=== PATIENT | female | born 1940 | race Caucasian/White ===

== ENCOUNTER 2022-02-25 12:42 | Inpatient (IN) | payer MEDICARE, OTHER ==
[2022-02-25] MEDS ORDERED: methylPREDNISolone SOD SUCCI 125 MG/2 ML VIAL IV STA (13:14)
[2022-02-25] MEDS ORDERED: SODIUM CHLORIDE 0.9% 1,000 ML IV STA ×2 (13:14)
[2022-02-25] MEDS ORDERED: IPRATROPIUM-ALBUTEROL 3 ML NEB INHALATION STA (13:14)
--- NOTE | 2022-02-25 13:19 | ED ---
URI HPI - General Chief Complaint: Upper Respiratory Infection Stated Complaint: COVID Time Seen by Provider: 02/25/22 13:06 Source: patient, EMS Mode of arrival: EMS Limitations: no limitations - History of Present Illness Initial Comments: This 81-year-old female presents with a complaint of difficulty in breathing cough. She relates that she was diagnosed with Covid 19 in the last couple of weeks. She was having some cough at that time. It got worse over the last 2 days. This is a nonproductive cough. She denies any fever or chest pain. She complains of significant weakness. She also thinks that she has a urinary tract infection. She has had significant frequency as well as dysuria. She has not been eating or drinking as much is normal. She states that it is difficult for here to even walk across the room. She was seen by her primary care this morning and sent to the ER for further evaluation and treatment. She does relate a history of COPD but does not utilize home oxygen and is treated with inhalers but not a nebulizer. She denies any other complaints or modifying factors. - Related Data Home Medications Medication Instructions Recorded Confirmed Albuterol Inhaler [Ventolin Hfa 2 puff INHALATION RT-Q4H PRN 02/17/22 02/17/22 Inhaler] Apixaban [Eliquis] 5 mg PO BID 02/17/22 02/17/22 Benzonatate 100 mg PO TID PRN 02/17/22 02/17/22 D3 Plus K2 Dots 1 tab PO DAILY 02/17/22 02/17/22 DULoxetine HCL [Cymbalta] 60 mg PO DAILY 02/17/22 02/17/22 LORazepam 0.5 mg PO TID PRN 02/17/22 02/17/22 Metoprolol Tartrate [Lopressor] 100 mg PO BID 02/17/22 02/17/22 Mirtazapine [Remeron] 15 mg PO HS 02/17/22 02/17/22 Nortriptyline [Pamelor] 25 mg PO TID 02/17/22 02/17/22 Pantoprazole Sodium [Protonix] 40 mg PO BID 02/17/22 02/17/22 Prochlorperazine [Compazine] 10 mg PO Q6H PRN 02/17/22 02/17/22 Promethazine [Phenergan] 25 mg PO Q6HR PRN 02/17/22 02/17/22 Simvastatin [Zocor] 40 mg PO HS 02/17/22 02/17/22 Solifenacin Succinate [Vesicare] 5 mg PO DAILY 02/17/22 02/17/22 Tiotropium Br/Olodaterol HCl 2 puff INHALATION RT-DAILY 02/17/22 02/17/22 [Stiolto Respimat Inhal [place]] Torsemide [Soaanz] 20 mg PO DAILY 02/17/22 02/17/22 Turmeric Root Extract [Turmeric] 500 mg PO DAILY 02/17/22 02/17/22 Vitamin [id number] 1 tab SUBLINGUAL DAILY 02/17/22 02/17/22 oxyCODONE HCL/ACETAMINOPHEN 1 tab PO Q6HR PRN 02/17/22 02/17/22 [Percocet 10-325 mg] rOPINIRole HCL [Requip] 2 mg PO BID 02/17/22 02/17/22 Previous Rx's Medication Instructions Recorded Azithromycin [Zithromax] 500 mg PO DAILY@1600 #4 tab 02/18/22 predniSONE [Deltasone] 40 mg PO DAILY 4 Days #8 tab 02/18/22 Allergies Allergy/AdvReac Type Severity Reaction Status Date / Time morphine Allergy Itching Verified 02/17/22 10:54 tizanidine [From Zanaflex] Allergy Unknown Verified 02/17/22 10:54 zolpidem [From Ambien] Allergy Unknown Verified 02/17/22 10:54 gabapentin AdvReac Hallucinati Verified 02/17/22 10:54 ons hydromorphone [From Dilaudid] AdvReac Hallucinati Verified 02/17/22 10:54 ons pentazocine [From Talwin] AdvReac Hallucinati Verified 02/17/22 10:54 ons pregabalin [From Lyrica] AdvReac Hallucinati Verified 02/17/22 10:54 ons Review of Systems ROS Statement: Those systems with pertinent positive or pertinent negative responses have been documented in the HPI. ROS Other: All systems not noted in ROS Statement are negative. Past Medical History Past Medical History: Atrial Fibrillation, Cancer, COPD, Hypertension Additional Past Medical History / Comment(s): breast cancer 2000 and bladder cancer History of Any Multi-Drug Resistant Organisms: None Reported Past Surgical History: Back Surgery, Cardiac Valve Replacement, Joint Replacement, Orthopedic Surgery, Pacemaker, Tonsillectomy, Tubal Ligation Additional Past Surgical History / Comment(s): bilat knees, rt shoulder repair, lung nodule removal Past Anesthesia/Blood Transfusion Reactions: No Reported Reaction Type of Cardiac Device: Unknown Device Placement Date:: 02/16/2017 Past Psychological History: No Psychological Hx Reported, Depression Smoking Status: Former smoker Past Alcohol Use History: Occasional Past Drug Use History: None Reported General Exam - General Exam Comments Initial Comments: GENERAL: The patient is well nourished and well hydrated. VITAL SIGNS: Heart rate, blood pressure, respiratory rate reviewed as recorded in nurse's notes. EYES: Pupils are round and reactive. Extraocular movements are intact. No conjun ctival / lid redness or swelling. ENT: No external evidence of injury, swelling, or ecchymosis. Airway is patent. Throat is clear. Dry mucous membranes. NECK: Nontender. No swelling or evidence of injury. No subcutaneous emphysema. Trachea is midline. No thyroid mass. HEART: Regular rate and rhythm. Good peripheral pulses. LUNGS/CHEST: Wheezing noted bilaterally, no current respiratory distress. ABDOMEN: Abdomen soft without tenderness. No palpable masses or organomegaly. No peritoneal signs. No abdominal wall swelling or ecchymosis. EXTREMITIES: No extremity tenderness. Normal muscle tone and function. No thoracolumbar tenderness. NEUROLOGIC: Sensation is grossly intact. Cranial nerve exam reveals face is symmetrical, tongue is midline, speech is clear. SKIN: No abrasions or ecchymosis is noted. No induration or masses noted. PSYCHIATRIC: Alert and oriented. Appropriate behavior and judgment. Limitations: no limitations Course Vital Signs 02/25/22 02/25/22 02/25/22 12:45 12:55 14:55 Temperature 98.5 F Pulse Rate 78 62 Respiratory 16 20 Rate Blood Pressure 91/59 O2 Sat by Pulse 96 Oximetry 02/25/22 15:16 Temperature Pulse Rate 64 Respiratory Rate Blood Pressure O2 Sat by Pulse Oximetry Medical Decision Making - Medical Decision Making The patient was seen and examined. All diagnostics are reviewed. The EKG shows evidence of an electronic ventricular pacemaker. There is no acute ST-T wave changes otherwise noted. The QRS duration is 146 and the QTC intervals 503. IV is established and patient is hydrated. The COVID-19 test came back positive. She also has evidence of urinary tract infection. She is given Rocephin intravenously. Her troponin came back mildly elevated as well but she is not experiencing any chest pain currently. She is given an aspirin. Her chest x-ray does not show any acute process. She also appears to be dehydrated. It is felt as though she would require admission for further treatment. She is agreeable. Her symptoms likely are both related to COVID-19 and urinary tract infection. The patient is weak to the point that she cannot ambulate on her own. Nurse states that she is extremely unsteady. Case is discussed with internal medicine and they're agreeable with admission. - Lab Data Result diagrams: 02/25/22 13:53 02/25/22 13:53 Lab Results 02/25/22 02/25/22 02/25/22 Range/Units 13:53 13:53 13:53 WBC 6.0 (3.8-10.6) k/uL RBC 6.03 H (3.80-5.40) m/uL Hgb 16.6 H D (11.4-16.0) gm/dL Hct 52.3 H (34.0-46.0) % MCV 86.7 (80.0-100.0) fL MCH 27.5 (25.0-35.0) pg MCHC 31.8 (31.0-37.0) g/dL RDW 17.4 H (11.5-15.5) % Plt Count 122 L (150-450) k/uL MPV 8.7 Neutrophils % 80 % Lymphocytes % 13 % Monocytes % 5 % Eosinophils % 1 % Basophils % 1 % Neutrophils # 4.8 (1.3-7.7) k/uL Lymphocytes # 0.8 L (1.0-4.8) k/uL Monocytes # 0.3 (0-1.0) k/uL Eosinophils # 0.1 (0-0.7) k/uL Basophils # 0.0 (0-0.2) k/uL Hypochromasia Marked Poikilocytosis Slight Anisocytosis Slight PT 10.9 (9.0-12.0) sec INR 1.0 (<1.2) APTT 23.6 (22.0-30.0) sec Sodium (137-145) mmol/L Potassium (3.5-5.1) mmol/L Chloride (98-107) mmol/L Carbon Dioxide (22-30) mmol/L Anion Gap mmol/L BUN (7-17) mg/dL Creatinine (0.52-1.04) mg/dL Est GFR (CKD-EPI)AfAm (>60 ml/min/1.73 sqM) Est GFR (CKD-EPI)NonAf (>60 ml/min/1.73 sqM) Glucose (74-99) mg/dL Plasma Lactic Acid Naseem (0.7-2.0) mmol/L Calcium (8.4-10.2) mg/dL Magnesium (1.6-2.3) mg/dL Total Bilirubin (0.2-1.3) mg/dL AST (14-36) U/L ALT (4-34) U/L Alkaline Phosphatase (38-126) U/L Troponin I (0.000-0.034) ng/mL NT-Pro-B Natriuret Pep pg/mL Total Protein (6.3-8.2) g/dL Albumin (3.5-5.0) g/dL Urine Color Colorless Urine Appearance Cloudy H (Clear) Urine pH 6.5 (5.0-8.0) Ur Specific [place] 1.008 (1.001-1.035) Urine Protein Negative (Negative) Urine Glucose (UA) Negative (Negative) Urine Ketones Negative (Negative) Urine Blood Negative (Negative) Urine Nitrite Negative (Negative) Urine Bilirubin Negative (Negative) Urine Urobilinogen <2.0 (<2.0) mg/dL Ur Leukocyte Esterase Large H (Negative) Urine RBC 2 (0-5) /hpf Urine WBC 169 H (0-5) /hpf Urine Mucus Rare H (None) /hpf Coronavirus (PCR) (Not Detectd) Influenza Type A RNA (Not Detectd) Influenza Type B (PCR) (Not Detectd) 02/25/22 02/25/22 02/25/22 Range/Units 13:53 13:53 13:53 WBC (3.8-10.6) k/uL RBC (3.80-5.40) m/uL Hgb (11.4-16.0) gm/dL Hct (34.0-46.0) % MCV (80.0-100.0) fL MCH (25.0-35.0) pg MCHC (31.0-37.0) g/dL RDW (11.5-15.5) % Plt Count (150-450) k/uL MPV Neutrophils % % Lymphocytes % % Monocytes % % Eosinophils % % Basophils % % Neutrophils # (1.3-7.7) k/uL Lymphocytes # (1.0-4.8) k/uL Monocytes # (0-1.0) k/uL Eosinophils # (0-0.7) k/uL Basophils # (0-0.2) k/uL Hypochromasia Poikilocytosis Anisocytosis PT (9.0-12.0) sec INR (<1.2) APTT (22.0-30.0) sec Sodium 137 (137-145) mmol/L Potassium 3.7 (3.5-5.1) mmol/L Chloride 94 L (98-107) mmol/L Carbon Dioxide 29 (22-30) mmol/L Anion Gap 14 mmol/L BUN 17 (7-17) mg/dL Creatinine 0.90 (0.52-1.04) mg/dL Est GFR (CKD-EPI)AfAm 70 (>60 ml/min/1.73 sqM) Est GFR (CKD-EPI)NonAf 61 (>60 ml/min/1.73 sqM) Glucose 116 H (74-99) mg/dL Plasma Lactic Acid Naseem 1.9 (0.7-2.0) mmol/L Calcium 8.7 (8.4-10.2) mg/dL Magnesium 1.5 L (1.6-2.3) mg/dL Total Bilirubin 0.8 (0.2-1.3) mg/dL AST 44 H (14-36) U/L ALT 32 (4-34) U/L Alkaline Phosphatase 83 (38-126) U/L Troponin I 0.039 H* (0.000-0.034) ng/mL NT-Pro-B Natriuret Pep pg/mL Total Protein 6.9 (6.3-8.2) g/dL Albumin 4.4 (3.5-5.0) g/dL Urine Color Urine Appearance (Clear) Urine pH (5.0-8.0) Ur Specific [place] (1.001-1.035) Urine Protein (Negative) Urine Glucose (UA) (Negative) Urine Ketones (Negative) Urine Blood (Negative) Urine Nitrite (Negative) Urine Bilirubin (Negative) Urine Urobilinogen (<2.0) mg/dL Ur Leukocyte Esterase (Negative) Urine RBC (0-5) /hpf Urine WBC (0-5) /hpf Urine Mucus (None) /hpf Coronavirus (PCR) (Not Detectd) Influenza Type A RNA (Not Detectd) Influenza Type B (PCR) (Not Detectd) 02/25/22 02/25/22 02/25/22 Range/Units 13:53 14:49 14:49 WBC (3.8-10.6) k/uL RBC (3.80-5.40) m/uL Hgb (11.4-16.0) gm/dL Hct (34.0-46.0) % MCV (80.0-100.0) fL MCH (25.0-35.0) pg MCHC (31.0-37.0) g/dL RDW (11.5-15.5) % Plt Count (150-450) k/uL MPV Neutrophils % % Lymphocytes % % Monocytes % % Eosinophils % % Basophils % % Neutrophils # (1.3-7.7) k/uL Lymphocytes # (1.0-4.8) k/uL Monocytes # (0-1.0) k/uL Eosinophils # (0-0.7) k/uL Basophils # (0-0.2) k/uL Hypochromasia Poikilocytosis Anisocytosis PT (9.0-12.0) sec INR (<1.2) APTT (22.0-30.0) sec Sodium (137-145) mmol/L Potassium (3.5-5.1) mmol/L Chloride (98-107) mmol/L Carbon Dioxide (22-30) mmol/L Anion Gap mmol/L BUN (7-17) mg/dL Creatinine (0.52-1.04) mg/dL Est GFR (CKD-EPI)AfAm (>60 ml/min/1.73 sqM) Est GFR (CKD-EPI)NonAf (>60 ml/min/1.73 sqM) Glucose (74-99) mg/dL Plasma Lactic Acid Naseem (0.7-2.0) mmol/L Calcium (8.4-10.2) mg/dL Magnesium (1.6-2.3) mg/dL Total Bilirubin (0.2-1.3) mg/dL AST (14-36) U/L ALT (4-34) U/L Alkaline Phosphatase (38-126) U/L Troponin I (0.000-0.034) ng/mL NT-Pro-B Natriuret Pep 1560 pg/mL Total Protein (6.3-8.2) g/dL Albumin (3.5-5.0) g/dL Urine Color Urine Appearance (Clear) Urine pH (5.0-8.0) Ur Specific [place] (1.001-1.035) Urine Protein (Negative) Urine Glucose (UA) (Negative) Urine Ketones (Negative) Urine Blood (Negative) Urine Nitrite (Negative) Urine Bilirubin (Negative) Urine Urobilinogen (<2.0) mg/dL Ur Leukocyte Esterase (Negative) Urine RBC (0-5) /hpf Urine WBC (0-5) /hpf Urine Mucus (None) /hpf Coronavirus (PCR) Detected A (Not Detectd) Influenza Type A RNA Not Detected (Not Detectd) Influenza Type B (PCR) Not Detected (Not Detectd) Disposition Clinical Impression: COVID-19, UTI (urinary tract infection), Weakness, Dehydration, Inability to walk Disposition: ADMITTED IP TO THIS HOSP Condition: Fair Is patient prescribed a controlled substance at d/c from ED?: No Time of Disposition: 15:17 Decision Date: 02/25/22 Decision Time: 15:17
--- NOTE | 2022-02-25 14:43 | XR ---
EXAMINATION TYPE: XR chest 2V DATE OF EXAM: 02/25/2022 COMPARISON: 02/17/2022 HISTORY: 81 year-old female shortness of breath, difficulty breathing. TECHNIQUE: AP and lateral views FINDINGS: Left anterior chest wall pacemaker generator with internal leads. Heart borderline enlarged. Tortuous /ectatic thoracic aorta. Interstitial prominence is unchanged. ACDF hardware. The visualized posterio r lumbar fusion hardware. No consolidation or pleural effusion. Surgical clips left axilla. IMPRESSION: Borderline heart size. Chronic changes. No acute process seen.
[2022-02-25 14:49] LABS: Partial Thromboplastin Time 23.6 sec (22.0-30.0); Prothrombin Time 10.9 sec (9.0-12.0)
[2022-02-25 14:50] LABS: Albumin 4.4 g/dL (3.5-5.0); Calcium 8.7 mg/dL (8.4-10.2); Magnesium 1.5 mg/dL (1.6-2.3); Potassium 3.7 mmol/L (3.5-5.1); Total Bilirubin 0.8 mg/dL (0.2-1.3); Total Protein 6.9 g/dL (6.3-8.2)
[2022-02-25 14:58] LABS: Appearance,Urine Cloudy (Clear); Bilirubin,Urine Negative (Negative); Blood,Urine Negative (Negative); Color,Urine Colorless; Glucose,Urine (UA) Negative (Negative); Ketones,Urine Negative (Negative); Leukocyte Esterase,Urine Large (Negative); Mucus,Urine Rare /hpf; Nitrite,Urine Negative (Negative); PH, Urine 6.5 (5.0-8.0); Protein,Urine Negative (Negative); RBC,Urine 2 /hpf (0-5); Specific Gravity,Urine 1.008 (1.001-1.035); Urobilinogen,Urine <2.0 mg/dL (<2.0); WBC,Urine 169 /hpf (0-5)
[2022-02-25 15:15] LABS: Anisocytosis Slight; Basophils % (A) 1 %; Eosinophils # (A) 0.1 k/uL (0-0.7); Eosinophils % (A) 1 %; HCT 52.3 % (34.0-46.0); Hypochromasia Marked; Lymphocytes # (A) 0.8 k/uL (1.0-4.8); Lymphocytes % (A) 13 %; MCH 27.5 pg (25.0-35.0); MCHC 31.8 g/dL (31.0-37.0); MCV 86.7 fL (80.0-100.0); Mean Platelet Volume 8.7; Monocytes # (A) 0.3 k/uL (0-1.0); Monocytes % (A) 5 %; Neutrophils # (A) 4.8 k/uL (1.3-7.7); Neutrophils % (A) 80 %; Platelet Count 122 k/uL (150-450); Poikilocytosis Slight; RBC 6.03 m/uL (3.80-5.40); RDW 17.4 % (11.5-15.5)
[2022-02-25 15:18] LABS: HGB 16.6 gm/dL (11.4-16.0)
[2022-02-25] MEDS ORDERED: NALOXONE 0.4 MG/ML 1 ML VIAL IV PRN (15:27)
[2022-02-25] MEDS ORDERED: ACETAMINOPHEN TAB 325 MG TAB PO PRN (15:27)
[2022-02-25] MEDS ORDERED: ONDANSETRON 4 MG/2 ML VIAL IVP PRN (15:27)
[2022-02-25] MEDS ORDERED: oxyCODONE-APAP 10-325MG 1 EACH TAB PO STA (15:30)
[2022-02-25] MEDS ORDERED: SODIUM CHLORIDE 0.9% 1,000 ML IV SCH (15:30)
[2022-02-25] MEDS ORDERED: ASPIRIN 81 MG PO STA (15:31)
[2022-02-25] MEDS ORDERED: PROCHLORPERAZINE 10 MG TAB PO PRN (15:41)
[2022-02-25] MEDS ORDERED: BENZONATATE 100 MG CAP PO PRN (15:41)
[2022-02-25] MEDS ORDERED: ALBUTEROL HFA INHALER INHALATION PRN ×2 (15:41→15:52)
[2022-02-25] MEDS ORDERED: PROMETHAZINE 25 MG TAB PO PRN (15:41)
[2022-02-25] MEDS: NORTRIPTYLINE 25 MG CAP PO SCH ×2 (16:41→21:57)
[2022-02-25] MEDS ORDERED: IPRATROPIUM-ALBUTEROL 3 ML NEB INHALATION PRN (16:51)
--- NOTE | 2022-02-25 17:02 | P.HPIM ---
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 She was recently diagnosed with COVID-19 on 02/17/2022. She was recently admitted on February 17 and discharged on February 18. Patient states that she was initially doing well when she went home. Over the next couple of days, she started to experience worsening shortness of breath with exertion along with lightheadedness when standing up. She reports a nonproductive cough. She also reports suprapubic discomfort and dysuria. She denies any headache, lower extremity edema, nausea vomiting, fever or chills, chest pain, palpitations, changes in bowel habits. No changes in appetite or weight. She denies any numbness/weakness/tingling of the extremities. In the ED, she was noted to be hypotensive BP of 91/59. Vital signs were otherwise stable. CBC showed hemoglobin of 16.6 and platelet count 122. CMP showed chloride of 94 and glucose of 116, magnesium 1.5, AST of 44. Coagulation panel negative. Troponin was 0.039, EKG showing electronic ventricular pacemaker rhythm chest x-ray showed cardiomegaly with no acute process. BNP was 1560. Urinalysis showed large leukocyte esterase. COVID-19 positive. Flu negative. Review of systems is performed and is negative except above. General: non toxic, mild distress, appears at stated age, appears dyspnea Derm: warm, dry Head: atraumatic, normocephalic, symmetric Eyes: EOMI, no lid lag, anicteric sclera Mouth: no lip lesion, mucus membranes moist Cardiovascular: S1S2 reg, no murmur, positive posterior tibial pulse bilateral, Lungs: Diffuse wheezing bilateral, no rhonchi, no rales , no accessory muscle use Abdominal: soft, nontender to palpation, no guarding, no appreciable organomegaly Ext: no gross muscle atrophy, no edema, no contractures Neuro: CN II-XI grossly intact, no focal neuro deficits Psych: Alert, oriented, appropriate affect #Generalized weakness and debility #COPD exacerbation #COVID-19 pneumonia #Urinary tract infection #Troponin elevation #Hypotension and Dehydration #Hypomagnesemia #Elevated AST #Obesity Chronic conditions: History of paroxysmal atrial fibrillation, History of complete heart block with dual-chamber pacemaker, Restless leg syndrome, depression PT and OT will be consulted to work with this patient. Fall precautions. Patient will be started on DuoNeb scheduled and is here for shortness of breath and wheezing. Start Solu-Medrol. Telemetry monitoring. Supplemental O2 to maintain O2 saturation greater than 92%. Droplet precaution. Start Rocephin for treatment and UTI. Follow urine and blood cultures. Trend troponin/EKG to rule out ACS. Obtain echocardiogram. Continue aspirin and Lipitor. Continue metoprolol. Start normal saline at 75 mL per hour. Obtain orthostatic vitals. Vital signs every 4 hours. Magnesium sulfate 4 gram IV today. Repeating magnesium level tomorrow. Patient will benefit from a structured weight loss program. Continue beta katherine and Eliquis for history of atrial fibrillation. Continue Requip for history of RLS. Restart Cymbalta and Remeron for history of depression. DVT prophylaxis: Arlettequzehra Discussed with: Patient, ED physician Anticipated discharge: 2-[address]: Home versus long term facility A total of 35 minutes was spent on the care of this complex patient more than 50% of the time was spent in counseling and care coordination. Patient names her decision maker if she can't make decisions for herself. Patient would like to be full code. Past Medical History Past Medical History: Atrial Fibrillation, Cancer, COPD, Hypertension Additional Past Medical History / Comment(s): breast cancer 2000 and bladder cancer History of Any Multi-Drug Resistant Organisms: None Reported Past Surgical History: Back Surgery, Cardiac Valve Replacement, Joint Replacement, Orthopedic Surgery, Pacemaker, Tonsillectomy, Tubal Ligation Additional Past Surgical History / Comment(s): bilat knees, rt shoulder repair, lung nodule removal Past Anesthesia/Blood Transfusion Reactions: No Reported Reaction Type of Cardiac Device: Unknown Device Placement Date:: 02/16/2017 Past Psychological History: No Psychological Hx Reported, Depression Smoking Status: Former smoker Past Alcohol Use History: Occasional Past Drug Use History: None Reported Medications and Allergies Home Medications Medication Instructions Recorded Confirmed Type Albuterol Inhaler [Ventolin Hfa 2 puff INHALATION RT-Q4H PRN 02/17/22 02/25/22 History Inhaler] Apixaban [Eliquis] 5 mg PO BID 02/17/22 02/25/22 History Benzonatate 100 mg PO TID PRN 02/17/22 02/25/22 History D3 Plus K2 Dots 1 tab PO DAILY 02/17/22 02/25/22 History DULoxetine HCL [Cymbalta] 60 mg PO DAILY 02/17/22 02/25/22 History LORazepam 0.5 mg PO TID PRN 02/17/22 02/25/22 History Metoprolol Tartrate [Lopressor] 100 mg PO BID 02/17/22 02/25/22 History Mirtazapine [Remeron] 15 mg PO HS 02/17/22 02/25/22 History Nortriptyline [Pamelor] 25 mg PO TID 02/17/22 02/25/22 History Pantoprazole Sodium [Protonix] 40 mg PO BID 02/17/22 02/25/22 History Prochlorperazine [Compazine] 10 mg PO Q6H PRN 02/17/22 02/25/22 History Promethazine [Phenergan] 25 mg PO Q6HR PRN 02/17/22 02/25/22 History Simvastatin [Zocor] 40 mg PO HS 02/17/22 02/25/22 History Solifenacin Succinate [Vesicare] 5 mg PO DAILY 02/17/22 02/25/22 History Tiotropium Br/Olodaterol HCl 2 puff INHALATION RT-DAILY 02/17/22 02/25/22 History [Stiolto Respimat Inhal [place]] Torsemide [Soaanz] 20 mg PO DAILY 02/17/22 02/25/22 History Turmeric Root Extract [Turmeric] 500 mg PO DAILY 02/17/22 02/25/22 History Vitamin [id number] 1 tab SUBLINGUAL DAILY 02/17/22 02/25/22 History oxyCODONE HCL/ACETAMINOPHEN 1 tab PO Q6HR PRN 02/17/22 02/25/22 History [Percocet 10-325 mg] rOPINIRole HCL [Requip] 2 mg PO BID 02/17/22 02/25/22 History Allergies Allergy/AdvReac Type Severity Reaction Status Date / Time morphine Allergy Itching Verified 02/17/22 10:54 tizanidine [From Zanaflex] Allergy Unknown Verified 02/17/22 10:54 zolpidem [From Ambien] Allergy Unknown Verified 02/17/22 10:54 gabapentin AdvReac Hallucinati Verified 02/17/22 10:54 ons hydromorphone [From Dilaudid] AdvReac Hallucinati Verified 02/17/22 10:54 ons pentazocine [From Talwin] AdvReac Hallucinati Verified 02/17/22 10:54 ons pregabalin [From Lyrica] AdvReac Hallucinati Verified 02/17/22 10:54 ons Physical Exam Vitals: Vital Signs Temp Pulse Resp BP Pulse Ox 02/25/22 16:57 97.7 F 63 16 125/58 94 L 02/25/22 15:16 64 02/25/22 14:55 62 02/25/22 12:55 20 02/25/22 12:45 98.5 F 78 16 91/59 96 Intake and Output 02/25/22 02/25/22 02/25/22 06:59 14:59 22:59 Other: Weight 68.039 kg Results CBC & Chem 7: 02/25/22 13:53 02/25/22 13:53 Labs: Abnormal Lab Results - Last 24 Hours (Table) 02/25/22 02/25/22 02/25/22 Range/Units 13:53 13:53 13:53 RBC 6.03 H (3.80-5.40) m/uL Hgb 16.6 H D (11.4-16.0) gm/dL Hct 52.3 H (34.0-46.0) % RDW 17.4 H (11.5-15.5) % Plt Count 122 L (150-450) k/uL Lymphocytes # 0.8 L (1.0-4.8) k/uL Chloride 94 L (98-107) mmol/L Glucose 116 H (74-99) mg/dL Magnesium 1.5 L (1.6-2.3) mg/dL AST 44 H (14-36) U/L Troponin I (0.000-0.034) ng/mL Urine Appearance Cloudy H (Clear) Ur Leukocyte Esterase Large H (Negative) Urine WBC 169 H (0-5) /hpf Urine Mucus Rare H (None) /hpf Coronavirus (PCR) (Not Detectd) 02/25/22 02/25/22 Range/Units 13:53 14:49 RBC (3.80-5.40) m/uL Hgb (11.4-16.0) gm/dL Hct (34.0-46.0) % RDW (11.5-15.5) % Plt Count (150-450) k/uL Lymphocytes # (1.0-4.8) k/uL Chloride (98-107) mmol/L Glucose (74-99) mg/dL Magnesium (1.6-2.3) mg/dL AST (14-36) U/L Troponin I 0.039 H* (0.000-0.034) ng/mL Urine Appearance (Clear) Ur Leukocyte Esterase (Negative) Urine WBC (0-5) /hpf Urine Mucus (None) /hpf Coronavirus (PCR) Detected A (Not Detectd)
[2022-02-25 18:36] LABS: Glucose,Whole Blood 305 mg/dL (70-110)
[2022-02-25] MEDS ORDERED: INSULIN ASPART (NovoLOG) 100 UNIT/ML VIAL SQ ONE (18:43)
[2022-02-25] MEDS: MAGNESIUM SULFATE-D5W PMX 1 GM in DEXTROSE/WATER 1 100ML.BAG IVPB SCH ×2 (18:55→21:56)
[2022-02-25] MEDS: methylPREDNISolone SOD SUCCI 40 MG/ML 1 ML VIAL IV SCH (19:06)
[2022-02-25] MEDS: ALBUTEROL HFA INHALER INHALATION SCH (19:41)
[2022-02-25] MEDS ORDERED: IPRATROPIUM-ALBUTEROL 3 ML NEB INHALATION SCH (20:00)
[2022-02-25 21:43] LABS: Glucose,Whole Blood 297 mg/dL (70-110)
[2022-02-25] MEDS: INSULIN ASPART (NovoLOG) 100 UNIT/ML VIAL SQ SCH (21:57)
[2022-02-25] MEDS: APIXABAN 5 MG TAB PO SCH (21:57)
[2022-02-25] MEDS: METOPROLOL TARTRATE 50 MG TAB PO SCH (21:57)
[2022-02-25] MEDS: MIRTAZAPINE 15 MG TAB PO SCH (21:57)
[2022-02-25] MEDS: ATORVASTATIN 20 MG TAB PO SCH (21:57)
[2022-02-25] MEDS: oxyCODONE-APAP 10-325MG 1 EACH TAB PO PRN (22:12)
[2022-02-25] MEDS: LORazepam 0.5 MG TAB PO PRN (22:44)
[2022-02-26] MEDS: methylPREDNISolone SOD SUCCI 40 MG/ML 1 ML VIAL IV SCH ×4 (00:05→16:48)
[2022-02-26] MEDS: MAGNESIUM SULFATE-D5W PMX 1 GM in DEXTROSE/WATER 1 100ML.BAG IVPB SCH ×2 (01:31)
[2022-02-26] MEDS: oxyCODONE-APAP 10-325MG 1 EACH TAB PO PRN ×3 (03:58→21:18)
[2022-02-26 05:49] LABS: Glucose,Whole Blood 216 mg/dL (70-110)
[2022-02-26] MEDS: INSULIN ASPART (NovoLOG) 100 UNIT/ML VIAL SQ SCH ×4 (06:12→20:18)
[2022-02-26] MEDS: PANTOPRAZOLE 40 MG TABLET PO SCH (06:12)
[2022-02-26] MEDS: ALBUTEROL HFA INHALER INHALATION SCH ×4 (08:01→19:24)
[2022-02-26] MEDS: TIOTROPIUM 2.5 MCG INHALER INHALATION SCH (08:01)
[2022-02-26] MEDS: Salmeterol 50 mcg INHALER INHALATION SCH ×2 (08:11→19:23)
[2022-02-26] MEDS ORDERED: [UNRECOGNIZED DRUG - OTHER] PO SCH (09:00)
[2022-02-26] MEDS ORDERED: NON FORMULARY DRUG (Turmeric Root Extract [Turmeric] 500 MG Tablet) PO SCH (09:00)
[2022-02-26] MEDS ORDERED: ENOXAPARIN 40 MG/0.4 ML SYRINGE SQ SCH (09:00)
[2022-02-26] MEDS: TROSPIUM CHLORIDE 20 MG TABLET PO SCH (09:28)
[2022-02-26] MEDS: APIXABAN 5 MG TAB PO SCH ×2 (09:28→20:18)
[2022-02-26] MEDS: ASPIRIN 325 MG TAB PO SCH (09:28)
[2022-02-26] MEDS: NORTRIPTYLINE 25 MG CAP PO SCH ×3 (09:28→21:19)
[2022-02-26] MEDS: METOPROLOL TARTRATE 50 MG TAB PO SCH ×2 (09:28→20:18)
[2022-02-26] MEDS: DULoxetine HCL 60 MG CAPSULE.DR PO SCH (09:28)
[2022-02-26] MEDS: TORSEMIDE 20 MG TAB PO SCH (09:28)
[2022-02-26 09:57] LABS: Anisocytosis Slight; Basophils % (A) 0 %; Eosinophils % (A) 0 %; HCT 35.3 % (34.0-46.0); Hypochromasia Marked; Lymphocytes # (A) 0.6 k/uL (1.0-4.8); Lymphocytes % (A) 7 %; MCH 27.7 pg (25.0-35.0); MCHC 31.5 g/dL (31.0-37.0); MCV 87.9 fL (80.0-100.0); Mean Platelet Volume 8.3; Monocytes # (A) 0.2 k/uL (0-1.0); Monocytes % (A) 3 %; Neutrophils # (A) 8.1 k/uL (1.3-7.7); Neutrophils % (A) 90 %; Platelet Count 225 k/uL (150-450); RBC 4.01 m/uL (3.80-5.40); WBC 9.1 k/uL (3.8-10.6)
[2022-02-26 10:08] LABS: Calcium 8.2 mg/dL (8.4-10.2); Magnesium 2.4 mg/dL (1.6-2.3); Potassium 4.1 mmol/L (3.5-5.1)
[2022-02-26] MEDS: [UNRECOGNIZED DRUG - OTHER] SUBLINGUAL SCH (10:09)
[2022-02-26 10:11] LABS: HGB 11.1 gm/dL (11.4-16.0)
[2022-02-26 11:39] LABS: Glucose,Whole Blood 263 mg/dL (70-110)
--- NOTE | 2022-02-26 12:39 | P.PN ---
Subjective Progress Note Date: 02/26/22 Patient was seen and examined. No acute events overnight. Patient reports continued cough and shortness of breath. She reports continued weakness. General: non toxic, mild distress, appears at stated age, appears dyspnea Derm: warm, dry Head: atraumatic, normocephalic, symmetric Eyes: EOMI, no lid lag, anicteric sclera Mouth: no lip lesion, mucus membranes moist Cardiovascular: S1S2 reg, no murmur, positive posterior tibial pulse bilateral, Lungs: Diffuse wheezing bilateral, no rhonchi, no rales , no accessory muscle use Abdominal: soft, nontender to palpation, no guarding, no appreciable organo megaly Ext: no gross muscle atrophy, no edema, no contractures Neuro: no focal neuro deficits Psych: Alert, oriented, appropriate affect #Generalized weakness and debility #COPD exacerbation #COVID-19 pneumonia #Urinary tract infection #Troponin elevation #Hypotension and Dehydration #Elevated AST #Obesity Resolved: Hypomagnesemia Chronic conditions: History of paroxysmal atrial fibrillation, History of complete heart block with dual-chamber pacemaker, Restless leg syndrome, depression PT and OT will be consulted to work with this patient. Fall precautions. Patient will be started on DuoNeb scheduled and is here for shortness of breath and wheezing. Continue Solu-Medrol. Telemetry monitoring. Supplemental O2 to maintain O2 saturation greater than 92%. Droplet precaution. Start Rocephin for treatment and UTI. Follow urine and blood cultures. ACS ruled out. Obtain echocardiogram. Continue aspirin and Lipitor. Continue metoprolol. Continue normal saline at 75 mL per hour. Obtain orthostatic vitals. Vital signs every 4 hours. Patient will benefit from a structured weight loss program. Continue beta katherine and Eliquis for history of atrial fibrillation. Continue Requip for history of RLS. Restart Cymbalta and Remeron for history of depression. DVT prophylaxis: Eliquis Discussed with: Patient Anticipated discharge: 2-[address]: Home versus assisted facility Objective - Vital Signs Vital signs: Vital Signs Temp 98.0 F 02/26/22 09:26 Pulse 70 02/26/22 09:26 Resp 18 02/26/22 09:26 BP 145/70 02/26/22 09:26 Pulse Ox 97 02/26/22 09:26 FiO2 Intake & Output 02/25/22 02/26/22 02/26/22 18:59 06:59 18:59 Weight 68.039 kg Other: Voiding Method Toilet Toilet # Voids 1 1 - Labs CBC & Chem 7: 02/26/22 09:33 02/26/22 09:33 Labs: Abnormal Lab Results - Last 24 Hours (Table) 02/25/22 02/25/22 02/25/22 Range/Units 13:53 13:53 13:53 RBC 6.03 H (3.80-5.40) m/uL Hgb 16.6 H D (11.4-16.0) gm/dL Hct 52.3 H (34.0-46.0) % RDW 17.4 H (11.5-15.5) % Plt Count 122 L (150-450) k/uL Neutrophils # (1.3-7.7) k/uL Lymphocytes # 0.8 L (1.0-4.8) k/uL Sodium (137-145) mmol/L Chloride 94 L (98-107) mmol/L BUN (7-17) mg/dL Glucose 116 H (74-99) mg/dL POC Glucose (mg/dL) (70-110) mg/dL Calcium (8.4-10.2) mg/dL Magnesium 1.5 L (1.6-2.3) mg/dL AST 44 H (14-36) U/L Troponin I (0.000-0.034) ng/mL Urine Appearance Cloudy H (Clear) Ur Leukocyte Esterase Large H (Negative) Urine WBC 169 H (0-5) /hpf Urine Mucus Rare H (None) /hpf Coronavirus (PCR) (Not Detectd) 02/25/22 02/25/22 02/25/22 Range/Units 13:53 14:49 18:35 RBC (3.80-5.40) m/uL Hgb (11.4-16.0) gm/dL Hct (34.0-46.0) % RDW (11.5-15.5) % Plt Count (150-450) k/uL Neutrophils # (1.3-7.7) k/uL Lymphocytes # (1.0-4.8) k/uL Sodium (137-145) mmol/L Chloride (98-107) mmol/L BUN (7-17) mg/dL Glucose (74-99) mg/dL POC Glucose (mg/dL) 305 H (70-110) mg/dL Calcium (8.4-10.2) mg/dL Magnesium (1.6-2.3) mg/dL AST (14-36) U/L Troponin I 0.039 H* (0.000-0.034) ng/mL Urine Appearance (Clear) Ur Leukocyte Esterase (Negative) Urine WBC (0-5) /hpf Urine Mucus (None) /hpf Coronavirus (PCR) Detected A (Not Detectd) 02/25/22 02/26/22 02/26/22 Range/Units 21:41 05:48 09:33 RBC (3.80-5.40) m/uL Hgb 11.1 L D (11.4-16.0) gm/dL Hct (34.0-46.0) % RDW 17.0 H (11.5-15.5) % Plt Count (150-450) k/uL Neutrophils # 8.1 H (1.3-7.7) k/uL Lymphocytes # 0.6 L (1.0-4.8) k/uL Sodium (137-145) mmol/L Chloride (98-107) mmol/L BUN (7-17) mg/dL Glucose (74-99) mg/dL POC Glucose (mg/dL) 297 H 216 H (70-110) mg/dL Calcium (8.4-10.2) mg/dL Magnesium (1.6-2.3) mg/dL AST (14-36) U/L Troponin I (0.000-0.034) ng/mL Urine Appearance (Clear) Ur Leukocyte Esterase (Negative) Urine WBC (0-5) /hpf Urine Mucus (None) /hpf Coronavirus (PCR) (Not Detectd) 02/26/22 02/26/22 Range/Units 09:33 11:36 RBC (3.80-5.40) m/uL Hgb (11.4-16.0) gm/dL Hct (34.0-46.0) % RDW (11.5-15.5) % Plt Count (150-450) k/uL Neutrophils # (1.3-7.7) k/uL Lymphocytes # (1.0-4.8) k/uL Sodium 133 L (137-145) mmol/L Chloride 94 L (98-107) mmol/L BUN 20 H (7-17) mg/dL Glucose 175 H (74-99) mg/dL POC Glucose (mg/dL) 263 H (70-110) mg/dL Calcium 8.2 L (8.4-10.2) mg/dL Magnesium 2.4 H (1.6-2.3) mg/dL AST (14-36) U/L Troponin I (0.000-0.034) ng/mL Urine Appearance (Clear) Ur Leukocyte Esterase (Negative) Urine WBC (0-5) /hpf Urine Mucus (None) /hpf Coronavirus (PCR) (Not Detectd) Microbiology - Last 24 Hours (Table) 02/25/22 13:53 Urine Culture - Preliminary Urine,Clean Catch
--- NOTE | 2022-02-26 12:58 | P.CRDCN ---
History of Present Illness Consult date: 02/26/22 Reason for Consult (text): Elevated troponin History of present illness: The patient is an 81-year-old female with past medical history of multiple comorbid conditions and who follows in the office with Dr. Ibarra. She presented to the hospital with worsening shortness of breath. She was diagnosed with COVID-19 on 02/17/2022 and was hospitalized around that time. On arrival she was hypotensive and was admitted for rehydration. Cardiology has been consulted for abnormal troponin. DIAGNOSTICS: EKG shows paced rhythm Chest x-ray shows no acute cardiopulmonary disease PAST MEDICAL HISTORY: Atrial fibrillation, permanent pacemaker, hypertension, valvular heart disease, COPD, former smoker REVIEW OF SYSTEMS: No fever or chills. No cough or expectoration. No diaphoresis. Patient denies headache, dizziness, blurred vision, double vision. Patient denies any stomach discomfort. No nausea, vomiting. No hematochezia. No hematemesis. Denies any black stools or blood in his stools. Denies dysuria or hematuria. No numbness. No chest pain or chest pressure. Positive for weakness and fatigue. Positive for shortness of breath PHYSICAL EXAMINATION: Limited exam secondary to COVID-19 pandemic FINAL ASSESSMENT AND PLAN: Abnormal troponin, unclear significance, downtrend Acute COVID-19 infection COPD exacerbation Urinary tract infection Dehydration PLAN: Hold diuretics at this time Resume metoprolol and anticoagulation Continue supportive treatment No further recommendations from the cardiac standpoint I am dictating on behalf of Dr Camden Brown's history/physical and assessment/plan. Past Medical History Past Medical History: Atrial Fibrillation, Cancer, COPD, Hypertension Additional Past Medical History / Comment(s): breast cancer 2000 and bladder ca ncer , carpletunn History of Any Multi-Drug Resistant Organisms: None Reported Past Surgical History: Back Surgery, Cardiac Valve Replacement, Joint Replacement, Orthopedic Surgery, Pacemaker, Tonsillectomy, Tubal Ligation Additional Past Surgical History / Comment(s): bilat knees, rt shoulder repair, lung nodule removal, both carotids repaired (occluded) Past Anesthesia/Blood Transfusion Reactions: No Reported Reaction Type of Cardiac Device: Permanent Pacemaker Device Placement Date:: 02/16/2017 Past Psychological History: Anxiety, Depression Smoking Status: Former smoker Past Alcohol Use History: Occasional Past Drug Use History: None Reported Medications and Allergies Home Medications Medication Instructions Recorded Confirmed Type Albuterol Inhaler [Ventolin Hfa 2 puff INHALATION RT-Q4H PRN 02/17/22 02/25/22 History Inhaler] Apixaban [Eliquis] 5 mg PO BID 02/17/22 02/25/22 History Benzonatate 100 mg PO TID PRN 02/17/22 02/25/22 History D3 Plus K2 Dots 1 tab PO DAILY 02/17/22 02/25/22 History DULoxetine HCL [Cymbalta] 60 mg PO DAILY 02/17/22 02/25/22 History LORazepam 0.5 mg PO TID PRN 02/17/22 02/25/22 History Metoprolol Tartrate [Lopressor] 100 mg PO BID 02/17/22 02/25/22 History Mirtazapine [Remeron] 15 mg PO HS 02/17/22 02/25/22 History Nortriptyline [Pamelor] 25 mg PO TID 02/17/22 02/25/22 History Pantoprazole Sodium [Protonix] 40 mg PO BID 02/17/22 02/25/22 History Prochlorperazine [Compazine] 10 mg PO Q6H PRN 02/17/22 02/25/22 History Promethazine [Phenergan] 25 mg PO Q6HR PRN 02/17/22 02/25/22 History Simvastatin [Zocor] 40 mg PO HS 02/17/22 02/25/22 History Solifenacin Succinate [Vesicare] 5 mg PO DAILY 02/17/22 02/25/22 History Tiotropium Br/Olodaterol HCl 2 puff INHALATION RT-DAILY 02/17/22 02/25/22 History [Stiolto Respimat Inhal [place]] Torsemide [Soaanz] 20 mg PO DAILY 02/17/22 02/25/22 History Turmeric Root Extract [Turmeric] 500 mg PO DAILY 02/17/22 02/25/22 History Vitamin T14-[id number] 1 tab SUBLINGUAL DAILY 02/17/22 02/25/22 History oxyCODONE HCL/ACETAMINOPHEN 1 tab PO Q6HR PRN 02/17/22 02/25/22 History [Percocet 10-325 mg] rOPINIRole HCL [Requip] 2 mg PO BID 02/17/22 02/25/22 History Allergies Allergy/AdvReac Type Severity Reaction Status Date / Time morphine Allergy Itching Verified 02/17/22 10:54 tizanidine [From Zanaflex] Allergy Unknown Verified 02/17/22 10:54 zolpidem [From Ambien] Allergy Unknown Verified 02/17/22 10:54 gabapentin AdvReac Hallucinati Verified 02/17/22 10:54 ons hydromorphone [From Dilaudid] AdvReac Hallucinati Verified 02/17/22 10:54 ons pentazocine [From Talwin] AdvReac Hallucinati Verified 02/17/22 10:54 ons pregabalin [From Lyrica] AdvReac Hallucinati Verified 02/17/22 10:54 ons Physical Exam Vitals: Vital Signs Temp Pulse Pulse Resp BP BP Pulse Ox 02/26/22 09:26 98.0 F 70 18 145/70 97 02/26/22 04:00 97.7 F 66 18 133/68 93 L 02/26/22 03:10 66 18 02/26/22 01:46 66 18 02/25/22 23:56 97.5 F L 66 18 117/73 95 02/25/22 20:00 66 18 02/25/22 18:25 98.5 F 61 18 121/69 94 L 02/25/22 16:57 97.7 F 63 16 125/58 94 L 02/25/22 15:16 64 02/25/22 14:55 62 02/25/22 12:55 20 Intake and Output 02/25/22 02/26/22 02/26/22 22:59 06:59 14:59 Other: Voiding Method Toilet Toilet Toilet # Voids 1 1 Weight 68.039 kg Results 02/26/22 09:33 02/26/22 09:33 Cardiac Enzymes 02/25/22 02/25/22 02/25/22 Range/Units 13:53 13:53 18:22 AST 44 H (14-36) U/L Troponin I 0.039 H* 0.025 (0.000-0.034) ng/mL 02/25/22 Range/Units 21:36 AST (14-36) U/L Troponin I 0.017 (0.000-0.034) ng/mL Coagulation 02/25/22 Range/Units 13:53 PT 10.9 (9.0-12.0) sec APTT 23.6 (22.0-30.0) sec CBC 02/25/22 02/26/22 Range/Units 13:53 09:33 WBC 6.0 9.1 (3.8-10.6) k/uL RBC 6.03 H 4.01 (3.80-5.40) m/uL Hgb 16.6 H D 11.1 L D (11.4-16.0) gm/dL Hct 52.3 H 35.3 (34.0-46.0) % Plt Count 122 L 225 (150-450) k/uL Comprehensive Metabolic Panel 02/25/22 02/26/22 Range/Units 13:53 09:33 Sodium 137 133 L (137-145) mmol/L Potassium 3.7 4.1 (3.5-5.1) mmol/L Chloride 94 L 94 L (98-107) mmol/L Carbon Dioxide 29 28 (22-30) mmol/L BUN 17 20 H (7-17) mg/dL Creatinine 0.90 0.80 (0.52-1.04) mg/dL Glucose 116 H 175 H (74-99) mg/dL Calcium 8.7 8.2 L (8.4-10.2) mg/dL AST 44 H (14-36) U/L ALT 32 (4-34) U/L Alkaline Phosphatase 83 (38-126) U/L Total Protein 6.9 (6.3-8.2) g/dL Albumin 4.4 (3.5-5.0) g/dL Current Medications Generic Name Dose Route Start Last Admin Trade Name Freq PRN Reason Stop Dose Admin Acetaminophen 650 mg 02/25/22 15:27 Acetaminophen Tab 325 Mg Tab PO Q6HR PRN Mild Pain or Fever > 100.5 Albuterol Sulfate 2 puff 02/25/22 15:52 Albuterol Hfa Inhaler INHALATION RT-Q4H PRN Shortness Of Breath Albuterol Sulfate 2 puff 02/25/22 20:00 02/26/22 11:31 Albuterol Hfa Inhaler INHALATION 2 puff RT-QID PAULA Administration Apixaban 5 mg 02/25/22 21:00 02/26/22 09:28 Apixaban 5 Mg Tab PO 5 mg BID PAULA Administration Protocol Aspirin 325 mg 02/26/22 09:00 02/26/22 09:28 Aspirin 325 Mg Tab PO 325 mg DAILY PAULA Administration Atorvastatin Calcium 20 mg 02/25/22 21:00 02/25/22 21:57 Atorvastatin 20 Mg Tab PO 20 mg HS PAULA Administration Benzonatate 100 mg 02/25/22 15:41 Benzonatate 100 Mg Cap PO TID PRN Cough Duloxetine HCl 60 mg 02/26/22 09:00 02/26/22 09:28 Duloxetine Hcl 60 Mg Capsule.Dr PO 60 mg DAILY PAULA Administration Insulin Aspart 0 unit 02/25/22 21:00 02/26/22 12:33 Insulin Aspart (Novolog) 100 Unit/Ml Vial SQ 6 unit ACHS PAULA Administration Protocol Lorazepam 0.5 mg 02/25/22 15:41 02/25/22 22:44 Lorazepam 0.5 Mg Tab PO 0.5 mg TID PRN Administration Anxiety Methylprednisolone Sodium Succinate 40 mg 02/25/22 18:00 02/26/22 12:33 Methylprednisolone Sod Succi 40 Mg/Ml 1 Ml Vial IV 40 mg Q6HR PAULA Administration Metoprolol Tartrate 100 mg 02/25/22 21:00 02/26/22 09:28 Metoprolol Tartrate 50 Mg Tab PO 100 mg BID PAULA Administration Mirtazapine 15 mg 02/25/22 21:00 02/25/22 21:57 Mirtazapine 15 Mg Tab PO 15 mg HS PAULA Administration Naloxone HCl 0.2 mg 02/25/22 15:27 Naloxone 0.4 Mg/Ml 1 Ml Vial IV Q2M PRN Opioid Reversal Non-Formulary Medication 1 tab 02/26/22 09:00 02/26/22 10:09 Vitamin [id number] SUBLINGUAL Not Given DAILY PAULA Nortriptyline HCl 25 mg 02/25/22 16:00 02/26/22 09:28 Nortriptyline 25 Mg Cap PO 25 mg TID PAULA Administration Ondansetron HCl 4 mg 02/25/22 15:27 Ondansetron 4 Mg/2 Ml Vial IVP Q8HR PRN Nausea And Vomiting Oxycodone/Acetaminophen 1 each 02/25/22 15:41 02/26/22 12:33 Oxycodone-Apap 10-325mg 1 Each Tab PO 1 each Q6HR PRN Administration Moderate-Severe Pain Pantoprazole Sodium 40 mg 02/26/22 07:30 02/26/22 06:12 Pantoprazole 40 Mg Tablet PO 40 mg [id number] PAULA Administration Ropinirole HCl 2 mg 02/25/22 21:00 02/26/22 09:28 Ropinirole Hcl 1 Mg Tab PO 2 mg BID PAULA Administration Salmeterol Xinafoate 1 puff 02/26/22 08:00 02/26/22 08:11 Salmeterol 50 Mcg Inhaler INHALATION 1 puff RT-BID PAULA Administration Tiotropium [place] 2 puff 02/26/22 08:00 02/26/22 08:01 Tiotropium 2.5 Mcg Inhaler INHALATION 2 puff RT-DAILY PAULA Administration Torsemide 20 mg 02/26/22 09:00 02/26/22 09:28 Torsemide 20 Mg Tab PO 20 mg DAILY PAULA Administration Trospium 20 mg 02/26/22 09:00 02/26/22 09:28 Trospium Chloride 20 Mg Tablet PO 20 mg DAILY PAULA Administration Intake and Output 02/25/22 02/26/22 02/26/22 22:59 06:59 14:59 Other: Voiding Method Toilet Toilet Toilet # Voids 1 1 Weight 68.039 kg 02/26/22 09:33 02/26/22 09:33
[2022-02-26] MEDS: LORazepam 0.5 MG TAB PO PRN ×2 (14:45→20:37)
[2022-02-26 16:42] LABS: Glucose,Whole Blood 351 mg/dL (70-110)
[2022-02-26 19:45] LABS: Glucose,Whole Blood 277 mg/dL (70-110)
[2022-02-26] MEDS: MIRTAZAPINE 15 MG TAB PO SCH (20:18)
[2022-02-26] MEDS: ATORVASTATIN 20 MG TAB PO SCH (20:18)
[2022-02-27] MEDS: methylPREDNISolone SOD SUCCI 40 MG/ML 1 ML VIAL IV SCH ×2 (00:50→06:15)
[2022-02-27] MEDS: oxyCODONE-APAP 10-325MG 1 EACH TAB PO PRN (06:23)
[2022-02-27 06:58] LABS: Glucose,Whole Blood 211 mg/dL (70-110)
[2022-02-27 07:48] VITALS: BP 164/68; PULSE 63; RESP 16; TEMP 97.5
[2022-02-27] MEDS: ASPIRIN 325 MG TAB PO SCH (07:53)
[2022-02-27] MEDS: PANTOPRAZOLE 40 MG TABLET PO SCH (07:53)
[2022-02-27] MEDS: DULoxetine HCL 60 MG CAPSULE.DR PO SCH (07:53)
[2022-02-27] MEDS: METOPROLOL TARTRATE 50 MG TAB PO SCH (07:53)
[2022-02-27] MEDS: TROSPIUM CHLORIDE 20 MG TABLET PO SCH (07:54)
[2022-02-27] MEDS: INSULIN ASPART (NovoLOG) 100 UNIT/ML VIAL SQ SCH (07:54)
[2022-02-27] MEDS: APIXABAN 5 MG TAB PO SCH (07:54)
[2022-02-27] MEDS: NORTRIPTYLINE 25 MG CAP PO SCH (07:54)
[2022-02-27] MEDS: LORazepam 0.5 MG TAB PO PRN (07:54)
[2022-02-27] MEDS: TORSEMIDE 20 MG TAB PO SCH (07:54)
[2022-02-27] MEDS: ALBUTEROL HFA INHALER INHALATION SCH (09:21)
[2022-02-27] MEDS: Salmeterol 50 mcg INHALER INHALATION SCH (09:22)
[2022-02-27] MEDS: TIOTROPIUM 2.5 MCG INHALER INHALATION SCH (09:23)
[2022-02-27] MEDS: [UNRECOGNIZED DRUG - OTHER] SUBLINGUAL SCH (09:24)
--- NOTE | 2022-02-27 11:19 | P.DS ---
Providers Date of admission: 02/25/22 15:27 Expected date of discharge: 02/27/22 Attending physician: Solange Cabrera MD Consults: 02/25/22 15:27 Consult Physician Routine Consulting Provider: Marty Desir Consult Reason/Comments: elevated troponin Do you want consulting provider notified?: Yes Primary care physician: [facility] Course: 81-year-old woman with a medical history of atrial fibrillation, complete heart block with dual chamber pacemaker, COPD not requiring oxygen at home, heart valve replacement presented for dyspnea and cough. She was recently diagnosed with COVID-19 on 02/17/2022. She was recently admitted on February 17 and discharged on February 18. Patient states that she was initially doing well when she went home. Over the next couple of days, she started to experience worsening shortness of breath with exertion along with lightheadedness when standing up. She reports a nonproductive cough. She also reports suprapubic discomfort and dysuria. She denies any headache, lower extremity edema, nausea vomiting, fever or chills, chest pain, palpitations, changes in bowel habits. No changes in appetite or weight. She denies any numbness/weakness/tingling of the extremities. In the ED, she was noted to be hypotensive BP of 91/59. Vital signs were otherwise stable. CBC showed hemoglobin of 16.6 and platelet count 122. CMP showed chloride of 94 and glucose of 116, magnesium 1.5, AST of 44. Coagulation panel negative. Troponin was 0.039, EKG showing electronic ventricular pacemaker rhythm chest x-ray showed cardiomegaly with no acute process. BNP was 1560. Urinalysis showed large leukocyte esterase. COVID-19 positive. Flu negative. Patient was started on Rocephin for treatment of UTI. Blood cultures are negative at 24 hours. Urine culture was pending at the time of this note. Cardiology was consulted with regard to her troponin elevation and recommended no further workup. PTOT was consulted but never saw this patient during her hospitalization. Patient was seen and examined on 02/27/2022. She reported improvement in her breathing. She stated that she was back to baseline. She is able to ambulate with the aid of a walker. Patient reported having 6 people at home that could help her. Case management was consulted for home PT and nebulizer. She was subsequently discharged in good health on a Medrol Dosepak. She was also discharged home with 5 days of Bactrim to complete a total of 7 days of antibiotics. General: non toxic, mild distress, appears at stated age, appears dyspnea Derm: warm, dry Head: atraumatic, normocephalic, symmetric Eyes: EOMI, no lid lag, anicteric sclera Mouth: no lip lesion, mucus membranes moist Cardiovascular: S1S2 reg, no murmur Lungs: Decreased breath sounds bilaterally with scattered wheezing, no rhonchi, no rales , no accessory muscle use Abdominal: soft, nontender to palpation, no guarding, no appreciable organomegaly Ext: no gross muscle atrophy, no edema, no contractures Neuro: no focal neuro deficits Psych: Alert, oriented, appropriate affect Discharge diagnosis: #Generalized weakness and debility #COPD exacerbation #COVID-19 pneumonia #Urinary tract infection #Troponin elevation #Hypotension and Dehydration #Hypomagnesemia #Elevated AST #Obesity Chronic conditions: History of paroxysmal atrial fibrillation, History of complete heart block with dual-chamber pacemaker, Restless leg syndrome, depression Pertinent studies include chest x-ray. This complex discharge took about 35 minutes to complete. Patient Condition at Discharge: Stable Plan - Discharge Summary Discharge Rx Participant: No New Discharge Prescriptions: New methylPREDNISolone Dose Pack [Medrol Dose Pack] 4 mg PO DIRECTED #1 packet Sulfamethox-Tmp 800-160Mg [Bactrim DS 800-160 mg] 1 tab PO Q12HR #10 tab Ipratropium-Albuterol Nebulize [Duoneb 0.5 mg-3 mg/3 ml Soln] 3 ml INHALATION Q4HR PRN #90 ml PRN Reason: Shortness Of Breath Continue Turmeric Root Extract [Turmeric] 500 mg PO DAILY Torsemide [Soaanz] 20 mg PO DAILY Solifenacin Succinate [Vesicare] 5 mg PO DAILY Simvastatin [Zocor] 40 mg PO HS rOPINIRole HCL [Requip] 2 mg PO BID oxyCODONE HCL/ACETAMINOPHEN [Percocet 10-325 mg] 1 tab PO Q6HR PRN PRN Reason: Pain Nortriptyline [Pamelor] 25 mg PO TID Metoprolol Tartrate [Lopressor] 100 mg PO BID LORazepam 0.5 mg PO TID PRN PRN Reason: Anxiety Apixaban [Eliquis] 5 mg PO BID Benzonatate 100 mg PO TID PRN PRN Reason: Cough Albuterol Inhaler [Ventolin Hfa Inhaler] 2 puff INHALATION RT-Q4H PRN PRN Reason: Shortness Of Breath Mirtazapine [Remeron] 15 mg PO HS Tiotropium Br/Olodaterol HCl [Stiolto Respimat Inhal [place]] 2 puff INHALATION RT-DAILY Pantoprazole Sodium [Protonix] 40 mg PO BID DULoxetine HCL [Cymbalta] 60 mg PO DAILY D3 Plus K2 Dots 1 tab PO DAILY Vitamin P82-[id number] 1 tab SUBLINGUAL DAILY Discontinued Promethazine [Phenergan] 25 mg PO Q6HR PRN PRN Reason: Nausea And Vomiting Prochlorperazine [Compazine] 10 mg PO Q6H PRN PRN Reason: Nausea And Vomiting Discharge Medication List Albuterol Inhaler [Ventolin Hfa Inhaler] 2 puff INHALATION RT-Q4H PRN 02/17/22 [History] Apixaban [Eliquis] 5 mg PO BID 02/17/22 [History] Benzonatate 100 mg PO TID PRN 02/17/22 [History] D3 Plus K2 Dots 1 tab PO DAILY 02/17/22 [History] DULoxetine HCL [Cymbalta] 60 mg PO DAILY 02/17/22 [History] LORazepam 0.5 mg PO TID PRN 02/17/22 [History] Metoprolol Tartrate [Lopressor] 100 mg PO BID 02/17/22 [History] Mirtazapine [Remeron] 15 mg PO HS 02/17/22 [History] Nortriptyline [Pamelor] 25 mg PO TID 02/17/22 [History] Pantoprazole Sodium [Protonix] 40 mg PO BID 02/17/22 [History] Simvastatin [Zocor] 40 mg PO HS 02/17/22 [History] Solifenacin Succinate [Vesicare] 5 mg PO DAILY 02/17/22 [History] Tiotropium Br/Olodaterol HCl [Stiolto Respimat Inhal [place]] 2 puff INHALATION RT-DAILY 02/17/22 [History] Torsemide [Soaanz] 20 mg PO DAILY 02/17/22 [History] Turmeric Root Extract [Turmeric] 500 mg PO DAILY 02/17/22 [History] Vitamin S27-Ekquqxsfax 1 tab SUBLINGUAL DAILY 02/17/22 [History] oxyCODONE HCL/ACETAMINOPHEN [Percocet 10-325 mg] 1 tab PO Q6HR PRN 02/17/22 [History] rOPINIRole HCL [Requip] 2 mg PO BID 02/17/22 [History] Ipratropium-Albuterol Nebulize [Duoneb 0.5 mg-3 mg/3 ml Soln] 3 ml INHALATION Q4HR PRN #90 ml 02/27/22 [Rx] Sulfamethox-Tmp 800-160Mg [Bactrim DS 800-160 mg] 1 tab PO Q12HR #10 tab 02/27/22 [Rx] methylPREDNISolone Dose Pack [Medrol Dose Pack] 4 mg PO DIRECTED #1 packet 02/27/22 [Rx] Follow up Appointment(s)/Referral(s): Jose Butcher MD [Primary Care Provider] - 1-2 days Duglas Hager DO [Doctor of Osteopathic Medicine] - 1 Week Activity/Diet/Wound Care/Special Instructions: Diet: Cardiac FU PCP within 1-2 days of DC. FU Pulmonology within 1 week of DC. Take all medications as advised. Discharge Disposition: HOME WITH HOME HEALTH SERVICES
== END 2022-02-27 11:47 | disposition home health service (06) | DRG 177 ==
LOC: EC 12:42 → 4SSUR 15:27 → 3SCARD 15:45 → 4SSUR 02-27 01:00
PROVIDERS: ADMIT Family Medicine; ATTEND Family Medicine
DX: U07.1 COVID-19 (principal); J12.82 Pneumonia due to coronavirus disease 2019; I48.21 Permanent atrial fibrillation; N39.0 Urinary tract infection, site not specified; J44.0 Chronic obstructive pulmonary disease with (acute) lower respiratory infection; J44.1 Chronic obstructive pulmonary disease with (acute) exacerbation; R79.89 Other specified abnormal findings of blood chemistry; I95.9 Hypotension, unspecified; E66.9 Obesity, unspecified; E83.42 Hypomagnesemia; E86.0 Dehydration; G25.81 Restless legs syndrome; Z79.01 Long term (current) use of anticoagulants; Z79.899 Other long term (current) drug therapy; Z85.3 Personal history of malignant neoplasm of breast; Z85.51 Personal history of malignant neoplasm of bladder; Z87.891 Personal history of nicotine dependence; Z95.2 Presence of prosthetic heart valve; Z98.51 Tubal ligation status; Z88.5 Allergy status to narcotic agent; Z88.8 Allergy status to other drugs, medicaments and biological substances; Z68.34 Body mass index [BMI] 34.0-34.9, adult
CPT/HCPCS: 36415; 71046; 80048; 80053; 81001; 83605; 83735; 83880; 84484; 85025; 85610; 85730; 87040; 87077; 87086; 87186; 87502; 87635; 93005; 94640; 96361; 96365; 96366; 96375; 99285

== ENCOUNTER 2022-04-05 22:48 | Inpatient (IN) | payer MEDICARE, OTHER ==
[2022-04-05] MEDS ORDERED: IPRATROPIUM 0.5 MG/2.5 ML NEBU INHALATION STA (22:57)
[2022-04-05] MEDS ORDERED: ALBUTEROL NEBULIZED 2.5 MG/3 ML INHALATION STA (22:57)
--- NOTE | 2022-04-05 23:01 | ED ---
SOB HPI - General Chief Complaint: Shortness of Breath Stated Complaint: JENNIE Time Seen by Provider: 04/05/22 22:56 Source: patient, EMS, RN notes reviewed, old records reviewed Mode of arrival: EMS Limitations: no limitations - History of Present Illness Initial Comments: This is a 81-year-old female to the emergency department for evaluation. Patient to the emergency department for evaluation regards to severe shortness of breath. Patient presents today for evaluation regards to severe shortness of breath brought in in respiratory distress on BiPAP. MD Complaint: shortness of breath, cough, "asthma attack", anxiety -: minutes(s) Radiation: back Severity: severe Severity scale (1-10): 8 Quality: dull, aching - Related Data Home Medications Medication Instructions Recorded Confirmed Albuterol Inhaler [Ventolin Hfa 2 puff INHALATION RT-Q4H PRN 02/17/22 02/25/22 Inhaler] Apixaban [Eliquis] 5 mg PO BID 02/17/22 02/25/22 Benzonatate 100 mg PO TID PRN 02/17/22 02/25/22 D3 Plus K2 Dots 1 tab PO DAILY 02/17/22 02/25/22 DULoxetine HCL [Cymbalta] 60 mg PO DAILY 02/17/22 02/25/22 LORazepam 0.5 mg PO TID PRN 02/17/22 02/25/22 Metoprolol Tartrate [Lopressor] 100 mg PO BID 02/17/22 02/25/22 Mirtazapine [Remeron] 15 mg PO HS 02/17/22 02/25/22 Nortriptyline [Pamelor] 25 mg PO TID 02/17/22 02/25/22 Pantoprazole Sodium [Protonix] 40 mg PO BID 02/17/22 02/25/22 Simvastatin [Zocor] 40 mg PO HS 02/17/22 02/25/22 Solifenacin Succinate [Vesicare] 5 mg PO DAILY 02/17/22 02/25/22 Tiotropium Br/Olodaterol HCl 2 puff INHALATION RT-DAILY 02/17/22 02/25/22 [Stiolto Respimat Inhal [place]] Torsemide [Soaanz] 20 mg PO DAILY 02/17/22 02/25/22 Turmeric Root Extract [Turmeric] 500 mg PO DAILY 02/17/22 02/25/22 Vitamin [id number] 1 tab SUBLINGUAL DAILY 02/17/22 02/25/22 oxyCODONE HCL/ACETAMINOPHEN 1 tab PO Q6HR PRN 02/17/22 02/25/22 [Percocet 10-325 mg] rOPINIRole HCL [Requip] 2 mg PO BID 02/17/22 02/25/22 Previous Rx's Medication Instructions Recorded Ipratropium-Albuterol Nebulize 3 ml INHALATION Q4HR PRN #90 ml 02/27/22 [Duoneb 0.5 mg-3 mg/3 ml Soln] Sulfamethox-Tmp 800-160Mg [Bactrim 1 tab PO Q12HR #10 tab 02/27/22 DS 800-160 mg] methylPREDNISolone Dose Pack 4 mg PO DIRECTED #1 packet 02/27/22 [Medrol Dose Pack] Allergies Allergy/AdvReac Type Severity Reaction Status Date / Time morphine Allergy Itching Verified 02/17/22 10:54 tizanidine [From Zanaflex] Allergy Unknown Verified 02/17/22 10:54 zolpidem [From Ambien] Allergy Unknown Verified 02/17/22 10:54 gabapentin AdvReac Hallucinati Verified 02/17/22 10:54 ons hydromorphone [From Dilaudid] AdvReac Hallucinati Verified 02/17/22 10:54 ons pentazocine [From Talwin] AdvReac Hallucinati Verified 02/17/22 10:54 ons pregabalin [From Lyrica] AdvReac Hallucinati Verified 02/17/22 10:54 ons Review of Systems ROS Statement: Those systems with pertinent positive or pertinent negative responses have been documented in the HPI. ROS Other: All systems not noted in ROS Statement are negative. Past Medical History Past Medical History: Atrial Fibrillation, Cancer, COPD, Hypertension Additional Past Medical History / Comment(s): breast cancer 2000 and bladder cancer , carpletunnel History of Any Multi-Drug Resistant Organisms: None Reported Past Surgical History: Back Surgery, Cardiac Valve Replacement, Joint Replacement, Orthopedic Surgery, Pacemaker, Tonsillectomy, Tubal Ligation Additional Past Surgical History / Comment(s): bilat knees, rt shoulder repair, lung nodule removal, both carotids repaired (occluded) Past Anesthesia/Blood Transfusion Reactions: No Reported Reaction Type of Cardiac Device: Permanent Pacemaker Device Placement Date:: 02/16/2017 Past Psychological History: Anxiety, Depression Smoking Status: Former smoker Past Alcohol Use History: Occasional Past Drug Use History: None Reported General Exam Limitations: no limitations General appearance: alert, in no apparent distress, anxious Head exam: Present: atraumatic, normocephalic, normal inspection Eye exam: Present: normal appearance, PERRL, EOMI. Absent: scleral icterus, conjunctival injection, periorbital swelling ENT exam: Present: normal exam, mucous membranes moist Neck exam: Present: normal inspection. Absent: tenderness, meningismus, lymphadenopathy Respiratory exam: Present: respiratory distress, wheezes, accessory muscle use, decreased breath sounds, prolonged expiratory. Absent: rales, rhonchi, stridor Cardiovascular Exam: Present: regular rate, normal rhythm, normal heart sounds. Absent: systolic murmur, diastolic murmur, rubs, gallop, clicks GI/Abdominal exam: Present: soft, normal bowel sounds. Absent: distended, tenderness, guarding, rebound, rigid Extremities exam: Present: normal inspection, full ROM, normal capillary refill. Absent: tenderness, pedal edema, joint swelling, calf tenderness Back exam: Present: normal inspection Neurological exam: Present: alert, oriented X3, CN II-XII intact Psychiatric exam: Present: normal affect, normal mood Skin exam: Present: warm, dry, intact, normal color. Absent: rash Course Vital Signs 04/05/22 04/05/22 04/05/22 22:50 23:00 23:06 Temperature 98.2 F Pulse Rate 64 Respiratory 22 22 Rate Blood Pressure 134/93 O2 Sat by Pulse 98 Oximetry Fraction of 60 Inspired Oxygen (FIO2) 04/05/22 23:52 Temperature Pulse Rate 60 Respiratory Rate Blood Pressure O2 Sat by Pulse Oximetry Fraction of Inspired Oxygen (FIO2) - Reevaluation(s) Reevaluation #1: 04/06/22 00:15 Medical record is reviewed 04/06/22 00:15 Placed on BiPAP on arrival Reevaluation #2: 04/06/22 00:15 Patient is improving here in the ER Reevaluation #3: 04/06/22 00:16 Patient informed results and questions answered - Consultations Consultation #1: Spoke with sound physicians we'll admit this patient Medical Decision Making - Medical Decision Making 81 female to the emergency department for evaluation severe shortness of breath cough congestion. Patient be admitted for further evaluation management - Lab Data Result diagrams: 04/05/22 23:06 04/05/22 23:16 Lab Results 04/05/22 04/05/22 04/05/22 Range/Units 23:06 23:06 23:06 WBC 8.4 (3.8-10.6) k/uL RBC 3.92 (3.80-5.40) m/uL Hgb 10.7 L (11.4-16.0) gm/dL Hct 34.2 (34.0-46.0) % MCV 87.3 (80.0-100.0) fL MCH 27.4 (25.0-35.0) pg MCHC 31.3 (31.0-37.0) g/dL RDW 17.7 H (11.5-15.5) % Plt Count 241 (150-450) k/uL MPV 8.0 Neutrophils % 76 % Lymphocytes % 14 % Monocytes % 6 % Eosinophils % 2 % Basophils % 1 % Neutrophils # 6.4 (1.3-7.7) k/uL Lymphocytes # 1.2 (1.0-4.8) k/uL Monocytes # 0.5 (0-1.0) k/uL Eosinophils # 0.2 (0-0.7) k/uL Basophils # 0.1 (0-0.2) k/uL Hypochromasia Marked Anisocytosis Slight PT 11.6 (9.0-12.0) sec INR 1.1 (<1.2) APTT 24.4 (22.0-30.0) sec Sodium (137-145) mmol/L Potassium (3.5-5.1) mmol/L Chloride (98-107) mmol/L Carbon Dioxide (22-30) mmol/L Anion Gap mmol/L BUN (7-17) mg/dL Creatinine (0.52-1.04) mg/dL Est GFR (CKD-EPI)AfAm (>60 ml/min/1.73 sqM) Est GFR (CKD-EPI)NonAf (>60 ml/min/1.73 sqM) Glucose (74-99) mg/dL Plasma Lactic Acid Naseem 1.4 (0.7-2.0) mmol/L Calcium (8.4-10.2) mg/dL Magnesium (1.6-2.3) mg/dL Total Bilirubin (0.2-1.3) mg/dL AST (14-36) U/L ALT (4-34) U/L Alkaline Phosphatase (38-126) U/L Troponin I (0.000-0.034) ng/mL NT-Pro-B Natriuret Pep pg/mL Total Protein (6.3-8.2) g/dL Albumin (3.5-5.0) g/dL 04/05/22 04/05/22 04/05/22 Range/Units 23:06 23:06 23:16 WBC (3.8-10.6) k/uL RBC (3.80-5.40) m/uL Hgb (11.4-16.0) gm/dL Hct (34.0-46.0) % MCV (80.0-100.0) fL MCH (25.0-35.0) pg MCHC (31.0-37.0) g/dL RDW (11.5-15.5) % Plt Count (150-450) k/uL MPV Neutrophils % % Lymphocytes % % Monocytes % % Eosinophils % % Basophils % % Neutrophils # (1.3-7.7) k/uL Lymphocytes # (1.0-4.8) k/uL Monocytes # (0-1.0) k/uL Eosinophils # (0-0.7) k/uL Basophils # (0-0.2) k/uL Hypochromasia Anisocytosis PT (9.0-12.0) sec INR (<1.2) APTT (22.0-30.0) sec Sodium 136 L (137-145) mmol/L Potassium 4.0 (3.5-5.1) mmol/L Chloride 107 (98-107) mmol/L Carbon Dioxide 27 (22-30) mmol/L Anion Gap 2 mmol/L BUN 19 H (7-17) mg/dL Creatinine 0.88 (0.52-1.04) mg/dL Est GFR (CKD-EPI)AfAm 72 (>60 ml/min/1.73 sqM) Est GFR (CKD-EPI)NonAf 63 (>60 ml/min/1.73 sqM) Glucose 122 H (74-99) mg/dL Plasma Lactic Acid Naseem (0.7-2.0) mmol/L Calcium 6.5 L (8.4-10.2) mg/dL Magnesium 0.7 L* (1.6-2.3) mg/dL Total Bilirubin 0.5 (0.2-1.3) mg/dL AST 40 H (14-36) U/L ALT 21 (4-34) U/L Alkaline Phosphatase 47 (38-126) U/L Troponin I 0.030 (0.000-0.034) ng/mL NT-Pro-B Natriuret Pep 2290 pg/mL Total Protein 4.8 L (6.3-8.2) g/dL Albumin 2.9 L (3.5-5.0) g/dL - EKG Data -: EKG Interpreted by Me (EKG paced 60 QRS 134 QTC 423) - Radiology Data Radiology results: report reviewed (Chest x-rays negative for acute disease), image reviewed Critical Care Time Critical Care Time: Yes Total Critical Care Time: 31 Disposition Clinical Impression: COPD exacerbation, Weakness, Acute respiratory failure, Chronic obstructive pulmonary disease with (acute) exacerbation, Hypoxia, Dehydration, Inability to walk Disposition: ADMITTED IP TO THIS HOSP Condition: Serious Is patient prescribed a controlled substance at d/c from ED?: No Referrals: Jose Butcher MD [Primary Care Provider] - 1-2 days Time of Disposition: 00:15
[2022-04-05 23:12] LABS: Anisocytosis Slight; Basophils # (A) 0.1 k/uL (0-0.2); Basophils % (A) 1 %; Eosinophils # (A) 0.2 k/uL (0-0.7); Eosinophils % (A) 2 %; HCT 34.2 % (34.0-46.0); HGB 10.7 gm/dL (11.4-16.0); Hypochromasia Marked; Lymphocytes # (A) 1.2 k/uL (1.0-4.8); Lymphocytes % (A) 14 %; MCH 27.4 pg (25.0-35.0); MCHC 31.3 g/dL (31.0-37.0); MCV 87.3 fL (80.0-100.0); Monocytes # (A) 0.5 k/uL (0-1.0); Monocytes % (A) 6 %; Neutrophils # (A) 6.4 k/uL (1.3-7.7); Neutrophils % (A) 76 %; Platelet Count 241 k/uL (150-450); RBC 3.92 m/uL (3.80-5.40); RDW 17.7 % (11.5-15.5); WBC 8.4 k/uL (3.8-10.6)
[2022-04-05] MEDS: LORazepam 2 MG/ML INJ IV PRN (23:19)
[2022-04-05 23:34] LABS: Albumin 2.9 g/dL (3.5-5.0); Calcium 6.5 mg/dL (8.4-10.2); Total Bilirubin 0.5 mg/dL (0.2-1.3); Total Protein 4.8 g/dL (6.3-8.2)
--- NOTE | 2022-04-05 23:36 | XR ---
EXAMINATION TYPE: XR chest 1V portable DATE OF EXAM: 04/05/2022 COMPARISON: 02/25/2022 HISTORY: Short of breath TECHNIQUE: FINDINGS: There is no heart failure nor confluent pneumonic infiltrate. Costophrenic angles are clear . There is left axillary pacemaker. There is cervical spine fusion surgery. There is lumbar spine fus ion surgery. No pleural effusion. There are some arthritic changes in the right shoulder joint. IMPRESSION: No active cardiopulmonary disease. No change.
[2022-04-05 23:58] LABS: INR 1.1 (<1.2); Partial Thromboplastin Time 24.4 sec (22.0-30.0); Prothrombin Time 11.6 sec (9.0-12.0)
[2022-04-06 00:09] LABS: Magnesium 0.7 mg/dL (1.6-2.3)
[2022-04-06] MEDS ORDERED: NALOXONE 0.4 MG/ML 1 ML VIAL IV PRN (00:11)
[2022-04-06] MEDS ORDERED: ACETAMINOPHEN TAB 325 MG TAB PO PRN (00:11)
[2022-04-06] MEDS ORDERED: IPRATROPIUM-ALBUTEROL 3 ML NEB INHALATION STA (00:11)
[2022-04-06] MEDS: MAGNESIUM SULFATE-D5W PMX 1 GM in DEXTROSE/WATER 1 100ML.BAG IVPB SCH ×4 (00:27→04:20)
--- NOTE | 2022-04-06 03:56 | P.HPIM ---
History of Present Illness H&P Date: 04/06/22 The patient is an 81-year-old female with a PMH of A. fib on Eliquis, COPD, history of complete heart block status post pacemaker placement who presents to the emergency room with complaints of shortness of breath. The patient reports that her symptoms started 2 days ago with increased cough nonproductive as well as worsening dyspnea. She denied experiencing chest discomfort or lower e xtremity pain. Denies fever, chills. Denied abdominal pain, nausea, vomiting. Chest x-ray in the emergency room was unremarkable. EKG revealed V paced rhythm at 63 bpm. Laboratory evaluation was remarkable for a magnesium of 0.7, proBNP 2290, troponin 0.030, and calcium 6.5. Review of systems: Pertinent positives and negatives as discussed in HPI, a complete review of systems was performed and all other systems are negative. Physical examination: General: non toxic, no distress, appears at stated age, obese Derm: no unusual rashes/lesions, warm Head: atraumatic, normocephalic, symmetric Eyes: EOMI, no lid lag, anicteric sclera, pupils equal round reactive to light ENT: Nose and ears atraumatic Neck: No cervical lymphadenopathy, trachea midline, supple Mouth: no lip lesion, mucus membranes moist Cardiovascular: S1S2 reg, no murmur, positive dorsalis pedis pulse bilateral, 1+ bilateral lower extremity pitting edema, no calf tenderness Lungs: Poor air entry bilaterally with expiratory wheezing noted, no accessory muscle use Abdominal: soft, nontender to palpation, no guarding Ext: muscle strength 5 out of 5 in all 4 extremities grossly, no gross muscle atrophy, no contractures, Neuro: CN II-XI grossly intact, no gross focal neuro deficits Psych: Alert, oriented, appropriate affect Assessment/plan Acute COPD exacerbation -Solu-Medrol, DuoNeb -Pulmonary consult -BiPAP when necessary Severe hypomagnesemia -Replace and monitor Chronic conditions: A. fib, heart block -Continue with home medications DVT prophylaxis -Eliquis The patient is admitted with an anticipated greater than 2 midnight stay for evaluation of acute COPD exacerbation CODE STATUS: Full Code Discussed with: Patient Anticipated discharge date: 2-[address]: Home Past Medical History Past Medical History: Atrial Fibrillation, Cancer, COPD, Hypertension Additional Past Medical History / Comment(s): breast cancer 2000 and bladder cancer , carpletunnel History of Any Multi-Drug Resistant Organisms: None Reported Past Surgical History: Back Surgery, Cardiac Valve Replacement, Joint Replacement, Orthopedic Surgery, Pacemaker, Tonsillectomy, Tubal Ligation Additional Past Surgical History / Comment(s): bilat knees, rt shoulder repair, lung nodule removal, both carotids repaired (occluded) Past Anesthesia/Blood Transfusion Reactions: No Reported Reaction Type of Cardiac Device: Permanent Pacemaker Device Placement Date:: 02/16/2017 Past Psychological History: Anxiety, Depression Smoking Status: Former smoker Past Alcohol Use History: Occasional Past Drug Use History: None Reported - Past Family History Mother Family Medical History: COPD Medications and Allergies Home Medications Medication Instructions Recorded Confirmed Type Albuterol Inhaler [Ventolin Hfa 2 puff INHALATION RT-Q4H PRN 02/17/22 02/25/22 History Inhaler] Apixaban [Eliquis] 5 mg PO BID 02/17/22 02/25/22 History Benzonatate 100 mg PO TID PRN 02/17/22 02/25/22 History D3 Plus K2 Dots 1 tab PO DAILY 02/17/22 02/25/22 History DULoxetine HCL [Cymbalta] 60 mg PO DAILY 02/17/22 02/25/22 History LORazepam 0.5 mg PO TID PRN 02/17/22 02/25/22 History Metoprolol Tartrate [Lopressor] 100 mg PO BID 02/17/22 02/25/22 History Mirtazapine [Remeron] 15 mg PO HS 02/17/22 02/25/22 History Nortriptyline [Pamelor] 25 mg PO TID 02/17/22 02/25/22 History Pantoprazole Sodium [Protonix] 40 mg PO BID 02/17/22 02/25/22 History Simvastatin [Zocor] 40 mg PO HS 02/17/22 02/25/22 History Solifenacin Succinate [Vesicare] 5 mg PO DAILY 02/17/22 02/25/22 History Tiotropium Br/Olodaterol HCl 2 puff INHALATION RT-DAILY 02/17/22 02/25/22 History [Stiolto Respimat Inhal [place]] Torsemide [Soaanz] 20 mg PO DAILY 02/17/22 02/25/22 History Turmeric Root Extract [Turmeric] 500 mg PO DAILY 02/17/22 02/25/22 History Vitamin [id number] 1 tab SUBLINGUAL DAILY 02/17/22 02/25/22 History oxyCODONE HCL/ACETAMINOPHEN 1 tab PO Q6HR PRN 02/17/22 02/25/22 History [Percocet 10-325 mg] rOPINIRole HCL [Requip] 2 mg PO BID 02/17/22 02/25/22 History Ipratropium-Albuterol Nebulize 3 ml INHALATION Q4HR PRN #90 ml 02/27/22 Rx [Duoneb 0.5 mg-3 mg/3 ml Soln] Sulfamethox-Tmp 800-160Mg [Bactrim 1 tab PO Q12HR #10 tab 02/27/22 Rx DS 800-160 mg] methylPREDNISolone Dose Pack 4 mg PO DIRECTED #1 packet 02/27/22 Rx [Medrol Dose Pack] Allergies Allergy/AdvReac Type Severity Reaction Status Date / Time morphine Allergy Itching Verified 02/17/22 10:54 tizanidine [From Zanaflex] Allergy Unknown Verified 02/17/22 10:54 zolpidem [From Ambien] Allergy Unknown Verified 02/17/22 10:54 gabapentin AdvReac Hallucinati Verified 02/17/22 10:54 ons hydromorphone [From Dilaudid] AdvReac Hallucinati Verified 02/17/22 10:54 ons pentazocine [From Talwin] AdvReac Hallucinati Verified 02/17/22 10:54 ons pregabalin [From Lyrica] AdvReac Hallucinati Verified 02/17/22 10:54 ons Physical Exam Vitals: Vital Signs Temp Pulse Resp BP Pulse Ox FiO2 04/06/22 02:40 60 04/06/22 00:38 60 04/06/22 00:30 60 24 116/65 100 04/05/22 23:52 60 04/05/22 23:06 22 134/93 04/05/22 23:00 60 04/05/22 22:50 98.2 F 64 22 98 Intake and Output 04/05/22 04/05/22 04/06/22 14:59 22:59 06:59 Other: Weight 81.647 kg Results CBC & Chem 7: 04/05/22 23:06 04/05/22 23:16 Labs: Abnormal Lab Results - Last 24 Hours (Table) 04/05/22 04/05/22 Range/Units 23:06 23:16 Hgb 10.7 L (11.4-16.0) gm/dL RDW 17.7 H (11.5-15.5) % Sodium 136 L (137-145) mmol/L BUN 19 H (7-17) mg/dL Glucose 122 H (74-99) mg/dL Calcium 6.5 L (8.4-10.2) mg/dL Magnesium 0.7 L* (1.6-2.3) mg/dL AST 40 H (14-36) U/L Total Protein 4.8 L (6.3-8.2) g/dL Albumin 2.9 L (3.5-5.0) g/dL
[2022-04-06] MEDS ORDERED: IPRATROPIUM-ALBUTEROL 3 ML NEB INHALATION PRN (03:57)
[2022-04-06] MEDS: SODIUM CHLORIDE 0.9% 1,000 ML IV SCH (04:18)
[2022-04-06] MEDS: methylPREDNISolone SOD SUCCI 125 MG/2 ML VIAL IV SCH ×4 (05:56→23:22)
[2022-04-06] MEDS: IPRATROPIUM-ALBUTEROL 3 ML NEB INHALATION SCH ×4 (07:09→21:32)
[2022-04-06] MEDS: oxyCODONE-APAP 10-325MG 1 EACH TAB PO PRN ×3 (08:24→23:22)
[2022-04-06 08:40] LABS: Amorphous Sediment,Urine Rare /hpf; Appearance,Urine Cloudy (Clear); Bacteria,Urine Few /hpf; Bilirubin,Urine Negative (Negative); Blood,Urine Small (Negative); Calcium Oxalate Crystals,Urine Rare /hpf; Color,Urine Yellow; Glucose,Urine (UA) Negative (Negative); Ketones,Urine Negative (Negative); Leukocyte Esterase,Urine Large (Negative); Mucus,Urine Rare /hpf; Nitrite,Urine Positive (Negative); Protein,Urine 1+ (Negative); RBC,Urine 17 /hpf (0-5); Squamous Epithelial Cell,Urine 1 /hpf (0-4); Urobilinogen,Urine <2.0 mg/dL (<2.0); WBC,Urine 161 /hpf (0-5)
[2022-04-06] MEDS: metFORMIN 500 MG TAB PO SCH ×2 (13:45→21:31)
[2022-04-06] MEDS: BENZONATATE 100 MG CAP PO PRN ×2 (13:52→23:38)
[2022-04-06] MEDS: TORSEMIDE 20 MG TAB PO SCH (14:05)
[2022-04-06] MEDS ORDERED: DEXTROSE 50% SYRINGE 50 ML IVP PRN ×2 (15:01)
--- NOTE | 2022-04-06 15:19 | P.CNPUL ---
History of Present Illness Consult date: 04/06/22 Reason for consult: dyspnea History of present illness: 81-year-old female patient, no history of COPD and the patient also has history of chronic into fibrillation and previous history of a cardiac block requiring a pacemaker insertion and she has limited on long-term and coagulation with Eliquis. She is an ex-smoker. She came into the hospital because of worsening shortness of breath and chest tightness and wheezing and cough and congestion. Note that the patient has no pleurisy or hemoptysis. She is an ex-smoker. The chest x-ray from this current admission showed no acute cardiac pulmonary process. The patient did not have the vital screening at and this was ordered in the emergency department and there is also still pending for now. She has no fever. She has no chills. . She has been maintained on Stiolto on outpatient basis regarding her COPD and she uses albuterol in the form of Ventolin HFA on an as needed basis. The patient has no altered mentation. echoes at 8.4 with a hemoglobin of 10.7, her sodium is at 136, potassium is at 4, bicarb is at 27, BUN is 19 with a creatinine of 0.8, magnesium was low at 0.7, calcium is at 6.5, minimal troponin leaks with levels being 0.03 and 0.037 and 0.03 respectiv jeri, UA was abnormal and there is an indication for underlying urinary tract infection. Based on all this, the patient was 7 IV Rocephin. The patient was hospitalized for an acute COPD exacerbation. Initially the patient was placed on a BiPAP and subsequently she was taken off the BiPAP and he finally family arrived to the emergency, the patient was already on oxygen by nasal cannula at 5 L/m. She has chronic edema lower extremities bilaterally and the patient takes Demadex 20 mg by mouth daily. Review of Systems Constitutional: Reports as per HPI, Reports weakness, Reports weight gain Eyes: denies as per HPI, denies blurred vision, denies bulging eye, denies decreased vision, denies diplopia, denies discharge, denies dry eye, denies irritation, denies itching, denies pain, denies photophobia, denies loss of peripheral vision, denies loss of vision, denies tunnel vision/blind spots Ears: deny: decreased hearing, ear discharge, earache, tinnitus Ears, nose, mouth and throat: Reports as per HPI Breasts: absent: as per HPI, change in shape, gynecomastia, masses, nipple discharge, pain, skin changes, swelling Cardiovascular: Reports decreased exercise tolerance, Reports dyspnea on exertion, Reports edema, Reports irregular heart beat Respiratory: Reports as per HPI, Reports cough, Reports dyspnea, Reports wheezing Gastrointestinal: Reports as per HPI Genitourinary: Reports as per HPI Menstruation: Reports as per HPI Musculoskeletal: Reports as per HPI Musculoskeletal: absent: ankle pain, ankle stiffness, ankle swelling Integumentary: Reports as per HPI Neurological: Reports as per HPI Psychiatric: Reports as per HPI Endocrine: Reports as per HPI Hematologic/Lymphatic: Reports as per HPI Allergic/Immunologic: Reports as per HPI Past Medical History Past Medical History: Atrial Fibrillation, Cancer, COPD, Hypertension Additional Past Medical History / Comment(s): breast cancer 2001 post Lt lumpectomy, and bladder cancer post , carpletunnel, chronic atrail fibrillation History of Any Multi-Drug Resistant Organisms: None Reported Past Surgical History: Back Surgery, Cardiac Valve Replacement, Joint Replacement, Orthopedic Surgery, Pacemaker, Tonsillectomy, Tubal Ligation Additional Past Surgical History / Comment(s): bilat knees, rt shoulder repair, lung nodule removal, both carotids repaired (occluded) Past Anesthesia/Blood Transfusion Reactions: No Reported Reaction Type of Cardiac Device: Permanent Pacemaker Device Placement Date:: 02/16/2017 Past Psychological History: Anxiety, Depression Smoking Status: Former smoker Past Alcohol Use History: Occasional Past Drug Use History: None Reported - Past Family History Mother Family Medical History: COPD Medications and Allergies Home Medications Medication Instructions Recorded Confirmed Type Albuterol Inhaler [Ventolin Hfa 2 puff INHALATION RT-Q4H PRN 02/17/22 04/06/22 History Inhaler] Benzonatate 100 mg PO TID PRN 02/17/22 04/06/22 History D3 Plus K2 Dots 1 tab PO DAILY 02/17/22 04/06/22 History LORazepam 0.5 mg PO TID PRN 02/17/22 04/06/22 History Metoprolol Tartrate [Lopressor] 100 mg PO BID 02/17/22 04/06/22 History Mirtazapine [Remeron] 15 mg PO DIRECTED 02/17/22 04/06/22 History Nortriptyline [Pamelor] 25 mg PO TID 02/17/22 04/06/22 History Pantoprazole Sodium [Protonix] 40 mg PO BID 02/17/22 04/06/22 History Simvastatin [Zocor] 40 mg PO HS 02/17/22 04/06/22 History Solifenacin Succinate [Vesicare] 5 mg PO DAILY 02/17/22 04/06/22 History Tiotropium Br/Olodaterol HCl 2 puff INHALATION RT-DAILY 02/17/22 04/06/22 History [Stiolto Respimat Inhal [place]] Torsemide [Soaanz] 20 mg PO DAILY 02/17/22 04/06/22 History Turmeric Root Extract [Turmeric] 500 mg PO DAILY 02/17/22 04/06/22 History Vitamin K97-[id number] 1 tab SUBLINGUAL DAILY 02/17/22 04/06/22 History oxyCODONE HCL/ACETAMINOPHEN 1 tab PO Q6HR PRN 02/17/22 04/06/22 History [Percocet 10-325 mg] rOPINIRole HCL [Requip] 2 mg PO BID 02/17/22 04/06/22 History Ipratropium-Albuterol Nebulize 3 ml INHALATION RT-Q4H PRN 04/06/22 04/06/22 History [Duoneb 0.5 mg-3 mg/3 ml Soln] Rivaroxaban [Xarelto] 10 mg PO DAILY 04/06/22 04/06/22 History metFORMIN HCL [Glucophage] 500 mg PO BID 04/06/22 04/06/22 History Allergies Allergy/AdvReac Type Severity Reaction Status Date / Time morphine Allergy Itching Verified 04/06/22 07:58 tizanidine [From Zanaflex] Allergy Unknown Verified 04/06/22 07:58 zolpidem [From Ambien] Allergy Unknown Verified 04/06/22 07:58 gabapentin AdvReac Hallucinati Verified 04/06/22 07:58 ons hydromorphone [From Dilaudid] AdvReac Hallucinati Verified 04/06/22 07:58 ons pentazocine [From Talwin] AdvReac Hallucinati Verified 04/06/22 07:58 ons pregabalin [From Lyrica] AdvReac Hallucinati Verified 04/06/22 07:58 ons Physical Exam Vitals: Vital Signs Temp Pulse Resp BP Pulse Ox FiO2 04/06/22 12:25 98.0 F 62 20 149/68 98 04/06/22 11:24 72 04/06/22 11:12 61 04/06/22 07:21 63 04/06/22 07:12 60 98 04/06/22 07:00 60 16 107/94 98 04/06/22 05:58 60 18 109/65 99 04/06/22 04:19 60 18 109/66 100 04/06/22 02:40 60 04/06/22 00:38 60 04/06/22 00:30 60 24 116/65 100 04/05/22 23:52 60 04/05/22 23:06 22 134/93 04/05/22 23:00 60 04/05/22 22:50 98.2 F 64 22 98 Intake and Output 04/05/22 04/06/22 04/06/22 22:59 06:59 14:59 Other: Weight 81.647 kg General: non toxic, no distress, appears at stated age, obese, currently on 5 L of oxygen by nasal cannula. Body mass index is 31.9 Derm: no unusual rashes/lesions, warm Head: atraumatic, normocephalic, symmetric Eyes: EOMI, no lid lag, anicteric sclera, pupils equal round reactive to light ENT: Nose and ears atraumatic Neck: No cervical lymphadenopathy, trachea midline, supple Mouth: no lip lesion, mucus membranes moist Cardiovascular: S1S2 reg, no murmur, positive dorsalis pedis pulse bilateral, 1+ bilateral lower extremity pitting edema, no calf tenderness Lungs: Poor air entry bilaterally with expiratory wheezing noted, no accessory muscle use Abdominal: soft, nontender to palpation, no guarding Ext: muscle strength 5 out of 5 in all 4 extremities grossly, no gross muscle atrophy, no contractures, Neuro: CN II-XI grossly intact, no gross focal neuro deficits Psych: Alert, oriented, appropriate affect Results - Laboratory Findings CBC and BMP: 04/05/22 23:06 04/05/22 23:16 ABG WBC 8.4 k/uL (3.8-10.6) 04/05/22 23:06 RBC 3.92 m/uL (3.80-5.40) 04/05/22 23:06 Hgb 10.7 gm/dL (11.4-16.0) L 04/05/22 23:06 Hct 34.2 % (34.0-46.0) 04/05/22 23:06 MCV 87.3 fL (80.0-100.0) 04/05/22 23:06 MCH 27.4 pg (25.0-35.0) 04/05/22 23:06 MCHC 31.3 g/dL (31.0-37.0) 04/05/22 23:06 RDW 17.7 % (11.5-15.5) H 04/05/22 23:06 Plt Count 241 k/uL (150-450) 04/05/22 23:06 MPV 8.0 04/05/22 23:06 Neutrophils % 76 % 04/05/22 23:06 Lymphocytes % 14 % 04/05/22 23:06 Monocytes % 6 % 04/05/22 23:06 Eosinophils % 2 % 04/05/22 23:06 Basophils % 1 % 04/05/22 23:06 Neutrophils # 6.4 k/uL (1.3-7.7) 04/05/22 23:06 Lymphocytes # 1.2 k/uL (1.0-4.8) 04/05/22 23:06 Monocytes # 0.5 k/uL (0-1.0) 04/05/22 23:06 Eosinophils # 0.2 k/uL (0-0.7) 04/05/22 23:06 Basophils # 0.1 k/uL (0-0.2) 04/05/22 23:06 Hypochromasia Marked 04/05/22 23:06 Anisocytosis Slight 04/05/22 23:06 PT 11.6 sec (9.0-12.0) 04/05/22 23:06 INR 1.1 (<1.2) 04/05/22 23:06 APTT 24.4 sec (22.0-30.0) 04/05/22 23:06 Sodium 136 mmol/L (137-145) L 04/05/22 23:16 Potassium 4.0 mmol/L (3.5-5.1) 04/05/22 23:16 Chloride 107 mmol/L (98-107) 04/05/22 23:16 Carbon Dioxide 27 mmol/L (22-30) 04/05/22 23:16 Anion Gap 2 mmol/L 04/05/22 23:16 BUN 19 mg/dL (7-17) H 04/05/22 23:16 Creatinine 0.88 mg/dL (0.52-1.04) 04/05/22 23:16 Est GFR (CKD-EPI)AfAm 72 (>60 ml/min/1.73 sqM) 04/05/22 23:16 Est GFR (CKD-EPI)NonAf 63 (>60 ml/min/1.73 sqM) 04/05/22 23:16 Glucose 122 mg/dL (74-99) H 04/05/22 23:16 Plasma Lactic Acid Naseem 1.4 mmol/L (0.7-2.0) 04/05/22 23:06 Calcium 6.5 mg/dL (8.4-10.2) L 04/05/22 23:16 Magnesium 0.7 mg/dL (1.6-2.3) L* 04/05/22 23:16 Total Bilirubin 0.5 mg/dL (0.2-1.3) 04/05/22 23:16 AST 40 U/L (14-36) H 04/05/22 23:16 ALT 21 U/L (4-34) 04/05/22 23:16 Alkaline Phosphatase 47 U/L (38-126) 04/05/22 23:16 Troponin I 0.033 ng/mL (0.000-0.034) 04/06/22 05:43 NT-Pro-B Natriuret Pep 2290 pg/mL 04/05/22 23:06 Total Protein 4.8 g/dL (6.3-8.2) L 04/05/22 23:16 Albumin 2.9 g/dL (3.5-5.0) L 04/05/22 23:16 Urine Color Yellow 04/06/22 08:10 Urine Appearance Cloudy (Clear) H 04/06/22 08:10 Urine pH 8.0 (5.0-8.0) 04/06/22 08:10 Ur Specific [place] 1.020 (1.001-1.035) 04/06/22 08:10 Urine Protein 1+ (Negative) H 04/06/22 08:10 Urine Glucose (UA) Negative (Negative) 04/06/22 08:10 Urine Ketones Negative (Negative) 04/06/22 08:10 Urine Blood Small (Negative) H 04/06/22 08:10 Urine Nitrite Positive (Negative) H 04/06/22 08:10 Urine Bilirubin Negative (Negative) 04/06/22 08:10 Urine Urobilinogen <2.0 mg/dL (<2.0) 04/06/22 08:10 Ur Leukocyte Esterase Large (Negative) H 04/06/22 08:10 Urine RBC 17 /hpf (0-5) H 04/06/22 08:10 Urine WBC 161 /hpf (0-5) H 04/06/22 08:10 Ur Squamous Epith Cells 1 /hpf (0-4) 04/06/22 08:10 Calcium Oxalate Crystal Rare /hpf (None) H 04/06/22 08:10 Amorphous Sediment Rare /hpf (None) H 04/06/22 08:10 Urine Bacteria Few /hpf (None) H 04/06/22 08:10 Urine Mucus Rare /hpf (None) H 04/06/22 08:10 PT/INR, D-dimer PT 11.6 sec (9.0-12.0) 04/05/22 23:06 INR 1.1 (<1.2) 04/05/22 23:06 Abnormal lab findings: Abnormal Labs 04/05/22 04/05/22 04/06/22 23:06 23:16 03:04 Hgb 10.7 L RDW 17.7 H Sodium 136 L BUN 19 H Glucose 122 H Calcium 6.5 L Magnesium 0.7 L* AST 40 H Troponin I 0.037 H* Total Protein 4.8 L Albumin 2.9 L Urine Appearance Urine Protein Urine Blood Urine Nitrite Ur Leukocyte Esterase Urine RBC Urine WBC Calcium Oxalate Crystal Amorphous Sediment Urine Bacteria Urine Mucus 04/06/22 08:10 Hgb RDW Sodium BUN Glucose Calcium Magnesium AST Troponin I Total Protein Albumin Urine Appearance Cloudy H Urine Protein 1+ H Urine Blood Small H Urine Nitrite Positive H Ur Leukocyte Esterase Large H Urine RBC 17 H Urine WBC 161 H Calcium Oxalate Crystal Rare H Amorphous Sediment Rare H Urine Bacteria Few H Urine Mucus Rare H - Diagnostic Findings Chest x-ray: image reviewed Assessment and Plan Plan: Acute COPD exacerbation. Rule out underlying viral tracheal bronchitis. Chest x-ray is free of any acute pulmonary infiltrates. Awaiting the viral screen including influenza A and B and RSV and Covid 19. Noted the patient was recently infected with Covid 19 on 02/17 2022 and the patient was hospitalized and discharged home. Acute hypoxic respiratory failure currently off the BiPAP and the patient is currently on 5 L of O2 nasal cannula Shortness of breath secondary to above Remote history of breast cancer with a previous left lumpectomy History of bladder cancer post transurethral resection of the bladder tumor Suspected UTI currently on Rocephin Chronic atrial fibrillation and the patient has been maintained on long-term a anticoagulation History of arrhythmia requiring a pacemaker insertion Hypertension History of ex-smoking. Diabetes mellitus maintain on Glucophage Hyperlipidemia Plan Continue IV Rocephin Urine Gram stain and culture Check influenza, RSV and Covid 19 by PCR Continue bronchodilators Continue IV Solu-Medrol 60 mg every 6 hours Continue anticoagulation with xarelto Resume all medications Add cough medication with Tessalgricelda Perles Discontinue the BiPAP and use oxygen currently at 5 L/m nasal cannula Restart Demadex 20 mg by mouth daily Cardiology consultation for the limited troponin leak
--- NOTE | 2022-04-06 16:25 | P.PN ---
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 She was recently diagnosed with COVID-19 on 02/17/2022. She reports a nonproductive cough. She also reports suprapubic discomfort and dysuria. In the ED, she required BiPAP to maintain her O2 saturation greater than 92%. CBC showed hemoglobin of 10.7. Coagulation panel negative. CMP showed sodium 136, BUN of 19, glucose 122, calcium 6.5, AST of 40. Magnesium was 0.7. Lactic acid 1.4. Troponin 0.03, EKG showing ventricular paced rhythm. BNP 2290. Urinalysis positive for nitrite and leukocyte esterase. Chest x-ray negative. Patient was admitted for COPD exacerbation. Patient was seen and examined. No acute events overnight. Patient reports continued cough and shortness of breath. She reports dysuria. She is currently on 3 L nasal cannula. She is concerned because her is in the ICU. General: non toxic, mild distress, appears at stated age, appears dyspnea Derm: warm, dry Head: atraumatic, normocephalic, symmetric Eyes: EOMI, no lid lag, anicteric sclera Mouth: no lip lesion, mucus membranes moist Cardiovascular: S1S2 reg, no murmur Lungs: Diffuse wheezing bilateral, no rhonchi, no rales , no accessory muscle use Abdominal: soft, nontender to palpation, no guarding, no appreciable organomegaly Ext: no gross muscle atrophy, 1+ pitting lower extremity edema, no contractures Neuro: no focal neuro deficits Psych: Alert, oriented, appropriate affect #Acute hypoxic respiratory failure #COPD exacerbation Patient will be started on DuoNeb scheduled and is here for shortness of breath and wheezing. Continue Solu-Medrol. Telemetry monitoring. BiPAP as needed. Supplemental O2 to maintain O2 saturation greater than 92%. COVID 19 test, RSV, Flu ordered. Pulmonology consulted for further management of this patient. #Urinary tract infection Continue Rocephin and follow urine culture. #Troponin elevation ACS ruled out. Possibly demand ischemia. Continue Lipitor. Continue metop rolol. #Hypomagnesemia Replace with magnesium sulfate 4 gram IV. Repeat tomorrow. #Elevated AST #Obesity Patient will benefit from a structured weight loss program. Chronic conditions: History of paroxysmal atrial fibrillation, History of complete heart block with dual-chamber pacemaker, Restless leg syndrome, depression Continue beta katherine and Eliquis for history of atrial fibrillation. Continue Requip for history of RLS. Restart Cymbalta and Remeron for history of depression. Objective - Vital Signs Vital signs: Vital Signs Temp 98.1 F 04/06/22 15:18 Pulse 70 04/06/22 16:05 Resp 18 04/06/22 15:38 BP 138/78 04/06/22 15:18 Pulse Ox 96 04/06/22 15:53 FiO2 60 04/06/22 02:40 Intake & Output 04/05/22 04/06/22 04/06/22 18:59 06:59 18:59 Weight 81.647 kg Other: Voiding Method Diaper - Labs CBC & Chem 7: 04/05/22 23:06 04/05/22 23:16 Labs: Abnormal Lab Results - Last 24 Hours (Table) 04/05/22 04/05/22 04/06/22 Range/Units 23:06 23:16 03:04 Hgb 10.7 L (11.4-16.0) gm/dL RDW 17.7 H (11.5-15.5) % Sodium 136 L (137-145) mmol/L BUN 19 H (7-17) mg/dL Glucose 122 H (74-99) mg/dL Calcium 6.5 L (8.4-10.2) mg/dL Magnesium 0.7 L* (1.6-2.3) mg/dL AST 40 H (14-36) U/L Troponin I 0.037 H* (0.000-0.034) ng/mL Total Protein 4.8 L (6.3-8.2) g/dL Albumin 2.9 L (3.5-5.0) g/dL Urine Appearance (Clear) Urine Protein (Negative) Urine Blood (Negative) Urine Nitrite (Negative) Ur Leukocyte Esterase (Negative) Urine RBC (0-5) /hpf Urine WBC (0-5) /hpf Calcium Oxalate Crystal (None) /hpf Amorphous Sediment (None) /hpf Urine Bacteria (None) /hpf Urine Mucus (None) /hpf 04/06/22 Range/Units 08:10 Hgb (11.4-16.0) gm/dL RDW (11.5-15.5) % Sodium (137-145) mmol/L BUN (7-17) mg/dL Glucose (74-99) mg/dL Calcium (8.4-10.2) mg/dL Magnesium (1.6-2.3) mg/dL AST (14-36) U/L Troponin I (0.000-0.034) ng/mL Total Protein (6.3-8.2) g/dL Albumin (3.5-5.0) g/dL Urine Appearance Cloudy H (Clear) Urine Protein 1+ H (Negative) Urine Blood Small H (Negative) Urine Nitrite Positive H (Negative) Ur Leukocyte Esterase Large H (Negative) Urine RBC 17 H (0-5) /hpf Urine WBC 161 H (0-5) /hpf Calcium Oxalate Crystal Rare H (None) /hpf Amorphous Sediment Rare H (None) /hpf Urine Bacteria Few H (None) /hpf Urine Mucus Rare H (None) /hpf Microbiology - Last 24 Hours (Table) 04/06/22 08:10 Urine Culture - Preliminary Urine,Voided
[2022-04-06 16:48] LABS: Glucose,Whole Blood 351 mg/dL (70-110)
[2022-04-06] MEDS: PANTOPRAZOLE 40 MG TABLET PO SCH (16:59)
[2022-04-06] MEDS: INSULIN ASPART (NovoLOG) 100 UNIT/ML VIAL SQ SCH ×2 (17:00→21:27)
[2022-04-06] MEDS: NORTRIPTYLINE 25 MG CAP PO SCH ×2 (17:13→21:31)
[2022-04-06 21:24] LABS: Glucose,Whole Blood 268 mg/dL (70-110)
[2022-04-06] MEDS: METOPROLOL TARTRATE 50 MG TAB PO SCH (21:27)
[2022-04-06] MEDS: ATORVASTATIN 20 MG TAB PO SCH (21:27)
[2022-04-06] MEDS: BUDESONIDE 1 MG/2 ML NEBU INHALATION SCH (21:32)
[2022-04-06] MEDS: FORMOTEROL FUMARATE 20 MCG/2 ML NEBU INHALATION SCH (21:32)
[2022-04-06] MEDS: LORazepam 0.5 MG TAB PO PRN (23:22)
[2022-04-07] MEDS: SODIUM CHLORIDE 0.9% 1,000 ML IV SCH (00:32)
[2022-04-07] MEDS: LORazepam 2 MG/ML INJ IV PRN (02:17)
[2022-04-07] MEDS: methylPREDNISolone SOD SUCCI 125 MG/2 ML VIAL IV SCH ×3 (04:58→18:07)
[2022-04-07] MEDS: oxyCODONE-APAP 10-325MG 1 EACH TAB PO PRN ×3 (04:59→18:06)
[2022-04-07] MEDS: BENZONATATE 100 MG CAP PO PRN ×2 (04:59→18:06)
[2022-04-07 06:18] LABS: Glucose,Whole Blood 206 mg/dL (70-110)
[2022-04-07] MEDS: INSULIN ASPART (NovoLOG) 100 UNIT/ML VIAL SQ SCH ×4 (06:18→22:03)
[2022-04-07] MEDS: PANTOPRAZOLE 40 MG TABLET PO SCH ×2 (06:25→17:13)
[2022-04-07] MEDS: FORMOTEROL FUMARATE 20 MCG/2 ML NEBU INHALATION SCH ×2 (08:00→21:04)
[2022-04-07] MEDS: IPRATROPIUM-ALBUTEROL 3 ML NEB INHALATION SCH ×4 (08:00→21:04)
[2022-04-07] MEDS: BUDESONIDE 1 MG/2 ML NEBU INHALATION SCH ×2 (08:00→21:04)
[2022-04-07] MEDS: NON FORMULARY DRUG (Tiotropium Br/Olodaterol Hcl [Stiolto Respimat Inhal Spray] 4 GM Each) INHALATION SCH (08:54)
[2022-04-07] MEDS: MIRTAZAPINE 15 MG TAB PO SCH (09:08)
[2022-04-07] MEDS: TORSEMIDE 20 MG TAB PO SCH (09:08)
[2022-04-07] MEDS: RIVAROXABAN 10 MG TAB PO SCH (09:09)
[2022-04-07] MEDS: METOPROLOL TARTRATE 50 MG TAB PO SCH ×2 (09:09→22:03)
[2022-04-07] MEDS: NORTRIPTYLINE 25 MG CAP PO SCH ×3 (09:09→22:03)
[2022-04-07] MEDS: INSULIN DETEMIR (LEVEMIR) 100 UNIT/ML SYR SQ SCH (09:23)
[2022-04-07] MEDS: guaiFENesin 600 MG TABLET.ER PO SCH ×2 (09:23→22:03)
[2022-04-07] MEDS: metFORMIN 500 MG TAB PO SCH (10:59)
[2022-04-07 11:37] LABS: Glucose,Whole Blood 176 mg/dL (70-110)
[2022-04-07 12:10] LABS: Basophils # (A) 0.01 X 10*3/uL (0.00-0.10); Basophils % (A) 0.1 %; Eosinophils # (A) 0 X 10*3/uL (0.04-0.35); Eosinophils % (A) 0 %; HCT 33.3 % (37.2-46.3); HGB 9.7 g/dL (12.0-15.0); Immature Grans, Automated 0.6 %; Lymphocytes # (A) 0.49 X 10*3/uL (0.90-5.00); Lymphocytes % (A) 4.1 %; MCH 25.6 pg (27.0-32.0); MCHC 29.1 g/dL (32.0-37.0); MCV 87.9 fL (80.0-97.0); Mean Platelet Volume 10.9 fL (9.5-12.2); Monocytes % (A) 4.1 %; NRBC Per 100 WBC 0 /100 WBCS (0.0-0.0); Neutrophils # (A) 10.99 X 10*3/uL (1.80-7.70); Neutrophils % (A) 91.1 %; Platelet Count 234 X 10*3/uL (140-440); RBC 3.79 X 10*6/uL (4.10-5.20); RDW 19.6 % (11.5-14.5); WBC 12.06 X 10*3/uL (4.50-10.00)
[2022-04-07 12:20] LABS: African American GFR (CKD) 49.9 (60.0-200.0); Albumin 4.1 g/dL (3.8-4.9); Anion Gap 14.3 mmol/L (10.00-18.00); BUN/Creat Ratio 22.02 Ratio (12.00-20.00); Blood Urea Nitrogen 26.2 mg/dL (9.0-27.0); Calcium 8.3 mg/dL (8.7-10.3); Carbon Dioxide 24.3 mmol/L (20.0-27.5); Globulin 2.1 g/dL (1.6-3.3); Magnesium 1.6 mg/dL (1.5-2.4); Non-African American GFR(CKD) 43.1 (60.0-200.0); Phosphorus 3.4 mg/dL (2.4-5.1); Potassium 4.7 mmol/L (3.5-5.5); Total Bilirubin 0.3 mg/dL (0.30-1.20); Total Protein 6.2 g/dL (6.2-8.2)
--- NOTE | 2022-04-07 14:35 | P.PN ---
Subjective Progress Note Date: 04/07/22 The patient is an 81-year-old female with A. fib on Eliquis, COPD, history of complete heart block status post pacemaker placement who presented to the emergency room with complaints of shortness of breath. In the ER she underwent an extensive evaluation. Chest x-ray in the emergency room was unremarkable. EKG revealed V paced rhythm at 63 bpm. Laboratory evaluation was remarkable for a magnesium of 0.7, proBNP 2290, troponin 0.030, and calcium 6.5. She was admitted and started on bronchodilators and steroids. Pulmonary was consulted. She did require some BiPAP therapy. Her white blood cell count elevated which was felt to be secondary to steroids. She did develop some hyperglycemia and stated that last month she was placed on metformin due to elevated blood sugars from steroids. She states she was told that her steroid used caused diabetes. Patient seen and examined at bedside. She reports that she feels as though there is a stuffed caught in the back of her throat and her airways and she is unable to cough it up. She feels slightly nauseated because of this and her ribs are hurting due to coughing. General: nontoxic, no distress, appears at stated age Derm: warm, dry Head: atraumatic, normocephalic, symmetric Eyes: EOMI, no lid lag, anicteric sclera Mouth: no lip lesion, mucus membranes moist, no thrush Cardiovascular: S1S2 reg, no murmur, positive posterior tibial pulse bilateral, Lungs: Coarse breath sounds bilateral bilateral, no rhonchi, no rales , no accessory muscle use, 3 word conversational dyspnea Abdominal: soft, nontender to palpation, no guarding, no appreciable organomegaly Ext: no gross muscle atrophy, no edema, no contractures Neuro: CN II-XI grossly intact, no focal neuro deficits Psych: Alert, oriented, appropriate affect Assessment/plan: Acute exacerbation of COPD Acute hypoxic respiratory failure -Pulmonary recommendations -Continue with bronchodilators, steroids, and antibiotics -Influenza, RSV, and COVID-19 are negative -Pulmonary hygiene -Add Mucinex and flutter valve Hyperglycemia with underlying diabetes -Stop metformin -Continue with sliding scale, and Levemir -Outpatient follow-up Microcytic anemia -Hemoglobin at or near baseline -Follow CBC -Outpatient evaluation Probable urinary tract infection -Continue with Rocephin -Await for urine culture to finalize Hypomagnesemia -Replace and recheck Obesity with BMI 39.6 -Outpatient structured weight loss Chronic conditions: History of paroxysmal atrial fibrillation, History of complete heart block with dual-chamber pacemaker, Restless leg syndrome, depre ssion Continue beta katherine and Eliquis for history of atrial fibrillation. Continue Requip for history of RLS. Cymbalta and Remeron for history of depression. DVT prophylaxis: Xarelto Discussed with: patient, nursing Anticipated discharge: in AM Anticipated discharge place: home A total of 35 minutes was spent on the care of this complex patient more than 50% of the time was spent in counseling and care coordination. Objective - Vital Signs Vital signs: Vital Signs Temp 98.6 F 04/07/22 08:00 Pulse 90 04/07/22 11:24 Resp 20 04/07/22 08:00 BP 142/81 04/07/22 08:00 Pulse Ox 97 04/07/22 08:00 FiO2 60 04/07/22 02:41 Intake & Output 04/06/22 04/07/22 04/07/22 18:59 06:59 18:59 Intake Total 480 Balance 480 Intake: Intake, IV Titration 240 Amount Sodium Chloride 0.9% 1, 240 000 ml @ 20 mls/hr IV . Q24H ON LICENSE OF [facility] Rx#:[id number] Oral 240 Other: Voiding Method Diaper # Voids 1 4 # Bowel Movements 0 - Labs CBC & Chem 7: 04/07/22 07:12 04/07/22 07:12 Labs: Abnormal Lab Results - Last 24 Hours (Table) 04/06/22 04/06/22 04/07/22 Range/Units 16:46 21:12 06:11 WBC (4.50-10.00) X 10*3/uL RBC (4.10-5.20) X 10*6/uL Hgb (12.0-15.0) g/dL Hct (37.2-46.3) % MCH (27.0-32.0) pg MCHC (32.0-37.0) g/dL RDW (11.5-14.5) % Immature Gran # (0.00-0.04) X 10*3/uL Neutrophils # (1.80-7.70) X 10*3/uL Lymphocytes # (0.90-5.00) X 10*3/uL Eosinophils # (0.04-0.35) X 10*3/uL Sodium (135-145) mmol/L Chloride (96-109) mmol/L Est GFR (CKD-EPI)AfAm (60.0-200.0) Est GFR (CKD-EPI)NonAf (60.0-200.0) BUN/Creatinine Ratio (12.00-20.00) Ratio Glucose (70-110) mg/dL POC Glucose (mg/dL) 351 H 268 H 206 H (70-110) mg/dL Calcium (8.7-10.3) mg/dL 04/07/22 04/07/22 04/07/22 Range/Units 07:12 07:12 11:35 WBC 12.06 H (4.50-10.00) X 10*3/uL RBC 3.79 L (4.10-5.20) X 10*6/uL Hgb 9.7 L (12.0-15.0) g/dL Hct 33.3 L (37.2-46.3) % MCH 25.6 L (27.0-32.0) pg MCHC 29.1 L (32.0-37.0) g/dL RDW 19.6 H (11.5-14.5) % Immature Gran # 0.07 H (0.00-0.04) X 10*3/uL Neutrophils # 10.99 H (1.80-7.70) X 10*3/uL Lymphocytes # 0.49 L (0.90-5.00) X 10*3/uL Eosinophils # 0 L (0.04-0.35) X 10*3/uL Sodium 133 L (135-145) mmol/L Chloride 95 L (96-109) mmol/L Est GFR (CKD-EPI)AfAm 49.9 L (60.0-200.0) Est GFR (CKD-EPI)NonAf 43.1 L (60.0-200.0) BUN/Creatinine Ratio 22.02 H (12.00-20.00) Ratio Glucose 195 H (70-110) mg/dL POC Glucose (mg/dL) 176 H (70-110) mg/dL Calcium 8.3 L (8.7-10.3) mg/dL Microbiology - Last 24 Hours (Table) 04/06/22 08:10 Urine Culture - Preliminary Urine,Voided Gram Neg Bacilli
[2022-04-07] MEDS: LORazepam 0.5 MG TAB PO PRN (14:37)
--- NOTE | 2022-04-07 16:28 | P.PN ---
Subjective Progress Note Date: 04/07/22 81-year-old female patient, no history of COPD and the patient also has history of chronic into fibrillation and previous history of a cardiac block requiring a pacemaker insertion and she has limited on long-term and coagulation with Eliquis. She is an ex-smoker. She came into the hospital because of worsening shortness of breath and chest tightness and wheezing and cough and congestion. Note that the patient has no pleurisy or hemoptysis. She is an ex-smoker. The chest x-ray from this current admission showed no acute cardiac pulmonary process. The patient did not have the vital screening at and this was ordered in the emergency department and there is also still pending for now. She has no fever. She has no chills. . She has been maintained on Stiolto on outpatient basis regarding her COPD and she uses albuterol in the form of Ventolin HFA on an as needed basis. The patient has no altered mentation. echoes at 8.4 with a hemoglobin of 10.7, her sodium is at 136, potassium is at 4, bicarb is at 27, BUN is 19 with a creatinine of 0.8, magnesium was low at 0.7, calcium is at 6.5, minimal troponin leaks with levels being 0.03 and 0.037 and 0.03 respectively, UA was abnormal and there is an indication for underlying urinary tract infection. Based on all this, the patient was 7 IV Rocephin. The patient was hospitalized for an acute COPD exacerbation. Initially the patient was placed on a BiPAP and subsequently she was taken off the BiPAP and he finally family arrived to the emergency, the patient was already on oxygen by nasal cannula at 5 L/m. She has chronic edema lower extremities bilaterally and the patient takes Demadex 20 mg by mouth daily. On 04/07/2022, seeing the patient for a follow-up. The patient is being treated for underlying UTI. At same time, the patient has an acute COPD exacerbation. Feeling better. Less short of breath compared to yesterday. The white suppositive 12 with a hemoglobin of 9.7 and a platelet count of 234. The sodium is at 133, BUN is at 26 with a creatinine of 1.2. The urine culture showing gram-negative bacillus. For now, the patient remains on IV Rocephin. The patient is also on bronchodilators and steroids. The patient is on long-term and coagulation with arousal. She remains on oxygen and she is on 3 L of oxygen by nasal cannula Objective - Vital Signs Vital signs: Vital Signs Temp 98.0 F 04/07/22 14:00 Pulse 94 04/07/22 16:10 Resp 14 04/07/22 14:00 BP 155/69 04/07/22 14:00 Pulse Ox 97 04/07/22 14:00 FiO2 60 04/07/22 02:41 Intake & Output 04/06/22 04/07/22 04/07/22 18:59 06:59 18:59 Intake Total 480 Balance 480 Intake: Intake, IV Titration 240 Amount Sodium Chloride 0.9% 1, 240 000 ml @ 20 mls/hr IV . Q24H [facility] Rx#:[id number] Oral 240 Other: Voiding Method Diaper # Voids 1 4 # Bowel Movements 0 - Exam General: non toxic, no distress, appears at stated age, obese, currently on 3 L of oxygen by nasal cannula. Body mass index is 31.9 Derm: no unusual rashes/lesions, warm Head: atraumatic, normocephalic, symmetric Eyes: EOMI, no lid lag, anicteric sclera, pupils equal round reactive to light ENT: Nose and ears atraumatic Neck: No cervical lymphadenopathy, trachea midline, supple Mouth: no lip lesion, mucus membranes moist Cardiovascular: S1S2 reg, no murmur, positive dorsalis pedis pulse bilateral, 1+ bilateral lower extremity pitting edema, no calf tenderness Lungs: Poor air entry bilaterally with expiratory wheezing noted, no accessory muscle use Abdominal: soft, nontender to palpation, no guarding Ext: muscle strength 5 out of 5 in all 4 extremities grossly, no gross muscle atrophy, no contractures, Neuro: CN II-XI grossly intact, no gross focal neuro deficits Psych: Alert, oriented, appropriate affect - Labs CBC & Chem 7: 04/07/22 07:12 04/07/22 07:12 Labs: Abnormal Lab Results - Last 24 Hours (Table) 04/06/22 04/06/22 04/07/22 Range/Units 16:46 21:12 06:11 WBC (4.50-10.00) X 10*3/uL RBC (4.10-5.20) X 10*6/uL Hgb (12.0-15.0) g/dL Hct (37.2-46.3) % MCH (27.0-32.0) pg MCHC (32.0-37.0) g/dL RDW (11.5-14.5) % Immature Gran # (0.00-0.04) X 10*3/uL Neutrophils # (1.80-7.70) X 10*3/uL Lymphocytes # (0.90-5.00) X 10*3/uL Eosinophils # (0.04-0.35) X 10*3/uL Sodium (135-145) mmol/L Chloride (96-109) mmol/L Est GFR (CKD-EPI)AfAm (60.0-200.0) Est GFR (CKD-EPI)NonAf (60.0-200.0) BUN/Creatinine Ratio (12.00-20.00) Ratio Glucose (70-110) mg/dL POC Glucose (mg/dL) 351 H 268 H 206 H (70-110) mg/dL Calcium (8.7-10.3) mg/dL 04/07/22 04/07/22 04/07/22 Range/Units 07:12 07:12 11:35 WBC 12.06 H (4.50-10.00) X 10*3/uL RBC 3.79 L (4.10-5.20) X 10*6/uL Hgb 9.7 L (12.0-15.0) g/dL Hct 33.3 L (37.2-46.3) % MCH 25.6 L (27.0-32.0) pg MCHC 29.1 L (32.0-37.0) g/dL RDW 19.6 H (11.5-14.5) % Immature Gran # 0.07 H (0.00-0.04) X 10*3/uL Neutrophils # 10.99 H (1.80-7.70) X 10*3/uL Lymphocytes # 0.49 L (0.90-5.00) X 10*3/uL Eosinophils # 0 L (0.04-0.35) X 10*3/uL Sodium 133 L (135-145) mmol/L Chloride 95 L (96-109) mmol/L Est GFR (CKD-EPI)AfAm 49.9 L (60.0-200.0) Est GFR (CKD-EPI)NonAf 43.1 L (60.0-200.0) BUN/Creatinine Ratio 22.02 H (12.00-20.00) Ratio Glucose 195 H (70-110) mg/dL POC Glucose (mg/dL) 176 H (70-110) mg/dL Calcium 8.3 L (8.7-10.3) mg/dL Microbiology - Last 24 Hours (Table) 04/06/22 08:10 Urine Culture - Preliminary Urine,Voided Gram Neg Bacilli Assessment and Plan Plan: Acute COPD exacerbation. Rule out underlying viral tracheal bronchitis. Chest x-ray is free of any acute pulmonary infiltrates. Awaiting the viral screen including influenza A and B and RSV and Covid 19. Noted the patient was recently infected with Covid 19 on 02/17 2022 and the patient was hospitalized and discharged home. Clinically improving Gram-negative UTI Acute hypoxic respiratory failure currently off the BiPAP and the patient is currently on 3 L of O2 nasal cannula Shortness of breath secondary to above Remote history of breast cancer with a previous left lumpectomy History of bladder cancer post transurethral resection of the bladder tumor Suspected UTI currently on Rocephin Chronic atrial fibrillation and the patient has been maintained on long-term a anticoagulation History of arrhythmia requiring a pacemaker insertion Hypertension History of ex-smoking. Diabetes mellitus maintain on Glucophage Hyperlipidemia Plan Continue IV Rocephin Urine Gram stain and culture Awaiting results of the urine cultures Check influenza, RSV and Covid 19 by PCR were all negative Continue bronchodilators Continue IV Solu-Medrol 60 mg every 6 hours Continue anticoagulation with xarelto Resume all medications Vignesh Escudero Discontinue the BiPAP and use oxygen currently at 3 L/m nasal cannula Restart Demadex 20 mg by mouth daily Cardiology consultation for the limited troponin leak
[2022-04-07 16:52] LABS: Glucose,Whole Blood 312 mg/dL (70-110)
[2022-04-07 21:47] LABS: Glucose,Whole Blood 366 mg/dL (70-110)
[2022-04-07] MEDS: ATORVASTATIN 20 MG TAB PO SCH (22:03)
[2022-04-08] MEDS: methylPREDNISolone SOD SUCCI 125 MG/2 ML VIAL IV SCH ×5 (00:13→23:40)
[2022-04-08] MEDS: SODIUM CHLORIDE 0.9% 1,000 ML IV SCH (06:18)
[2022-04-08] MEDS: PANTOPRAZOLE 40 MG TABLET PO SCH ×2 (06:19→16:51)
[2022-04-08 06:56] LABS: Glucose,Whole Blood 250 mg/dL (70-110)
[2022-04-08] MEDS: NON FORMULARY DRUG (Tiotropium Br/Olodaterol Hcl [Stiolto Respimat Inhal Spray] 4 GM Each) INHALATION SCH (08:28)
[2022-04-08] MEDS: INSULIN DETEMIR (LEVEMIR) 100 UNIT/ML SYR SQ SCH (08:39)
[2022-04-08] MEDS: TORSEMIDE 20 MG TAB PO SCH (08:40)
[2022-04-08] MEDS: INSULIN ASPART (NovoLOG) 100 UNIT/ML VIAL SQ SCH ×4 (08:40→21:05)
[2022-04-08] MEDS: guaiFENesin 600 MG TABLET.ER PO SCH ×2 (08:40→21:06)
[2022-04-08] MEDS: NORTRIPTYLINE 25 MG CAP PO SCH ×3 (08:40→21:05)
[2022-04-08] MEDS: MIRTAZAPINE 15 MG TAB PO SCH (08:40)
[2022-04-08] MEDS: METOPROLOL TARTRATE 50 MG TAB PO SCH ×2 (08:40→21:05)
[2022-04-08] MEDS: RIVAROXABAN 10 MG TAB PO SCH (08:40)
[2022-04-08] MEDS: BENZONATATE 100 MG CAP PO PRN (08:58)
[2022-04-08] MEDS: oxyCODONE-APAP 10-325MG 1 EACH TAB PO PRN ×3 (08:58→23:48)
[2022-04-08] MEDS: IPRATROPIUM-ALBUTEROL 3 ML NEB INHALATION SCH ×4 (09:18→20:35)
[2022-04-08] MEDS: FORMOTEROL FUMARATE 20 MCG/2 ML NEBU INHALATION SCH ×2 (09:18→20:35)
[2022-04-08] MEDS: BUDESONIDE 1 MG/2 ML NEBU INHALATION SCH ×2 (09:18→20:35)
[2022-04-08] MEDS ORDERED: FUROSEMIDE 10 MG/ML 4 ML VIAL IV STA (10:03)
[2022-04-08 10:07] LABS: HCT 33.2 % (37.2-46.3); HGB 9.9 g/dL (12.0-15.0); MCH 26.1 pg (27.0-32.0); MCHC 29.8 g/dL (32.0-37.0); MCV 87.4 fL (80.0-97.0); Mean Platelet Volume 10.2 fL (9.5-12.2); NRBC Per 100 WBC 0 /100 WBCS (0.0-0.0); Platelet Count 257 X 10*3/uL (140-440); RDW 19.5 % (11.5-14.5); WBC 13.06 X 10*3/uL (4.50-10.00)
[2022-04-08] MEDS: NYSTATIN 100,000 UNIT/GM POWD 15 GM TOPICAL SCH ×3 (10:31→21:06)
[2022-04-08 11:21] LABS: Glucose,Whole Blood 277 mg/dL (70-110)
--- NOTE | 2022-04-08 11:37 | P.PN ---
Subjective Progress Note Date: 04/08/22 The patient is an 81-year-old female with A. fib on Eliquis, COPD, history of complete heart block status post pacemaker placement who presented to the emergency room with complaints of shortness of breath. In the ER she underwent an extensive evaluation. Chest x-ray in the emergency room was unremarkable. EKG revealed V paced rhythm at 63 bpm. Laboratory evaluation was remarkable for a magnesium of 0.7, proBNP 2290, troponin 0.030, and calcium 6.5. She was admitted and started on bronchodilators and steroids. Pulmonary was consulted. She did require some BiPAP therapy. Her white blood cell count elevated which was felt to be secondary to steroids. She did develop some hyperglycemia and stated that last month she was placed on metformin due to elevated blood sugars from steroids. She states she was told that her steroid used caused diabetes. Her flu and RSV swabs came back negative. She had slow continued improvement. Patient seen and examined at bedside. She continues to suffer from a cough. She denies any nausea or vomiting. She is eating small amounts of food but states this appears appetizing. She complains of swelling in her legs and her arms left greater than right but she had lymph nodes removed from the left during her lumpectomy for breast cancer. General: nontoxic, no distress, appears at stated age Derm: warm, dry Head: atraumatic, normocephalic, symmetric Eyes: EOMI, no lid lag, anicteric sclera Mouth: no lip lesion, mucus membranes moist, no thrush Cardiovascular: S1S2 reg, no murmur, positive posterior tibial pulse bilateral, Lungs: Coarse breath sounds bilateral bilateral, no rhonchi, no rales , no accessory muscle use, + 3 word conversational dyspnea Abdominal: soft, nontender to palpation, no guarding, no appreciable organomegaly Ext: no gross muscle atrophy, no edema, no contractures Neuro: CN II-XI grossly intact, no focal neuro deficits Psych: Alert, oriented, appropriate affect Assessment/plan: Acute exacerbation of COPD Acute hypoxic respiratory failure -Pulmonary recommendations -Continue with bronchodilators, steroids, and antibiotics -Influenza, RSV, are negative, order COVID -Pulmonary hygiene -Mucinex and flutter valve Edema - Lasix IV X 1 - Lymphedema wrap left arm Hyperglycemia with underlying diabetes -holdmetformin -Continue with sliding scale, increase Levemir -Outpatient follow-up Microcytic anemia -Hemoglobin at or near baseline -Follow CBC -Outpatient evaluation Probable urinary tract infection -Continue with Rocephin -Await for urine culture to finalize Hypomagnesemia -Replace and recheck Obesity with BMI 39.6 -Outpatient structured weight loss Chronic conditions: History of paroxysmal atrial fibrillation, History of complete heart block with dual-chamber pacemaker, Restless leg syndrome, depression Continue beta katherine and Eliquis for history of atrial fibrillation. Continue Requip for history of RLS. Cymbalta and Remeron for history of depression. DVT prophylaxis: Xarelto Discussed with: patient, nursing Anticipated discharge: in AM Anticipated discharge place: home A total of 35 minutes was spent on the care of this complex patient more than 50% of the time was spent in counseling and care coordination. Objective - Vital Signs Vital signs: Vital Signs Temp 97.7 F 04/08/22 06:57 Pulse 64 04/08/22 09:39 Resp 14 04/08/22 08:59 BP 168/72 04/08/22 06:57 Pulse Ox 98 04/08/22 09:18 FiO2 60 04/07/22 02:41 Intake & Output 04/07/22 04/08/22 04/08/22 18:59 06:59 18:59 Intake Total 240 Balance 240 Intake: IV 240 Sodium Chloride 0.9% 1, 240 000 ml @ 20 mls/hr IV . Q24H [facility] Rx#:[id number] Other: Voiding Method Toilet Toilet # Voids 2 - Labs CBC & Chem 7: 04/08/22 07:19 04/07/22 07:12 Labs: Abnormal Lab Results - Last 24 Hours (Table) 04/07/22 04/07/22 04/07/22 Range/Units 07:12 07:12 11:35 WBC 12.06 H (4.50-10.00) X 10*3/uL RBC 3.79 L (4.10-5.20) X 10*6/uL Hgb 9.7 L (12.0-15.0) g/dL Hct 33.3 L (37.2-46.3) % MCH 25.6 L (27.0-32.0) pg MCHC 29.1 L (32.0-37.0) g/dL RDW 19.6 H (11.5-14.5) % Immature Gran # 0.07 H (0.00-0.04) X 10*3/uL Neutrophils # 10.99 H (1.80-7.70) X 10*3/uL Lymphocytes # 0.49 L (0.90-5.00) X 10*3/uL Eosinophils # 0 L (0.04-0.35) X 10*3/uL Sodium 133 L (135-145) mmol/L Chloride 95 L (96-109) mmol/L Est GFR (CKD-EPI)AfAm 49.9 L (60.0-200.0) Est GFR (CKD-EPI)NonAf 43.1 L (60.0-200.0) BUN/Creatinine Ratio 22.02 H (12.00-20.00) Ratio Glucose 195 H (70-110) mg/dL POC Glucose (mg/dL) 176 H (70-110) mg/dL Calcium 8.3 L (8.7-10.3) mg/dL 04/07/22 04/07/22 04/08/22 Range/Units 16:50 21:45 06:54 WBC (4.50-10.00) X 10*3/uL RBC (4.10-5.20) X 10*6/uL Hgb (12.0-15.0) g/dL Hct (37.2-46.3) % MCH (27.0-32.0) pg MCHC (32.0-37.0) g/dL RDW (11.5-14.5) % Immature Gran # (0.00-0.04) X 10*3/uL Neutrophils # (1.80-7.70) X 10*3/uL Lymphocytes # (0.90-5.00) X 10*3/uL Eosinophils # (0.04-0.35) X 10*3/uL Sodium (135-145) mmol/L Chloride (96-109) mmol/L Est GFR (CKD-EPI)AfAm (60.0-200.0) Est GFR (CKD-EPI)NonAf (60.0-200.0) BUN/Creatinine Ratio (12.00-20.00) Ratio Glucose (70-110) mg/dL POC Glucose (mg/dL) 312 H 366 H 250 H (70-110) mg/dL Calcium (8.7-10.3) mg/dL 04/08/22 04/08/22 Range/Units 07:19 11:20 WBC 13.06 H (4.50-10.00) X 10*3/uL RBC 3.80 L (4.10-5.20) X 10*6/uL Hgb 9.9 L (12.0-15.0) g/dL Hct 33.2 L (37.2-46.3) % MCH 26.1 L (27.0-32.0) pg MCHC 29.8 L (32.0-37.0) g/dL RDW 19.5 H (11.5-14.5) % Immature Gran # (0.00-0.04) X 10*3/uL Neutrophils # (1.80-7.70) X 10*3/uL Lymphocytes # (0.90-5.00) X 10*3/uL Eosinophils # (0.04-0.35) X 10*3/uL Sodium (135-145) mmol/L Chloride (96-109) mmol/L Est GFR (CKD-EPI)AfAm (60.0-200.0) Est GFR (CKD-EPI)NonAf (60.0-200.0) BUN/Creatinine Ratio (12.00-20.00) Ratio Glucose (70-110) mg/dL POC Glucose (mg/dL) 277 H (70-110) mg/dL Calcium (8.7-10.3) mg/dL Microbiology - Last 24 Hours (Table) 04/06/22 08:10 Urine Culture - Preliminary Urine,Voided Gram Neg Bacilli
[2022-04-08 16:29] LABS: Glucose,Whole Blood 213 mg/dL (70-110)
--- NOTE | 2022-04-08 16:40 | P.PN ---
Subjective Progress Note Date: 04/08/22 81-year-old female patient, no history of COPD and the patient also has history of chronic into fibrillation and previous history of a cardiac block requiring a pacemaker insertion and she has limited on long-term and coagulation with Eliquis. She is an ex-smoker. She came into the hospital because of worsening shortness of breath and chest tightness and wheezing and cough and congestion. Note that the patient has no pleurisy or hemoptysis. She is an ex-smoker. The chest x-ray from this current admission showed no acute cardiac pulmonary process. The patient did not have the vital screening at and this was ordered in the emergency department and there is also still pending for now. She has no fever. She has no chills. . She has been maintained on Stiolto on outpatient basis regarding her COPD and she uses albuterol in the form of Ventolin HFA on an as needed basis. The patient has no altered mentation. echoes at 8.4 with a hemoglobin of 10.7, her sodium is at 136, potassium is at 4, bicarb is at 27, BUN is 19 with a creatinine of 0.8, magnesium was low at 0.7, calcium is at 6.5, minimal troponin leaks with levels being 0.03 and 0.037 and 0.03 respectively, UA was abnormal and there is an indication for underlying urinary tract infection. Based on all this, the patient was 7 IV Rocephin. The patient was hospitalized for an acute COPD exacerbation. Initially the patient was placed on a BiPAP and subsequently she was taken off the BiPAP and he finally family arrived to the emergency, the patient was already on oxygen by nasal cannula at 5 L/m. She has chronic edema lower extremities bilaterally and the patient takes Demadex 20 mg by mouth daily. On 04/07/2022, seeing the patient for a follow-up. The patient is being treated for underlying UTI. At same time, the patient has an acute COPD exacerbation. Feeling better. Less short of breath compared to yesterday. The white suppositive 12 with a hemoglobin of 9.7 and a platelet count of 234. The sodium is at 133, BUN is at 26 with a creatinine of 1.2. The urine culture showing gram-negative bacillus. For now, the patient remains on IV Rocephin. The patient is also on bronchodilators and steroids. The patient is on long-term and coagulation with arousal. She remains on oxygen and she is on 3 L of oxygen by nasal cannula On 04/08/2022, I'm seeing the patient for a follow-up. The patient is less short of breath compared to yesterday. The patient also feeling less bronchospastic and wheezy. As mentioned, the patient came in for an acute COPD exacerbation. She also had a underlying urinary tract infection with E. coli. She is being treated accordingly. She has no specific complaints otherwise for now. Overall she's feeling weak. She has increased edema lower oximetry done based on that the patient was given a dose of Lasix. Legs were also breath. She is on Mucinex and a flutter valve. She has no specific complaints otherwise for now. No chest pain. No altered mentation in time is at the bedside. The patient remains on IV Rocephin pending further urine cultures. Objective - Vital Signs Vital signs: Vital Signs Temp 98.6 F 04/08/22 14:11 Pulse 59 L 04/08/22 14:11 Resp 17 04/08/22 14:11 BP 155/75 04/08/22 14:11 Pulse Ox 96 04/08/22 14:11 FiO2 60 04/07/22 02:41 Intake & Output 04/07/22 04/08/22 04/08/22 18:59 06:59 18:59 Intake Total 240 Balance 240 Intake: IV 240 Sodium Chloride 0.9% 1, 240 000 ml @ 20 mls/hr IV . Q24H [facility] Rx#:[id number] Other: Voiding Method Toilet Toilet # Voids 2 - Exam General: non toxic, no distress, appears at stated age, obese, currently on 3 L of oxygen by nasal cannula. Body mass index is 31.9 Derm: no unusual rashes/lesions, warm Head: atraumatic, normocephalic, symmetric Eyes: EOMI, no lid lag, anicteric sclera, pupils equal round reactive to light ENT: Nose and ears atraumatic Neck: No cervical lymphadenopathy, trachea midline, supple Mouth: no lip lesion, mucus membranes moist Cardiovascular: S1S2 reg, no murmur, positive dorsalis pedis pulse bilateral, 1+ bilateral lower extremity pitting edema, no calf tenderness Lungs: Poor air entry bilaterally with expiratory wheezing noted, no accessory muscle use Abdominal: soft, nontender to palpation, no guarding Ext: muscle strength 5 out of 5 in all 4 extremities grossly, no gross muscle atrophy, no contractures, Neuro: CN II-XI grossly intact, no gross focal neuro deficits Psych: Alert, oriented, appropriate affect - Labs CBC & Chem 7: 04/08/22 07:19 04/07/22 07:12 Labs: Abnormal Lab Results - Last 24 Hours (Table) 04/07/22 04/07/22 04/08/22 Range/Units 16:50 21:45 06:54 WBC (4.50-10.00) X 10*3/uL RBC (4.10-5.20) X 10*6/uL Hgb (12.0-15.0) g/dL Hct (37.2-46.3) % MCH (27.0-32.0) pg MCHC (32.0-37.0) g/dL RDW (11.5-14.5) % POC Glucose (mg/dL) 312 H 366 H 250 H (70-110) mg/dL 04/08/22 04/08/22 04/08/22 Range/Units 07:19 11:20 16:27 WBC 13.06 H (4.50-10.00) X 10*3/uL RBC 3.80 L (4.10-5.20) X 10*6/uL Hgb 9.9 L (12.0-15.0) g/dL Hct 33.2 L (37.2-46.3) % MCH 26.1 L (27.0-32.0) pg MCHC 29.8 L (32.0-37.0) g/dL RDW 19.5 H (11.5-14.5) % POC Glucose (mg/dL) 277 H 213 H (70-110) mg/dL Microbiology - Last 24 Hours (Table) 04/06/22 08:10 Urine Culture - Final Urine,Voided Proteus mirabilis Assessment and Plan Plan: Acute COPD exacerbation. Rule out underlying viral tracheal bronchitis. Chest x-ray is free of any acute pulmonary infiltrates. Awaiting the viral screen including influenza A and B and RSV and Covid 19. Noted the patient was recently infected with Covid 19 on 02/17 2022 and the patient was hospitalized and discharged home. Clinically improving Gram-negative UTI Acute hypoxic respiratory failure currently off the BiPAP and the patient is currently on 3 L of O2 nasal cannula Shortness of breath secondary to above Remote history of breast cancer with a previous left lumpectomy History of bladder cancer post transurethral resection of the bladder tumor Suspected UTI currently on Rocephin Chronic atrial fibrillation and the patient has been maintained on long-term a anticoagulation History of arrhythmia requiring a pacemaker insertion Hypertension History of ex-smoking. Diabetes mellitus maintain on Glucophage Hyperlipidemia Plan Continue IV Rocephin Urine Gram stain and culture is indicating Proteus mirabilis influenza, RSV and Covid 19 by PCR were all negative Continue bronchodilators Continue IV Solu-Medrol 60 mg every 6 hours Continue anticoagulation with xarelto Resume all medications Tessalon Perles O2 3 L/m nasal cannula Demadex 20 mg by mouth daily We'll continue to follow
[2022-04-08 20:28] LABS: Glucose,Whole Blood 315 mg/dL (70-110)
[2022-04-08] MEDS: ATORVASTATIN 20 MG TAB PO SCH (21:06)
[2022-04-09] MEDS: SODIUM CHLORIDE 0.9% 1,000 ML IV SCH (01:44)
[2022-04-09] MEDS: methylPREDNISolone SOD SUCCI 125 MG/2 ML VIAL IV SCH ×4 (05:53→23:37)
[2022-04-09] MEDS: ONDANSETRON 4 MG/2 ML VIAL IVP PRN (05:55)
[2022-04-09 06:09] LABS: Glucose,Whole Blood 235 mg/dL (70-110)
[2022-04-09] MEDS: INSULIN ASPART (NovoLOG) 100 UNIT/ML VIAL SQ SCH ×5 (06:18→22:04)
[2022-04-09] MEDS: INSULIN DETEMIR (LEVEMIR) 100 UNIT/ML SYR SQ SCH (06:18)
[2022-04-09] MEDS: PANTOPRAZOLE 40 MG TABLET PO SCH ×2 (06:18→17:00)
[2022-04-09] MEDS: NON FORMULARY DRUG (Tiotropium Br/Olodaterol Hcl [Stiolto Respimat Inhal Spray] 4 GM Each) INHALATION SCH (08:19)
[2022-04-09] MEDS: MIRTAZAPINE 15 MG TAB PO SCH (08:21)
[2022-04-09] MEDS: NORTRIPTYLINE 25 MG CAP PO SCH ×3 (08:21→21:15)
[2022-04-09] MEDS: RIVAROXABAN 10 MG TAB PO SCH (08:21)
[2022-04-09] MEDS: METOPROLOL TARTRATE 50 MG TAB PO SCH ×2 (08:21→21:24)
[2022-04-09] MEDS: TORSEMIDE 20 MG TAB PO SCH (08:21)
[2022-04-09] MEDS: guaiFENesin 600 MG TABLET.ER PO SCH ×2 (08:22→21:15)
[2022-04-09] MEDS: NYSTATIN 100,000 UNIT/GM POWD 15 GM TOPICAL SCH ×3 (08:24→21:15)
[2022-04-09] MEDS: BUDESONIDE 1 MG/2 ML NEBU INHALATION SCH ×2 (09:02→19:08)
[2022-04-09] MEDS: FORMOTEROL FUMARATE 20 MCG/2 ML NEBU INHALATION SCH ×2 (09:02→19:08)
[2022-04-09] MEDS: IPRATROPIUM-ALBUTEROL 3 ML NEB INHALATION SCH ×4 (09:02→19:08)
--- NOTE | 2022-04-09 09:11 | CT ---
EXAMINATION TYPE: CT abdomen pelvis wo con DATE OF EXAM: 04/09/2022 COMPARISON: None HISTORY: pain CT DLP: 1089 mGycm Automated exposure control for dose reduction was used. TECHNIQUE: Helical acquisition of images was performed from the lung bases through the pelvis. FINDINGS: Visualized lung bases are clear. There is no organomegaly involving the liver, pancreas, spleen or adrenal glands There are surgical absence of gallbladder. There are no renal calcifications or hydronephrosis. Caliber the abdominal aorta is normal. There is mild ascites adjacent to the liver and in pelvic cul-de-sac. The bowel loops are normal in caliber. There is no free intraperitoneal air or there are no inflammatory change in the mesentery. There is no pelvic mass, adenopathy or suspicious calcification. The there are extensive postsurgical changes for metallic fusion of the lumbar spine.: IMPRESSION: Mild free intraperitoneal fluid is described above with no other significant abnormality seen
[2022-04-09] MEDS ORDERED: PROCHLORPERAZINE INJ 10 MG/2 ML VIAL IVP PRN (10:53)
[2022-04-09] MEDS: oxyCODONE-APAP 10-325MG 1 EACH TAB PO PRN ×3 (11:26→23:25)
[2022-04-09] MEDS: FUROSEMIDE 10 MG/ML 4 ML VIAL IV SCH ×2 (11:27→21:15)
--- NOTE | 2022-04-09 11:29 | P.PN ---
Subjective Progress Note Date: 04/09/22 The patient is an 81-year-old female with A. fib on Eliquis, COPD, history of complete heart block status post pacemaker placement who presented to the emergency room with complaints of shortness of breath. In the ER she underwent an extensive evaluation. Chest x-ray in the emergency room was unremarkable. EKG revealed V paced rhythm at 63 bpm. Laboratory evaluation was remarkable for a magnesium of 0.7, proBNP 2290, troponin 0.030, and calcium 6.5. She was admitted and started on bronchodilators and steroids. Pulmonary was consulted. She did require some BiPAP therapy. Her white blood cell count elevated which was felt to be secondary to steroids. She did develop some hyperglycemia and stated that last month she was placed on metformin due to elevated blood sugars from steroids. She states she was told that her steroid used caused diabetes. Her flu and RSV swabs came back negative. She had slow continued improvement. She was noted to have increasing edema and was started on IV lasix. Patient seen and examined at bedside. She feels slightly better than yesterday breathing rose but is feeling slightly nauseated. We discussed the results of her urinary tract infection and that her computed tomography scan did not show any signs of stones. She denies any chest pain. She is feeling fatigued. She reports that she has physical therapy at home and would like someone she is in the hospital. She also states that she has a history of bladder cancer as following with the urologist in [place] but has not reestablished here yet. She is asking for referral to urology. General: nontoxic, no distress, appears at stated age Derm: warm, dry Head: atraumatic, normocephalic, symmetric Eyes: EOMI, no lid lag, anicteric sclera Mouth: no lip lesion, mucus membranes moist, no thrush Cardiovascular: S1S2 reg, no murmur, positive posterior tibial pulse bilateral, Lungs: Coarse breath sounds bilateral bilateral, no rhonchi, no rales , no accessory muscle use, + 3 word conversational dyspnea Abdominal: soft, nontender to palpation, no guarding, no appreciable orga nomegaly Ext: no gross muscle atrophy, no edema, no contractures Neuro: CN II-XI grossly intact, no focal neuro deficits Psych: Alert, oriented, appropriate affect Assessment/plan: Acute exacerbation of COPD Acute hypoxic respiratory failure -Pulmonary recommendations -Continue with bronchodilators, steroids, and antibiotics -Influenza, RSV, COVID are negative -Pulmonary hygiene -Mucinex and flutter valve Edema - Start IV lasix twice daily - Lymphedema wrap left arm Hyperglycemia with underlying diabetes -hold metformin -Continue with sliding scale, Levemir -Outpatient follow-up Microcytic anemia -Hemoglobin at or near baseline -Follow CBC -Outpatient evaluation Proteus UTI - Rocephin - CT abd and pelvis without signs of struvite stone Hypomagnesemia -Replace and recheck Obesity with BMI 39.6 -Outpatient structured weight loss Bladder Cancer - outpatient follow-up, establish care with Dr. Love. Chronic conditions: History of paroxysmal atrial fibrillation, History of complete heart block with dual-chamber pacemaker, Restless leg syndrome, depression Continue beta katherine and Eliquis for history of atrial fibrillation. Continue Requip for history of RLS. Cymbalta and Remeron for history of depression. DVT prophylaxis: Xarelto Discussed with: patient, nursing Anticipated discharge: in AM Anticipated discharge place: home with home health A total of 35 minutes was spent on the care of this complex patient more than 50% of the time was spent in counseling and care coordination. Objective - Vital Signs Vital signs: Vital Signs Temp 97.6 F 04/09/22 08:00 Pulse 66 04/09/22 09:25 Resp 18 04/09/22 08:00 BP 139/69 04/09/22 08:00 Pulse Ox 100 04/09/22 09:05 FiO2 60 04/07/22 02:41 Intake & Output 04/08/22 04/09/22 04/09/22 18:59 06:59 18:59 Intake Total 50 Balance 50 Intake: Intake, IV Titration 50 Amount cefTRIAXone 1 gm In 50 Sodium Chloride 0.9% 50 ml @ 100 mls/hr IVPB Q24HR [facility] Rx#:[id number] Other: Voiding Method Toilet Toilet # Voids 2 - Labs CBC & Chem 7: 04/08/22 07:19 04/07/22 07:12 Labs: Abnormal Lab Results - Last 24 Hours (Table) 04/08/22 04/08/22 04/09/22 Range/Units 16:27 20:26 06:08 POC Glucose (mg/dL) 213 H 315 H 235 H (70-110) mg/dL Microbiology - Last 24 Hours (Table) 04/06/22 08:10 Urine Culture - Final Urine,Voided Proteus mirabilis
[2022-04-09 11:41] LABS: Glucose,Whole Blood 296 mg/dL (70-110)
[2022-04-09 13:11] LABS: HCT 35.4 % (37.2-46.3); HGB 10.5 g/dL (12.0-15.0); MCH 25.9 pg (27.0-32.0); MCHC 29.7 g/dL (32.0-37.0); MCV 87.4 fL (80.0-97.0); Mean Platelet Volume 10.6 fL (9.5-12.2); NRBC Per 100 WBC 0 /100 WBCS (0.0-0.0); Platelet Count 247 X 10*3/uL (140-440); RBC 4.05 X 10*6/uL (4.10-5.20); RDW 19.2 % (11.5-14.5); WBC 11.19 X 10*3/uL (4.50-10.00)
[2022-04-09 13:40] LABS: African American GFR (CKD) 64.7 (60.0-200.0); Anion Gap 14.8 mmol/L (10.00-18.00); BUN/Creat Ratio 30.8 Ratio (12.00-20.00); Blood Urea Nitrogen 29.6 mg/dL (9.0-27.0); Calcium 8.4 mg/dL (8.7-10.3); Carbon Dioxide 27.8 mmol/L (20.0-27.5); Magnesium 1.5 mg/dL (1.5-2.4); Non-African American GFR(CKD) 55.8 (60.0-200.0); Potassium 4.6 mmol/L (3.5-5.5)
--- NOTE | 2022-04-09 16:08 | P.PN ---
Subjective Progress Note Date: 04/09/22 81-year-old female patient, no history of COPD and the patient also has history of chronic into fibrillation and previous history of a cardiac block requiring a pacemaker insertion and she has limited on long-term and coagulation with Eliquis. She is an ex-smoker. She came into the hospital because of worsening shortness of breath and chest tightness and wheezing and cough and congestion. Note that the patient has no pleurisy or hemoptysis. She is an ex-smoker. The chest x-ray from this current admission showed no acute cardiac pulmonary process. The patient did not have the vital screening at and this was ordered in the emergency department and there is also still pending for now. She has no fever. She has no chills. . She has been maintained on Stiolto on outpatient basis regarding her COPD and she uses albuterol in the form of Ventolin HFA on an as needed basis. The patient has no altered mentation. echoes at 8.4 with a hemoglobin of 10.7, her sodium is at 136, potassium is at 4, bicarb is at 27, BUN is 19 with a creatinine of 0.8, magnesium was low at 0.7, calcium is at 6.5, minimal troponin leaks with levels being 0.03 and 0.037 and 0.03 respectively, UA was abnormal and there is an indication for underlying urinary tract infection. Based on all this, the patient was 7 IV Rocephin. The patient was hospitalized for an acute COPD exacerbation. Initially the patient was placed on a BiPAP and subsequently she was taken off the BiPAP and he finally family arrived to the emergency, the patient was already on oxygen by nasal cannula at 5 L/m. She has chronic edema lower extremities bilaterally and the patient takes Demadex 20 mg by mouth daily. On 04/07/2022, seeing the patient for a follow-up. The patient is being treated for underlying UTI. At same time, the patient has an acute COPD exacerbation. Feeling better. Less short of breath compared to yesterday. The white suppositive 12 with a hemoglobin of 9.7 and a platelet count of 234. The sodium is at 133, BUN is at 26 with a creatinine of 1.2. The urine culture showing gram-negative bacillus. For now, the patient remains on IV Rocephin. The patient is also on bronchodilators and steroids. The patient is on long-term and coagulation with arousal. She remains on oxygen and she is on 3 L of oxygen by nasal cannula On 04/08/2022, I'm seeing the patient for a follow-up. The patient is less short of breath compared to yesterday. The patient also feeling less bronchospastic and wheezy. As mentioned, the patient came in for an acute COPD exacerbation. She also had a underlying urinary tract infection with E. coli. She is being treated accordingly. She has no specific complaints otherwise for now. Overall she's feeling weak. She has increased edema lower oximetry done based on that the patient was given a dose of Lasix. Legs were also breath. She is on Mucinex and a flutter valve. She has no specific complaints otherwise for now. No chest pain. No altered mentation in time is at the bedside. The patient remains on IV Rocephin pending further urine cultures. 04/09/2022, patient is recovering from acute choked exacerbation. She is currently on room air oxygen. Resting comfortably in bed. Much less bronchospastic and wheezy compared to yesterday. The patient is on DuoNeb about treatments 4 times a day and the patient is also on IV Solu-Medrol 60 mg every 6 hours. She is overall feeling weak and tired. She had increased lower extremity edema and for that reason she was given Lasix 40 mg IV every 12 hours and the patient reports improvement. She also has an E. coli urinary tract infection for which she is on broad-spectrum antibiotics IV Rocephin. No new complaints. Eating well. No altered mentation. Maintain on multiple anticoagulation with arousal. No other significant events over the past 24 hours. Objective - Vital Signs Vital signs: Vital Signs Temp 98.3 F 04/09/22 14:00 Pulse 66 04/09/22 15:50 Resp 18 04/09/22 08:00 BP 155/80 04/09/22 14:00 Pulse Ox 96 04/09/22 14:00 FiO2 60 04/07/22 02:41 Intake & Output 04/08/22 04/09/22 04/09/22 18:59 06:59 18:59 Intake Total 50 Balance 50 Intake: Intake, IV Titration 50 Amount cefTRIAXone 1 gm In 50 Sodium Chloride 0.9% 50 ml @ 100 mls/hr IVPB Q24HR [facility] Rx#:[id number] Other: Voiding Method Toilet Toilet Toilet # Voids 2 1 - Exam General: non toxic, no distress, appears at stated age, obese, currently room air oxygen oxygen by nasal cannula. Body mass index is 31.9 Derm: no unusual rashes/lesions, warm Head: atraumatic, normocephalic, symmetric Eyes: EOMI, no lid lag, anicteric sclera, pupils equal round reactive to light ENT: Nose and ears atraumatic Neck: No cervical lymphadenopathy, trachea midline, supple Mouth: no lip lesion, mucus membranes moist Cardiovascular: S1S2 reg, no murmur, positive dorsalis pedis pulse bilateral, 1+ bilateral lower extremity pitting edema, no calf tenderness Lungs: Poor air entry bilaterally with expiratory wheezing noted, no accessory muscle use Abdominal: soft, nontender to palpation, no guarding Ext: muscle strength 5 out of 5 in all 4 extremities grossly, no gross muscle atrophy, no contractures, Neuro: CN II-XI grossly intact, no gross focal neuro deficits Psych: Alert, oriented, appropriate affect - Labs CBC & Chem 7: 04/09/22 07:46 04/09/22 07:46 Labs: Abnormal Lab Results - Last 24 Hours (Table) 04/08/22 04/08/22 04/09/22 Range/Units 16:27 20:26 06:08 WBC (4.50-10.00) X 10*3/uL RBC (4.10-5.20) X 10*6/uL Hgb (12.0-15.0) g/dL Hct (37.2-46.3) % MCH (27.0-32.0) pg MCHC (32.0-37.0) g/dL RDW (11.5-14.5) % Chloride (96-109) mmol/L Carbon Dioxide (20.0-27.5) mmol/L BUN (9.0-27.0) mg/dL Est GFR (CKD-EPI)NonAf (60.0-200.0) BUN/Creatinine Ratio (12.00-20.00) Ratio Glucose (70-110) mg/dL POC Glucose (mg/dL) 213 H 315 H 235 H (70-110) mg/dL Calcium (8.7-10.3) mg/dL 04/09/22 04/09/22 04/09/22 Range/Units 07:46 07:46 11:39 WBC 11.19 H (4.50-10.00) X 10*3/uL RBC 4.05 L (4.10-5.20) X 10*6/uL Hgb 10.5 L (12.0-15.0) g/dL Hct 35.4 L (37.2-46.3) % MCH 25.9 L (27.0-32.0) pg MCHC 29.7 L (32.0-37.0) g/dL RDW 19.2 H (11.5-14.5) % Chloride 92 L (96-109) mmol/L Carbon Dioxide 27.8 H (20.0-27.5) mmol/L BUN 29.6 H (9.0-27.0) mg/dL Est GFR (CKD-EPI)NonAf 55.8 L (60.0-200.0) BUN/Creatinine Ratio 30.80 H (12.00-20.00) Ratio Glucose 271 H (70-110) mg/dL POC Glucose (mg/dL) 296 H (70-110) mg/dL Calcium 8.4 L (8.7-10.3) mg/dL Microbiology - Last 24 Hours (Table) 04/06/22 08:10 Urine Culture - Final Urine,Voided Proteus mirabilis Assessment and Plan Plan: Acute COPD exacerbation. Rule out underlying viral tracheal bronchitis. Chest x-ray is free of any acute pulmonary infiltrates. Awaiting the viral screen including influenza A and B and RSV and Covid 19. Noted the patient was recently infected with Covid 19 on 02/17 2022 and the patient was hospitalized and discharged home. Clinically improving Gram-negative UTI cultures are positive for Proteus mirabilis and the patient is on IV Rocephin Acute hypoxic respiratory failure patient was transitioned from BiPAP to oxygen to room air Shortness of breath secondary to above Remote history of breast cancer with a previous left lumpectomy History of bladder cancer post transurethral resection of the bladder tumor Suspected UTI currently on Rocephin Chronic atrial fibrillation and the patient has been maintained on long-term a anticoagulation History of arrhythmia requiring a pacemaker insertion Hypertension History of ex-smoking. Diabetes mellitus maintain on Glucophage Hyperlipidemia Plan Continue IV Rocephin influenza, RSV and Covid 19 by PCR were all negative Continue bronchodilators Continue IV Solu-Medrol 60 mg every 6 hours, the patient to prednisone burst taper as of tomorrow Continue anticoagulation with xarelto Resume all medications Tessalon Perles O2 was discontinued and the patient is currently on room air Increase mobility Demadex 20 mg by mouth daily We'll continue to follow
[2022-04-09 16:37] LABS: Glucose,Whole Blood 360 mg/dL (70-110)
[2022-04-09 21:09] LABS: Glucose,Whole Blood 445 mg/dL (70-110)
[2022-04-09] MEDS: ATORVASTATIN 20 MG TAB PO SCH (21:15)
[2022-04-10] MEDS: SODIUM CHLORIDE 0.9% 1,000 ML IV SCH (03:04)
[2022-04-10] MEDS: oxyCODONE-APAP 10-325MG 1 EACH TAB PO PRN ×3 (05:39→21:58)
[2022-04-10] MEDS: methylPREDNISolone SOD SUCCI 125 MG/2 ML VIAL IV SCH (05:41)
[2022-04-10 06:17] LABS: Glucose,Whole Blood 144 mg/dL (70-110)
[2022-04-10] MEDS: INSULIN ASPART (NovoLOG) 100 UNIT/ML VIAL SQ SCH ×6 (06:37→21:58)
[2022-04-10] MEDS: INSULIN DETEMIR (LEVEMIR) 100 UNIT/ML SYR SQ SCH (06:38)
[2022-04-10] MEDS: PANTOPRAZOLE 40 MG TABLET PO SCH ×2 (06:39→17:12)
[2022-04-10] MEDS: RIVAROXABAN 10 MG TAB PO SCH (07:25)
[2022-04-10] MEDS: METOPROLOL TARTRATE 50 MG TAB PO SCH ×2 (07:25→21:57)
[2022-04-10] MEDS: guaiFENesin 600 MG TABLET.ER PO SCH ×2 (07:25→21:57)
[2022-04-10] MEDS: NORTRIPTYLINE 25 MG CAP PO SCH ×3 (07:25→21:58)
[2022-04-10] MEDS: MIRTAZAPINE 15 MG TAB PO SCH (07:25)
[2022-04-10] MEDS: IPRATROPIUM-ALBUTEROL 3 ML NEB INHALATION SCH ×4 (08:01→19:36)
[2022-04-10] MEDS: BUDESONIDE 1 MG/2 ML NEBU INHALATION SCH ×2 (08:01→19:36)
[2022-04-10] MEDS: FORMOTEROL FUMARATE 20 MCG/2 ML NEBU INHALATION SCH ×2 (08:01→19:36)
[2022-04-10] MEDS: NON FORMULARY DRUG (Tiotropium Br/Olodaterol Hcl [Stiolto Respimat Inhal Spray] 4 GM Each) INHALATION SCH (09:04)
[2022-04-10] MEDS: FUROSEMIDE 10 MG/ML 4 ML VIAL IV SCH ×2 (09:08→21:45)
[2022-04-10] MEDS: NYSTATIN 100,000 UNIT/GM POWD 15 GM TOPICAL SCH ×3 (09:09→21:59)
[2022-04-10 10:13] LABS: Anisocytosis Slight; HCT 35.2 % (34.0-46.0); HGB 10.9 gm/dL (11.4-16.0); Hypochromasia Marked; MCHC 31.1 g/dL (31.0-37.0); MCV 86.9 fL (80.0-100.0); Mean Platelet Volume 8.4; Platelet Count 228 k/uL (150-450); RBC 4.06 m/uL (3.80-5.40); RDW 17.5 % (11.5-15.5); WBC 10.3 k/uL (3.8-10.6)
[2022-04-10 10:25] LABS: African American GFR (CKD) 68 (>60 ml/min/1.73 sqM); Anion Gap 9 mmol/L; Blood Urea Nitrogen 33 mg/dL (7-17); Carbon Dioxide 33 mmol/L (22-30); Chloride 90 mmol/L (98-107); Glucose 259 mg/dL (74-99); Magnesium 1.3 mg/dL (1.6-2.3); Non-African American GFR(CKD) 59 (>60 ml/min/1.73 sqM); Potassium 4.4 mmol/L (3.5-5.1); Sodium 132 mmol/L (137-145)
[2022-04-10 11:02] LABS: Glucose,Whole Blood 203 mg/dL (70-110)
--- NOTE | 2022-04-10 12:54 | P.PN ---
Subjective Progress Note Date: 04/10/22 The patient is an 81-year-old female with A. fib on Eliquis, COPD, history of complete heart block status post pacemaker placement who presented to the emergency room with complaints of shortness of breath. In the ER she underwent an extensive evaluation. Chest x-ray in the emergency room was unremarkable. EKG revealed V paced rhythm at 63 bpm. Laboratory evaluation was remarkable for a magnesium of 0.7, proBNP 2290, troponin 0.030, and calcium 6.5. She was admitted and started on bronchodilators and steroids. Pulmonary was consulted. She did require some BiPAP therapy. Her white blood cell count elevated which was felt to be secondary to steroids. She did develop some hyperglycemia and stated that last month she was placed on metformin due to elevated blood sugars from steroids. She states she was told that her steroid used caused diabetes. Her flu and RSV swabs came back negative. She had slow continued improvement. She was noted to have increasing edema and was started on IV lasix. Patient seen and examined at bedside. She still feels short of breath but better, concerned about diabetes this is a new diagnosis. C/O Edema and increased urination. No nausea. General: nontoxic, no distress, appears at stated age Derm: warm, dry Head: atraumatic, normocephalic, symmetric Eyes: EOMI, no lid lag, anicteric sclera Mouth: no lip lesion, mucus membranes moist, no thrush Cardiovascular: S1S2 reg, no murmur, positive posterior tibial pulse bilateral, Lungs: Coarse breath sounds bilateral bilateral, no rhonchi, no rales , no accessory muscle use, + 3 word conversational dyspnea Abdominal: soft, nontender to palpation, no guarding, no appreciable organomegaly Ext: no gross muscle atrophy, no edema, no contractures Neuro: CN II-XI grossly intact, no focal neuro deficits Psych: Alert, oriented, appropriate affect Assessment/plan: Acute exacerbation of COPD Acute hypoxic respiratory failure -Pulmonary recommendations -Continue with bronchodilators, steroids (transition to oral), and antibiotics -Influenza, RSV, COVID are negative -Pulmonary hygiene -Mucinex and flutter valve Edema - Conitnue Lasix BID - Lymphedema wrap left arm - check echo and BNP - hold toresmide Hyperglycemia with underlying diabetes -hold metformin -Continue with sliding scale, Levemir, add fixed dose -Check A1C -Outpatient follow-up - needs glucometer Microcytic anemia -Hemoglobin at or near baseline -Follow CBC -Outpatient evaluation Proteus UTI - Rocephin transitioned to keflex to complete 7 day duration. - CT abd and pelvis without signs of struvite stone Hypomagnesemia -Replace and recheck Obesity with BMI 39.6 -Outpatient structured weight loss Bladder Cancer - outpatient follow-up, establish care with Dr. Love. Chronic conditions: History of paroxysmal atrial fibrillation, History of complete heart block with dual-chamber pacemaker, Restless leg syndrome, depression Continue beta katherine and Eliquis for history of atrial fibrillation. Continue Requip for history of RLS. Cymbalta and Remeron for history of depression. Attempt to get records from [facility] DVT prophylaxis: Lisa Discussed with: patient, nursing Anticipated discharge: in AM Anticipated discharge place: home with home health A total of 35 minutes was spent on the care of this complex patient more than 50% of the time was spent in counseling and care coordination. Objective - Vital Signs Vital signs: Vital Signs Temp 98.0 F 04/10/22 08:00 Pulse 76 04/10/22 11:40 Resp 18 04/10/22 09:22 BP 151/79 04/10/22 09:42 Pulse Ox 98 04/10/22 08:00 FiO2 60 04/07/22 02:41 Intake & Output 04/09/22 04/10/22 04/10/22 18:59 06:59 18:59 Intake Total 200 Balance 200 Intake: Oral 200 Other: Voiding Method Toilet Toilet Toilet # Voids 2 2 - Labs CBC & Chem 7: 04/10/22 09:45 04/10/22 09:45 Labs: Abnormal Lab Results - Last 24 Hours (Table) 04/09/22 04/09/22 04/09/22 Range/Units 07:46 07:46 16:36 WBC 11.19 H (4.50-10.00) X 10*3/uL RBC 4.05 L (4.10-5.20) X 10*6/uL Hgb 10.5 L (12.0-15.0) g/dL Hct 35.4 L (37.2-46.3) % MCH 25.9 L (27.0-32.0) pg MCHC 29.7 L (32.0-37.0) g/dL RDW 19.2 H (11.5-14.5) % Sodium (137-145) mmol/L Chloride 92 L (96-109) mmol/L Carbon Dioxide 27.8 H (20.0-27.5) mmol/L BUN 29.6 H (9.0-27.0) mg/dL Est GFR (CKD-EPI)NonAf 55.8 L (60.0-200.0) BUN/Creatinine Ratio 30.80 H (12.00-20.00) Ratio Glucose 271 H (70-110) mg/dL POC Glucose (mg/dL) 360 H (70-110) mg/dL Calcium 8.4 L (8.7-10.3) mg/dL Magnesium (1.6-2.3) mg/dL 04/09/22 04/10/22 04/10/22 Range/Units 21:08 06:15 09:45 WBC (4.50-10.00) X 10*3/uL RBC (4.10-5.20) X 10*6/uL Hgb 10.9 L (12.0-15.0) g/dL Hct (37.2-46.3) % MCH (27.0-32.0) pg MCHC (32.0-37.0) g/dL RDW 17.5 H (11.5-14.5) % Sodium (137-145) mmol/L Chloride (96-109) mmol/L Carbon Dioxide (20.0-27.5) mmol/L BUN (9.0-27.0) mg/dL Est GFR (CKD-EPI)NonAf (60.0-200.0) BUN/Creatinine Ratio (12.00-20.00) Ratio Glucose (70-110) mg/dL POC Glucose (mg/dL) 445 H 144 H (70-110) mg/dL Calcium (8.7-10.3) mg/dL Magnesium (1.6-2.3) mg/dL 04/10/22 04/10/22 Range/Units 09:45 11:00 WBC (4.50-10.00) X 10*3/uL RBC (4.10-5.20) X 10*6/uL Hgb (12.0-15.0) g/dL Hct (37.2-46.3) % MCH (27.0-32.0) pg MCHC (32.0-37.0) g/dL RDW (11.5-14.5) % Sodium 132 L (137-145) mmol/L Chloride 90 L (96-109) mmol/L Carbon Dioxide 33 H (20.0-27.5) mmol/L BUN 33 H (9.0-27.0) mg/dL Est GFR (CKD-EPI)NonAf (60.0-200.0) BUN/Creatinine Ratio (12.00-20.00) Ratio Glucose 259 H (70-110) mg/dL POC Glucose (mg/dL) 203 H (70-110) mg/dL Calcium 8.0 L (8.7-10.3) mg/dL Magnesium 1.3 L (1.6-2.3) mg/dL
--- NOTE | 2022-04-10 13:20 | P.PN ---
Subjective Progress Note Date: 04/10/22 81-year-old female patient, no history of COPD and the patient also has history of chronic into fibrillation and previous history of a cardiac block requiring a pacemaker insertion and she has limited on long-term and coagulation with Eliquis. She is an ex-smoker. She came into the hospital because of worsening shortness of breath and chest tightness and wheezing and cough and congestion. Note that the patient has no pleurisy or hemoptysis. She is an ex-smoker. The chest x-ray from this current admission showed no acute cardiac pulmonary process. The patient did not have the vital screening at and this was ordered in the emergency department and there is also still pending for now. She has no fever. She has no chills. . She has been maintained on Stiolto on outpatient basis regarding her COPD and she uses albuterol in the form of Ventolin HFA on an as needed basis. The patient has no altered mentation. echoes at 8.4 with a hemoglobin of 10.7, her sodium is at 136, potassium is at 4, bicarb is at 27, BUN is 19 with a creatinine of 0.8, magnesium was low at 0.7, calcium is at 6.5, minimal troponin leaks with levels being 0.03 and 0.037 and 0.03 respectively, UA was abnormal and there is an indication for underlying urinary tract infection. Based on all this, the patient was 7 IV Rocephin. The patient was hospitalized for an acute COPD exacerbation. Initially the patient was placed on a BiPAP and subsequently she was taken off the BiPAP and he finally family arrived to the emergency, the patient was already on oxygen by nasal cannula at 5 L/m. She has chronic edema lower extremities bilaterally and the patient takes Demadex 20 mg by mouth daily. On 04/07/2022, seeing the patient for a follow-up. The patient is being treated for underlying UTI. At same time, the patient has an acute COPD exacerbation. Feeling better. Less short of breath compared to yesterday. The white suppositive 12 with a hemoglobin of 9.7 and a platelet count of 234. The sodium is at 133, BUN is at 26 with a creatinine of 1.2. The urine culture showing gram-negative bacillus. For now, the patient remains on IV Rocephin. The patient is also on bronchodilators and steroids. The patient is on long-term and coagulation with arousal. She remains on oxygen and she is on 3 L of oxygen by nasal cannula On 04/08/2022, I'm seeing the patient for a follow-up. The patient is less short of breath compared to yesterday. The patient also feeling less bronchospastic and wheezy. As mentioned, the patient came in for an acute COPD exacerbation. She also had a underlying urinary tract infection with E. coli. She is being treated accordingly. She has no specific complaints otherwise for now. Overall she's feeling weak. She has increased edema lower oximetry done based on that the patient was given a dose of Lasix. Legs were also breath. She is on Mucinex and a flutter valve. She has no specific complaints otherwise for now. No chest pain. No altered mentation in time is at the bedside. The patient remains on IV Rocephin pending further urine cultures. 04/09/2022, patient is recovering from acute choked exacerbation. She is currently on room air oxygen. Resting comfortably in bed. Much less bronchospastic and wheezy compared to yesterday. The patient is on DuoNeb about treatments 4 times a day and the patient is also on IV Solu-Medrol 60 mg every 6 hours. She is overall feeling weak and tired. She had increased lower extremity edema and for that reason she was given Lasix 40 mg IV every 12 hours and the patient reports improvement. She also has an G- urinary tract infection for which she is on broad-spectrum antibiotics IV Rocephin. No new complaints. Eating well. No altered mentation. Maintain on multiple anticoagulation with arousal. No other significant events over the past 24 hours. On today's evaluation of 04/10/2022, the patient is feeling well. She had loss and had IV access yesterday and another one was establish in her left upper extremity. The WBC count is at 10.3 with a hemoglobin of 10.9 and a platelet count of 228 and a sodium level is at 132, BUN is 33 with a creatinine of 0.3. Her current pulse ox is above 90% and the patient is currently on oxygen at 2 L. BP from this morning is 151/79. Her urine culture was positive Proteus mirabilis. She is being treated accordingly. Oral Keflex and she is also on prednisone burst taper that was started yesterday and those of 40 mg by mouth on a daily basis. She remains on DuoNeb about treatments [id number]. Objective - Vital Signs Vital signs: Vital Signs Temp 98.0 F 04/10/22 08:00 Pulse 76 04/10/22 11:40 Resp 18 04/10/22 09:22 BP 151/79 04/10/22 09:42 Pulse Ox 98 04/10/22 08:00 FiO2 60 04/07/22 02:41 Intake & Output 04/09/22 04/10/22 04/10/22 18:59 06:59 18:59 Intake Total 200 Balance 200 Intake: Oral 200 Other: Voiding Method Toilet Toilet Toilet # Voids 2 2 - Exam General: non toxic, no distress, appears at stated age, obese, currently room air oxygen oxygen by nasal cannula. Body mass index is 31.9 Derm: no unusual rashes/lesions, warm Head: atraumatic, normocephalic, symmetric Eyes: EOMI, no lid lag, anicteric sclera, pupils equal round reactive to light ENT: Nose and ears atraumatic Neck: No cervical lymphadenopathy, trachea midline, supple Mouth: no lip lesion, mucus membranes moist Cardiovascular: S1S2 reg, no murmur, positive dorsalis pedis pulse bilateral, 1+ bilateral lower extremity pitting edema, no calf tenderness Lungs: Poor air entry bilaterally with expiratory wheezing noted, no accessory muscle use Abdominal: soft, nontender to palpation, no guarding Ext: muscle strength 5 out of 5 in all 4 extremities grossly, no gross muscle atrophy, no contractures, Neuro: CN II-XI grossly intact, no gross focal neuro deficits Psych: Alert, oriented, appropriate affect - Labs CBC & Chem 7: 04/10/22 09:45 04/10/22 09:45 Labs: Abnormal Lab Results - Last 24 Hours (Table) 04/09/22 04/09/22 04/09/22 Range/Units 07:46 16:36 21:08 Hgb (11.4-16.0) gm/dL RDW (11.5-15.5) % Sodium (137-145) mmol/L Chloride 92 L (96-109) mmol/L Carbon Dioxide 27.8 H (20.0-27.5) mmol/L BUN 29.6 H (9.0-27.0) mg/dL Est GFR (CKD-EPI)NonAf 55.8 L (60.0-200.0) BUN/Creatinine Ratio 30.80 H (12.00-20.00) Ratio Glucose 271 H (70-110) mg/dL POC Glucose (mg/dL) 360 H 445 H (70-110) mg/dL Calcium 8.4 L (8.7-10.3) mg/dL Magnesium (1.6-2.3) mg/dL 04/10/22 04/10/22 04/10/22 Range/Units 06:15 09:45 09:45 Hgb 10.9 L (11.4-16.0) gm/dL RDW 17.5 H (11.5-15.5) % Sodium 132 L (137-145) mmol/L Chloride 90 L (96-109) mmol/L Carbon Dioxide 33 H (20.0-27.5) mmol/L BUN 33 H (9.0-27.0) mg/dL Est GFR (CKD-EPI)NonAf (60.0-200.0) BUN/Creatinine Ratio (12.00-20.00) Ratio Glucose 259 H (70-110) mg/dL POC Glucose (mg/dL) 144 H (70-110) mg/dL Calcium 8.0 L (8.7-10.3) mg/dL Magnesium 1.3 L (1.6-2.3) mg/dL 04/10/22 Range/Units 11:00 Hgb (11.4-16.0) gm/dL RDW (11.5-15.5) % Sodium (137-145) mmol/L Chloride (96-109) mmol/L Carbon Dioxide (20.0-27.5) mmol/L BUN (9.0-27.0) mg/dL Est GFR (CKD-EPI)NonAf (60.0-200.0) BUN/Creatinine Ratio (12.00-20.00) Ratio Glucose (70-110) mg/dL POC Glucose (mg/dL) 203 H (70-110) mg/dL Calcium (8.7-10.3) mg/dL Magnesium (1.6-2.3) mg/dL Assessment and Plan Plan: Acute COPD exacerbation. Rule out underlying viral tracheal bronchitis. Chest x-ray is free of any acute pulmonary infiltrates. Awaiting the viral screen including influenza A and B and RSV and Covid 19. Noted the patient was recently infected with Covid 19 on 02/17 2022 and the patient was hospitalized and discharged home. Clinically improving Gram-negative UTI cultures are positive for Proteus mirabilis and the patient is on IV Rocephin Acute hypoxic respiratory failure patient was transitioned from BiPAP to oxygen to room air Shortness of breath secondary to above Remote history of breast cancer with a previous left lumpectomy History of bladder cancer post transurethral resection of the bladder tumor Suspected UTI currently on Rocephin Chronic atrial fibrillation and the patient has been maintained on long-term a anticoagulation History of arrhythmia requiring a pacemaker insertion Hypertension History of ex-smoking. Diabetes mellitus maintain on Glucophage Hyperlipidemia Plan Antibiotics was switched to oral Keflex influenza, RSV and Covid 19 by PCR were all negative Continue bronchodilators Prednisone burst taper Continue anticoagulation with xarelto Resume all medications Tessalon Perles O2 was discontinued and the patient is currently on room air Increase mobility Demadex 20 mg by mouth daily We'll continue to follow, possible home tomorrow
[2022-04-10] MEDS: MAGNESIUM OXIDE 400 MG TAB PO SCH ×2 (13:40→22:05)
[2022-04-10] MEDS: MAGNESIUM SULFATE-D5W PMX 1 GM in DEXTROSE/WATER 1 100ML.BAG IVPB SCH ×2 (13:45→16:31)
[2022-04-10 16:59] LABS: Glucose,Whole Blood 219 mg/dL (70-110)
[2022-04-10] MEDS: LORazepam 0.5 MG TAB PO PRN (18:21)
[2022-04-10] MEDS ORDERED: FUROSEMIDE 40 MG TAB PO STA (20:15)
[2022-04-10 21:26] LABS: Glucose,Whole Blood 262 mg/dL (70-110)
[2022-04-10] MEDS: ATORVASTATIN 20 MG TAB PO SCH (21:58)
[2022-04-11 04:45] VITALS: RESP 18
[2022-04-11 05:46] LABS: African American GFR (CKD) 66 (>60 ml/min/1.73 sqM); Anion Gap 8 mmol/L; Blood Urea Nitrogen 35 mg/dL (7-17); Calcium 8.3 mg/dL (8.4-10.2); Carbon Dioxide 36 mmol/L (22-30); Chloride 92 mmol/L (98-107); Glucose 88 mg/dL (74-99); Non-African American GFR(CKD) 58 (>60 ml/min/1.73 sqM); Potassium 3.9 mmol/L (3.5-5.1); Sodium 136 mmol/L (137-145)
[2022-04-11 06:37] LABS: Glucose,Whole Blood 92 mg/dL (70-110)
[2022-04-11] MEDS: INSULIN ASPART (NovoLOG) 100 UNIT/ML VIAL SQ SCH ×5 (06:53→21:31)
[2022-04-11] MEDS: SODIUM CHLORIDE 0.9% 1,000 ML IV SCH (07:43)
[2022-04-11] MEDS: INSULIN DETEMIR (LEVEMIR) 100 UNIT/ML SYR SQ SCH (08:24)
[2022-04-11] MEDS: oxyCODONE-APAP 10-325MG 1 EACH TAB PO PRN ×2 (08:24→17:33)
[2022-04-11] MEDS: PANTOPRAZOLE 40 MG TABLET PO SCH ×2 (08:24→17:27)
[2022-04-11] MEDS: METOPROLOL TARTRATE 50 MG TAB PO SCH ×2 (08:25→21:30)
[2022-04-11] MEDS: guaiFENesin 600 MG TABLET.ER PO SCH ×2 (08:25→21:30)
[2022-04-11] MEDS: RIVAROXABAN 10 MG TAB PO SCH (08:26)
[2022-04-11] MEDS: MAGNESIUM OXIDE 400 MG TAB PO SCH ×2 (08:26→21:31)
[2022-04-11] MEDS: MIRTAZAPINE 15 MG TAB PO SCH (08:26)
[2022-04-11] MEDS: CEPHALEXIN 500 MG CAP PO SCH ×2 (08:26→21:30)
[2022-04-11] MEDS: predniSONE 20 MG TAB PO SCH (08:26)
[2022-04-11] MEDS: NORTRIPTYLINE 25 MG CAP PO SCH ×3 (08:26→21:31)
[2022-04-11] MEDS: TORSEMIDE 20 MG TAB PO SCH (08:27)
[2022-04-11] MEDS: NYSTATIN 100,000 UNIT/GM POWD 15 GM TOPICAL SCH ×3 (08:28→21:32)
[2022-04-11] MEDS: BUDESONIDE 1 MG/2 ML NEBU INHALATION SCH ×2 (08:32→19:55)
[2022-04-11] MEDS: IPRATROPIUM-ALBUTEROL 3 ML NEB INHALATION SCH ×4 (08:32→19:55)
[2022-04-11] MEDS: FORMOTEROL FUMARATE 20 MCG/2 ML NEBU INHALATION SCH ×2 (08:32→19:55)
--- NOTE | 2022-04-11 09:40 | P.PN ---
Subjective Progress Note Date: 04/11/22 The patient is an 81-year-old female with A. fib on Eliquis, COPD, history of complete heart block status post pacemaker placement who presented to the emergency room with complaints of shortness of breath. In the ER she underwent an extensive evaluation. Chest x-ray in the emergency room was unremarkable. EKG revealed V paced rhythm at 63 bpm. Laboratory evaluation was remarkable for a magnesium of 0.7, proBNP 2290, troponin 0.030, and calcium 6.5. She was admitted and started on bronchodilators and steroids. Pulmonary was consulted. She did require some BiPAP therapy. Her white blood cell count elevated which was felt to be secondary to steroids. She did develop some hyperglycemia and stated that last month she was placed on metformin due to elevated blood sugars from steroids. She states she was told that her steroid used caused diabetes. Her flu and RSV swabs came back negative. She had slow continued improvement. She was noted to have increasing edema and was started on IV lasix with improvement.When her IV steroids were discontinued her wheezing increased. Patient seen and examined at bedside. Was feeling better yesterday than today, feeling short of breath, worried about her . She is working with the elementary educator. General: nontoxic, no distress, appears at stated age Derm: warm, dry Head: atraumatic, normocephalic, symmetric Eyes: EOMI, no lid lag, anicteric sclera Mouth: no lip lesion, mucus membranes moist, no thrush Cardiovascular: S1S2 reg, no murmur, positive posterior tibial pulse bilateral, Lungs: Coarse breath sounds bilateral bilateral, no rhonchi, no rales , no accessory muscle use, + 3 word conversational dyspnea Abdominal: soft, nontender to palpation, no guarding, no appreciable organomegaly Ext: no gross muscle atrophy, no edema, no contractures Neuro: CN II-XI grossly intact, no focal neuro deficits Psych: Alert, oriented, appropriate affect Assessment/plan: Acute exacerbation of COPD Acute hypoxic respiratory failure -Pulmonary recommendations -Continue with bronchodilators, steroids (transition to oral on 04/10 and wheezing increased), and antibiotics -Influenza, RSV, COVID are negative -Pulmonary hygiene -Mucinex and flutter valve Edema - Patient lost IV access and lasix transitioned to oral torsemide - Lymphedema wrap left arm - await echo DM 2 with hyperglycemia - AM BS 92, decrease long acting for tomorrow and stop fixed dose with meals, continue SSI -hold metformin--plan to resume on discharge with one additional medication -A1C 8.1 -Outpatient follow-up - needs glucometer Microcytic anemia -Hemoglobin at or near baseline -Follow CBC -Outpatient evaluation Proteus UTI - Rocephin transitioned to keflex to complete 7 day duration. - CT abd and pelvis without signs of struvite stone Hypomagnesemia -Replace and recheck Obesity with BMI 39.6 -Outpatient structured weight loss Bladder Cancer - outpatient follow-up, establish care with Dr. Love. Chronic conditions: History of paroxysmal atrial fibrillation, History of complete heart block with dual-chamber pacemaker, Restless leg syndrome, depression Continue beta katherine and Eliquis for history of atrial fibrillation. Continue Requip for history of RLS. Cymbalta and Remeron for history of depression. Was hoping to discharge today but wheezing increased will monitor for 1 additional day. DVT prophylaxis: Davinarelto Discussed with: patient, nursing Anticipated discharge: in AM Anticipated discharge place: home with home health A total of 35 minutes was spent on the care of this complex patient more than 50% of the time was spent in counseling and care coordination. Active Medications Generic Name Dose Route Start Last Admin Trade Name Freq PRN Reason Stop Dose Admin Acetaminophen 650 mg 04/06/22 00:11 Acetaminophen Tab 325 Mg Tab PO Q6HR PRN Mild Pain or Fever > 100.5 Albuterol/Ipratropium 3 ml 04/06/22 03:57 04/07/22 02:27 Ipratropium-Albuterol 3 Ml Neb INHALATION 3 ml RT-QID PRN Administration Shortness Of Breath Or Wheezing Albuterol/Ipratropium 3 ml 04/06/22 08:00 04/11/22 08:32 Ipratropium-Albuterol 3 Ml Neb INHALATION 3 ml RT-QID PAULA Administration Atorvastatin Calcium 20 mg 04/06/22 21:00 04/10/22 21:58 Atorvastatin 20 Mg Tab PO 20 mg HS PAULA Administration Benzonatate 100 mg 04/06/22 13:29 04/08/22 08:58 Benzonatate 100 Mg Cap PO 100 mg TID PRN Administration Cough Budesonide 1 mg 04/06/22 20:00 04/11/22 08:32 Budesonide 1 Mg/2 Ml Nebu INHALATION 1 mg RT-BID PAULA Administration Cephalexin 500 mg 04/11/22 09:00 04/11/22 08:26 Cephalexin 500 Mg Cap PO 04/14/22 09:01 500 mg BID PAULA Administration Protocol Dextrose/Water 25 ml 04/06/22 15:01 Dextrose 50% Syringe 50 Ml IVP PER PROTOCOL PRN Hypoglycemia Protocol Dextrose/Water 50 ml 04/06/22 15:01 Dextrose 50% Syringe 50 Ml IVP PER PROTOCOL PRN Hypoglycemia Protocol Formoterol Fumarate 20 mcg 04/06/22 20:00 04/11/22 08:32 Formoterol Fumarate 20 Mcg/2 Ml Nebu INHALATION 20 mcg RT-BID PAULA Administration Guaifenesin 1,200 mg 04/07/22 09:15 04/11/22 08:25 Guaifenesin 600 Mg Tablet.Er PO 1,200 mg Q12HR PAULA Administration Sodium Chloride 1,000 mls @ 20 mls/hr 04/06/22 00:15 04/11/22 07:43 Saline 0.9% IV Not Given .Q24H PAULA Insulin Aspart 0 unit 04/09/22 21:43 04/11/22 06:53 Insulin Aspart (Novolog) 100 Unit/Ml Vial SQ Not Given ACHS [facility] Protocol Insulin Detemir 8 unit 04/12/22 07:00 Insulin Detemir (Levemir) 100 Unit/Ml Syr SQ DAILY@0700 PAULA Lorazepam 0.5 mg 04/06/22 07:47 04/10/22 18:21 Lorazepam 0.5 Mg Tab PO 0.5 mg TID PRN Administration Anxiety Magnesium Oxide 400 mg 04/10/22 12:45 04/11/22 08:26 Magnesium Oxide 400 Mg Tab PO 400 mg BID PAULA Administration Metoprolol Tartrate 100 mg 04/06/22 21:00 04/11/22 08:25 Metoprolol Tartrate 50 Mg Tab PO 100 mg BID PAULA Administration Mirtazapine 15 mg 04/07/22 09:00 04/11/22 08:26 Mirtazapine 15 Mg Tab PO 15 mg DAILY PAULA Administration Naloxone HCl 0.2 mg 04/06/22 00:11 Naloxone 0.4 Mg/Ml 1 Ml Vial IV Q2M PRN Opioid Reversal Non-Formulary Medication 2 puff 04/07/22 08:00 04/10/22 09:04 Tiotropium Br/Olodaterol Hcl [Stiolto Respimat Inhal [place]] INHALATION Not Given RT-DAILY PAULA Nortriptyline HCl 25 mg 04/06/22 16:00 04/11/22 08:26 Nortriptyline 25 Mg Cap PO 25 mg TID PAULA Administration Nystatin 1 applic 04/08/22 10:15 04/11/22 08:28 Nystatin 100,000 Unit/Gm Powd 15 Gm TOPICAL 1 applic TID PAULA Administration Protocol Ondansetron HCl 4 mg 04/06/22 00:11 04/09/22 05:55 Ondansetron 4 Mg/2 Ml Vial IVP 4 mg Q8HR PRN Administration Nausea And Vomiting Oxycodone/Acetaminophen 1 each 04/06/22 07:47 04/11/22 08:24 Oxycodone-Apap 10-325mg 1 Each Tab PO 1 each Q6HR PRN Administration Pain Pantoprazole Sodium 40 mg 04/06/22 17:30 04/11/22 08:24 Pantoprazole 40 Mg Tablet PO 40 mg BID@0730,1730 PAULA Administration Prednisone 40 mg 04/11/22 09:00 04/11/22 08:26 Prednisone 20 Mg Tab PO 40 mg DAILY PAULA Administration Prochlorperazine Edisylate 5 mg 04/09/22 10:53 04/09/22 21:14 Prochlorperazine Inj 10 Mg/2 Ml Vial IVP 5 mg Q6HR PRN Administration Nausea And Vomiting Rivaroxaban 10 mg 04/07/22 09:00 04/11/22 08:26 Rivaroxaban 10 Mg Tab PO 10 mg DAILY PAULA Administration Protocol Ropinirole HCl 2 mg 04/06/22 21:00 04/11/22 08:26 Ropinirole Hcl 1 Mg Tab PO 2 mg BID PAULA Administration Torsemide 40 mg 04/11/22 09:00 04/11/22 08:27 Torsemide 20 Mg Tab PO 40 mg DAILY PAULA Administration Objective - Vital Signs Vital signs: Vital Signs Temp 97.5 F L 04/11/22 08:03 Pulse 74 04/11/22 09:03 Resp 18 04/11/22 08:03 BP 128/68 04/11/22 08:03 Pulse Ox 95 04/11/22 08:03 FiO2 60 11/24/22 02:41 Intake & Output 04/10/22 04/11/22 04/11/22 18:59 06:59 18:59 Intake Total 200 900 Balance 200 900 Intake: Oral 200 900 Other: Voiding Method Toilet Toilet # Voids 2 2 - Labs CBC & Chem 7: 04/10/22 09:45 04/11/22 04:52 Labs: Abnormal Lab Results - Last 24 Hours (Table) 04/10/22 04/10/22 04/10/22 Range/Units 09:45 09:45 09:45 Hgb 10.9 L (11.4-16.0) gm/dL RDW 17.5 H (11.5-15.5) % Sodium 132 L (137-145) mmol/L Chloride 90 L (98-107) mmol/L Carbon Dioxide 33 H (22-30) mmol/L BUN 33 H (7-17) mg/dL Glucose 259 H (74-99) mg/dL POC Glucose (mg/dL) (70-110) mg/dL Hemoglobin A1c 8.1 H (0.0-6.0) % Calcium 8.0 L (8.4-10.2) mg/dL Magnesium 1.3 L (1.6-2.3) mg/dL 04/10/22 04/10/22 04/10/22 Range/Units 11:00 16:57 21:25 Hgb (11.4-16.0) gm/dL RDW (11.5-15.5) % Sodium (137-145) mmol/L Chloride (98-107) mmol/L Carbon Dioxide (22-30) mmol/L BUN (7-17) mg/dL Glucose (74-99) mg/dL POC Glucose (mg/dL) 203 H 219 H 262 H (70-110) mg/dL Hemoglobin A1c (0.0-6.0) % Calcium (8.4-10.2) mg/dL Magnesium (1.6-2.3) mg/dL 04/11/22 Range/Units 04:52 Hgb (11.4-16.0) gm/dL RDW (11.5-15.5) % Sodium 136 L (137-145) mmol/L Chloride 92 L (98-107) mmol/L Carbon Dioxide 36 H (22-30) mmol/L BUN 35 H (7-17) mg/dL Glucose (74-99) mg/dL POC Glucose (mg/dL) (70-110) mg/dL Hemoglobin A1c (0.0-6.0) % Calcium 8.3 L (8.4-10.2) mg/dL Magnesium (1.6-2.3) mg/dL
[2022-04-11 11:21] VITALS: BMI 31.8
[2022-04-11 11:33] LABS: Glucose,Whole Blood 193 mg/dL (70-110)
[2022-04-11 16:34] LABS: Glucose,Whole Blood 364 mg/dL (70-110)
[2022-04-11 21:05] LABS: Glucose,Whole Blood 413 mg/dL (70-110)
[2022-04-11] MEDS: LORazepam 0.5 MG TAB PO PRN (21:30)
[2022-04-11] MEDS: ATORVASTATIN 20 MG TAB PO SCH (21:30)
[2022-04-11 23:29] LABS: Glucose,Whole Blood 262 mg/dL (70-110)
[2022-04-11] MEDS: ONDANSETRON 4 MG/2 ML VIAL IVP PRN (23:42)
[2022-04-12] MEDS: oxyCODONE-APAP 10-325MG 1 EACH TAB PO PRN ×2 (00:50→08:05)
[2022-04-12] MEDS: NON FORMULARY DRUG (Tiotropium Br/Olodaterol Hcl [Stiolto Respimat Inhal Spray] 4 GM Each) INHALATION SCH ×2 (02:22→09:39)
[2022-04-12 06:20] LABS: Glucose,Whole Blood 75 mg/dL (70-110)
[2022-04-12] MEDS: INSULIN ASPART (NovoLOG) 100 UNIT/ML VIAL SQ SCH ×3 (06:43→17:22)
[2022-04-12] MEDS ORDERED: INSULIN DETEMIR (LEVEMIR) 100 UNIT/ML SYR SQ SCH (07:00)
[2022-04-12] MEDS: SODIUM CHLORIDE 0.9% 1,000 ML IV SCH (07:59)
[2022-04-12] MEDS: CEPHALEXIN 500 MG CAP PO SCH (08:05)
[2022-04-12] MEDS: MIRTAZAPINE 15 MG TAB PO SCH (08:05)
[2022-04-12] MEDS: RIVAROXABAN 10 MG TAB PO SCH (08:06)
[2022-04-12] MEDS: predniSONE 20 MG TAB PO SCH (08:06)
[2022-04-12] MEDS: PANTOPRAZOLE 40 MG TABLET PO SCH ×2 (08:06→17:22)
[2022-04-12] MEDS: METOPROLOL TARTRATE 50 MG TAB PO SCH (08:06)
[2022-04-12] MEDS: guaiFENesin 600 MG TABLET.ER PO SCH (08:06)
[2022-04-12] MEDS: MAGNESIUM OXIDE 400 MG TAB PO SCH (08:06)
[2022-04-12] MEDS: TORSEMIDE 20 MG TAB PO SCH (08:12)
[2022-04-12] MEDS: NORTRIPTYLINE 25 MG CAP PO SCH ×2 (08:12→17:22)
[2022-04-12] MEDS: NYSTATIN 100,000 UNIT/GM POWD 15 GM TOPICAL SCH ×2 (08:13→17:22)
[2022-04-12] MEDS: IPRATROPIUM-ALBUTEROL 3 ML NEB INHALATION SCH ×3 (08:15→15:56)
[2022-04-12] MEDS: FORMOTEROL FUMARATE 20 MCG/2 ML NEBU INHALATION SCH (08:15)
[2022-04-12] MEDS: BUDESONIDE 1 MG/2 ML NEBU INHALATION SCH (08:15)
[2022-04-12 10:58] LABS: Magnesium 1.8 mg/dL (1.5-2.4)
[2022-04-12 11:01] LABS: African American GFR (CKD) 54.9 (60.0-200.0); Anion Gap 12.8 mmol/L (10.00-18.00); BUN/Creat Ratio 24.27 Ratio (12.00-20.00); Blood Urea Nitrogen 26.7 mg/dL (9.0-27.0); Calcium 9.1 mg/dL (8.7-10.3); Carbon Dioxide 36.2 mmol/L (20.0-27.5); Non-African American GFR(CKD) 47.4 (60.0-200.0); Potassium 4.3 mmol/L (3.5-5.5)
[2022-04-12 11:39] LABS: Glucose,Whole Blood 137 mg/dL (70-110)
--- NOTE | 2022-04-12 13:30 | P.DS ---
Providers Date of admission: 04/06/22 00:12 Expected date of discharge: 04/12/22 Attending physician: Barbara Gottlieb MD Consults: 04/06/22 00:11 Consult Physician Routine Consulting Provider: Christine Reddy Consult Reason/Comments: hypoxia Do you want consulting provider notified?: Yes Primary care physician: [facility] Course: The patient is an 81-year-old female with A. fib on Eliquis, COPD, history of complete heart block status post pacemaker placement who presented to the emergency room with complaints of shortness of breath. In the ER she underwent an extensive evaluation. Chest x-ray in the emergency room was unremarkable. EKG revealed V paced rhythm at 63 bpm. Laboratory evaluation was remarkable for a magnesium of 0.7, proBNP 2290, troponin 0.030, and calcium 6.5. She was admitted and started on bronchodilators and steroids. Pulmonary was consulted. She did require some BiPAP therapy. Her white blood cell count elevated which was felt to be secondary to steroids. She did develop some hyperglycemia and stated that last month she was placed on metformin due to elevated blood sugars from steroids. She states she was told that her steroid used caused diabetes. Her flu and RSV swabs came back negative. She had slow continued improvement. She was noted to have increasing edema and was started on IV lasix with improvement.When her IV steroids were discontinued her wheezing increased. Patient seen and examined at bedside. Patient was seen and examined. She reports her breathing to be back to baseline. She is on 2L oxygen. Pertinent studies include chest x-ray, CT abdomen and pelvis. General: nontoxic, no distress, appears at stated age Derm: warm, dry Head: atraumatic, normocephalic, symmetric Eyes: EOMI, no lid lag, anicteric sclera Mouth: no lip lesion, mucus membranes moist, no thrush Cardiovascular: S1S2 reg, no murmur Lungs: Decreased BS bilateral, no rhonchi, no rales , no accessory muscle use Abdominal: soft, nontender to palpation, no guarding, no appreciable organomegaly Ext: no gross muscle atrophy, no edema, no contractures Neuro: no focal neuro deficits Psych: Alert, oriented, appropriate affect Discharge Diagnosis: Acute exacerbation of COPD Acute hypoxic respiratory failure Edema DM 2 with hyperglycemia Microcytic anemia Proteus UTI Hypomagnesemia Obesity with BMI 39.6 Bladder Cancer Chronic conditions: History of paroxysmal atrial fibrillation, History of complete heart block with dual-chamber pacemaker, Restless leg syndrome, depression She will be discharged with the following instructions: Patient requires home oxygen to manage her COPD at home. Take Prednisone as instructed: Take 40 mg PO QD x 3 days, after that take 30 mg PO QD x 3 days, after that take 20 mg PO QD x 2 days, after that take 10 mg PO QD x 3 days. FU with PCP within 1-2 days of DC. FU with Pulmonology within 1 week of DC. FU with Cardiology within 1 week of DC. FU with Urology within 1 week of DC. Take Keflex for 2 more days. (treatment of UTI) Check you blood sugar 4 times a day. Give yourself 8 units of prescribed insulin daily. Hold insulin if your blood glucose is < 120. Your insulin requirements will decrease as you taper down on your Prednisone, please follow up with your PCP for further adjustments. This complex discharge took 40 minutes to complete. Patient Condition at Discharge: Stable Plan - Discharge Summary New Discharge Prescriptions: New Cephalexin [Keflex] 500 mg PO BID #4 cap Insulin Detemir [Levemir Flextouch Pen] 8 units SQ DAILY #3 each Fluticasone Propionate 220 Mcg [Flovent 220 Mcg Inhaler] 2 puff INHALATION RT-BID #12 gm Alcohol Antiseptic Pads [Alcohol Swabs] 1 pad TOPICAL QID #120 pad Torsemide [Demadex] 40 mg PO DAILY #30 tab Lancets 1 each MISCELLANE QID #120 each Magnesium Oxide [Mag-Ox] 400 mg PO BID #60 tab Pen Needle, Diabetic [Pentips] 1 each MC DAILY #30 each predniSONE See Taper PO DIRECTED #30 tab Blood Sugar Diagnostic [Test Strips] 1 strip MISCELLANE QID #120 strip Continue Solifenacin Succinate [Vesicare] 5 mg PO DAILY Simvastatin [Zocor] 40 mg PO HS rOPINIRole HCL [Requip] 2 mg PO BID oxyCODONE HCL/ACETAMINOPHEN [Percocet 10-325 mg] 1 tab PO Q6HR PRN PRN Reason: Pain Nortriptyline [Pamelor] 25 mg PO TID Metoprolol Tartrate [Lopressor] 100 mg PO BID metFORMIN HCL [Glucophage] 500 mg PO BID Rivaroxaban [Xarelto] 10 mg PO DAILY Albuterol Inhaler [Ventolin Hfa Inhaler] 2 puff INHALATION RT-Q4H PRN #1 each PRN Reason: Shortness Of Breath LORazepam 0.5 mg PO TID PRN PRN Reason: Anxiety Benzonatate 100 mg PO TID PRN PRN Reason: Cough Mirtazapine [Remeron] 15 mg PO DIRECTED Pantoprazole Sodium [Protonix] 40 mg PO BID D3 Plus K2 Dots 1 tab PO DAILY Vitamin [id number] 1 tab SUBLINGUAL DAILY Tiotropium Br/Olodaterol HCl [Stiolto Respimat Inhal [place]] 2 puff INHALATION RT-DAILY #1 inh Changed Ipratropium-Albuterol Nebulize [Duoneb 0.5 mg-3 mg/3 ml Soln] 3 ml INHALATION RT-Q4H PRN #120 each PRN Reason: Shortness Of Breath Discontinued Turmeric Root Extract [Turmeric] 500 mg PO DAILY Torsemide [Soaanz] 20 mg PO DAILY Discharge Medication List Benzonatate 100 mg PO TID PRN 02/17/22 [History] D3 Plus K2 Dots 1 tab PO DAILY 02/17/22 [History] LORazepam 0.5 mg PO TID PRN 02/17/22 [History] Metoprolol Tartrate [Lopressor] 100 mg PO BID 02/17/22 [History] Mirtazapine [Remeron] 15 mg PO DIRECTED 02/17/22 [History] Nortriptyline [Pamelor] 25 mg PO TID 02/17/22 [History] Pantoprazole Sodium [Protonix] 40 mg PO BID 02/17/22 [History] Simvastatin [Zocor] 40 mg PO HS 02/17/22 [History] Solifenacin Succinate [Vesicare] 5 mg PO DAILY 02/17/22 [History] Vitamin O50-Fagotyumjt 1 tab SUBLINGUAL DAILY 02/17/22 [History] oxyCODONE HCL/ACETAMINOPHEN [Percocet 10-325 mg] 1 tab PO Q6HR PRN 02/17/22 [History] rOPINIRole HCL [Requip] 2 mg PO BID 02/17/22 [History] Rivaroxaban [Xarelto] 10 mg PO DAILY 04/06/22 [History] metFORMIN HCL [Glucophage] 500 mg PO BID 04/06/22 [History] Albuterol Inhaler [Ventolin Hfa Inhaler] 2 puff INHALATION RT-Q4H PRN #1 each 04/12/22 [Rx] Alcohol Antiseptic Pads [Alcohol Swabs] 1 pad TOPICAL QID #120 pad 04/12/22 [Rx] Blood Sugar Diagnostic [Test Strips] 1 strip MISCELLANE QID #120 strip 04/12/22 [Rx] Cephalexin [Keflex] 500 mg PO BID #4 cap 04/12/22 [Rx] Fluticasone Propionate 220 Mcg [Flovent 220 Mcg Inhaler] 2 puff INHALATION RT- BID #12 gm 04/12/22 [Rx] Insulin Detemir [Levemir Flextouch Pen] 8 units SQ DAILY #3 each 04/12/22 [Rx] Ipratropium-Albuterol Nebulize [Duoneb 0.5 mg-3 mg/3 ml Soln] 3 ml INHALATION RT-Q4H PRN #120 each 04/12/22 [Rx] Lancets 1 each MISCELLANE QID #120 each 04/12/22 [Rx] Magnesium Oxide [Mag-Ox] 400 mg PO BID #60 tab 04/12/22 [Rx] Pen Needle, Diabetic [Pentips] 1 each MC DAILY #30 each 04/12/22 [Rx] Tiotropium Br/Olodaterol HCl [Stiolto Respimat Inhal [place]] 2 puff INHALATION RT-DAILY #1 inh 04/12/22 [Rx] Torsemide [Demadex] 40 mg PO DAILY #30 tab 04/12/22 [Rx] predniSONE See Taper PO DIRECTED #30 tab 04/12/22 [Rx] Follow up Appointment(s)/Referral(s): Lisa Muro MD [STAFF PHYSICIAN] - 1 Week Juan Love MD [STAFF PHYSICIAN] - 1 Week Jose Butcher MD [Primary Care Provider] - 1-2 days [facility] [NON-STAFF] - Geo Ibarra MD [STAFF PHYSICIAN] - 1 Week (please follow-up for stress test now that your breathing is improved.) Activity/Diet/Wound Care/Special Instructions: Patient requires home oxygen to manage her COPD at home. Take Prednisone as instructed: Take 40 mg PO QD x 3 days, after that take 30 mg PO QD x 3 days, after that take 20 mg PO QD x 2 days, after that take 10 mg PO QD x 3 days. FU with PCP within 1-2 days of DC. FU with Pulmonology within 1 week of DC. FU with Cardiology within 1 week of DC. Take Keflex for 2 more days. (treatment of UTI) Check you blood sugar 4 times a day. Give yourself 8 units of prescribed insulin daily. Hold insulin if your blood glucose is < 120. Your insulin requirements will decrease as you taper down on your Prednisone, please follow up with your PCP for further adjustments. Discharge/Stand Alone Forms: Outpatient Counseling Discharge Disposition: HOME SELF-CARE
[2022-04-12 14:32] VITALS: BP 122/72; PULSE 62; TEMP 97.2
[2022-04-12 16:43] LABS: Glucose,Whole Blood 374 mg/dL (70-110)
--- NOTE | 2022-04-13 09:34 | CA ---
Transthoracic Echo Report Name: Beckie Dennison Age: 81 Gender: F : 1940 Exam Date: 04/12/2022 13:11 Exam Location: [facility] Ht (in): 63 Wt (lb): 180 Ordering Physician: Brit Adame DO Attending/Referring Phys: [id number], [employer] Cl[employer] Reeler Bambi Champion RDCS Procedure CPT: Indications: chf Cardiac Hx: Technical Quality: Good Contrast 1: Total Dose (mL): Contrast 2: Total Dose (mL): MEASUREMENTS (Male / Female) Normal Values 2D ECHO LV Diastolic Diameter PLAX 3.8 cm 4.2 - 5.9 / 3.9 - 5.3 cm LV Systolic Diameter PLAX 2.5 cm IVS Diastolic Thickness 1.4 cm 0.6 - 1.0 / 0.6 - 0.9 cm LVPW Diastolic Thickness 1.2 cm 0.6 - 1.0 / 0.6 - 0.9 cm LV Relative Wall Thickness 0.7 RV Internal Dim ED PLAX 3.9 cm LA Systolic Diameter LX 3.5 cm 3.0 - 4.0 / 2.7 - 3.8 cm LA Volume 57.4 cm??? 18 - 58 / 22 - 52 cm??? M-MODE Aortic Root Diameter MM 3.4 cm MV E Point Septal Separation 0.4 cm AV Cusp Separation MM 2.1 cm DOPPLER AV Peak Velocity 132.7 cm/s AV Peak Gradient 7.0 mmHg MV Area PHT 4.7 cm??? Mitral E Point Velocity 131.1 cm/s Mitral A Point Velocity 45.9 cm/s Mitral E to A Ratio 2.9 MV Deceleration Time 160.3 ms MV E' Velocity 6.7 cm/s Mitral E to MV E' Ratio 19.6 TR Peak Velocity 220.9 cm/s TR Peak Gradient 19.5 mmHg Right Ventricular Systolic Press 24.3 mmHg FINDINGS Left Ventricle Left ventricular ejection fraction is estimated at 55-60 %. Left ventricular cavity size normal. Moderately increased septal wall thickness. Mildly increased posterior wall thickness. Right Ventricle Moderate right ventricular dilatation. Right ventricular systolic pressure within normal limits. Pacemaker lead noted in the right ventricle Right Atrium Normal right atrial size. Left Atrium Mildly increased left atrial volume. No evidence for an atrial septal defect. Mitral Valve Mitral valve thickened. Mild mitral annular calcification. Mild mitral regurgitation. Aortic Valve Trileaflet aortic valve. No aortic valve stenosis or regurgitation. Tricuspid Valve Structurally normal tricuspid valve. [id number] tricuspid regurgitation. Pulmonic Valve Structurally normal pulmonic valve. Mild pulmonic regurgitation. Pericardium Normal pericardium. No pericardial effusion. Aorta Normal size aortic root and proximal ascending aorta. CONCLUSIONS Normal LV size and systolic function with mild to moderate concentric LVH. There is mild mitral annular calcification. Mild to moderate tricuspid regurgitation without pulmonary hypertension. No pericardial effusion Previewed by: Dr. Caroline Alberts MD (Electronically Signed) Final Date: 13 April 2022 09:33
== END 2022-04-12 18:12 | disposition home health service (06) | DRG 190 ==
LOC: EC 22:48 → 3SCARD 04-06 00:12 → 4SSUR 04-06 14:23
PROVIDERS: ADMIT Internal Medicine; ATTEND Internal Medicine
PROC: 5A09457 Assistance with Respiratory Ventilation, 24-96 Consecutive Hours, Continuous Positive Airway Pressure (ICD-10-PCS; principal; 2022-04-05)
PROC: 05HD33Z Insertion of Infusion Device into Right Cephalic Vein, Percutaneous Approach (ICD-10-PCS; 2022-04-11 17:25)
DX: J44.1 Chronic obstructive pulmonary disease with (acute) exacerbation (principal); J96.01 Acute respiratory failure with hypoxia; I44.2 Atrioventricular block, complete; N39.0 Urinary tract infection, site not specified; E11.649 Type 2 diabetes mellitus with hypoglycemia without coma; E11.65 Type 2 diabetes mellitus with hyperglycemia; I48.0 Paroxysmal atrial fibrillation; B96.4 Proteus (mirabilis) (morganii) as the cause of diseases classified elsewhere; E86.0 Dehydration; D50.9 Iron deficiency anemia, unspecified; Z20.822 Contact with and (suspected) exposure to COVID-19; E66.9 Obesity, unspecified; G25.81 Restless legs syndrome; E78.5 Hyperlipidemia, unspecified; I10 Essential (primary) hypertension; E83.42 Hypomagnesemia; F41.9 Anxiety disorder, unspecified; F32.A Depression, unspecified; T38.0X5A Adverse effect of glucocorticoids and synthetic analogues, initial encounter; I89.0 Lymphedema, not elsewhere classified; R77.8 Other specified abnormalities of plasma proteins; R26.2 Difficulty in walking, not elsewhere classified; R74.01 Elevation of levels of liver transaminase levels; Z68.39 Body mass index [BMI] 39.0-39.9, adult; Z79.01 Long term (current) use of anticoagulants; Z79.84 Long term (current) use of oral hypoglycemic drugs; Z79.899 Other long term (current) drug therapy; Z85.51 Personal history of malignant neoplasm of bladder; Z85.3 Personal history of malignant neoplasm of breast; Z95.2 Presence of prosthetic heart valve; Z96.653 Presence of artificial knee joint, bilateral; Z87.891 Personal history of nicotine dependence; Z95.0 Presence of cardiac pacemaker; Z86.16 Personal history of COVID-19; Z88.5 Allergy status to narcotic agent; Z88.8 Allergy status to other drugs, medicaments and biological substances
CPT/HCPCS: 36410; 36415; 71045; 74176; 76937; 80048; 80053; 81001; 83036; 83605; 83735; 83880; 84100; 84484; 85025; 85027; 85610; 85730; 87077; 87086; 87186; 87502; 87634; 87635; 93005; 93306; 94640; 94660; 94667; 94668; 94760; 96365; 96366; 96367; 96375; 96376; 99291

== ENCOUNTER 2022-05-04 16:29 | Inpatient (IN) | payer MEDICARE, OTHER ==
[2022-05-04] MEDS ORDERED: predniSONE 20 MG TAB PO STA (16:45)
[2022-05-04] MEDS ORDERED: IPRATROPIUM-ALBUTEROL 3 ML NEB INHALATION STA (16:45)
--- NOTE | 2022-05-04 16:48 | ED ---
SOB HPI - General Chief Complaint: Shortness of Breath Stated Complaint: SOB Time Seen by Provider: 05/04/22 16:33 Source: patient, EMS Mode of arrival: EMS Limitations: no limitations - History of Present Illness Initial Comments: This is an 81-year-old woman with history of COPD who arrives by ambulance to evaluation of worsening shortness of breath and coughing. The patient does disclose that she had recently been treated with course of prednisone that she believes she finished today. She starting 2 hours ago had worsening of cough and shortness of breath. She has not noted fever or chills. She states the cough is just with some occasional sputum. No chest pain. She has not noted fever but does feel cold. No change in urination or bowel movements. No leg pain or swelling. MD Complaint: shortness of breath, cough Onset/Timin -: hour(s) Severity scale (1-10): 0 Consistency: constant Improves With: oxygen Worsens With: nothing Known History Of: COPD Context: recent illness Associated Symptoms: cough, sputum production Treatments Prior to Arrival: oxygen - Related Data Home Medications Medication Instructions Recorded Confirmed Metoprolol Tartrate [Lopressor] 100 mg PO BID 02/17/22 05/04/22 Nortriptyline [Pamelor] 25 mg PO TID 02/17/22 05/04/22 Pantoprazole Sodium [Protonix] 40 mg PO BID 02/17/22 05/04/22 Vitamin Q49-[id number] 1 tab SUBLINGUAL DAILY 02/17/22 05/04/22 rOPINIRole HCL [Requip] 2 mg PO BID 02/17/22 05/04/22 Rivaroxaban [Xarelto] 10 mg PO DAILY 04/06/22 05/04/22 metFORMIN HCL [Glucophage] 500 mg PO BID 04/06/22 05/04/22 Atorvastatin Calcium [Lipitor] 40 mg PO HS 05/04/22 05/04/22 Cholecalciferol [Vitamin D3 (25 25 mcg PO HS 05/04/22 05/04/22 Mcg = 1000 Iu)] Insulin Detemir [Levemir Flextouch 8 units SQ HS 05/04/22 05/04/22 Pen] lisinopriL [Zestril] 5 mg PO DAILY 05/04/22 05/04/22 Previous Rx's Medication Instructions Recorded Albuterol Inhaler [Ventolin Hfa 2 puff INHALATION RT-Q4H PRN #1 04/12/22 Inhaler] each Fluticasone Propionate 220 Mcg 2 puff INHALATION RT-BID #12 gm 04/12/22 [Flovent 220 Mcg Inhaler] Magnesium Oxide [Mag-Ox] 400 mg PO BID #60 tab 04/12/22 Torsemide [Demadex] 40 mg PO DAILY #30 tab 04/12/22 Allergies Allergy/AdvReac Type Severity Reaction Status Date / Time morphine Allergy Itching Verified 04/06/22 07:58 tizanidine [From Zanaflex] Allergy Unknown Verified 04/06/22 07:58 zolpidem [From Ambien] Allergy Unknown Verified 04/06/22 07:58 gabapentin AdvReac Hallucinati Verified 04/06/22 07:58 ons hydromorphone [From Dilaudid] AdvReac Hallucinati Verified 04/06/22 07:58 ons pentazocine [From Talwin] AdvReac Hallucinati Verified 04/06/22 07:58 ons pregabalin [From Lyrica] AdvReac Hallucinati Verified 04/06/22 07:58 ons Review of Systems ROS Statement: Those systems with pertinent positive or pertinent negative responses have been documented in the HPI. ROS Other: All systems not noted in ROS Statement are negative. Constitutional: Reports: chills. Denies: fever Respiratory: Reports: cough, dyspnea, wheezes. Denies: hemoptysis Cardiovascular: Denies: chest pain, palpitations, orthopnea, edema, syncope Gastrointestinal: Denies: abdominal pain, vomiting, diarrhea Genitourinary: Denies: dysuria, hematuria Musculoskeletal: Denies: back pain Skin: Denies: rash Neurological: Denies: headache, weakness Past Medical History Past Medical History: Atrial Fibrillation, Cancer, COPD, Hypertension Additional Past Medical History / Comment(s): breast cancer 2001 post Lt lumpectomy, and bladder cancer post , carpletunnel, chronic atrail fibrillation History of Any Multi-Drug Resistant Organisms: None Reported Past Surgical History: Back Surgery, Cardiac Valve Replacement, Joint Replacement, Orthopedic Surgery, Pacemaker, Tonsillectomy, Tubal Ligation Additional Past Surgical History / Comment(s): bilat knees, rt shoulder repair, lung nodule removal, both carotids repaired (occluded) Past Anesthesia/Blood Transfusion Reactions: No Reported Reaction Type of Cardiac Device: Permanent Pacemaker Device Placement Date:: 02/16/2017 Past Psychological History: Anxiety, Depression Smoking Status: Former smoker Past Alcohol Use History: Occasional Past Drug Use History: None Reported - Past Family History Mother Family Medical History: COPD General Exam Limitations: no limitations General appearance: alert, in no apparent distress Head exam: Present: atraumatic, normocephalic Eye exam: Present: normal appearance. Absent: scleral icterus, conjunctival injection Neck exam: Present: normal inspection Respiratory exam: Present: respiratory distress, wheezes, rales (Trace crackles at bases bilaterally), decreased breath sounds. Absent: rhonchi, stridor Cardiovascular Exam: Present: regular rate, normal rhythm, normal heart sounds. Absent: systolic murmur, diastolic murmur, rubs, gallop GI/Abdominal exam: Present: soft. Absent: distended, tenderness, guarding, rebound, rigid, mass Extremities exam: Present: normal inspection, normal capillary refill. Absent: pedal edema, calf tenderness Back exam: Present: normal inspection. Absent: CVA tenderness (R), CVA tenderness (L) Neurological exam: Present: alert Skin exam: Present: warm, dry, intact, normal color. Absent: rash Course Vital Signs 05/04/22 05/04/22 05/04/22 16:36 18:06 18:15 Temperature 97.4 F L Pulse Rate 61 60 62 Respiratory 20 Rate Blood Pressure 141/77 O2 Sat by Pulse 100 Oximetry 05/04/22 05/04/22 05/05/22 19:07 23:31 00:05 Temperature Pulse Rate 78 63 Respiratory 16 23 Rate Blood Pressure 116/52 116/52 164/83 O2 Sat by Pulse 100 97 Oximetry 05/05/22 03:25 Temperature 98.6 F Pulse Rate 68 Respiratory 19 Rate Blood Pressure O2 Sat by Pulse 97 Oximetry Medical Decision Making - Lab Data Result diagrams: 05/04/22 16:55 05/04/22 16:55 Lab Results 05/04/22 05/04/22 05/04/22 Range/Units 16:55 16:55 16:55 WBC 6.8 (3.8-10.6) k/uL RBC 4.17 (3.80-5.40) m/uL Hgb 10.9 L (11.4-16.0) gm/dL Hct 35.1 (34.0-46.0) % MCV 84.2 (80.0-100.0) fL MCH 26.1 (25.0-35.0) pg MCHC 31.0 (31.0-37.0) g/dL RDW 18.4 H (11.5-15.5) % Plt Count 205 (150-450) k/uL MPV 9.0 Neutrophils % 58 % Lymphocytes % 29 % Monocytes % 9 % Eosinophils % 1 % Basophils % 0 % Neutrophils # 3.9 (1.3-7.7) k/uL Lymphocytes # 2.0 (1.0-4.8) k/uL Monocytes # 0.6 (0-1.0) k/uL Eosinophils # 0.1 (0-0.7) k/uL Basophils # 0.0 (0-0.2) k/uL Hypochromasia Marked Poikilocytosis Slight Anisocytosis Slight PT 12.2 H (9.0-12.0) sec INR 1.2 H (<1.2) APTT 22.9 (22.0-30.0) sec Sodium 139 (137-145) mmol/L Potassium 3.1 L (3.5-5.1) mmol/L Chloride 93 L (98-107) mmol/L Carbon Dioxide 37 H (22-30) mmol/L Anion Gap 9 mmol/L BUN 34 H (7-17) mg/dL Creatinine 1.09 H (0.52-1.04) mg/dL Est GFR (CKD-EPI)AfAm 56 (>60 ml/min/1.73 sqM) Est GFR (CKD-EPI)NonAf 48 (>60 ml/min/1.73 sqM) Glucose 169 H (74-99) mg/dL POC Glucose (mg/dL) (70-110) mg/dL POC Glu Negative Turner Apprentice ID Plasma Lactic Acid Naseem (0.7-2.0) mmol/L Calcium 6.1 L* (8.4-10.2) mg/dL Total Bilirubin 0.8 (0.2-1.3) mg/dL AST 57 H (14-36) U/L ALT 31 (4-34) U/L Alkaline Phosphatase 75 (38-126) U/L Troponin I (0.000-0.034) ng/mL NT-Pro-B Natriuret Pep pg/mL Total Protein 6.3 (6.3-8.2) g/dL Albumin 4.1 (3.5-5.0) g/dL Coronavirus (PCR) (Not Detectd) Influenza Type A RNA (Not Detectd) Influenza Type B (PCR) (Not Detectd) 05/04/22 05/04/22 05/04/22 Range/Units 16:55 16:55 16:55 WBC (3.8-10.6) k/uL RBC (3.80-5.40) m/uL Hgb (11.4-16.0) gm/dL Hct (34.0-46.0) % MCV (80.0-100.0) fL MCH (25.0-35.0) pg MCHC (31.0-37.0) g/dL RDW (11.5-15.5) % Plt Count (150-450) k/uL MPV Neutrophils % % Lymphocytes % % Monocytes % % Eosinophils % % Basophils % % Neutrophils # (1.3-7.7) k/uL Lymphocytes # (1.0-4.8) k/uL Monocytes # (0-1.0) k/uL Eosinophils # (0-0.7) k/uL Basophils # (0-0.2) k/uL Hypochromasia Poikilocytosis Anisocytosis PT (9.0-12.0) sec INR (<1.2) APTT (22.0-30.0) sec Sodium (137-145) mmol/L Potassium (3.5-5.1) mmol/L Chloride (98-107) mmol/L Carbon Dioxide (22-30) mmol/L Anion Gap mmol/L BUN (7-17) mg/dL Creatinine (0.52-1.04) mg/dL Est GFR (CKD-EPI)AfAm (>60 ml/min/1.73 sqM) Est GFR (CKD-EPI)NonAf (>60 ml/min/1.73 sqM) Glucose (74-99) mg/dL POC Glucose (mg/dL) (70-110) mg/dL POC Glu Negative Turner Apprentice ID Plasma Lactic Acid Naseem 1.6 (0.7-2.0) mmol/L Calcium (8.4-10.2) mg/dL Total Bilirubin (0.2-1.3) mg/dL AST (14-36) U/L ALT (4-34) U/L Alkaline Phosphatase (38-126) U/L Troponin I 0.045 H* (0.000-0.034) ng/mL NT-Pro-B Natriuret Pep 1780 pg/mL Total Protein (6.3-8.2) g/dL Albumin (3.5-5.0) g/dL Coronavirus (PCR) (Not Detectd) Influenza Type A RNA (Not Detectd) Influenza Type B (PCR) (Not Detectd) 05/04/22 05/04/22 05/04/22 Range/Units 16:55 16:55 19:43 WBC (3.8-10.6) k/uL RBC (3.80-5.40) m/uL Hgb (11.4-16.0) gm/dL Hct (34.0-46.0) % MCV (80.0-100.0) fL MCH (25.0-35.0) pg MCHC (31.0-37.0) g/dL RDW (11.5-15.5) % Plt Count (150-450) k/uL MPV Neutrophils % % Lymphocytes % % Monocytes % % Eosinophils % % Basophils % % Neutrophils # (1.3-7.7) k/uL Lymphocytes # (1.0-4.8) k/uL Monocytes # (0-1.0) k/uL Eosinophils # (0-0.7) k/uL Basophils # (0-0.2) k/uL Hypochromasia Poikilocytosis Anisocytosis PT (9.0-12.0) sec INR (<1.2) APTT (22.0-30.0) sec Sodium (137-145) mmol/L Potassium (3.5-5.1) mmol/L Chloride (98-107) mmol/L Carbon Dioxide (22-30) mmol/L Anion Gap mmol/L BUN (7-17) mg/dL Creatinine (0.52-1.04) mg/dL Est GFR (CKD-EPI)AfAm (>60 ml/min/1.73 sqM) Est GFR (CKD-EPI)NonAf (>60 ml/min/1.73 sqM) Glucose (74-99) mg/dL POC Glucose (mg/dL) 163 H (70-110) mg/dL POC Glu Negative Turner Apprentice ID Iva Brambila Plasma Lactic Acid Naseem (0.7-2.0) mmol/L Calcium (8.4-10.2) mg/dL Total Bilirubin (0.2-1.3) mg/dL AST (14-36) U/L ALT (4-34) U/L Alkaline Phosphatase (38-126) U/L Troponin I (0.000-0.034) ng/mL NT-Pro-B Natriuret Pep pg/mL Total Protein (6.3-8.2) g/dL Albumin (3.5-5.0) g/dL Coronavirus (PCR) Not Detected (Not Detectd) Influenza Type A RNA Not Detected (Not Detectd) Influenza Type B (PCR) Not Detected (Not Detectd) - EKG Data -: EKG Interpreted by Me Rate: bradycardia Disposition Clinical Impression: COPD exacerbation Narrative: Possible angina Disposition: ADMITTED IP TO THIS HOSP Condition: Fair Is patient prescribed a controlled substance at d/c from ED?: No
[2022-05-04 17:42] LABS: Albumin 4.1 g/dL (3.5-5.0); Potassium 3.1 mmol/L (3.5-5.1); Total Bilirubin 0.8 mg/dL (0.2-1.3); Total Protein 6.3 g/dL (6.3-8.2)
[2022-05-04 17:54] LABS: Calcium 6.1 mg/dL (8.4-10.2)
[2022-05-04 18:11] LABS: INR 1.2 (<1.2); Partial Thromboplastin Time 22.9 sec (22.0-30.0); Prothrombin Time 12.2 sec (9.0-12.0)
--- NOTE | 2022-05-04 18:15 | XR ---
EXAMINATION TYPE: XR chest 2V DATE OF EXAM: 05/04/2022 5:58 PM COMPARISON: Chest radiographs from 04/05/2022 TECHNIQUE: XR chest 2V Frontal and lateral views of the chest. CLINICAL INDICATION:Female, 81 years old with history of difficulty breathing; FINDINGS: Lungs/Pleura: There is no evidence of pleural effusion, focal consolidation, or pneumothorax. Pulmonary vascularity: Unremarkable. Heart/mediastinum: Cardiomediastinal silhouette is enlarged and stable. Two lead cardiac conduction d evice overlying the left hemithorax with lead tips projecting over the right ventricle and right atri um. Musculoskeletal: No acute osseous pathology. There is lower spine fixation hardware is present. Fixat ion changes of the cervical spine. IMPRESSION: No acute cardiopulmonary disease/process. Stable exam from 04/05/2022.
[2022-05-04 18:18] LABS: Anisocytosis Slight; Basophils % (A) 0 %; Eosinophils # (A) 0.1 k/uL (0-0.7); Eosinophils % (A) 1 %; HCT 35.1 % (34.0-46.0); HGB 10.9 gm/dL (11.4-16.0); Hypochromasia Marked; Lymphocytes % (A) 29 %; MCH 26.1 pg (25.0-35.0); MCV 84.2 fL (80.0-100.0); Monocytes # (A) 0.6 k/uL (0-1.0); Monocytes % (A) 9 %; Neutrophils # (A) 3.9 k/uL (1.3-7.7); Neutrophils % (A) 58 %; Platelet Count 205 k/uL (150-450); Poikilocytosis Slight; RBC 4.17 m/uL (3.80-5.40); RDW 18.4 % (11.5-15.5); WBC 6.8 k/uL (3.8-10.6)
[2022-05-04] MEDS ORDERED: CALCIUM GLUCONATE IN NACL 1 GM in SALINE 1 100ML.BAG IVPB ONE (18:26)
[2022-05-04] MEDS ORDERED: POTASSIUM CHLORIDE ER 20 MEQ TAB.ER PO STA (18:26)
[2022-05-04 19:45] LABS: Glucose,Whole Blood 163 mg/dL (70-110)
[2022-05-04] MEDS ORDERED: NALOXONE 0.4 MG/ML 1 ML VIAL IVP PRN (21:05)
[2022-05-05] MEDS: ACETAMINOPHEN TAB 325 MG TAB PO PRN (00:08)
[2022-05-05] MEDS ORDERED: ASPIRIN 81 MG PO STA (03:02)
--- NOTE | 2022-05-05 03:04 | P.HPIM ---
History of Present Illness H&P Date: 05/04/22 The patient is an 81-year-old female with a PMH of A. fib on Xarelto, complete heart block status post ventricular pacemaker, COPD with chronic hypoxic respiratory failure on 2 L nasal cannula oxygen at home, hypertension, hyperlipidemia, and type II DM who presents to the emergency room with compla ints of shortness of breath and chest discomfort. The patient reports that her symptoms started suddenly this morning at around 10 AM. She reports experiencing substernal chest tightness, 8 out of 10 on maximal intensity, nonradiating, with associated nausea, diaphoresis, shortness of breath, and dizziness. The pain was occurring every 10-20 minutes, lasting for up to a minute at a time with no alleviating or exacerbating features. She reports that her pain improved dramatically shortly after arrival at the emergency room. As per the EMS note, the patient was tachypneic and hypoxic in the 70s upon arrival at the scene and the patient was placed on high flow nasal cannula with subsequent improvement in her SpO2 to 93%. At time of interview, she states that her pain had improved to a 1 out of 10. He denied any additional complaints. Reports a chronic unchanged cough. Denied fever, chills, lower shortly swelling, lower extremity pain. Chest x-ray in the emergency room was unremarkable. EKG revealed a V paced rhythm at 59 bpm. Laboratory evaluation was remarkable for troponin 0.045, proBNP 1780, calcium 6.1, BUN 34, creatinine 1.09, potassium 3.1. Review of systems: Pertinent positives and negatives as discussed in HPI, a complete review of systems was performed and all other systems are negative. Physical examination: General: non toxic, no distress, appears at stated age, normal weight Derm: no unusual rashes/lesions, warm Head: atraumatic, normocephalic, symmetric Eyes: EOMI, no lid lag, anicteric sclera, pupils equal round reactive to light ENT: Nose and ears atraumatic Neck: No cervical lymphadenopathy, trachea midline, supple Mouth: no lip lesion, mucus membranes moist Cardiovascular: S1S2 reg, no murmur, positive dorsalis pedis pulse bilateral, no edema Lungs: Expiratory wheezing, no rales or rhonchi noted, no accessory muscle use Abdominal: soft, nontender to palpation, no guarding Ext: muscle strength 5 out of 5 in all 4 extremities grossly, no gross muscle atrophy, no contractures, Neuro: CN II-XI grossly intact, no gross focal neuro deficits Psych: Alert, oriented, appropriate affect Assessment/plan Non-ST elevation VT -Patient currently on Xarelto at home -Trend troponin -Cardiac monitoring -Cardiology consult -C/w ASA and Statin Acute COPD exacerbation with acute on chronic hypoxic respiratory failure -Continue with oral prednisone -DuoNeb's Hypokalemia -Replace and monitor Hypocalcemia -Unclear etiology -Obtain vitamin D levels -Patient currently takes vitamin D3 1000 IUs daily DVT prophylaxis -Xarelto The patient is admitted with an anticipated less than 2 midnight stay for evaluation of acute COPD CODE STATUS: Full Code Discussed with: Patient Anticipated discharge date: in am Anticipated discharge place: Home Past Medical History Past Medical History: Atrial Fibrillation, Cancer, COPD, Hypertension Additional Past Medical History / Comment(s): breast cancer 2001 post Lt lumpectomy, and bladder cancer post , carpletunnel, chronic atrail fibrillation History of Any Multi-Drug Resistant Organisms: None Reported Past Surgical History: Back Surgery, Cardiac Valve Replacement, Joint Replacement, Orthopedic Surgery, Pacemaker, Tonsillectomy, Tubal Ligation Additional Past Surgical History / Comment(s): bilat knees, rt shoulder repair, lung nodule removal, both carotids repaired (occluded) Past Anesthesia/Blood Transfusion Reactions: No Reported Reaction Type of Cardiac Device: Permanent Pacemaker Device Placement Date:: 02/16/2017 Past Psychological History: Anxiety, Depression Smoking Status: Former smoker Past Alcohol Use History: Occasional Past Drug Use History: None Reported - Past Family History Mother Family Medical History: COPD Medications and Allergies Home Medications Medication Instructions Recorded Confirmed Type Metoprolol Tartrate [Lopressor] 100 mg PO BID 02/17/22 05/04/22 History Nortriptyline [Pamelor] 25 mg PO TID 02/17/22 05/04/22 History Pantoprazole Sodium [Protonix] 40 mg PO BID 02/17/22 05/04/22 History Vitamin [id number] 1 tab SUBLINGUAL DAILY 02/17/22 05/04/22 History rOPINIRole HCL [Requip] 2 mg PO BID 02/17/22 05/04/22 History Rivaroxaban [Xarelto] 10 mg PO DAILY 04/06/22 05/04/22 History metFORMIN HCL [Glucophage] 500 mg PO BID 04/06/22 05/04/22 History Albuterol Inhaler [Ventolin Hfa 2 puff INHALATION RT-Q4H PRN #1 04/12/22 05/04/22 Rx Inhaler] each Fluticasone Propionate 220 Mcg 2 puff INHALATION RT-BID #12 gm 04/12/22 05/04/22 Rx [Flovent 220 Mcg Inhaler] Magnesium Oxide [Mag-Ox] 400 mg PO BID #60 tab 04/12/22 05/04/22 Rx Torsemide [Demadex] 40 mg PO DAILY #30 tab 04/12/22 05/04/22 Rx Atorvastatin Calcium [Lipitor] 40 mg PO HS 05/04/22 05/04/22 History Cholecalciferol [Vitamin D3 (25 25 mcg PO HS 05/04/22 05/04/22 History Mcg = 1000 Iu)] Insulin Detemir [Levemir Flextouch 8 units SQ HS 05/04/22 05/04/22 History Pen] lisinopriL [Zestril] 5 mg PO DAILY 05/04/22 05/04/22 History Allergies Allergy/AdvReac Type Severity Reaction Status Date / Time morphine Allergy Itching Verified 04/06/22 07:58 tizanidine [From Zanaflex] Allergy Unknown Verified 04/06/22 07:58 zolpidem [From Ambien] Allergy Unknown Verified 04/06/22 07:58 gabapentin AdvReac Hallucinati Verified 04/06/22 07:58 ons hydromorphone [From Dilaudid] AdvReac Hallucinati Verified 04/06/22 07:58 ons pentazocine [From Talwin] AdvReac Hallucinati Verified 04/06/22 07:58 ons pregabalin [From Lyrica] AdvReac Hallucinati Verified 04/06/22 07:58 ons Physical Exam Vitals: Vital Signs Temp Pulse Resp BP Pulse Ox 05/04/22 19:07 78 16 116/52 100 05/04/22 18:15 62 05/04/22 18:06 60 05/04/22 16:36 97.4 F L 61 20 141/77 100 Intake and Output 05/04/22 05/04/22 05/05/22 14:59 22:59 06:59 Other: Weight 81.647 kg Results CBC & Chem 7: 05/04/22 16:55 05/04/22 16:55 Labs: Abnormal Lab Results - Last 24 Hours (Table) 05/04/22 05/04/22 05/04/22 Range/Units 16:55 16:55 16:55 Hgb 10.9 L (11.4-16.0) gm/dL RDW 18.4 H (11.5-15.5) % PT 12.2 H (9.0-12.0) sec INR 1.2 H (<1.2) Potassium 3.1 L (3.5-5.1) mmol/L Chloride 93 L (98-107) mmol/L Carbon Dioxide 37 H (22-30) mmol/L BUN 34 H (7-17) mg/dL Creatinine 1.09 H (0.52-1.04) mg/dL Glucose 169 H (74-99) mg/dL POC Glucose (mg/dL) (70-110) mg/dL Calcium 6.1 L* (8.4-10.2) mg/dL AST 57 H (14-36) U/L Troponin I (0.000-0.034) ng/mL 05/04/22 05/04/22 05/04/22 Range/Units 16:55 19:43 22:21 Hgb (11.4-16.0) gm/dL RDW (11.5-15.5) % PT (9.0-12.0) sec INR (<1.2) Potassium (3.5-5.1) mmol/L Chloride (98-107) mmol/L Carbon Dioxide (22-30) mmol/L BUN (7-17) mg/dL Creatinine (0.52-1.04) mg/dL Glucose (74-99) mg/dL POC Glucose (mg/dL) 163 H (70-110) mg/dL Calcium (8.4-10.2) mg/dL AST (14-36) U/L Troponin I 0.045 H* 0.048 H* (0.000-0.034) ng/mL
[2022-05-05 06:08] LABS: Anisocytosis Slight; HCT 33.3 % (34.0-46.0); HGB 10.3 gm/dL (11.4-16.0); Hypochromasia Marked; MCH 26.1 pg (25.0-35.0); MCHC 30.8 g/dL (31.0-37.0); MCV 84.8 fL (80.0-100.0); Mean Platelet Volume 8.8; Platelet Count 256 k/uL (150-450); Poikilocytosis Slight; RBC 3.93 m/uL (3.80-5.40); RDW 18.3 % (11.5-15.5)
[2022-05-05 06:59] LABS: Potassium 3.9 mmol/L (3.5-5.1)
[2022-05-05 07:29] LABS: Glucose,Whole Blood 255 mg/dL (70-110)
[2022-05-05] MEDS: ATORVASTATIN 80 MG TAB PO SCH ×2 (07:34→20:49)
[2022-05-05 07:38] LABS: Calcium 6.3 mg/dL (8.4-10.2)
[2022-05-05] MEDS ORDERED: FLUTICASONE 220 MCG INHALER INHALATION SCH (08:00)
[2022-05-05] MEDS: IPRATROPIUM-ALBUTEROL 3 ML NEB INHALATION SCH ×4 (08:28→20:11)
[2022-05-05] MEDS ORDERED: CALCIUM GLUCONATE IN NACL 2 GM in SALINE 1 100ML.BAG IVPB ONE (08:30)
[2022-05-05] MEDS: METOPROLOL TARTRATE 50 MG TAB PO SCH ×2 (08:46→20:49)
[2022-05-05] MEDS: ASPIRIN 81 MG PO SCH (08:46)
[2022-05-05] MEDS: lisinopriL 5 MG TAB PO SCH (08:46)
[2022-05-05] MEDS: INSULIN ASPART (NovoLOG) 100 UNIT/ML VIAL SQ SCH ×4 (08:46→20:49)
[2022-05-05] MEDS: PANTOPRAZOLE 40 MG TABLET PO SCH ×2 (08:47→20:49)
[2022-05-05] MEDS: predniSONE 20 MG TAB PO SCH (08:47)
[2022-05-05] MEDS: NORTRIPTYLINE 25 MG CAP PO SCH ×3 (08:47→23:36)
[2022-05-05] MEDS ORDERED: TORSEMIDE 20 MG TAB PO SCH (09:00)
[2022-05-05] MEDS: FLUTICASONE 220 MCG INHALER INHALATION SCH ×2 (11:30→20:11)
[2022-05-05 11:53] LABS: Glucose,Whole Blood 194 mg/dL (70-110)
--- NOTE | 2022-05-05 12:30 | P.PN ---
Subjective Progress Note Date: 05/05/22 Principal diagnosis: chest pain Hospital Course: 81-year-old female with a PMH of Dana dillard on Xarelto, complete heart block status post ventricular pacemaker, COPD with chronic hypoxic respiratory failure on 2 L nasal cannula oxygen at home, hypertension, hyperlipidemia, and type II DM who presents to the emergency room with complaints of shortness of breath and chest discomfort. She denies any further chest discomfort. Chest x-ray in the emergency room was unremarkable. EKG revealed a V paced rhythm at 59 bpm. Laboratory evaluation was remarkable for troponin 0.045, proBNP 1780, calcium 6.1, BUN 34, creatinine 1.09, potassium 3.1. Cardiology consulted. Subjective: Patient seen and examined at bedside. No acute events overnight. She claims t hat her chest pain has resolved. She denies any further shortness of breath, cough, sputum production, nausea, vomiting, diarrhea, constipation, abdominal pain, or urinary complaints. Pertinent positives and negatives as discussed above, a complete review of systems was performed and all other systems are negative. Vitals Signs Reviewed. General: non toxic, no distress, appears at stated age, normal weight Derm: no unusual rashes/lesions, warm Head: atraumatic, normocephalic, symmetric Eyes: EOMI, no lid lag, anicteric sclera, pupils equal round reactive to light ENT: Nose and ears atraumatic Neck: No cervical lymphadenopathy, trachea midline, supple Mouth: no lip lesion, mucus membranes moist Cardiovascular: S1S2 reg, no murmur, positive dorsalis pedis pulse bilateral, no edema Lungs: Expiratory wheezing, no rales or rhonchi noted, no accessory muscle use Abdominal: soft, nontender to palpation, no guarding Ext: muscle strength 5 out of 5 in all 4 extremities grossly, no gross muscle atrophy, no contractures, Neuro: CN II-XI grossly intact, no gross focal neuro deficits Psych: Alert, oriented, appropriate affect Assessment and Plan: Chest pain, rule out ACS Non-ST elevation WA -Trend troponin -Cardiac monitoring -Cardiology consult -C/w ASA and Statin -Consider interrogating device Acute on chronic hypoxic respiratory failure Possible acute COPD exacerbation -Continue with oral prednisone -DuoNeb's Hypokalemia - resolved Hypocalcemia -Unclear etiology -IV calcium -Vitamin D levels pending -Patient currently takes vitamin D3 1000 IUs daily DVT prophylaxis -Xarelto Code status: Full code Anticipated discharge place: Likely home Anticipated discharge time: Pending cardiology evaluation Objective - Vital Signs Vital signs: Vital Signs Temp 98.6 F 05/05/22 03:25 Pulse 72 05/05/22 11:43 Resp 18 05/05/22 07:14 BP 153/81 05/05/22 07:14 Pulse Ox 96 05/05/22 08:31 FiO2 Intake & Output 05/04/22 05/05/22 05/05/22 18:59 06:59 18:59 Weight 81.647 kg - Labs CBC & Chem 7: 05/05/22 05:45 05/05/22 05:45 Labs: Abnormal Lab Results - Last 24 Hours (Table) 05/04/22 05/04/22 05/04/22 Range/Units 16:55 16:55 16:55 Hgb 10.9 L (11.4-16.0) gm/dL Hct (34.0-46.0) % MCHC (31.0-37.0) g/dL RDW 18.4 H (11.5-15.5) % PT 12.2 H (9.0-12.0) sec INR 1.2 H (<1.2) Potassium 3.1 L (3.5-5.1) mmol/L Chloride 93 L (98-107) mmol/L Carbon Dioxide 37 H (22-30) mmol/L BUN 34 H (7-17) mg/dL Creatinine 1.09 H (0.52-1.04) mg/dL Glucose 169 H (74-99) mg/dL POC Glucose (mg/dL) (70-110) mg/dL Calcium 6.1 L* (8.4-10.2) mg/dL AST 57 H (14-36) U/L Troponin I (0.000-0.034) ng/mL 05/04/22 05/04/22 05/04/22 Range/Units 16:55 19:43 22:21 Hgb (11.4-16.0) gm/dL Hct (34.0-46.0) % MCHC (31.0-37.0) g/dL RDW (11.5-15.5) % PT (9.0-12.0) sec INR (<1.2) Potassium (3.5-5.1) mmol/L Chloride (98-107) mmol/L Carbon Dioxide (22-30) mmol/L BUN (7-17) mg/dL Creatinine (0.52-1.04) mg/dL Glucose (74-99) mg/dL POC Glucose (mg/dL) 163 H (70-110) mg/dL Calcium (8.4-10.2) mg/dL AST (14-36) U/L Troponin I 0.045 H* 0.048 H* (0.000-0.034) ng/mL 05/05/22 05/05/22 05/05/22 Range/Units 05:45 05:45 07:27 Hgb 10.3 L (11.4-16.0) gm/dL Hct 33.3 L (34.0-46.0) % MCHC 30.8 L (31.0-37.0) g/dL RDW 18.3 H (11.5-15.5) % PT (9.0-12.0) sec INR (<1.2) Potassium (3.5-5.1) mmol/L Chloride 93 L (98-107) mmol/L Carbon Dioxide 34 H (22-30) mmol/L BUN 32 H (7-17) mg/dL Creatinine 1.11 H (0.52-1.04) mg/dL Glucose 262 H (74-99) mg/dL POC Glucose (mg/dL) 255 H (70-110) mg/dL Calcium 6.3 L* (8.4-10.2) mg/dL AST (14-36) U/L Troponin I (0.000-0.034) ng/mL 05/05/22 Range/Units 11:50 Hgb (11.4-16.0) gm/dL Hct (34.0-46.0) % MCHC (31.0-37.0) g/dL RDW (11.5-15.5) % PT (9.0-12.0) sec INR (<1.2) Potassium (3.5-5.1) mmol/L Chloride (98-107) mmol/L Carbon Dioxide (22-30) mmol/L BUN (7-17) mg/dL Creatinine (0.52-1.04) mg/dL Glucose (74-99) mg/dL POC Glucose (mg/dL) 194 H (70-110) mg/dL Calcium (8.4-10.2) mg/dL AST (14-36) U/L Troponin I (0.000-0.034) ng/mL
[2022-05-05] MEDS: BUMETANIDE 0.25 MG/ML 10 ML VIAL IV SCH (15:14)
[2022-05-05 16:59] LABS: Glucose,Whole Blood 222 mg/dL (70-110)
[2022-05-05] MEDS: NYSTATIN 100,000 UNIT/ML SUSP 500,000 UNIT/5 ML CUP PO SCH ×2 (17:16→21:11)
[2022-05-05] MEDS: oxyCODONE-APAP 10-325MG 1 EACH TAB PO PRN ×2 (17:17→23:35)
[2022-05-05] MEDS ORDERED: oxyCODONE-APAP 10-325MG 1 EACH TAB PO SCH (18:00)
[2022-05-05 20:21] LABS: Glucose,Whole Blood 276 mg/dL (70-110)
[2022-05-05] MEDS: CHOLECALCIFEROL 25 MCG (1000 IU) TABLET PO SCH (20:49)
--- NOTE | 2022-05-05 21:33 | P.CRDCN ---
History of Present Illness History of present illness: HISTORY OF PRESENTING ILLNESS Patient is a pleasant 81 year old female with history of complete heart block s/p PPM, COPD, hypoxic respiratory failure on O2, HTN, HLD, DM2, who presented to ER for chest pain and pressure as well as SOB and LE edema. She does follow with Dr Ibarra. She has had 4 hospitalizations in the last 2 months for a combination of chest pain and SOB. She states that this morning she began having chest tightness with some associated SOB. She also has been having some increased LE edema. Patient was noted to be hypoxic with pulse ox in the 70's. She denies any changes in her meds. She recently followed up with Dr Ibarra. She has not had a stress test in approximately 2 years per patient. Bloodwork shows Calcium 6.1, troponin 0.045, 0.048, proBNP 1780BUN 34, Cr 1.0, hgb 10.9 EKG shows Afib with V paced rhythm Echo last hospitalization 04/05 showed EF 55-60% with mild to moderate LVH, mild to moderate TR REVIEW OF SYSTEMS At the time of my exam: CONSTITUTIONAL: Denies fever or chills. CARDIOVASCULAR: +chest pain, +shortness of breath, no orthopnea, PND or palpitations. RESPIRATORY: Denies cough. GASTROINTESTINAL: Denies abdominal pain, diarrhea, constipation, nausea or vomiting. MUSCULOSKELETAL: Denies myalgias. NEUROLOGIC: Denies numbness, tingling or weakness. ENDOCRINE: Denies fatigue, weight change, polydipsia or polyurina. GENITOURINARY: Denies burning, hematuria or urgency with micturation. HEMATOLOGIC: Denies history of anemia or bleeding. PHYSICAL EXAMINATION Vital signs reviewed. CONSTITUTIONAL: No apparent distress. HEENT: Head is normocephalic. Pupils are equal, round. Sclerae anicteric. Mucous membranes of the mouth are moist. No JVD. No carotid bruit. CHEST EXAMINATION: Lungs are clear to auscultation. No chest wall tenderness is noted on palpation or with deep breathing. HEART EXAMINATION: Regular rate and rhythm. S1, S2 heard. No murmurs, gallops or rub. ABDOMEN: Soft, nontender. Positive bowel sounds. EXTREMITIES: 2+ peripheral pulses, 1-2+ lower extremity edema and no calf tenderness. NEUROLOGIC EXAMINATION: Patient is awake, alert and oriented x3. ASSESSMENT 1. Atypical chest pain 2. Mildly elevated troponins 3. Acute on chronic diastolic heart failure 4. Acute on chronic respiratory failure 5. Persisitent Afib 6. Complete heart block, s/p PPM 7. DM2 PLAN Patient with multiple recent admissions with SOB and chest pain. Mildly elevated troponins may be related to hypoxia however check Lexiscan stress test to rule out inducible ischemia. Additionally appears volume overloaded and monitor response of diuretics. Recent echo showed preserved EF without significant valvular disease and no need to repeat. Evaluate home meds as mention of Coumadin on med list, Xarelto and previously r eported Eliquis. Should be on Xarelto 20mg dosing. Past Medical History Past Medical History: Atrial Fibrillation, Cancer, COPD, Hypertension Additional Past Medical History / Comment(s): breast cancer 2000 post Lt lumpectomy & lymph node, and bladder cancer post , carpletunnel, chronic atrail fibrillation History of Any Multi-Drug Resistant Organisms: None Reported Past Surgical History: Back Surgery, Joint Replacement, Orthopedic Surgery, Pacemaker, Tonsillectomy, Tubal Ligation Additional Past Surgical History / Comment(s): bilat knees, rt shoulder repair, lung nodule removal, both carotids repaired (occluded) Past Anesthesia/Blood Transfusion Reactions: No Reported Reaction Type of Cardiac Device: Permanent Pacemaker Device Placement Date:: 02/16/2017 Past Psychological History: Anxiety, Depression Smoking Status: Former smoker Past Alcohol Use History: Occasional Past Drug Use History: None Reported - Past Family History Mother Family Medical History: COPD Medications and Allergies Home Medications Medication Instructions Recorded Confirmed Type Metoprolol Tartrate [Lopressor] 100 mg PO BID 02/17/22 05/04/22 History Nortriptyline [Pamelor] 25 mg PO TID 02/17/22 05/04/22 History Pantoprazole Sodium [Protonix] 40 mg PO BID 02/17/22 05/04/22 History Vitamin [id number] 1 tab SUBLINGUAL DAILY 02/17/22 05/04/22 History rOPINIRole HCL [Requip] 2 mg PO BID 02/17/22 05/04/22 History metFORMIN HCL [Glucophage] 500 mg PO BID 04/06/22 05/04/22 History Albuterol Inhaler [Ventolin Hfa 2 puff INHALATION RT-Q4H PRN #1 04/12/22 05/04/22 Rx Inhaler] each Fluticasone Propionate 220 Mcg 2 puff INHALATION RT-BID #12 gm 04/12/22 05/04/22 Rx [Flovent 220 Mcg Inhaler] Magnesium Oxide [Mag-Ox] 400 mg PO BID #60 tab 04/12/22 05/04/22 Rx Torsemide [Demadex] 40 mg PO DAILY #30 tab 04/12/22 05/04/22 Rx Atorvastatin Calcium [Lipitor] 40 mg PO HS 05/04/22 05/04/22 History Cholecalciferol [Vitamin D3 (25 25 mcg PO HS 05/04/22 05/04/22 History Mcg = 1000 Iu)] Insulin Detemir [Levemir Flextouch 8 units SQ HS 05/04/22 05/04/22 History Pen] lisinopriL [Zestril] 5 mg PO DAILY 05/04/22 05/04/22 History Warfarin Sodium [Jantoven] 5 mg PO DAILY 05/05/22 05/05/22 History oxyCODONE HCL/ACETAMINOPHEN 1 tab PO Q6HR 05/05/22 05/05/22 History [Percocet 10-325 mg] Allergies Allergy/AdvReac Type Severity Reaction Status Date / Time morphine Allergy Itching Verified 04/06/22 07:58 tizanidine [From Zanaflex] Allergy Unknown Verified 04/06/22 07:58 zolpidem [From Ambien] Allergy Unknown Verified 04/06/22 07:58 gabapentin AdvReac Hallucinati Verified 04/06/22 07:58 ons hydromorphone [From Dilaudid] AdvReac Hallucinati Verified 04/06/22 07:58 ons pentazocine [From Talwin] AdvReac Hallucinati Verified 04/06/22 07:58 ons pregabalin [From Lyrica] AdvReac Hallucinati Verified 04/06/22 07:58 ons Physical Exam Vitals: Vital Signs Temp Pulse Pulse Resp BP BP Pulse Ox 05/05/22 20:24 80 05/05/22 20:13 77 05/05/22 16:00 97.7 F 76 17 139/66 96 05/05/22 15:32 76 05/05/22 15:24 74 95 05/05/22 14:30 97.4 F L 87 17 139/84 97 05/05/22 13:50 98.1 F 80 18 142/62 99 05/05/22 11:43 72 05/05/22 11:32 64 05/05/22 08:42 76 05/05/22 08:31 72 96 05/05/22 07:14 61 18 153/81 98 05/05/22 06:47 61 22 94 L 05/05/22 03:25 98.6 F 68 19 97 05/05/22 00:05 164/83 05/04/22 23:31 63 23 116/52 97 Intake and Output 05/05/22 05/05/22 05/05/22 06:59 14:59 22:59 Intake Total 8 Balance 8 Intake: Oral 8 Other: Weight 81.647 kg Results 05/05/22 05:45 05/05/22 05:45 Cardiac Enzymes 05/04/22 Range/Units 22:21 Troponin I 0.048 H* (0.000-0.034) ng/mL CBC 05/05/22 Range/Units 05:45 WBC 4.0 (3.8-10.6) k/uL RBC 3.93 (3.80-5.40) m/uL Hgb 10.3 L (11.4-16.0) gm/dL Hct 33.3 L (34.0-46.0) % Plt Count 256 (150-450) k/uL Comprehensive Metabolic Panel 05/05/22 Range/Units 05:45 Sodium 137 (137-145) mmol/L Potassium 3.9 (3.5-5.1) mmol/L Chloride 93 L (98-107) mmol/L Carbon Dioxide 34 H (22-30) mmol/L BUN 32 H (7-17) mg/dL Creatinine 1.11 H (0.52-1.04) mg/dL Glucose 262 H (74-99) mg/dL Calcium 6.3 L* (8.4-10.2) mg/dL Current Medications Generic Name Dose Route Start Last Admin Trade Name Freq PRN Reason Stop Dose Admin Acetaminophen 650 mg 05/04/22 21:05 05/05/22 00:08 Acetaminophen Tab 325 Mg Tab PO 650 mg Q4HR PRN Administration Mild Pain or Fever > 100.5 Albuterol/Ipratropium 3 ml 05/05/22 08:00 05/05/22 20:11 Ipratropium-Albuterol 3 Ml Neb INHALATION 3 ml RT-QID PAULA Administration Albuterol/Ipratropium 3 ml 05/05/22 03:01 Ipratropium-Albuterol 3 Ml Neb INHALATION RT-QID PRN Shortness Of Breath Or Wheezing Aspirin 81 mg 05/05/22 09:00 05/05/22 08:46 Aspirin 81 Mg PO 81 mg DAILY PAULA Administration Atorvastatin Calcium 80 mg 05/05/22 03:02 05/05/22 20:49 Atorvastatin 80 Mg Tab PO 80 mg HS PAULA Administration Bumetanide 2 mg 05/05/22 14:00 05/05/22 15:14 Bumetanide 0.25 Mg/Ml 10 Ml Vial IV 2 mg Q12H PAULA Administration Cholecalciferol 25 mcg 05/05/22 21:00 05/05/22 20:49 Cholecalciferol 25 Mcg (1000 Iu) Tablet PO 25 mcg HS PAULA Administration Fluticasone Propionate 2 puff 05/05/22 09:30 05/05/22 20:11 Fluticasone 220 Mcg Inhaler INHALATION 2 puff RT-BID PAULA Administration Insulin Aspart 0 unit 05/05/22 07:30 05/05/22 20:49 Insulin Aspart (Novolog) 100 Unit/Ml Vial SQ 9 unit ACHS PAULA Administration Protocol Lisinopril 5 mg 05/05/22 09:00 05/05/22 08:46 Lisinopril 5 Mg Tab PO 5 mg DAILY PAULA Administration Metoprolol Tartrate 100 mg 05/05/22 09:00 05/05/22 20:49 Metoprolol Tartrate 50 Mg Tab PO 100 mg BID PAULA Administration Naloxone HCl 0.2 mg 05/04/22 21:05 Naloxone 0.4 Mg/Ml 1 Ml Vial IVP Q2M PRN Opioid Reversal Nortriptyline HCl 25 mg 05/05/22 09:00 05/05/22 17:44 Nortriptyline 25 Mg Cap PO 25 mg TID PAULA Administration Nystatin 500,000 unit 05/05/22 18:00 05/05/22 21:11 Nystatin 100,000 Unit/Ml Susp 500,000 Unit/5 Ml Cup PO 500,000 unit QID PAULA Administration Protocol Oxycodone/Acetaminophen 1 each 05/05/22 16:03 05/05/22 17:17 Oxycodone-Apap 10-325mg 1 Each Tab PO 1 each Q6HR PRN Administration Moderate Pain (Scale 4 to 6) Pantoprazole Sodium 40 mg 05/05/22 09:00 05/05/22 20:49 Pantoprazole 40 Mg Tablet PO 40 mg BID PAULA Administration Prednisone 40 mg 05/05/22 09:00 05/05/22 08:47 Prednisone 20 Mg Tab PO 05/09/22 09:01 40 mg DAILY PAULA Administration Rivaroxaban 10 mg 05/06/22 09:00 Rivaroxaban 10 Mg Tab PO DAILY [facility] Protocol Ropinirole HCl 2 mg 05/05/22 09:00 05/05/22 20:49 Ropinirole Hcl 1 Mg Tab PO 2 mg BID PAULA Administration Intake and Output 05/05/22 05/05/22 05/05/22 06:59 14:59 22:59 Intake Total 8 Balance 8 Intake: Oral 8 Other: Weight 81.647 kg Patient Weight 05/06/22 06:59 Weight 81.647 kg 05/05/22 05:45 05/05/22 05:45
[2022-05-06] MEDS: BUMETANIDE 0.25 MG/ML 10 ML VIAL IV SCH (04:02)
[2022-05-06] MEDS: IPRATROPIUM-ALBUTEROL 3 ML NEB INHALATION PRN (04:56)
[2022-05-06 06:27] LABS: Glucose,Whole Blood 143 mg/dL (70-110)
[2022-05-06] MEDS: INSULIN ASPART (NovoLOG) 100 UNIT/ML VIAL SQ SCH ×4 (06:42→21:14)
[2022-05-06] MEDS ORDERED: REGADENOSON 0.4 MG/5 ML SYRINGE IV PRN (07:00)
[2022-05-06] MEDS ORDERED: CAFFEINE CITRATE 60 MG/3 ML VIAL IV PRN (07:00)
[2022-05-06] MEDS ORDERED: AMINOPHYLLINE 500 MG/20 ML VIAL IV PRN (07:00)
[2022-05-06] MEDS ORDERED: REGADENOSON 0.4 MG/5 ML SYRINGE IV ONE (08:00)
[2022-05-06] MEDS: IPRATROPIUM-ALBUTEROL 3 ML NEB INHALATION SCH ×4 (08:24→19:17)
[2022-05-06] MEDS: FLUTICASONE 220 MCG INHALER INHALATION SCH ×2 (08:24→19:17)
[2022-05-06] MEDS ORDERED: RIVAROXABAN 10 MG TAB PO SCH (09:00)
[2022-05-06] MEDS: METOPROLOL TARTRATE 50 MG TAB PO SCH ×2 (10:09→21:14)
[2022-05-06] MEDS: PANTOPRAZOLE 40 MG TABLET PO SCH ×2 (10:10→21:14)
[2022-05-06] MEDS: predniSONE 20 MG TAB PO SCH (10:10)
[2022-05-06] MEDS: NYSTATIN 100,000 UNIT/ML SUSP 500,000 UNIT/5 ML CUP PO SCH ×4 (10:10→21:14)
[2022-05-06] MEDS: NORTRIPTYLINE 25 MG CAP PO SCH ×3 (10:10→22:34)
[2022-05-06] MEDS: ASPIRIN 81 MG PO SCH (10:10)
[2022-05-06] MEDS: lisinopriL 5 MG TAB PO SCH (10:10)
[2022-05-06] MEDS: oxyCODONE-APAP 10-325MG 1 EACH TAB PO PRN ×2 (10:17→18:21)
--- NOTE | 2022-05-06 10:35 | CA ---
Lexiscan Nuclear Stress Test Report Name: Beckie Dennison Exam Date: 05/06/2022 09:05 Exam Location: [place] Stress Ht (in): 63 Wt (lb): 180 BSA: 1.85 Ordering Phys: Darrin Bonilla DO Referring Phys: PEBBLES,, Technologist: Curry Parisi Age: 81 Gender: F : 1940 Procedure CPT: Indications: Reflex order-Stress test ICD-10 Codes: Patient History: Medications: SEE CHART Meds past 24 hrs: Pretest Chest Pain: STRESS TEST Lexiscan Protocol Exercise Duration (min:sec): 02:[address] Depressions (mm): Angina Score: Morris Score: Resting HR (bpm): 60 Peak HR (bpm): 60 Resting BP (mmHg): 178 / 81 Peak BP (mmHg): 180 / 90 MPHR: 140 Target HR: 119 % MPHR: 43 METS: 1.0 Total Dose: Peak Dose: Atropine: Double Product: 81889 BP Response: Stress Termination: PROTOCOL COMPLETE Stress Symptoms: NO SYMPTOMS Stress Summary: ECG ANALYSIS Resting ECG: Stress ECG: CONCLUSIONS Non-diagnostic electrocardiogram stress testing Dr. Marty Desir MD (Electronically Signed) Final Date: 06 May 2022 10:34
--- NOTE | 2022-05-06 11:41 | NM ---
EXAMINATION TYPE: NM stress lexiscan cardiolite DATE OF EXAM: 05/06/2022 COMPARISON: NONE HISTORY: chest pain TECHNIQUE: After the intravenous administration of 10.2 mCi Tc 99m Sestamibi - Cardiolite resting SP ECT images acquired 75 minutes post injection. The patient received 0.4mg Lexiscan, 24.4 mCi Tc 99m Sestamibi - Stress images obtained [address] injection FINDINGS: Review of stress and rest SPECT images demonstrates decreased perfusion cardiac apex on stress imagin g compatible with stress-induced ischemia. Gated analysis shows normal wall motion with an estimated left ventricular ejection fraction of 58 %. IMPRESSION: Mildly reversible ischemia cardiac apex suspicious for stress-induced ischemia.
[2022-05-06 11:42] LABS: Calcium 6.8 mg/dL (8.4-10.2)
[2022-05-06 11:50] LABS: Glucose,Whole Blood 186 mg/dL (70-110)
--- NOTE | 2022-05-06 11:50 | P.PN ---
Subjective Progress Note Date: 05/06/22 Principal diagnosis: chest pain Hospital Course: 81-year-old female with a PMH of Dana dillard on Xarelto, complete heart block status post ventricular pacemaker, COPD with chronic hypoxic respiratory failure on 2 L nasal cannula oxygen at home, hypertension, hyperlipidemia, and type II DM who presents to the emergency room with complaints of shortness of breath and chest discomfort. She denies any further chest discomfort. Chest x-ray in the emergency room was unremarkable. EKG revealed a V paced rhythm at 59 bpm. Laboratory evaluation was remarkable for troponin 0.045, proBNP 1780, calcium 6.1, BUN 34, creatinine 1.09, potassium 3.1. Cardiology consulted. Patient being diuresed for likely CHF exacerbation Subjective: Patient seen and examined at bedside. No acute events overnight. She claims that her chest pain has resolved. She denies any further shortness of breath, cough, sputum production, nausea, vomiting, diarrhea, constipation, abdominal pain, or urinary complaints. Pertinent positives and negatives as discussed above, a complete review of systems was performed and all other systems are negative. Vitals Signs Reviewed. General: non toxic, no distress, appears at stated age, normal weight Derm: no unusual rashes/lesions, warm Head: atraumatic, normocephalic, symmetric Eyes: EOMI, no lid lag, anicteric sclera, pupils equal round reactive to light ENT: Nose and ears atraumatic Neck: No cervical lymphadenopathy, trachea midline, supple Mouth: no lip lesion, mucus membranes moist Cardiovascular: S1S2 reg, no murmur, positive dorsalis pedis pulse bilateral, no edema Lungs: Expiratory wheezing, no rales or rhonchi noted, no accessory muscle use Abdominal: soft, nontender to palpation, no guarding Ext: muscle strength 5 out of 5 in all 4 extremities grossly, no gross muscle atrophy, no contractures, Neuro: CN II-XI grossly intact, no gross focal neuro deficits Psych: Alert, oriented, appropriate affect Assessment and Plan: Chest pain, rule out ACS Non-ST elevation IA -Flat troponin values -Cardiac monitoring -Cardiology consult -C/w ASA and Statin -EKG stress test negative -Lexiscan stress to shows mildly reversible ischemic cardiac apex suspicious for stress-induced ischemia - Acute on chronic hypoxic respiratory failure Possible acute COPD exacerbation Diastolic CHF exacerbation -Continue with oral prednisone -DuoNeb's -IV diuretics Hypokalemia - resolved Hypocalcemia -Unclear etiology -s/p IV calcium -Vitamin D levels normal DVT prophylaxis -Xarelto Code status: Full code Anticipated discharge place: Home versus rehab Anticipated discharge time: Pending further cardiology evaluation Objective - Vital Signs Vital signs: Vital Signs Temp 97 F L 05/06/22 10:24 Pulse 75 05/06/22 10:24 Resp 17 05/06/22 10:24 BP 169/80 05/06/22 10:24 Pulse Ox 97 05/06/22 10:24 FiO2 28 05/06/22 04:30 Intake & Output 05/05/22 05/06/22 05/06/22 18:59 06:59 18:59 Intake Total 8 Output Total 250 Balance 8 -250 Weight 81.647 kg 82.1 kg Intake: Oral 8 Output: Urine 250 Other: Voiding Method Toilet Toilet # Voids 1 - Labs CBC & Chem 7: 05/05/22 05:45 05/05/22 05:45 Labs: Abnormal Lab Results - Last 24 Hours (Table) 05/05/22 05/05/22 05/05/22 Range/Units 11:50 16:57 20:19 POC Glucose (mg/dL) 194 H 222 H 276 H (70-110) mg/dL 05/06/22 Range/Units 06:25 POC Glucose (mg/dL) 143 H (70-110) mg/dL
--- NOTE | 2022-05-06 13:45 | P.PN ---
Subjective HISTORY OF PRESENTING ILLNESS Patient is a pleasant 81 year old female with history of complete heart block s/p PPM, COPD, hypoxic respiratory failure on O2, HTN, HLD, DM2, who presented to ER for chest pain and pressure as well as SOB and LE edema. She does follow with Dr Ibarra. She has had 4 hospitalizations in the last 2 months for a combination of chest pain and SOB. She states that this morning she began having chest tightness with some associated SOB. She also has been having some increased LE edema. Patient was noted to be hypoxic with pulse ox in the 70's. She denies any changes in her meds. She recently followed up with Dr Ibarra. She has not had a stress test in approximately 2 years per patient. Bloodwork shows Calcium 6.1, troponin 0.045, 0.048, proBNP 1780BUN 34, Cr 1.0, hgb 10.9 EKG shows Afib with V paced rhythm Echo last hospitalization 04/05 showed EF 55-60% with mild to moderate LVH, mild to moderate TR 05/06 Patient seen and examined. Patient denies any further chest pain or pressure. Still having some dyspnea. Received IV Bumex with mild increasing creatinine up to 1.2. Lexiscan stress test was performed with apical reversible ischemia. PHYSICAL EXAMINATION Vital signs reviewed. CONSTITUTIONAL: No apparent distress. HEENT: Head is normocephalic. Pupils are equal, round. Sclerae anicteric. Mucous membranes of the mouth are moist. No JVD. No carotid bruit. CHEST EXAMINATION: Lungs are clear to auscultation. No chest wall tenderness is noted on palpation or with deep breathing. HEART EXAMINATION: Regular rate and rhythm. S1, S2 heard. No murmurs, gallops or rub. ABDOMEN: Soft, nontender. Positive bowel sounds. EXTREMITIES: 2+ peripheral pulses, 1-2+ lower extremity edema and no calf tenderness. NEUROLOGIC EXAMINATION: Patient is awake, alert and oriented x3. ASSESSMENT 1. Atypical chest pain 2. Mildly elevated troponins 3. Acute on chronic diastolic heart failure 4. Acute on chronic respiratory failure 5. Persisitent Afib 6. Complete heart block, s/p PPM 7. DM2 8. Abnormal stress test PLAN Lower extremity edema improved and appears euvolemic. Mild increasing crea tinine and hold Bumex. Possible heart catheterization 05/07 if creatinine remains stable for abnormal stress test. Objective - Vital Signs Vital signs: Vital Signs Temp 97.6 F 05/06/22 12:00 Pulse 68 05/06/22 12:00 Resp 18 05/06/22 12:00 BP 125/75 05/06/22 12:00 Pulse Ox 94 L 05/06/22 12:50 FiO2 28 05/06/22 04:30 Intake & Output 05/05/22 05/06/22 05/06/22 18:59 06:59 18:59 Intake Total 8 Output Total 250 Balance 8 -250 Weight 81.647 kg 82.1 kg Intake: Oral 8 Output: Urine 250 Other: Voiding Method Toilet Toilet # Voids 1 - Labs CBC & Chem 7: 05/05/22 05:45 05/06/22 11:10 Labs: Abnormal Lab Results - Last 24 Hours (Table) 05/05/22 05/05/22 05/06/22 Range/Units 16:57 20:19 06:25 Chloride (98-107) mmol/L Carbon Dioxide (22-30) mmol/L BUN (7-17) mg/dL Creatinine (0.52-1.04) mg/dL Glucose (74-99) mg/dL POC Glucose (mg/dL) 222 H 276 H 143 H (70-110) mg/dL Calcium (8.4-10.2) mg/dL 05/06/22 05/06/22 Range/Units 11:10 11:48 Chloride 91 L (98-107) mmol/L Carbon Dioxide 40 H (22-30) mmol/L BUN 39 H (7-17) mg/dL Creatinine 1.27 H (0.52-1.04) mg/dL Glucose 147 H (74-99) mg/dL POC Glucose (mg/dL) 186 H (70-110) mg/dL Calcium 6.8 L (8.4-10.2) mg/dL
[2022-05-06 16:42] LABS: Glucose,Whole Blood 261 mg/dL (70-110)
[2022-05-06 19:48] LABS: Glucose,Whole Blood 366 mg/dL (70-110)
[2022-05-06] MEDS: ATORVASTATIN 80 MG TAB PO SCH (21:14)
[2022-05-06] MEDS: CHOLECALCIFEROL 25 MCG (1000 IU) TABLET PO SCH (21:14)
[2022-05-07] MEDS: oxyCODONE-APAP 10-325MG 1 EACH TAB PO PRN ×3 (00:29→20:14)
[2022-05-07 05:46] LABS: Glucose,Whole Blood 124 mg/dL (70-110)
[2022-05-07] MEDS: INSULIN ASPART (NovoLOG) 100 UNIT/ML VIAL SQ SCH ×4 (06:28→20:30)
[2022-05-07] MEDS: METOPROLOL TARTRATE 50 MG TAB PO SCH ×2 (06:31→20:14)
[2022-05-07] MEDS: ASPIRIN 81 MG PO SCH (06:31)
[2022-05-07] MEDS: NORTRIPTYLINE 25 MG CAP PO SCH ×3 (06:32→20:14)
[2022-05-07] MEDS: predniSONE 20 MG TAB PO SCH (06:32)
[2022-05-07] MEDS: PANTOPRAZOLE 40 MG TABLET PO SCH ×2 (06:32→20:14)
[2022-05-07] MEDS: NYSTATIN 100,000 UNIT/ML SUSP 500,000 UNIT/5 ML CUP PO SCH ×4 (06:32→20:14)
[2022-05-07] MEDS: lisinopriL 5 MG TAB PO SCH (06:32)
[2022-05-07] MEDS: ONDANSETRON 4 MG/2 ML VIAL IVP PRN (07:40)
[2022-05-07] MEDS: IPRATROPIUM-ALBUTEROL 3 ML NEB INHALATION SCH ×4 (07:58→19:33)
[2022-05-07] MEDS: FLUTICASONE 220 MCG INHALER INHALATION SCH ×2 (07:59→19:33)
[2022-05-07 08:55] LABS: Calcium 6.7 mg/dL (8.4-10.2)
[2022-05-07 08:57] LABS: INR 1.2 (<1.2); Prothrombin Time 12.2 sec (9.0-12.0)
[2022-05-07 09:16] LABS: Anisocytosis Slight; HCT 32.2 % (34.0-46.0); Hypochromasia Marked; MCH 26.3 pg (25.0-35.0); MCHC 31.2 g/dL (31.0-37.0); MCV 84.4 fL (80.0-100.0); Mean Platelet Volume 9.1; Platelet Count 292 k/uL (150-450); Poikilocytosis Slight; RBC 3.81 m/uL (3.80-5.40); RDW 17.9 % (11.5-15.5); WBC 8.7 k/uL (3.8-10.6)
[2022-05-07] MEDS: SODIUM CHLORIDE 0.9% 1,000 ML IV SCH ×2 (09:30→20:30)
[2022-05-07 11:58] LABS: Glucose,Whole Blood 374 mg/dL (70-110)
--- NOTE | 2022-05-07 12:49 | P.PN ---
Subjective Progress Note Date: 05/07/22 Principal diagnosis: chest pain Hospital Course: 81-year-old female with a PMH of Dana dillard on Xarelto, complete heart block status post ventricular pacemaker, COPD with chronic hypoxic respiratory failure on 2 L nasal cannula oxygen at home, hypertension, hyperlipidemia, and type II DM who presents to the emergency room with complaints of shortness of breath and chest discomfort. She denies any further chest discomfort. Chest x-ray in the emergency room was unremarkable. EKG revealed a V paced rhythm at 59 bpm. Laboratory evaluation was remarkable for troponin 0.045, proBNP 1780, calcium 6.1, BUN 34, creatinine 1.09, potassium 3.1. Cardiology consulted. Patient being diuresed for likely CHF exacerbation Subjective: Patient seen and examined at bedside. No acute events overnight. She claims that her chest pain has resolved. She denies any further shortness of breath, cough, sputum production, nausea, vomiting, diarrhea, constipation, abdominal pain, or urinary complaints. Pertinent positives and negatives as discussed above, a complete review of systems was performed and all other systems are negative. Vitals Signs Reviewed. General: non toxic, no distress, appears at stated age, normal weight Derm: no unusual rashes/lesions, warm Head: atraumatic, normocephalic, symmetric Eyes: EOMI, no lid lag, anicteric sclera, pupils equal round reactive to light ENT: Nose and ears atraumatic Neck: No cervical lymphadenopathy, trachea midline, supple Mouth: no lip lesion, mucus membranes moist Cardiovascular: S1S2 reg, no murmur, positive dorsalis pedis pulse bilateral, no edema Lungs: Expiratory wheezing, no rales or rhonchi noted, no accessory muscle use Abdominal: soft, nontender to palpation, no guarding Ext: muscle strength 5 out of 5 in all 4 extremities grossly, no gross muscle atrophy, no contractures, Neuro: CN II-XI grossly intact, no gross focal neuro deficits Psych: Alert, oriented, appropriate affect Assessment and Plan: Chest pain, rule out ACS Non-ST elevation [place] -Flat troponin values -Cardiac monitoring -Cardiology consult -C/w ASA and Statin -EKG stress test negative -Lexiscan stress to shows mildly reversible ischemic cardiac apex suspicious for stress-induced ischemia -pending cardiac cath AMA - likely in the setting of diuretics - on gentle fluids Acute on chronic hypoxic respiratory failure Possible acute COPD exacerbation Diastolic CHF exacerbation -Continue with oral prednisone -DuoNeb's -IV diuretics held due to AMA Hypokalemia - resolved Hypocalcemia -Unclear etiology -s/p IV calcium -Vitamin D levels normal DVT prophylaxis -Xarelto Code status: Full code Anticipated discharge place: Home versus rehab Anticipated discharge time: Pending further cardiology evaluation Objective - Vital Signs Vital signs: Vital Signs Temp 97.8 F 05/07/22 07:45 Pulse 68 05/07/22 12:05 Resp 17 05/07/22 07:45 BP 93/63 05/07/22 07:45 Pulse Ox 92 L 05/07/22 07:59 FiO2 28 05/06/22 04:30 Intake & Output 05/06/22 05/07/22 05/07/22 18:59 06:59 18:59 Intake Total 240 Output Total 1000 Balance -760 Weight 86.5 kg Intake: Oral 240 Output: Stool 1000 Other: Voiding Method Toilet Toilet # Voids 1 - Labs CBC & Chem 7: 05/07/22 07:43 05/07/22 07:43 Labs: Abnormal Lab Results - Last 24 Hours (Table) 05/06/22 05/06/22 05/07/22 Range/Units 16:40 19:45 05:44 Hgb (11.4-16.0) gm/dL Hct (34.0-46.0) % RDW (11.5-15.5) % PT (9.0-12.0) sec INR (<1.2) Chloride (98-107) mmol/L Carbon Dioxide (22-30) mmol/L BUN (7-17) mg/dL Creatinine (0.52-1.04) mg/dL Glucose (74-99) mg/dL POC Glucose (mg/dL) 261 H 366 H 124 H (70-110) mg/dL Calcium (8.4-10.2) mg/dL 05/07/22 05/07/22 05/07/22 Range/Units 07:43 07:43 07:50 Hgb 10.0 L (11.4-16.0) gm/dL Hct 32.2 L (34.0-46.0) % RDW 17.9 H (11.5-15.5) % PT 12.2 H (9.0-12.0) sec INR 1.2 H (<1.2) Chloride 94 L (98-107) mmol/L Carbon Dioxide 36 H (22-30) mmol/L BUN 46 H (7-17) mg/dL Creatinine 1.32 H (0.52-1.04) mg/dL Glucose 134 H (74-99) mg/dL POC Glucose (mg/dL) (70-110) mg/dL Calcium 6.7 L (8.4-10.2) mg/dL 05/07/22 Range/Units 11:37 Hgb (11.4-16.0) gm/dL Hct (34.0-46.0) % RDW (11.5-15.5) % PT (9.0-12.0) sec INR (<1.2) Chloride (98-107) mmol/L Carbon Dioxide (22-30) mmol/L BUN (7-17) mg/dL Creatinine (0.52-1.04) mg/dL Glucose (74-99) mg/dL POC Glucose (mg/dL) 374 H (70-110) mg/dL Calcium (8.4-10.2) mg/dL
[2022-05-07] MEDS: MINERAL OIL-WHITE PETROLATUM 120 GM JAR TOPICAL PRN (16:43)
[2022-05-07 17:11] LABS: Glucose,Whole Blood 282 mg/dL (70-110)
[2022-05-07] MEDS: CHOLECALCIFEROL 25 MCG (1000 IU) TABLET PO SCH (20:14)
[2022-05-07] MEDS: ATORVASTATIN 80 MG TAB PO SCH (20:14)
[2022-05-07 20:26] LABS: Glucose,Whole Blood 216 mg/dL (70-110)
[2022-05-08 06:05] LABS: Glucose,Whole Blood 134 mg/dL (70-110)
[2022-05-08] MEDS: INSULIN ASPART (NovoLOG) 100 UNIT/ML VIAL SQ SCH ×4 (06:14→21:20)
[2022-05-08] MEDS: IPRATROPIUM-ALBUTEROL 3 ML NEB INHALATION SCH ×4 (07:29→20:04)
[2022-05-08] MEDS: FLUTICASONE 220 MCG INHALER INHALATION SCH ×2 (07:29→20:05)
[2022-05-08 08:13] LABS: Calcium 6.5 mg/dL (8.4-10.2); Potassium 3.9 mmol/L (3.5-5.1)
[2022-05-08] MEDS: oxyCODONE-APAP 10-325MG 1 EACH TAB PO PRN ×3 (09:39→23:47)
[2022-05-08] MEDS: predniSONE 20 MG TAB PO SCH (09:40)
[2022-05-08] MEDS: PANTOPRAZOLE 40 MG TABLET PO SCH ×2 (09:40→21:19)
[2022-05-08] MEDS: NORTRIPTYLINE 25 MG CAP PO SCH ×3 (09:40→23:48)
[2022-05-08] MEDS: METOPROLOL TARTRATE 50 MG TAB PO SCH ×2 (09:40→21:19)
[2022-05-08] MEDS: ASPIRIN 81 MG PO SCH (09:40)
[2022-05-08] MEDS: NYSTATIN 100,000 UNIT/ML SUSP 500,000 UNIT/5 ML CUP PO SCH ×4 (09:40→23:47)
--- NOTE | 2022-05-08 10:03 | P.PN ---
Subjective Progress Note Date: 05/08/22 Principal diagnosis: chest pain Hospital Course: 81-year-old female with a PMH of AAng dillard on Xarelto, complete heart block status post ventricular pacemaker, COPD with chronic hypoxic respiratory failure on 2 L nasal cannula oxygen at home, hypertension, hyperlipidemia, and type II DM who presents to the emergency room with complaints of shortness of breath and chest discomfort. She denies any further chest discomfort. Chest x-ray in the emergency room was unremarkable. EKG revealed a V paced rhythm at 59 bpm. Laboratory evaluation was remarkable for troponin 0.045, proBNP 1780, calcium 6.1, BUN 34, creatinine 1.09, potassium 3.1. Cardiology consulted. Patient being diuresed for likely CHF exacerbation. Lexiscan stress test was abnormal. Creatinine was elevated yesterday. Patient started on gentle fluids. Now pending cardiac cath. Subjective: Patient seen and examined at bedside. No acute events overnight. She claims that occasionally she still has chest heaviness.. She denies any further shortness of breath, cough, sputum production, nausea, vomiting, diarrhea, constipation, abdominal pain, or urinary complaints. Pertinent positives and negatives as discussed above, a complete review of systems was performed and all other systems are negative. Vitals Signs Reviewed. General: non toxic, no distress, appears at stated age, normal weight Derm: no unusual rashes/lesions, warm Head: atraumatic, normocephalic, symmetric Eyes: EOMI, no lid lag, anicteric sclera, pupils equal round reactive to light ENT: Nose and ears atraumatic Neck: No cervical lymphadenopathy, trachea midline, supple Mouth: no lip lesion, mucus membranes moist Cardiovascular: S1S2 reg, no murmur, positive dorsalis pedis pulse bilateral, no edema Lungs: Expiratory wheezing, no rales or rhonchi noted, no accessory muscle use Abdominal: soft, nontender to palpation, no guarding Ext: muscle strength 5 out of 5 in all 4 extremities grossly, no gross muscle atrophy, no contractures, Neuro: CN II-XI grossly intact, no gross focal neuro deficits Psych: Alert, oriented, appropriate affect Assessment and Plan: Chest pain, rule out ACS Non-ST elevation SC -Flat troponin values -Cardiac monitoring -Cardiology consult -C/w ASA and Statin -EKG stress test negative -Lexiscan stress to shows mildly reversible ischemic cardiac apex suspicious for stress-induced ischemia -pending cardiac cath AMA - resolving - likely in the setting of diuretics - on gentle fluids Acute on chronic hypoxic respiratory failure Possible acute COPD exacerbation Diastolic CHF exacerbation -Continue with oral prednisone -DuoNeb's -IV diuretics held due to AMA Hypokalemia - resolved Hypocalcemia -Unclear etiology -s/p IV calcium -Vitamin D levels normal DVT prophylaxis -Xarelto Code status: Full code Anticipated discharge place: Home versus rehab Anticipated discharge time: Pending further cardiology evaluation Objective - Vital Signs Vital signs: Vital Signs Temp 98.5 F 05/08/22 09:35 Pulse 64 05/08/22 09:35 Resp 18 05/08/22 09:35 BP 111/69 05/08/22 09:35 Pulse Ox 100 05/08/22 09:35 FiO2 28 05/06/22 04:30 Intake & Output 05/07/22 05/08/22 05/08/22 18:59 06:59 18:59 Intake Total 358 Output Total 900 Balance 358 -900 Intake: Oral 358 Output: Urine 900 Other: Voiding Method Toilet Toilet Toilet # Voids 3 1 - Labs CBC & Chem 7: 05/07/22 07:43 05/08/22 06:29 Labs: Abnormal Lab Results - Last 24 Hours (Table) 05/07/22 05/07/22 05/07/22 Range/Units 11:37 16:28 20:25 Sodium (137-145) mmol/L Chloride (98-107) mmol/L Carbon Dioxide (22-30) mmol/L BUN (7-17) mg/dL Creatinine (0.52-1.04) mg/dL Glucose (74-99) mg/dL POC Glucose (mg/dL) 374 H 282 H 216 H (70-110) mg/dL Calcium (8.4-10.2) mg/dL 05/08/22 05/08/22 Range/Units 06:04 06:29 Sodium 135 L (137-145) mmol/L Chloride 96 L (98-107) mmol/L Carbon Dioxide 33 H (22-30) mmol/L BUN 44 H (7-17) mg/dL Creatinine 1.23 H (0.52-1.04) mg/dL Glucose 130 H (74-99) mg/dL POC Glucose (mg/dL) 134 H (70-110) mg/dL Calcium 6.5 L (8.4-10.2) mg/dL
[2022-05-08] MEDS: ONDANSETRON 4 MG/2 ML VIAL IVP PRN (10:33)
[2022-05-08 11:20] LABS: Glucose,Whole Blood 154 mg/dL (70-110)
[2022-05-08] MEDS ORDERED: HEPARIN SODIUM 1,000 UN/ML (10ML VL) ONE (11:30)
[2022-05-08] MEDS ORDERED: fentaNYL (PF) 50 MCG/ML 2 ML AMP ONE (11:30)
[2022-05-08] MEDS ORDERED: VERAPAMIL 2.5 MG/ML 2 ML AMP ONE (11:30)
[2022-05-08] MEDS ORDERED: fentaNYL (PF) 50 MCG/1 ML VIAL IVP ONE (11:51)
[2022-05-08] MEDS ORDERED: MIDAZOLAM 2 MG/2 ML VIAL IVP ONE (11:51)
[2022-05-08] MEDS ORDERED: IV FLUID CONTINUATION 800 ML IV ONE (11:51)
[2022-05-08] MEDS ORDERED: LIDOCAINE 1% INJ 10MG/ML (5 ML VIAL-PF) SQ ONE (11:53)
[2022-05-08] MEDS ORDERED: VERAPAMIL SYRINGE (5 MG/10 ML) INTRAARTER ONE (12:10)
[2022-05-08] MEDS ORDERED: HEPARIN SODIUM 1,000 UN/ML (10ML VL) IV ONE (12:11)
[2022-05-08] MEDS ORDERED: IOPAMIDOL-370 125ML BTL INJ ONE (12:18)
[2022-05-08] MEDS ORDERED: RX INFO: IV CONTRAST WAS GIVEN 1 EACH MISC MISCELLANE PRN (12:30)
[2022-05-08] MEDS: SODIUM CHLORIDE 0.9% 1,000 ML IV SCH ×3 (12:30→16:44)
[2022-05-08 13:25] LABS: INR 1.3 (<1.2); Prothrombin Time 13.1 sec (9.0-12.0)
[2022-05-08 16:30] LABS: Glucose,Whole Blood 297 mg/dL (70-110)
[2022-05-08] MEDS: WARFARIN 5 MG TAB PO SCH (17:46)
[2022-05-08 19:50] LABS: Glucose,Whole Blood 327 mg/dL (70-110)
[2022-05-08] MEDS: CHOLECALCIFEROL 25 MCG (1000 IU) TABLET PO SCH (21:19)
[2022-05-08] MEDS: ATORVASTATIN 80 MG TAB PO SCH (21:19)
--- NOTE | 2022-05-08 22:25 | CC ---
CARDIAC CATHETERIZATION REPORT INDICATION: Chest pain with abnormal stress test showing ischemia in the inferior wall. PROCEDURE NOTE: After obtaining informed consent, left heart catheterization and coronary angiogram were performed via the right radial artery using standard Mingo catheters. I obtained right radial artery access using modified Seldinger technique, and a 6-Portuguese sheath was placed. Catheters and wires were floated into the ascending aorta under fluoroscopic guidance. The patient tolerated the procedure well without any obvious immediate complications. She received 4000 units of IV heparin and 5 mg of verapamil per protocol. The patient received moderate conscious sedation. Total sedation time was 25 minutes. FINDINGS: 1. Hemodynamics: Left ventricular end-diastolic pressure is 19 mm. There is no significant gradient across the aortic valve. 2. Left ventriculogram: Left ventriculogram was not performed. 3. Angiographic data: a.Right coronary artery: Right coronary artery is a large dominant vessel, it appears calcified, it shows a moderate area of stenosis in the mid RCA. b.Left main coronary artery is a normal-sized vessel and is free of stenosis. It divides into left anterior descending coronary artery and circumflex coronary artery. c.LAD and its branches, circumflex coronary artery and its branches are free of significant stenosis. d.Moderate atherosclerotic plaque involving mid RCA, at its worst seems to be around 40% to 50% stenosed. CONCLUSIONS: The patient's management is going to be with medical therapy at this time. MMODL / IJN: [id number] /
[2022-05-08] MEDS: MINERAL OIL-WHITE PETROLATUM 120 GM JAR TOPICAL PRN (23:54)
[2022-05-09] MEDS: SODIUM CHLORIDE 0.9% 1,000 ML IV SCH (05:16)
[2022-05-09 05:47] LABS: Glucose,Whole Blood 175 mg/dL (70-110)
[2022-05-09] MEDS: IPRATROPIUM-ALBUTEROL 3 ML NEB INHALATION PRN (06:03)
[2022-05-09] MEDS: FLUTICASONE 220 MCG INHALER INHALATION SCH ×2 (06:06→19:21)
[2022-05-09] MEDS: BENZONATATE 100 MG CAP PO PRN ×3 (06:24→22:23)
[2022-05-09] MEDS: ALPRAZolam 0.25 MG TAB PO PRN ×2 (06:24→13:41)
--- NOTE | 2022-05-09 06:42 | XR ---
EXAMINATION TYPE: XR chest 1V portable DATE OF EXAM: 05/09/2022 COMPARISON: 05/04/2022 HISTORY: Difficulty breathing TECHNIQUE: Single view FINDINGS: There is no heart failure or confluent pneumonic infiltrate. Costophrenic angles are clear. There is left axillary pacemaker. There are chest leads. Bony thorax is intact IMPRESSION: No active cardiopulmonary disease. No change.
[2022-05-09] MEDS: INSULIN ASPART (NovoLOG) 100 UNIT/ML VIAL SQ SCH ×4 (06:56→20:45)
[2022-05-09 08:17] LABS: INR 1.1 (<1.2); Prothrombin Time 11.8 sec (9.0-12.0)
[2022-05-09] MEDS: IPRATROPIUM-ALBUTEROL 3 ML NEB INHALATION SCH ×4 (08:24→19:22)
[2022-05-09 09:38] LABS: Calcium 6.9 mg/dL (8.4-10.2); Potassium 4.5 mmol/L (3.5-5.1)
[2022-05-09] MEDS: oxyCODONE-APAP 10-325MG 1 EACH TAB PO PRN ×3 (09:46→22:22)
[2022-05-09] MEDS: METOPROLOL TARTRATE 50 MG TAB PO SCH ×2 (09:46→20:45)
[2022-05-09] MEDS: ASPIRIN 81 MG PO SCH (09:46)
[2022-05-09] MEDS: NYSTATIN 100,000 UNIT/ML SUSP 500,000 UNIT/5 ML CUP PO SCH ×4 (09:47→20:46)
[2022-05-09] MEDS: PANTOPRAZOLE 40 MG TABLET PO SCH ×2 (09:47→20:46)
[2022-05-09] MEDS: predniSONE 20 MG TAB PO SCH (09:47)
[2022-05-09] MEDS: NORTRIPTYLINE 25 MG CAP PO SCH ×3 (09:48→20:46)
--- NOTE | 2022-05-09 10:13 | P.PN ---
Subjective Progress Note Date: 05/09/22 Principal diagnosis: chest pain Hospital Course: 81-year-old female with a PMH of A. nishant on Xarelto, complete heart block status post ventricular pacemaker, COPD with chronic hypoxic respiratory failure on 2 L nasal cannula oxygen at home, hypertension, hyperlipidemia, and type II DM who presents to the emergency room with complaints of shortness of breath and chest discomfort. She denies any further chest discomfort. Chest x-ray in the emergency room was unremarkable. EKG revealed a V paced rhythm at 59 bpm. Laboratory evaluation was remarkable for troponin 0.045, proBNP 1780, calcium 6.1, BUN 34, creatinine 1.09, potassium 3.1. Cardiology consulted. Patient being diuresed for likely CHF exacerbation. Lexiscan stress test was abnormal. Creatinine was elevated yesterday. Patient started on gentle fluids. Cardiac cath showed moderate area stenosis in mid RCA, rest of the vessels do not have significant stenosis. No interventions performed. Cardiology recommending medical management. Subjective: Patient seen and examined at bedside. No acute events overnight. She claims she started to have worsening shortness of breath and chest heaviness this morning after hearing that her is also in the hospital. She denies any further cough, sputum production, nausea, vomiting, diarrhea, constipation, abdominal pain, or urinary complaints. Pertinent positives and negatives as discussed above, a complete review of systems was performed and all other systems are negative. Vitals Signs Reviewed. General: non toxic, no distress, appears at stated age, normal weight Derm: no unusual rashes/lesions, warm Head: atraumatic, normocephalic, symmetric Eyes: EOMI, no lid lag, anicteric sclera, pupils equal round reactive to light ENT: Nose and ears atraumatic Neck: No cervical lymphadenopathy, trachea midline, supple Mouth: no lip lesion, mucus membranes moist Cardiovascular: S1S2 reg, no murmur, positive dorsalis pedis pulse bilateral, trace peripheral edema Lungs: CTAP no rales or rhonchi noted, no accessory muscle use Abdominal: soft, nontender to palpation, no guarding Ext: muscle strength 5 out of 5 in all 4 extremities grossly, no gross muscle atrophy, no contractures, Neuro: CN II-XI grossly intact, no gross focal neuro deficits Psych: Alert, oriented, appropriate affect Assessment and Plan: Chest pain, rule out ACS Non-ST elevation SC -Flat troponin values -Cardiac monitoring -Cardiology consult -C/w ASA and Statin -EKG stress test negative -Lexiscan stress to shows mildly reversible ischemic cardiac apex suspicious for stress-induced ischemia -Cardiac cath showed LVEDP 19, mid RCA moderate area stenosis, best at the vessels without significant stenosis. Needs medical management. -May have worsening shortness of breath and chest pressure for anxiety as well AMA - resolving - likely in the setting of diuretics - Fluids held at this point Acute on chronic hypoxic respiratory failure Possible acute COPD exacerbation Diastolic CHF exacerbation, resolved -Complete a course of prednisone -DuoNeb's -IV diuretics held due to AMA Hypokalemia - resolved Hypocalcemia - uptrending -Unclear etiology -s/p IV calcium -Vitamin D levels normal DVT prophylaxis -Warfarin Code status: Full code Anticipated discharge place: Home versus rehab Anticipated discharge time: Likely tomorrow Objective - Vital Signs Vital signs: Vital Signs Temp 97.8 F 05/09/22 03:38 Pulse 61 05/09/22 08:35 Resp 24 05/09/22 06:05 BP 140/74 05/09/22 06:05 Pulse Ox 97 05/09/22 08:26 FiO2 28 05/06/22 04:30 Intake & Output 05/08/22 05/09/22 05/09/22 18:59 06:59 18:59 Intake Total 975 180 Output Total 1500 Balance 975 -1500 180 Intake: IV 50 Intake, IV Titration 325 Amount Sodium Chloride 0.9% 1, 325 000 ml @ 75 mls/hr IV . [id number] [facility] Rx#:[id number] Oral 600 180 Output: Urine 500 Stool 1000 Other: Voiding Method Toilet Toilet # Voids 2 1 - Labs CBC & Chem 7: 05/07/22 07:43 05/09/22 09:14 Labs: Abnormal Lab Results - Last 24 Hours (Table) 05/08/22 05/08/22 05/08/22 Range/Units 11:19 12:40 16:28 PT 13.1 H (9.0-12.0) sec INR 1.3 H (<1.2) Sodium (137-145) mmol/L BUN (7-17) mg/dL Creatinine (0.52-1.04) mg/dL Glucose (74-99) mg/dL POC Glucose (mg/dL) 154 H 297 H (70-110) mg/dL Calcium (8.4-10.2) mg/dL 05/08/22 05/09/22 05/09/22 Range/Units 19:46 05:45 09:14 PT (9.0-12.0) sec INR (<1.2) Sodium 135 L (137-145) mmol/L BUN 41 H (7-17) mg/dL Creatinine 1.26 H (0.52-1.04) mg/dL Glucose 164 H (74-99) mg/dL POC Glucose (mg/dL) 327 H 175 H (70-110) mg/dL Calcium 6.9 L (8.4-10.2) mg/dL
--- NOTE | 2022-05-09 11:16 | PN ---
PROGRESS NOTE HISTORY OF PRESENT ILLNESS: Beckie is an 81-year-old lady who is admitted to hospital with chest pain, shortness of breath and lower extremity edema. She has complete heart block and had permanent pacemaker and had respiratory failure. The patient on this admission had a stress test that showed ischemia involving cardiac apex. Due to this, she was advised to undergo cardiac catheterization. At the time of my evaluation this morning, she appears comfortable at rest, but is free of symptoms. Her creatinine was at 1 when she first came and has gradually increase to 1.3 and the BUN has also increased to 46. This is worsened from yesterday. I am not going to do the cardiac catheterization today. I will hydrate her and hopefully the renal functions would improve and I can do the cath tomorrow. PHYSICAL EXAMINATION: GENERAL: Comfortable at rest. VITAL SIGNS: Stable. NECK: There is no jugular venous distention. CHEST: Reveals good air entry bilaterally. HEART: Reveals first and second heart sounds. No gallop. EXTREMITIES: Exam of the extremities did not reveal any edema. Peripheral pulses are felt. LABORATORY DATA: Lab show a hemoglobin of 10, platelet count is 290, potassium is 4, BUN is 46, and creatinine is 1.3. ASSESSMENT: 1. Chest pain with abnormal stress test. 2. Renal insufficiency. 3. Complete heart block, status post permanent pacemaker. PLAN: I will hydrate the patient and hopefully to the cardiac catheterization tomorrow. PARVEZ / DANNIELLE: [id number] /
[2022-05-09 11:59] LABS: Glucose,Whole Blood 291 mg/dL (70-110)
--- NOTE | 2022-05-09 12:36 | P.PN ---
Subjective Progress Note Date: 05/09/22 HISTORY OF PRESENTING ILLNESS Patient is a pleasant 81 year old female with history of complete heart block s/p PPM, COPD, hypoxic respiratory failure on O2, HTN, HLD, DM2, who presented to ER for chest pain and pressure as well as SOB and LE edema. She does follow with Dr Ibarra. She has had 4 hospitalizations in the last 2 months for a combination of chest pain and SOB. She states that this morning she began having chest tightness with some associated SOB. She also has been having some increased LE edema. Patient was noted to be hypoxic with pulse ox in the 70's. She denies any changes in her meds. She recently followed up with Dr Ibarra. She has not had a stress test in approximately 2 years per patient. Bloodwork shows Calcium 6.1, troponin 0.045, 0.048, proBNP 1780BUN 34, Cr 1.0, hgb 10.9 EKG shows Afib with V paced rhythm Echo last hospitalization 04/05 showed EF 55-60% with mild to moderate LVH, mild to moderate TR 05/09 Yesterday, patient underwent cardiac catheterization with Dr. Ibarra which revealed 40-50% stenosis in the mid RCA with recommendations for medical manage ment. INR today is at 1.1, patient is resumed on Coumadin. BUN 41 and creatinine 1.26. Patient states that she had 2 episodes where she was having difficulty breathing at rest. Blood pressure 137/65, heart rate in the 60s to 80s. PHYSICAL EXAMINATION Vital signs reviewed. CONSTITUTIONAL: No apparent distress. HEENT: Head is normocephalic. Pupils are equal, round. Sclerae anicteric. Mucous membranes of the mouth are moist. No JVD. No carotid bruit. CHEST EXAMINATION: Lungs are clear to auscultation. No chest wall tenderness is noted on palpation or with deep breathing. HEART EXAMINATION: Regular rate and rhythm. S1, S2 heard. No murmurs, gallops or rub. ABDOMEN: Soft, nontender. Positive bowel sounds. EXTREMITIES: 2+ peripheral pulses, tr lower extremity edema and no calf tenderness. NEUROLOGIC EXAMINATION: Patient is awake, alert and oriented x3. ASSESSMENT 1. Atypical chest pain 2. Mildly elevated troponins 3. Acute on chronic diastolic heart failure 4. Acute on chronic respiratory failure 5. Persisitent Afib 6. Complete heart block, s/p PPM 7. DM2 PLAN Patient is status post cardiac catheterization revealing 40-50% stenosis in the mid RCA with recommendations for medical management Continue patient on aspirin, atorvastatin simvastatin, Lopressor Patient has been resumed on Coumadin There is previous notation the patient should be on Xarelto 20 mg daily but details of this are not available. We will send out a prescription to pharmacy for Xarelto and check coverage for the patient. If this medication is not covered or too expensive, patient will be continued on Coumadin. Nurse practitioner note has been reviewed, I agree with the documented findings and plan of care. Patient was seen and examined. Objective - Vital Signs Vital signs: Vital Signs Temp 97.8 F 05/09/22 03:38 Pulse 61 05/09/22 08:35 Resp 24 05/09/22 06:05 BP 140/74 05/09/22 06:05 Pulse Ox 97 05/09/22 08:26 FiO2 28 05/06/22 04:30 Intake & Output 05/08/22 05/09/22 05/09/22 18:59 06:59 18:59 Intake Total 975 180 Output Total 1500 Balance 975 -1500 180 Intake: IV 50 Intake, IV Titration 325 Amount Sodium Chloride 0.9% 1, 325 000 ml @ 75 mls/hr IV . [id number] [facility] Rx#:[id number] Oral 600 180 Output: Urine 500 Stool 1000 Other: Voiding Method Toilet Toilet # Voids 2 1 - Labs CBC & Chem 7: 05/07/22 07:43 05/09/22 09:14 Labs: Abnormal Lab Results - Last 24 Hours (Table) 05/08/22 05/08/22 05/08/22 Range/Units 11:19 12:40 16:28 PT 13.1 H (9.0-12.0) sec INR 1.3 H (<1.2) Sodium (137-145) mmol/L BUN (7-17) mg/dL Creatinine (0.52-1.04) mg/dL Glucose (74-99) mg/dL POC Glucose (mg/dL) 154 H 297 H (70-110) mg/dL Calcium (8.4-10.2) mg/dL 05/08/22 05/09/22 05/09/22 Range/Units 19:46 05:45 09:14 PT (9.0-12.0) sec INR (<1.2) Sodium 135 L (137-145) mmol/L BUN 41 H (7-17) mg/dL Creatinine 1.26 H (0.52-1.04) mg/dL Glucose 164 H (74-99) mg/dL POC Glucose (mg/dL) 327 H 175 H (70-110) mg/dL Calcium 6.9 L (8.4-10.2) mg/dL
[2022-05-09] MEDS: ACETAMINOPHEN TAB 325 MG TAB PO PRN (13:59)
[2022-05-09 16:18] LABS: Glucose,Whole Blood 207 mg/dL (70-110)
[2022-05-09] MEDS: WARFARIN 5 MG TAB PO SCH (17:20)
[2022-05-09 20:41] LABS: Glucose,Whole Blood 236 mg/dL (70-110)
[2022-05-09] MEDS: ATORVASTATIN 80 MG TAB PO SCH (20:45)
[2022-05-09] MEDS: CHOLECALCIFEROL 25 MCG (1000 IU) TABLET PO SCH (20:45)
[2022-05-10] MEDS: oxyCODONE-APAP 10-325MG 1 EACH TAB PO PRN ×3 (03:35→20:25)
[2022-05-10 05:58] LABS: Glucose,Whole Blood 220 mg/dL (70-110)
[2022-05-10] MEDS: INSULIN ASPART (NovoLOG) 100 UNIT/ML VIAL SQ SCH ×4 (06:21→20:26)
[2022-05-10] MEDS: IPRATROPIUM-ALBUTEROL 3 ML NEB INHALATION SCH ×4 (07:29→19:54)
[2022-05-10] MEDS: FLUTICASONE 220 MCG INHALER INHALATION SCH (07:29)
[2022-05-10 08:42] LABS: INR 1.3 (<1.2); Prothrombin Time 13.4 sec (9.0-12.0)
--- NOTE | 2022-05-10 09:39 | XR ---
EXAMINATION TYPE: XR chest 1V portable DATE OF EXAM: 05/10/2022 9:28 AM COMPARISON: Chest radiographs from 05/09/2022. TECHNIQUE: XR chest 1V portable Frontal view of the chest. CLINICAL INDICATION:Female, 81 years old with history of cough, SOB; FINDINGS: Lungs/Pleura: No evidence of pneumothorax, pleural effusion or focal consolidation. Pulmonary vascularity: Unremarkable. Heart/mediastinum: Cardiomediastinal silhouette is prominent and stable. Two lead cardiac conduction device overlying the left hemithorax with lead tips projecting over the right ventricle and right atr ium. Musculoskeletal: No acute osseous pathology. Partial visualization of thoracolumbar fusion hardware. Cervical fusion hardware demonstrated. Other: left breast/axillary clips. IMPRESSION: Chronic changes without evidence for acute process.
[2022-05-10] MEDS: PANTOPRAZOLE 40 MG TABLET PO SCH ×2 (10:29→20:25)
[2022-05-10] MEDS: ASPIRIN 81 MG PO SCH (10:29)
[2022-05-10] MEDS: METOPROLOL TARTRATE 50 MG TAB PO SCH ×2 (10:30→20:25)
[2022-05-10] MEDS: lisinopriL 5 MG TAB PO SCH (10:30)
[2022-05-10] MEDS: TORSEMIDE 20 MG TAB PO SCH (10:30)
[2022-05-10] MEDS: NYSTATIN 100,000 UNIT/ML SUSP 500,000 UNIT/5 ML CUP PO SCH ×4 (10:30→21:38)
[2022-05-10] MEDS: NORTRIPTYLINE 25 MG CAP PO SCH ×3 (10:30→21:38)
--- NOTE | 2022-05-10 10:40 | P.PN ---
Subjective Progress Note Date: 05/10/22 Principal diagnosis: chest pain Hospital Course: 81-year-old female with a PMH of A. fib on Xarelto, complete heart block status post ventricular pacemaker, COPD with chronic hypoxic respiratory failure on 2 L nasal cannula oxygen at home, hypertension, hyperlipidemia, and type II DM who presents to the emergency room with complaints of shortness of breath and chest discomfort. She denies any further chest discomfort. Chest x-ray in the emergency room was unremarkable. EKG revealed a V paced rhythm at 59 bpm. Laboratory evaluation was remarkable for troponin 0.045, proBNP 1780, calcium 6.1, BUN 34, creatinine 1.09, potassium 3.1. Cardiology consulted. Patient was diuresed for likely CHF exacerbation. Lexiscan stress test was abnormal. Patient had an AMA likely from overdiuresis. Patient started on gentle fluids. Cardiac cath showed moderate area stenosis in mid RCA, rest of the vessels do not have significant stenosis. No interventions performed. Cardiology recommending medical management. Continues to have SOB with occasional cough. Restarted on home diuretics. CXR shows no acute process. pulm consulted. Subjective: Patient seen and examined at bedside. No acute events overnight. She continues to have worsening SOB and occasional non productive cough. She denies any further nausea, vomiting, diarrhea, constipation, abdominal pain, or urinary complaints. Pertinent positives and negatives as discussed above, a complete review of systems was performed and all other systems are negative. Vitals Signs Reviewed. General: non toxic, no distress, appears at stated age, normal weight Derm: no unusual rashes/lesions, warm Head: atraumatic, normocephalic, symmetric Eyes: EOMI, no lid lag, anicteric sclera, pupils equal round reactive to light ENT: Nose and ears atraumatic Neck: No cervical lymphadenopathy, trachea midline, supple Mouth: no lip lesion, mucus membranes moist Cardiovascular: S1S2 reg, no murmur, positive dorsalis pedis pulse bilateral, trace peripheral edema Lungs: CTAP no rales or rhonchi noted, no accessory muscle use Abdominal: soft, nontender to palpation, no guarding Ext: muscle strength 5 out of 5 in all 4 extremities grossly, no gross muscle atrophy, no contractures, Neuro: CN II-XI grossly intact, no gross focal neuro deficits Psych: Alert, oriented, appropriate affect Assessment and Plan: Acute on chronic hypoxic respiratory failure Possible acute COPD exacerbation Diastolic CHF exacerbation, resolved -Complete a course of prednisone -DuoNeb's -pulm consulted Chest pain, rule out ACS Non-ST elevation CT -Flat troponin values -Cardiac monitoring -Cardiology consult -C/w ASA and Statin -EKG stress test negative -Lexiscan stress to shows mildly reversible ischemic cardiac apex suspicious for stress-induced ischemia -Cardiac cath showed LVEDP 19, mid RCA moderate area stenosis, best at the vessels without significant stenosis. Needs medical management. AMA - resolving - back on home diuretics Hypokalemia - resolved Hypocalcemia - uptrending -Unclear etiology -s/p IV calcium -Vitamin D levels normal DVT prophylaxis -Warfarin Code status: Full code Anticipated discharge place: Home versus rehab Anticipated discharge time: in 1-2 days Objective - Vital Signs Vital signs: Vital Signs Temp 98.1 F 05/10/22 04:00 Pulse 80 05/10/22 07:41 Resp 18 05/10/22 04:00 BP 154/75 05/10/22 04:00 Pulse Ox 90 L 05/10/22 07:30 FiO2 28 05/06/22 04:30 Intake & Output 05/09/22 05/10/22 05/10/22 18:59 06:59 18:59 Intake Total 1260 180 Output Total 2000 Balance 1260 -2000 180 Intake: Oral 1260 180 Output: Urine 1000 Stool 1000 Other: Voiding Method Toilet Toilet # Voids 2 2 - Labs CBC & Chem 7: 05/07/22 07:43 05/09/22 09:14 Labs: Abnormal Lab Results - Last 24 Hours (Table) 05/09/22 05/09/22 05/09/22 Range/Units 11:58 16:17 20:40 PT (9.0-12.0) sec INR (<1.2) POC Glucose (mg/dL) 291 H 207 H 236 H (70-110) mg/dL 05/10/22 05/10/22 Range/Units 05:57 07:56 PT 13.4 H (9.0-12.0) sec INR 1.3 H (<1.2) POC Glucose (mg/dL) 220 H (70-110) mg/dL
[2022-05-10 11:17] LABS: Glucose,Whole Blood 192 mg/dL (70-110)
--- NOTE | 2022-05-10 14:16 | P.CNPUL ---
History of Present Illness Consult date: 05/10/22 Requesting physician: Barbara Gottlieb Reason for consult: dyspnea, COPD, hypoxemia Chief complaint: Shortness of breath. History of present illness: Pulmonary consult dated 05/10/2022. 81-year-old female was admitted back on May 04, through the emergency room, shortness of breath. She was apparently brought in by EMS. She does have a history of underlying COPD. She apparently was complaining of shortness of breath, and she was coughing. The patient was been treated with prednisone for COPD, which she finished on the day of admission to the emergency department. She was initially thought to have cardiac disease, and was seen by cardiology, had a cardiac catheterization, and was found to have coronary disease, but was thought to be mostly a candidate for medical therapy. The patient apparently just recently moved here from [place]. She has not seen a lung doctor in the outpatient setting. She does have a history of COPD from previous tobacco use. Other medical history includes atrial fibrillation, hypertension, and breast cancer. She's had a cardiac valve replacement, and pacemaker insertion. The most recent labs show a white count of 8.7, hemoglobin 10.1, hematocrit 32.2, and platelet count of 292,000. Sodium 135, potassium 4.5, chlorides 99, CO2 27, anion gap 9, BUN 41, and creatinine 1.6. Chest x-ray shows primarily chronic changes, without any acute abnormality. Review of Systems REVIEW OF SYSTEMS: CONSTITUTIONAL: [Negative.] NEUROLOGIC: [ Negative.] HEENT: [ Negative.] CARDIAC: [Negative.] PULMONARY: Shortness of breath, and coughing. GI: [Negative.] : [Negative.] RHEUMATOLOGIC: [ Negative.] IMMUNOLOGIC: [ Negative.] ENDOCRINE: [Negative. ] DERMATOLOGIC: [Negative.] Past Medical History Past Medical History: Atrial Fibrillation, Cancer, COPD, Hypertension Additional Past Medical History / Comment(s): breast cancer 2000 post Lt lumpectomy & lymph node, and bladder cancer post , carpletunnel, chronic atrail fibrillation History of Any Multi-Drug Resistant Organisms: None Reported Past Surgical History: Back Surgery, Joint Replacement, Orthopedic Surgery, Pacemaker, Tonsillectomy, Tubal Ligation Additional Past Surgical History / Comment(s): bilat knees, rt shoulder repair, lung nodule removal, both carotids repaired (occluded) Past Anesthesia/Blood Transfusion Reactions: No Reported Reaction Type of Cardiac Device: Permanent Pacemaker Device Placement Date:: 02/16/2017 Smoking Status: Former smoker - Past Family History Mother Family Medical History: COPD Medications and Allergies Home Medications Medication Instructions Recorded Confirmed Type Metoprolol Tartrate [Lopressor] 100 mg PO BID 02/17/22 05/04/22 History Nortriptyline [Pamelor] 25 mg PO TID 02/17/22 05/04/22 History Pantoprazole Sodium [Protonix] 40 mg PO BID 02/17/22 05/04/22 History Vitamin [id number] 1 tab SUBLINGUAL DAILY 02/17/22 05/04/22 History rOPINIRole HCL [Requip] 2 mg PO BID 02/17/22 05/04/22 History metFORMIN HCL [Glucophage] 500 mg PO BID 04/06/22 05/04/22 History Albuterol Inhaler [Ventolin Hfa 2 puff INHALATION RT-Q4H PRN #1 04/12/22 2 Rx Inhaler] each Fluticasone Propionate 220 Mcg 2 puff INHALATION RT-BID #12 gm 04/12/22 05/04/22 Rx [Flovent 220 Mcg Inhaler] Magnesium Oxide [Mag-Ox] 400 mg PO BID #60 tab 04/12/22 05/04/22 Rx Torsemide [Demadex] 40 mg PO DAILY #30 tab 04/12/22 05/04/22 Rx Atorvastatin Calcium [Lipitor] 40 mg PO HS 05/04/22 05/04/22 History Cholecalciferol [Vitamin D3 (25 25 mcg PO HS 05/04/22 05/04/22 History Mcg = 1000 Iu)] Insulin Detemir [Levemir Flextouch 8 units SQ HS 05/04/22 05/04/22 History Pen] lisinopriL [Zestril] 5 mg PO DAILY 05/04/22 05/04/22 History Warfarin Sodium [Jantoven] 5 mg PO DAILY 05/05/22 05/05/22 History oxyCODONE HCL/ACETAMINOPHEN 1 tab PO Q6HR 05/05/22 05/05/22 History [Percocet 10-325 mg] Rivaroxaban [Xarelto] 20 mg PO DAILY #30 tab 05/09/22 Rx Allergies Allergy/AdvReac Type Severity Reaction Status Date / Time morphine Allergy Itching Verified 04/06/22 07:58 tizanidine [From Zanaflex] Allergy Unknown Verified 04/06/22 07:58 zolpidem [From Ambien] Allergy Unknown Verified 04/06/22 07:58 gabapentin AdvReac Hallucinati Verified 04/06/22 07:58 ons hydromorphone [From Dilaudid] AdvReac Hallucinati Verified 04/06/22 07:58 ons pentazocine [From Talwin] AdvReac Hallucinati Verified 04/06/22 07:58 ons pregabalin [From Lyrica] AdvReac Hallucinati Verified 04/06/22 07:58 ons Physical Exam Osteopathic Statement: *. No significant issues noted on an osteopathic structural exam other than those noted in the History and Physical/Consult. Vitals: Vital Signs Temp Pulse Pulse Pulse Resp BP Pulse Ox 05/10/22 11:21 70 05/10/22 11:11 63 05/10/22 09:00 96 05/10/22 08:00 98.2 F 66 18 131/76 97 05/10/22 07:41 80 05/10/22 07:30 75 90 L 05/10/22 04:00 98.1 F 62 18 154/75 94 L 05/10/22 02:00 62 71 20 05/10/22 00:00 97.9 F 71 20 152/77 100 05/09/22 20:00 97.6 F 62 62 20 152/80 95 05/09/22 19:36 62 05/09/22 19:22 62 05/09/22 16:12 65 05/09/22 16:03 97 05/09/22 15:59 67 05/09/22 15:55 64 16 160/74 96 Intake and Output 05/09/22 05/10/22 05/10/22 22:59 06:59 14:59 Intake Total 180 180 Output Total 2000 Balance 180 -2000 180 Intake: Oral 180 180 Output: Urine 1000 Stool 1000 Other: Voiding Method Toilet Toilet Toilet # Voids 2 No acute distress, oriented 3. Currently on 2 L. No conversational dyspnea or use of accessory muscles. HEENT examination is grossly unremarkable. Neck supple. Full range of motion. No adenopathy thyromegaly or neck vein distention. Cardiovascular examination reveals regular rhythm rate. S1-S2 normal. No S3 or S4. No discernible murmur noted. Heart rate 70 bpm. Lungs reveal scattered rhonchi and mild expiratory wheezes. No crackles. Breath sounds equal bilaterally. Breath sounds are diminished throughout. Abdomen soft bowel sounds are heard. No masses or tenderness. Extremities are intact. No cyanosis clubbing or edema. Skin is without rash or lesion. Neurologic examination is brief but nonfocal. Results - Laboratory Findings CBC and BMP: 05/07/22 07:43 05/09/22 09:14 PT/INR, D-dimer PT 13.4 sec (9.0-12.0) H 05/10/22 07:56 INR 1.3 (<1.2) H 05/10/22 07:56 Abnormal lab findings: Abnormal Labs 05/04/22 05/04/22 05/04/22 16:55 16:55 16:55 Hgb 10.9 L Hct MCHC RDW 18.4 H PT 12.2 H INR 1.2 H Sodium Potassium 3.1 L Chloride 93 L Carbon Dioxide 37 H BUN 34 H Creatinine 1.09 H Glucose 169 H POC Glucose (mg/dL) Calcium 6.1 L* AST 57 H Troponin I 05/04/22 05/04/22 05/04/22 16:55 19:43 22:21 Hgb Hct MCHC RDW PT INR Sodium Potassium Chloride Carbon Dioxide BUN Creatinine Glucose POC Glucose (mg/dL) 163 H Calcium AST Troponin I 0.045 H* 0.048 H* 05/05/22 05/05/22 05/05/22 05:45 05:45 07:27 Hgb 10.3 L Hct 33.3 L MCHC 30.8 L RDW 18.3 H PT INR Sodium Potassium Chloride 93 L Carbon Dioxide 34 H BUN 32 H Creatinine 1.11 H Glucose 262 H POC Glucose (mg/dL) 255 H Calcium 6.3 L* AST Troponin I 05/05/22 05/05/22 05/05/22 11:50 16:57 20:19 Hgb Hct MCHC RDW PT INR Sodium Potassium Chloride Carbon Dioxide BUN Creatinine Glucose POC Glucose (mg/dL) 194 H 222 H 276 H Calcium AST Troponin I 05/06/22 05/06/22 05/06/22 06:25 11:10 11:48 Hgb Hct MCHC RDW PT INR Sodium Potassium Chloride 91 L Carbon Dioxide 40 H BUN 39 H Creatinine 1.27 H Glucose 147 H POC Glucose (mg/dL) 143 H 186 H Calcium 6.8 L AST Troponin I 05/06/22 05/06/22 05/07/22 16:40 19:45 05:44 Hgb Hct MCHC RDW PT INR Sodium Potassium Chloride Carbon Dioxide BUN Creatinine Glucose POC Glucose (mg/dL) 261 H 366 H 124 H Calcium AST Troponin I 05/07/22 05/07/22 05/07/22 07:43 07:43 07:50 Hgb 10.0 L Hct 32.2 L MCHC RDW 17.9 H PT 12.2 H INR 1.2 H Sodium Potassium Chloride 94 L Carbon Dioxide 36 H BUN 46 H Creatinine 1.32 H Glucose 134 H POC Glucose (mg/dL) Calcium 6.7 L AST Troponin I 05/07/22 05/07/22 05/07/22 11:37 16:28 20:25 Hgb Hct MCHC RDW PT INR Sodium Potassium Chloride Carbon Dioxide BUN Creatinine Glucose POC Glucose (mg/dL) 374 H 282 H 216 H Calcium AST Troponin I 05/08/22 05/08/22 05/08/22 06:04 06:29 11:19 Hgb Hct MCHC RDW PT INR Sodium 135 L Potassium Chloride 96 L Carbon Dioxide 33 H BUN 44 H Creatinine 1.23 H Glucose 130 H POC Glucose (mg/dL) 134 H 154 H Calcium 6.5 L AST Troponin I 05/08/22 05/08/22 05/08/22 12:40 16:28 19:46 Hgb Hct MCHC RDW PT 13.1 H INR 1.3 H Sodium Potassium Chloride Carbon Dioxide BUN Creatinine Glucose POC Glucose (mg/dL) 297 H 327 H Calcium AST Troponin I 05/09/22 05/09/22 05/09/22 05:45 09:14 11:58 Hgb Hct MCHC RDW PT INR Sodium 135 L Potassium Chloride Carbon Dioxide BUN 41 H Creatinine 1.26 H Glucose 164 H POC Glucose (mg/dL) 175 H 291 H Calcium 6.9 L AST Troponin I 05/09/22 05/09/22 05/10/22 16:17 20:40 05:57 Hgb Hct MCHC RDW PT INR Sodium Potassium Chloride Carbon Dioxide BUN Creatinine Glucose POC Glucose (mg/dL) 207 H 236 H 220 H Calcium AST Troponin I 05/10/22 05/10/22 07:56 11:15 Hgb Hct MCHC RDW PT 13.4 H INR 1.3 H Sodium Potassium Chloride Carbon Dioxide BUN Creatinine Glucose POC Glucose (mg/dL) 192 H Calcium AST Troponin I - Diagnostic Findings Chest x-ray: image reviewed Assessment and Plan Assessment: Shortness of breath, secondary to COPD exacerbation. Diffuse coronary disease, to be treated medically. History of atrial fibrillation. COPD, secondary to former tobacco use. History of hypertension. History of permanent pacemaker implantation. History of left breast cancer, status post lumpectomy. Status post open heart surgery, with previous valve replacement. History of anxiety/depression. Plan: Plan dated 05/10/2022. The patient will need follow-up in our office after discharge. She'll need a complete pulmonary function test. He was given Symbicort 80/4.5, 2 puffs twice a day. In addition, we give her prednisone 40 mg a day. Additional recommendations and suggestions are forthcoming. Labs, x-rays, medications are all reviewed. Hopeful discharge in the near future. She did have a cardiac catheterization, and was found to have coronary disease, but she did not need any intervention, and she will be treated medically. Prognosis is guarded. Time with Patient: Greater than 30
[2022-05-10 16:09] LABS: Glucose,Whole Blood 215 mg/dL (70-110)
[2022-05-10] MEDS ORDERED: WARFARIN 3 MG TAB PO ONE (18:00)
[2022-05-10] MEDS: SYMBICORT 160-4.5 MCG INHALER INHALATION SCH (19:54)
[2022-05-10 20:20] LABS: Glucose,Whole Blood 196 mg/dL (70-110)
[2022-05-10] MEDS: CHOLECALCIFEROL 25 MCG (1000 IU) TABLET PO SCH (20:26)
[2022-05-10] MEDS: ATORVASTATIN 80 MG TAB PO SCH (20:26)
[2022-05-10] MEDS ORDERED: INSULIN DETEMIR (LEVEMIR) 100 UNIT/ML SYR SQ SCH (21:00)
[2022-05-11 06:14] LABS: Glucose,Whole Blood 198 mg/dL (70-110)
[2022-05-11] MEDS: INSULIN ASPART (NovoLOG) 100 UNIT/ML VIAL SQ SCH (06:38)
[2022-05-11] MEDS: SYMBICORT 160-4.5 MCG INHALER INHALATION SCH (07:15)
[2022-05-11] MEDS: IPRATROPIUM-ALBUTEROL 3 ML NEB INHALATION SCH (07:15)
[2022-05-11 07:37] LABS: Glucose,Whole Blood 232 mg/dL (70-110)
[2022-05-11 07:47] VITALS: BP 126/74; PULSE 63; RESP 21; TEMP 97.4
--- NOTE | 2022-05-11 08:03 | PN ---
PROGRESS NOTE SUBJECTIVE: Mrs. Dennison underwent a cardiac cath performed by Dr. Ibarra. She is doing well. Cath site is clean and dry. She has no significant symptoms. I am recommending that she can be discharged whenever it is okay with her admitting doctor and see Dr. Ibarra in 1 week. She has what seems to be a noncritical CAD with 40% to 50% mid RCA stenosis. PHYSICAL EXAMINATION: VITAL SIGNS: Stable. NECK: No JVD. HEART: S1, S2 heard normally, short systolic murmur noted. LUNGS: Reveal improved air entry. ABDOMEN: Unchanged. LOWER EXTREMITY: Unchanged. She can be discharged and see Dr. Ibarra in 1 week. MMODL / IJN: [id number] /
[2022-05-11] MEDS: ASPIRIN 81 MG PO SCH (08:09)
[2022-05-11] MEDS: lisinopriL 5 MG TAB PO SCH (08:09)
[2022-05-11] MEDS: METOPROLOL TARTRATE 50 MG TAB PO SCH (08:10)
[2022-05-11] MEDS: TORSEMIDE 20 MG TAB PO SCH (08:10)
[2022-05-11] MEDS: PANTOPRAZOLE 40 MG TABLET PO SCH (08:10)
[2022-05-11] MEDS: NYSTATIN 100,000 UNIT/ML SUSP 500,000 UNIT/5 ML CUP PO SCH (08:10)
[2022-05-11] MEDS: NORTRIPTYLINE 25 MG CAP PO SCH (08:10)
[2022-05-11] MEDS: oxyCODONE-APAP 10-325MG 1 EACH TAB PO PRN (08:12)
[2022-05-11] MEDS ORDERED: predniSONE 20 MG TAB PO SCH (09:00)
--- NOTE | 2022-05-11 10:49 | P.DS ---
Providers Date of admission: 05/06/22 11:30 Expected date of discharge: 05/11/22 Attending physician: Barbara Gottlieb MD Consults: 05/05/22 03:02 Consult Physician Urgent Consulting Provider: Marty Desir Consult Reason/Comments: NSTEMI Do you want consulting provider notified?: Yes 05/10/22 09:25 Consult Physician Urgent Consulting Provider: Duglas Hager Consult Reason/Comments: dyspnea, COPD exacerbation Do you want consulting provider notified?: Yes Primary care physician: Jose Butcher Hospital Course: Discharge Diagnosis: Acute on chronic hypoxic respiratory failure Possible acute COPD exacerbation Diastolic CHF exacerbation Chest pain Non-ST elevation LA Coronary artery disease Abnormal Lexiscan stress test Acute kidney injury Hypokalemia Hypocalcemia Hospital Course: 81-year-old female with a PMH of A. fib on Xarelto, complete heart block status post ventricular pacemaker, COPD with chronic hypoxic respiratory failure on 2 L nasal cannula oxygen at home, hypertension, hyperlipidemia, and type II DM who presents to the emergency room with complaints of shortness of breath and chest discomfort. Chest x-ray in the emergency room was unremarkable. EKG revealed a V paced rhythm at 59 bpm. Laboratory evaluation was remarkable for troponin 0.045, proBNP 1780, calcium 6.1, BUN 34, creatinine 1.09, potassium 3.1. Concern for COPD exacerbation, patient started on prednisone and bronchodilators. Cardiology consulted. Patient was diuresed for likely CHF exacerbation. Lexiscan stress test was abnormal. Patient had an AMA likely from overdiuresis. Patient started on gentle fluids. Cardiac cath showed moderate area stenosis in mid RCA, rest of the vessels do not have significant stenosis. No interventions performed. Cardiology recommending medical management. Continues to have SOB with occasional cough. Restarted on home diuretics. CXR shows no acute process. pulm consulted. Likely still dealing with acute on chronic COPD exacerbation. Patient restarted on prednisone, will be discharged with a short course. Patient to be discharged on Symbicort as well. At the time of discharge, patient remained on her home oxygen levels. She will follow up with pulmonology as an outpatient. She will also follow-up with cardiology as an outpatient. Patient seen and examined at bedside. Vital signs reviewed and stable. General: non toxic, no distress, appears at stated age, normal weight Derm: no unusual rashes/lesions, warm Head: atraumatic, normocephalic, symmetric Eyes: EOMI, no lid lag, anicteric sclera, pupils equal round reactive to light ENT: Nose and ears atraumatic Neck: No cervical lymphadenopathy, trachea midline, supple Mouth: no lip lesion, mucus membranes moist Cardiovascular: S1S2 reg, no murmur, positive dorsalis pedis pulse bilateral, trace peripheral edema Lungs: CTAP no rales or rhonchi noted, no accessory muscle use Abdominal: soft, nontender to palpation, no guarding Ext: muscle strength 5 out of 5 in all 4 extremities grossly, no gross muscle atrophy, no contractures, Neuro: CN II-XI grossly intact, no gross focal neuro deficits Psych: Alert, oriented, appropriate affect A total of 38 minutes of time were spent preparing this complex discharge summary. Patient was discharged on 05/11/22 at 9:51. Patient Condition at Discharge: Stable Plan - Discharge Summary Discharge Rx Participant: No New Discharge Prescriptions: New predniSONE [Deltasone] 40 mg PO DAILY #8 tab Atorvastatin [Lipitor] 80 mg PO HS #30 tab Aspirin 81 mg PO DAILY #30 tab Budesonide-Formot 160-4.5 Mcg [Symbicort 160-4.5 Mcg Inhaler] 2 puff INHALATION RT-BID #1 each Continue rOPINIRole HCL [Requip] 2 mg PO BID Nortriptyline [Pamelor] 25 mg PO TID Metoprolol Tartrate [Lopressor] 100 mg PO BID metFORMIN HCL [Glucophage] 500 mg PO BID Albuterol Inhaler [Ventolin Hfa Inhaler] 2 puff INHALATION RT-Q4H PRN #1 each PRN Reason: Shortness Of Breath Insulin Detemir [Levemir Flextouch Pen] 8 units SQ HS Warfarin Sodium [Jantoven] 5 mg PO DAILY oxyCODONE HCL/ACETAMINOPHEN [Percocet 10-325 mg] 1 tab PO Q6HR Pantoprazole Sodium [Protonix] 40 mg PO BID Vitamin [id number] 1 tab SUBLINGUAL DAILY Torsemide [Demadex] 40 mg PO DAILY #30 tab Magnesium Oxide [Mag-Ox] 400 mg PO BID #60 tab lisinopriL [Zestril] 5 mg PO DAILY Cholecalciferol [Vitamin D3 (25 Mcg = 1000 Iu)] 25 mcg PO HS Discontinued Fluticasone Propionate 220 Mcg [Flovent 220 Mcg Inhaler] 2 puff INHALATION RT-BID #12 gm Atorvastatin Calcium [Lipitor] 40 mg PO HS Discharge Medication List Metoprolol Tartrate [Lopressor] 100 mg PO BID 02/17/22 [History] Nortriptyline [Pamelor] 25 mg PO TID 02/17/22 [History] Pantoprazole Sodium [Protonix] 40 mg PO BID 02/17/22 [History] Vitamin [id number] 1 tab SUBLINGUAL DAILY 02/17/22 [History] rOPINIRole HCL [Requip] 2 mg PO BID 02/17/22 [History] metFORMIN HCL [Glucophage] 500 mg PO BID 04/06/22 [History] Albuterol Inhaler [Ventolin Hfa Inhaler] 2 puff INHALATION RT-Q4H PRN #1 each 04/12/22 [Rx] Magnesium Oxide [Mag-Ox] 400 mg PO BID #60 tab 04/12/22 [Rx] Torsemide [Demadex] 40 mg PO DAILY #30 tab 04/12/22 [Rx] Cholecalciferol [Vitamin D3 (25 Mcg = 1000 Iu)] 25 mcg PO HS 05/04/22 [History] Insulin Detemir [Levemir Flextouch Pen] 8 units SQ HS 05/04/22 [History] lisinopriL [Zestril] 5 mg PO DAILY 05/04/22 [History] Warfarin Sodium [Jantoven] 5 mg PO DAILY 05/05/22 [History] oxyCODONE HCL/ACETAMINOPHEN [Percocet 10-325 mg] 1 tab PO Q6HR 05/05/22 [History] Aspirin 81 mg PO DAILY #30 tab 05/11/22 [Rx] Atorvastatin [Lipitor] 80 mg PO HS #30 tab 05/11/22 [Rx] Budesonide-Formot 160-4.5 Mcg [Symbicort 160-4.5 Mcg Inhaler] 2 puff INHALATION RT-BID #1 each 05/11/22 [Rx] predniSONE [Deltasone] 40 mg PO DAILY #8 tab 05/11/22 [Rx] Follow up Appointment(s)/Referral(s): Jose Butcher MD [Primary Care Provider] - 1-2 days Duglas Hager DO [Doctor of Osteopathic Medicine] - 05/31/22 10:15 am Geo Ibarra MD [STAFF PHYSICIAN] - 2 Weeks Patient Instructions/Handouts: Coronary Artery Disease (DC), COPD (Chronic Obstructive Pulmonary Disease) (DC) Activity/Diet/Wound Care/Special Instructions: [facility] would like all prior records faxed to them before they will make an appointment. Please call your urologist in [place] and have them fax records: [facility] fax #[phone]/ #[phone]. Discharge/Stand Alone Forms: Who Do I Call?, Help In The Home, Outpatient Counseling Discharge Disposition: HOME SELF-CARE
[2022-05-11 11:35] LABS: INR 2.4 (<1.2)
--- NOTE | 2022-05-11 12:31 | P.PN ---
Subjective Progress Note Date: 05/11/22 81-year-old female was admitted back on May 04, through the emergency room, shortness of breath. She was apparently brought in by EMS. She does have a history of underlying COPD. She apparently was complaining of shortness of breath, and she was coughing. The patient was been treated with prednisone for COPD, which she finished on the day of admission to the emergency department. She was initially thought to have cardiac disease, and was seen by cardiology, had a cardiac catheterization, and was found to have coronary disease, but was thought to be mostly a candidate for medical therapy. The patient apparently just recently moved here from [place]. She has not seen a lung doctor in the outpatient setting. She does have a history of COPD from previous tobacco use. Other medical history includes atrial fibrillation, hypertension, and breast cancer. She's had a cardiac valve replacement, and pacemaker insertion. The most recent labs show a white count of 8.7, hemoglobin 10.1, hematocrit 32.2, and platelet count of 292,000. Sodium 135, potassium 4.5, chlorides 99, CO2 27, anion gap 9, BUN 41, and creatinine 1.6. Chest x-ray shows primarily chronic changes, without any acute abnormality. The patient seen today 05/11/2022 in follow-up on the regular medical floor. She is currently sitting up at the bedside. Awake and alert in no acute distress. She is breathing better today compared to yesterday. No worsening shortness of breath, cough or congestion. She is maintaining O2 saturations in the high 90s on 2 L/m per nasal cannula. Afebrile. Hemodynamically stable. INR 2.4. She remains on DuoNeb inhalations, Symbicort, IV Solu-Medrol. Objective - Vital Signs Vital signs: Vital Signs Temp 97.4 F L 05/11/22 07:07 Pulse 68 05/11/22 07:28 Resp 21 05/11/22 07:07 BP 126/74 05/11/22 07:07 Pulse Ox 99 05/11/22 07:15 FiO2 05/06/22 04:30 Intake & Output 05/10/22 05/11/22 05/11/22 18:59 06:59 18:59 Intake Total 540 90 Output Total 1400 1000 Balance -860 -910 Intake: Oral 540 90 Output: Urine 400 Stool 1000 1000 Other: Voiding Method Toilet Toilet Toilet # Voids 1 - Exam GENERAL EXAM: Alert, very pleasant 81-year-old female, on 2 liters nasal cannula, comfortable in no apparent distress. HEAD: Normocephalic. EYES: Normal reaction of pupils, equal size. NOSE: Clear with pink turbinates. THROAT: No erythema or exudates. NECK: No masses, no JVD. CHEST: No chest wall deformity. LUNGS: Equal air entry with end expiratory wheeze, diminished. CVS: S1 and S2 normal with no audible murmur, regular rhythm. ABDOMEN: No hepatosplenomegaly, normal bowel sounds, no guarding or rigidity. SPINE: No scoliosis or deformity SKIN: No rashes CENTRAL NERVOUS SYSTEM: No focal deficits, tone is normal in all 4 extremities. EXTREMITIES: There is no peripheral edema. No clubbing, no cyanosis. Peripheral pulses are intact. - Labs CBC & Chem 7: 05/07/22 07:43 05/09/22 09:14 Labs: Abnormal Lab Results - Last 24 Hours (Table) 05/10/22 05/10/22 05/11/22 Range/Units 16:08 20:19 06:13 PT (9.0-12.0) sec INR (<1.2) POC Glucose (mg/dL) 215 H 196 H 198 H (70-110) mg/dL 05/11/22 05/11/22 Range/Units 07:35 10:59 PT 23.0 H (9.0-12.0) sec INR 2.4 H (<1.2) POC Glucose (mg/dL) 232 H (70-110) mg/dL Assessment and Plan Assessment: Acute exacerbation of chronic obstructive pulmonary disease. Diffuse coronary disease, to be treated medically. History of atrial fibrillation. COPD, secondary to former tobacco use. History of hypertension. History of permanent pacemaker implantation. History of left breast cancer, status post lumpectomy. Status post open heart surgery, with previous valve replacement. History of anxiety/depression. Plan: The patient was seen and evaluated Labs and medications reviewed Cleared for discharge from the pulmonary standpoint Continue Symbicort, HFA, prednisone taper To follow-up in our office with Dr. Hager in 1 week I have personally seen and examined the patient, performed the documentation and the assessment and plan as written. Number of minutes spent on the visit: 10.
== END 2022-05-11 11:06 | disposition home or self-care (01) | DRG 190 ==
LOC: EC 16:29 → 3SCARD 21:07 → OBSVTOIN 05-06 11:30 → 6NMEDSUR 05-10 22:43
PROVIDERS: ADMIT Internal Medicine; ATTEND Internal Medicine
PROC: B2111ZZ Fluoroscopy of Multiple Coronary Arteries using Low Osmolar Contrast (ICD-10-PCS; 2022-05-08)
PROC: 4A023N7 Measurement of Cardiac Sampling and Pressure, Left Heart, Percutaneous Approach (ICD-10-PCS; principal; 2022-05-08 11:26)
DX: J44.1 Chronic obstructive pulmonary disease with (acute) exacerbation (principal); I21.4 Non-ST elevation (NSTEMI) myocardial infarction; J96.21 Acute and chronic respiratory failure with hypoxia; I50.33 Acute on chronic diastolic (congestive) heart failure; I44.2 Atrioventricular block, complete; N17.9 Acute kidney failure, unspecified; I48.19 Other persistent atrial fibrillation; E83.51 Hypocalcemia; I11.0 Hypertensive heart disease with heart failure; Z99.81 Dependence on supplemental oxygen; E11.9 Type 2 diabetes mellitus without complications; F32.A Depression, unspecified; F41.9 Anxiety disorder, unspecified; T50.2X5A Adverse effect of carbonic-anhydrase inhibitors, benzothiadiazides and other diuretics, initial encounter; I25.119 Atherosclerotic heart disease of native coronary artery with unspecified angina pectoris; E78.5 Hyperlipidemia, unspecified; E87.6 Hypokalemia; Z20.822 Contact with and (suspected) exposure to COVID-19; Z95.3 Presence of xenogenic heart valve; Z87.891 Personal history of nicotine dependence; Z95.2 Presence of prosthetic heart valve; Z95.0 Presence of cardiac pacemaker; Z28.310 Unvaccinated for COVID-19; Z79.899 Other long term (current) drug therapy; Z79.84 Long term (current) use of oral hypoglycemic drugs; Z79.01 Long term (current) use of anticoagulants; Z79.4 Long term (current) use of insulin; Z88.5 Allergy status to narcotic agent; Z88.8 Allergy status to other drugs, medicaments and biological substances; Z85.51 Personal history of malignant neoplasm of bladder; Z85.3 Personal history of malignant neoplasm of breast
CPT/HCPCS: 36415; 71045; 71046; 78452; 80048; 80053; 82306; 83605; 83880; 84484; 85025; 85027; 85610; 85730; 87502; 87635; 93005; 93017; 93458; 94640; 94667; 94760; 96374; 96375; 99285

== ENCOUNTER 2022-05-14 23:13 | Emergency (ER) | payer MEDICARE, OTHER ==
--- NOTE | 2022-05-14 23:26 | ED ---
General Adult HPI - General Stated complaint: SOB Time Seen by Provider: 05/14/22 23:24 Source: patient, EMS Mode of arrival: EMS Limitations: no limitations - History of Present Illness Initial comments: This patient is an 81-year-old woman brought by ambulance to have evaluation for constellation of symptoms that are been going on over the course of tonight. The patient has been feeling short of breath and had some associated chest tightness. She also earlier in the day was having some nausea and vomiting. She states she had been in the hospital last week or she was seen by cardiology, her medications were updated and she went home. She states she has not really been feeling well since leaving. She has not noted fever or chills. She is not currently having chest pain. She has had occasional cough but no sputum. -: days(s) Location: abdomen (Epigastric) Radiation: non-radiation Quality: aching Consistency: intermittent Improves with: none Worsens with: none Associated Symptoms: nausea/vomiting, shortness of breath Treatments Prior to Arrival: other - Related Data Home Medications Medication Instructions Recorded Confirmed Metoprolol Tartrate [Lopressor] 100 mg PO BID 02/17/22 05/04/22 Nortriptyline [Pamelor] 25 mg PO TID 02/17/22 05/04/22 Pantoprazole Sodium [Protonix] 40 mg PO BID 02/17/22 05/04/22 Vitamin [id number] 1 tab SUBLINGUAL DAILY 02/17/22 05/04/22 rOPINIRole HCL [Requip] 2 mg PO BID 02/17/22 05/04/22 metFORMIN HCL [Glucophage] 500 mg PO BID 04/06/22 05/04/22 Cholecalciferol [Vitamin D3 (25 25 mcg PO HS 05/04/22 05/04/22 Mcg = 1000 Iu)] Insulin Detemir [Levemir Flextouch 8 units SQ HS 05/04/22 05/04/22 Pen] lisinopriL [Zestril] 5 mg PO DAILY 05/04/22 05/04/22 oxyCODONE HCL/ACETAMINOPHEN 1 tab PO Q6HR 05/05/22 05/05/22 [Percocet 10-325 mg] Previous Rx's Medication Instructions Recorded Albuterol Inhaler [Ventolin Hfa 2 puff INHALATION RT-Q4H PRN #1 04/12/22 Inhaler] each Magnesium Oxide [Mag-Ox] 400 mg PO BID #60 tab 04/12/22 Torsemide [Demadex] 40 mg PO DAILY #30 tab 04/12/22 Aspirin 81 mg PO DAILY #30 tab 05/11/22 Atorvastatin [Lipitor] 80 mg PO HS #30 tab 05/11/22 Budesonide-Formot 160-4.5 Mcg 2 puff INHALATION RT-BID #1 each 05/11/22 [Symbicort 160-4.5 Mcg Inhaler] Warfarin Sodium 6 mg PO DAILY #30 tablet 05/11/22 predniSONE [Deltasone] 40 mg PO DAILY #8 tab 05/11/22 Allergies Allergy/AdvReac Type Severity Reaction Status Date / Time morphine Allergy Itching Verified 05/14/22 23:18 tizanidine [From Zanaflex] Allergy Unknown Verified 05/14/22 23:18 zolpidem [From Ambien] Allergy Unknown Verified 05/14/22 23:18 gabapentin AdvReac Hallucinati Verified 05/14/22 23:18 ons hydromorphone [From Dilaudid] AdvReac Hallucinati Verified 05/14/22 23:18 ons pentazocine [From Talwin] AdvReac Hallucinati Verified 05/14/22 23:18 ons pregabalin [From Lyrica] AdvReac Hallucinati Verified 05/14/22 23:18 ons Review of Systems ROS Statement: Those systems with pertinent positive or pertinent negative responses have been documented in the HPI. ROS Other: All systems not noted in ROS Statement are negative. Constitutional: Denies: fever, chills Respiratory: Reports: cough, dyspnea Cardiovascular: Reports: chest pain Gastrointestinal: Reports: abdominal pain, nausea, vomiting Genitourinary: Denies: dysuria, hematuria Musculoskeletal: Denies: back pain Skin: Denies: rash Neurological: Denies: headache, weakness, numbness Past Medical History Past Medical History: Atrial Fibrillation, Cancer, COPD, Hypertension Additional Past Medical History / Comment(s): breast cancer 2000 post Lt lumpectomy & lymph node, and bladder cancer post , carpletunnel, chronic atrail fibrillation History of Any Multi-Drug Resistant Organisms: None Reported Past Surgical History: Back Surgery, Joint Replacement, Orthopedic Surgery, Pacemaker, Tonsillectomy, Tubal Ligation Additional Past Surgical History / Comment(s): bilat knees, rt shoulder repair, lung nodule removal, both carotids repaired (occluded) Past Anesthesia/Blood Transfusion Reactions: No Reported Reaction Type of Cardiac Device: Permanent Pacemaker Device Placement Date:: 02/16/2017 Smoking Status: Former smoker - Past Family History Mother Family Medical History: COPD General Exam General appearance: alert, in no apparent distress Head exam: Present: atraumatic, normocephalic Eye exam: Present: normal appearance. Absent: scleral icterus, conjunctival injection Neck exam: Present: normal inspection Respiratory exam: Present: wheezes (Mild expiratory wheeze and a few rhonchi that cleared with cough), rhonchi. Absent: respiratory distress, rales, stridor, accessory muscle use, decreased breath sounds Cardiovascular Exam: Present: regular rate, normal rhythm, normal heart sounds. Absent: systolic murmur, diastolic murmur, rubs, gallop GI/Abdominal exam: Present: soft. Absent: distended, tenderness, guarding, rebound, rigid, mass Extremities exam: Present: normal inspection, normal capillary refill. Absent: pedal edema, calf tenderness Back exam: Present: normal inspection. Absent: CVA tenderness (R), CVA tenderness (L) Neurological exam: Present: alert Skin exam: Present: warm, dry, intact, normal color. Absent: rash Course Vital Signs 05/14/22 05/15/22 05/15/22 23:19 00:46 00:56 Pulse Rate 65 64 61 Respiratory 16 Rate Blood Pressure 138/82 O2 Sat by Pulse 98 Oximetry 05/15/22 05/15/22 05/15/22 01:00 02:00 03:29 Pulse Rate 63 64 65 Respiratory 20 20 Rate Blood Pressure 132/77 145/80 O2 Sat by Pulse 99 96 Oximetry 05/15/22 05/15/22 05/15/22 03:41 04:29 07:06 Pulse Rate 67 62 63 Respiratory 18 22 Rate Blood Pressure 131/74 118/68 O2 Sat by Pulse 96 93 L Oximetry 05/15/22 08:16 Pulse Rate 62 Respiratory 18 Rate Blood Pressure 122/81 O2 Sat by Pulse 96 Oximetry Medical Decision Making - Medical Decision Making This patient is an 81-year-old woman in with a constellation of symptoms that did include some dyspnea. She also had epigastric discomfort, nausea and vomiting. The patient had been admitted approximately a week prior for similar symptoms it was thought that these may represent angina. The patient did have cardiac catheterization which showed that there was only 40% lesion otherwise normal looking coronary arteries. Workup today includes chest x-ray that I interpreted as not showing infiltrate or congestive heart failure and the patient's ECG which shows essentially a ventricular rhythm no acute change The patient's symptoms have improved markedly after she received nebulized medications and Zofran, and she was feeling like she can go home, however no one was able to pick her up in the middle of the night. She therefore was log stay until the morning resting in bed and to not have any further symptoms prior to discharge. Was pt. sent in by a medical professional or institution? @ -no Did you speak to anyone other than the patient for history? @ -[no Did you review nursing and triage notes? @ -[agree Were old charts reviewed? @ -[yes, including previous hospitalization and cath reports Differential Diagnosis? @ -[Differential diagnosis included acute coronary syndrome/angina/ COPD exacerbation, also abdominal etiologies of symptoms including Cholecystitis, diverticulosis, ischemic bowel, pancreatitis, hepatitis, UTI, gastroenteritis, AAA, incarcerated hernia, bowel obstruction, constipation, inflammatory bowel, hepatitis, peptic ulcer disease, splenic infarction, perforated viscus, vulvitis, ovarian torsion, PID, kidney stone, placenta abruption, this is not meant to be an all-inclusive list EKG interpreted by me (3pts min.)? @ -yes X-rays interpreted by me (1pt min.)? @ -yes CT interpreted by me (1pt min.)? @ -[see chart U/S interpreted by me (1pt. min.)? @ -[none] What testing was considered but not performed? (CT, X-rays, U/S, labs)? Why? @ [CT abdomen was considered but patient's symptoms resolved and she was feeling better following medications. Her exam was essentially benign What meds were considered but not given? Why? @ -[none] Did you discuss the management of the patient with other professionals? @ -[no] Did you reconcile home meds? @ -[none] Was smoking cessation discussed for >3mins.? @ -[none] Was critical care preformed (if so, how long)? @ -[none] Were there social determinants of health that impacted care today? How? (Homelessness, low income, unemployed, alcoholism, drug addiction, transportation, low edu. Level, literacy, decrease access to med. care, fpc, rehab)? @ -[none] Was there de-escalation of care discussed even if they declined? (Discuss DNR or withdrawal of care, Hospice)? @ -[no] What co-morbidities impacted this encounter? (DM, HTN, Smoking, COPD, CAD, Cancer, CVA, Hep., AIDS, mental health diagnosis, sleep apnea, morbid obesity)? @ -[COPD Was patient admitted / discharged? @ -[Discharge Undiagnosed new problem with uncertain prognosis? @ -[none] Drug Therapy requiring intensive monitoring for toxicity (Heparin, Nitro, Insulin, Cardizem)? @ -[none] Were any procedures done? @ -[none] Diagnosis/symptom? @ -[COPD exacerbation Acute, or Chronic, or Acute on Chronic? @ -[Acute Uncomplicated (without systemic symptoms) or Complicated (systemic symptoms)? @ -[Uncomplicated] Side effects of treatment? @ -[none] Exacerbation, Progression, or Severe Exacerbation] @ -[no] Poses a threat to life or bodily function? @ -[no] - Lab Data Result diagrams: 05/14/22 23:44 05/14/22 23:44 Lab Results 05/14/22 05/14/22 05/14/22 Range/Units 23:44 23:44 23:44 WBC 8.7 (3.8-10.6) k/uL RBC 3.98 (3.80-5.40) m/uL Hgb 10.3 L (11.4-16.0) gm/dL Hct 33.3 L (34.0-46.0) % MCV 83.7 (80.0-100.0) fL MCH 25.9 (25.0-35.0) pg MCHC 31.0 (31.0-37.0) g/dL RDW 17.3 H (11.5-15.5) % Plt Count 235 (150-450) k/uL MPV 7.9 Neutrophils % 69 % Lymphocytes % 19 % Monocytes % 8 % Eosinophils % 1 % Basophils % 1 % Neutrophils # 6.0 (1.3-7.7) k/uL Lymphocytes # 1.7 (1.0-4.8) k/uL Monocytes # 0.7 (0-1.0) k/uL Eosinophils # 0.1 (0-0.7) k/uL Basophils # 0.0 (0-0.2) k/uL Hypochromasia Marked Poikilocytosis Slight Anisocytosis Slight PT 58.3 H (9.0-12.0) sec INR 5.9 H* (<1.2) APTT 30.4 H (22.0-30.0) sec Sodium 137 (137-145) mmol/L Potassium 3.6 (3.5-5.1) mmol/L Chloride 96 L (98-107) mmol/L Carbon Dioxide 35 H (22-30) mmol/L Anion Gap 6 mmol/L BUN 17 (7-17) mg/dL Creatinine 0.70 (0.52-1.04) mg/dL Est GFR (CKD-EPI)AfAm >90 (>60 ml/min/1.73 sqM) Est GFR (CKD-EPI)NonAf 82 (>60 ml/min/1.73 sqM) Glucose 139 H (74-99) mg/dL Calcium 7.6 L (8.4-10.2) mg/dL Total Bilirubin 0.6 (0.2-1.3) mg/dL AST 55 H (14-36) U/L ALT 35 H (4-34) U/L Alkaline Phosphatase 88 (38-126) U/L Troponin I (0.000-0.034) ng/mL NT-Pro-B Natriuret Pep pg/mL Total Protein 5.8 L (6.3-8.2) g/dL Albumin 3.7 (3.5-5.0) g/dL 05/14/22 05/14/22 Range/Units 23:44 23:44 WBC (3.8-10.6) k/uL RBC (3.80-5.40) m/uL Hgb (11.4-16.0) gm/dL Hct (34.0-46.0) % MCV (80.0-100.0) fL MCH (25.0-35.0) pg MCHC (31.0-37.0) g/dL RDW (11.5-15.5) % Plt Count (150-450) k/uL MPV Neutrophils % % Lymphocytes % % Monocytes % % Eosinophils % % Basophils % % Neutrophils # (1.3-7.7) k/uL Lymphocytes # (1.0-4.8) k/uL Monocytes # (0-1.0) k/uL Eosinophils # (0-0.7) k/uL Basophils # (0-0.2) k/uL Hypochromasia Poikilocytosis Anisocytosis PT (9.0-12.0) sec INR (<1.2) APTT (22.0-30.0) sec Sodium (137-145) mmol/L Potassium (3.5-5.1) mmol/L Chloride (98-107) mmol/L Carbon Dioxide (22-30) mmol/L Anion Gap mmol/L BUN (7-17) mg/dL Creatinine (0.52-1.04) mg/dL Est GFR (CKD-EPI)AfAm (>60 ml/min/1.73 sqM) Est GFR (CKD-EPI)NonAf (>60 ml/min/1.73 sqM) Glucose (74-99) mg/dL Calcium (8.4-10.2) mg/dL Total Bilirubin (0.2-1.3) mg/dL AST (14-36) U/L ALT (4-34) U/L Alkaline Phosphatase (38-126) U/L Troponin I 0.045 H* (0.000-0.034) ng/mL NT-Pro-B Natriuret Pep 2160 pg/mL Total Protein (6.3-8.2) g/dL Albumin (3.5-5.0) g/dL - EKG Data -: EKG Interpreted by Mo Rate: normal Interpretation: other (There is a ventricular paced rhythm rate 64 bpm) Disposition Clinical Impression: COPD exacerbation Disposition: HOME SELF-CARE Condition: Fair Instructions (If sedation given, give patient instructions): Chronic Bronchitis (ED) Additional Instructions: As we discussed, do not take Coumadin for 2 days. When he resume, speak with your doctor to see if dose adjustment is needed Is patient prescribed a controlled substance at d/c from ED?: No Referrals: Jose Butcher MD [Primary Care Provider] - 1-2 days
[2022-05-14 23:57] LABS: Anisocytosis Slight; Basophils % (A) 1 %; Eosinophils # (A) 0.1 k/uL (0-0.7); Eosinophils % (A) 1 %; HCT 33.3 % (34.0-46.0); HGB 10.3 gm/dL (11.4-16.0); Hypochromasia Marked; Lymphocytes # (A) 1.7 k/uL (1.0-4.8); Lymphocytes % (A) 19 %; MCH 25.9 pg (25.0-35.0); MCV 83.7 fL (80.0-100.0); Mean Platelet Volume 7.9; Monocytes # (A) 0.7 k/uL (0-1.0); Monocytes % (A) 8 %; Neutrophils % (A) 69 %; Platelet Count 235 k/uL (150-450); Poikilocytosis Slight; RBC 3.98 m/uL (3.80-5.40); RDW 17.3 % (11.5-15.5); WBC 8.7 k/uL (3.8-10.6)
[2022-05-15] MEDS ORDERED: IPRATROPIUM-ALBUTEROL 3 ML NEB INHALATION STA (00:28)
[2022-05-15] MEDS ORDERED: SODIUM CHLORIDE 0.9% 500 ML 500 ML IV STA (00:28)
[2022-05-15 00:38] LABS: ALT 35 U/L (4-34); AST 55 U/L (14-36); African American GFR (CKD) >90 (>60 ml/min/1.73 sqM); Albumin 3.7 g/dL (3.5-5.0); Alkaline Phosphatase 88 U/L (38-126); Anion Gap 6 mmol/L; Blood Urea Nitrogen 17 mg/dL (7-17); Calcium 7.6 mg/dL (8.4-10.2); Carbon Dioxide 35 mmol/L (22-30); Chloride 96 mmol/L (98-107); Glucose 139 mg/dL (74-99); Non-African American GFR(CKD) 82 (>60 ml/min/1.73 sqM); Potassium 3.6 mmol/L (3.5-5.1); Sodium 137 mmol/L (137-145); Total Bilirubin 0.6 mg/dL (0.2-1.3); Total Protein 5.8 g/dL (6.3-8.2)
[2022-05-15 00:40] LABS: Partial Thromboplastin Time 30.4 sec (22.0-30.0); Prothrombin Time 58.3 sec (9.0-12.0)
[2022-05-15 00:44] LABS: INR 5.9 (<1.2)
--- NOTE | 2022-05-15 01:47 | XR ---
EXAMINATION TYPE: XR chest 2V DATE OF EXAM: 05/15/2022 COMPARISON: 05/10/2022 HISTORY: Short of breath TECHNIQUE: FINDINGS: There is no heart failure nor confluent pneumonic infiltrate. Costophrenic angles are clear . There is left x-ray pacemaker. There are chest leads. Bony thorax is intact. IMPRESSION: No active cardiopulmonary disease. No change.
[2022-05-15] MEDS ORDERED: ALBUTEROL NEBULIZED 2.5 MG/3 ML INHALATION STA (02:38)
[2022-05-15] MEDS ORDERED: ONDANSETRON 4 MG/2 ML VIAL IVP STA (04:21)
[2022-05-15 08:18] VITALS: BP 122/81; PULSE 62; RESP 18
== END 2022-05-15 08:24 | disposition home or self-care (01) ==
LOC: EC 23:13
DX: J44.1 Chronic obstructive pulmonary disease with (acute) exacerbation (principal); I10 Essential (primary) hypertension; I48.91 Unspecified atrial fibrillation; Z79.82 Long term (current) use of aspirin; Z79.84 Long term (current) use of oral hypoglycemic drugs; Z79.52 Long term (current) use of systemic steroids; Z87.891 Personal history of nicotine dependence; Z79.899 Other long term (current) drug therapy; Z88.5 Allergy status to narcotic agent; Z88.8 Allergy status to other drugs, medicaments and biological substances
CPT/HCPCS: 36415; 94640 ×2; 93005; 83880; 80053; 84484; 85025; 85610; 85730; 71046; 99285; 96374; 96361; J2405

== ENCOUNTER 2022-05-22 04:43 | Inpatient (IN) | payer MEDICARE, OTHER ==
[2022-05-22] MEDS ORDERED: FUROSEMIDE 10 MG/ML 4 ML VIAL IV STA (05:21)
[2022-05-22] MEDS ORDERED: DEXAMETHASONE SOD PHOSPHATE 10 MG/ML 1 ML VIAL IVP STA (05:21)
[2022-05-22 05:41] LABS: Anisocytosis Slight; Basophils % (A) 0 %; Eosinophils # (A) 0.1 k/uL (0-0.7); Eosinophils % (A) 1 %; HCT 36.3 % (34.0-46.0); HGB 11.1 gm/dL (11.4-16.0); Hypochromasia Marked; Lymphocytes # (A) 1.5 k/uL (1.0-4.8); Lymphocytes % (A) 16 %; MCH 25.8 pg (25.0-35.0); MCHC 30.6 g/dL (31.0-37.0); MCV 84.4 fL (80.0-100.0); Mean Platelet Volume 8.2; Monocytes # (A) 0.7 k/uL (0-1.0); Monocytes % (A) 7 %; Neutrophils # (A) 7.3 k/uL (1.3-7.7); Neutrophils % (A) 75 %; Platelet Count 225 k/uL (150-450); Poikilocytosis Slight; RDW 17.8 % (11.5-15.5); VBG PH 7.32 (7.31-7.41); WBC 9.7 k/uL (3.8-10.6)
--- NOTE | 2022-05-22 05:42 | XR ---
EXAMINATION TYPE: XR chest 1V portable DATE OF EXAM: 05/22/2022 COMPARISON: 05/15/2022 HISTORY: Difficulty breathing TECHNIQUE: Single view FINDINGS: There is no heart failure nor confluent pneumonic infiltrate. Costophrenic angles are clear . There is left axillary pacemaker. No pleural effusion. There are cervical spine fusion surgery. IMPRESSION: No active cardiopulmonary disease. Atheromatous aorta. No change.
[2022-05-22] MEDS: MAGNESIUM SULFATE-D5W PMX 1 GM in DEXTROSE/WATER 1 100ML.BAG IVPB SCH ×2 (05:49→06:33)
[2022-05-22 05:51] LABS: Albumin 4.1 g/dL (3.5-5.0); Calcium 8.7 mg/dL (8.4-10.2); Magnesium 1.3 mg/dL (1.6-2.3); Potassium 4.9 mmol/L (3.5-5.1); Total Bilirubin 0.8 mg/dL (0.2-1.3); Total Protein 6.4 g/dL (6.3-8.2)
[2022-05-22 06:37] LABS: Partial Thromboplastin Time 37.9 sec (22.0-30.0); Prothrombin Time 89.3 sec (9.0-12.0)
[2022-05-22] MEDS ORDERED: NALOXONE 0.4 MG/ML 1 ML VIAL IV PRN (06:47)
--- NOTE | 2022-05-22 06:55 | ED ---
General Adult HPI - General Chief complaint: Shortness of Breath Stated complaint: Chest Pain, Shortness of Breath Time Seen by Provider: 05/22/22 04:44 Source: patient Mode of arrival: EMS Limitations: no limitations - History of Present Illness Initial comments: This is an 81-year-old female who presents emergency department via EMS for increasing shortness of breath and cough. The patient reported EMS that she has had a cough or shortness of breath over the last several hours worsening to the point where family called EMS. The patient on arrival stated that she was feeling sleepy and had difficulty breathing. The patient did receive a breathi ng treatment by EMS and did state that this improved her symptoms. The patient was able to answer all questions appropriately and denied any other acute pain. The patient did report that she has had a productive cough over last 1 month as well. The patient denied any other acute pain at this time was falling asleep in between my questioning. - Related Data Home Medications Medication Instructions Recorded Confirmed Metoprolol Tartrate [Lopressor] 100 mg PO BID 02/17/22 05/04/22 Nortriptyline [Pamelor] 25 mg PO TID 02/17/22 05/04/22 Pantoprazole Sodium [Protonix] 40 mg PO BID 02/17/22 05/04/22 Vitamin [id number] 1 tab SUBLINGUAL DAILY 02/17/22 05/04/22 rOPINIRole HCL [Requip] 2 mg PO BID 02/17/22 05/04/22 metFORMIN HCL [Glucophage] 500 mg PO BID 04/06/22 05/04/22 Cholecalciferol [Vitamin D3 (25 25 mcg PO HS 05/04/22 05/04/22 Mcg = 1000 Iu)] Insulin Detemir [Levemir Flextouch 8 units SQ HS 05/04/22 05/04/22 Pen] lisinopriL [Zestril] 5 mg PO DAILY 05/04/22 05/04/22 oxyCODONE HCL/ACETAMINOPHEN 1 tab PO Q6HR 05/05/22 05/05/22 [Percocet 10-325 mg] Previous Rx's Medication Instructions Recorded Albuterol Inhaler [Ventolin Hfa 2 puff INHALATION RT-Q4H PRN #1 04/12/22 Inhaler] each Magnesium Oxide [Mag-Ox] 400 mg PO BID #60 tab 04/12/22 Torsemide [Demadex] 40 mg PO DAILY #30 tab 04/12/22 Aspirin 81 mg PO DAILY #30 tab 05/11/22 Atorvastatin [Lipitor] 80 mg PO HS #30 tab 05/11/22 Budesonide-Formot 160-4.5 Mcg 2 puff INHALATION RT-BID #1 each 05/11/22 [Symbicort 160-4.5 Mcg Inhaler] Warfarin Sodium 6 mg PO DAILY #30 tablet 05/11/22 predniSONE [Deltasone] 40 mg PO DAILY #8 tab 05/11/22 Allergies Allergy/AdvReac Type Severity Reaction Status Date / Time morphine Allergy Itching Verified 05/14/22 23:18 tizanidine [From Zanaflex] Allergy Unknown Verified 05/14/22 23:18 zolpidem [From Ambien] Allergy Unknown Verified 05/14/22 23:18 gabapentin AdvReac Hallucinati Verified 05/14/22 23:18 ons hydromorphone [From Dilaudid] AdvReac Hallucinati Verified 05/14/22 23:18 ons pentazocine [From Talwin] AdvReac Hallucinati Verified 05/14/22 23:18 ons pregabalin [From Lyrica] AdvReac Hallucinati Verified 05/14/22 23:18 ons Review of Systems ROS Statement: Those systems with pertinent positive or pertinent negative responses have been documented in the HPI. ROS Other: All systems not noted in ROS Statement are negative. Past Medical History Past Medical History: Atrial Fibrillation, Cancer, COPD, Hypertension Additional Past Medical History / Comment(s): breast cancer 2000 post Lt lumpectomy & lymph node, and bladder cancer post , carpletunnel, chronic atrail fibrillation History of Any Multi-Drug Resistant Organisms: None Reported Past Surgical History: Back Surgery, Joint Replacement, Orthopedic Surgery, Pacemaker, Tonsillectomy, Tubal Ligation Additional Past Surgical History / Comment(s): bilat knees, rt shoulder repair, lung nodule removal, both carotids repaired (occluded) Past Anesthesia/Blood Transfusion Reactions: No Reported Reaction Type of Cardiac Device: Permanent Pacemaker Device Placement Date:: 02/16/2017 Past Psychological History: Anxiety, Depression Smoking Status: Former smoker - Past Family History Mother Family Medical History: COPD General Exam Limitations: no limitations General appearance: alert, in no apparent distress, obese Head exam: Present: atraumatic, normocephalic Eye exam: Present: normal appearance, PERRL Pupils: Present: normal accommodation ENT exam: Present: normal exam, normal oropharynx, mucous membranes moist Neck exam: Present: normal inspection, full ROM Respiratory exam: Present: decreased breath sounds, other (Tachypneic) Cardiovascular Exam: Present: regular rate, normal rhythm, normal heart sounds GI/Abdominal exam: Present: soft, normal bowel sounds Extremities exam: Present: normal inspection, full ROM Back exam: Present: normal inspection, full ROM Neurological exam: Present: alert, oriented X3, CN II-XII intact Psychiatric exam: Present: normal affect, normal mood Skin exam: Present: warm, dry Course Vital Signs 05/22/22 05/22/22 05/22/22 05:04 05:19 05:25 Temperature 96.9 F L Pulse Rate 61 68 Respiratory 28 H 20 Rate Blood Pressure 156/79 O2 Sat by Pulse 100 97 Oximetry Fraction of 35 Inspired Oxygen (FIO2) 05/22/22 05/22/22 05/22/22 05:44 05:50 06:00 Temperature Pulse Rate 60 60 60 Respiratory 16 17 20 Rate Blood Pressure 130/70 132/66 123/62 O2 Sat by Pulse 98 98 97 Oximetry Fraction of Inspired Oxygen (FIO2) EKG Findings - EKG Comments: EKG Findings:: An EKG was obtained was interpreted by myself. EKG showed a rate of 62, QRS duration 142 and QTC of 443. This EKG was electronically ventricu larly paced rhythm. There were no signs of STEMI at this time. Medical Decision Making - Medical Decision Making Was pt. sent in by a medical professional or institution (, PA, RETAIL PHARMACY MANAGER, urgent care, hospital, or longterm...) When possible be specific @ -No Did you speak to anyone other than the patient for history (EMS, parent, family, police, friend...)? What history was obtained from this source @ -No Did you review nursing and triage notes (agree or disagree)? Why? @ -I reviewed and agree with nursing and triage notes Were old charts reviewed (outside hosp., previous admission, EMS record, old EKG, old radiological studies, urgent care reports/EKG's, longterm records)? Report findings @ -No old charts were reviewed Differential Diagnosis (chest pain, altered mental status, abdominal pain women, abdominal pain men, vaginal bleeding, weakness, fever, dyspnea, syncope, headache, dizziness, GI bleed, back pain, seizure, CVA, palpatations, mental health)? @ -COPD exacerbation, CHF exacerbation, ACS, pneumonia EKG interpreted by me (3pts min.). @ -As above X-rays interpreted by me (1pt min.). @ -Chest x-ray was obtained and was interpreted by myself showing no acute process. CT interpreted by me (1pt min.). @ -None done U/S interpreted by me (1pt. min.). @ -None done What testing was considered but not performed or refused? (CT, X-rays, U/S, labs)? Why? @ -None What meds were considered but not given or refused? Why? @ -None Did you discuss the management of the patient with other professionals (professionals i.e. , PA, RETAIL PHARMACY MANAGER, lab, RT, psych nurse, social insurance adviser, pot puller, teacher, officer lieutenant, rehabilitation caseworker)? Give summary @ -Yes, the admitting physician Was smoking cessation discussed for >3mins.? @ -No Was critical care preformed (if so, how long)? @ -Yes, See above Were there social determinants of health that impacted care today? How? (Homelessness, low income, unemployed, alcoholism, drug addiction, transportation, low edu. Level, literacy, decrease access to med. care, fdc, rehab)? @ -No Was there de-escalation of care discussed even if they declined (Discuss DNR or withdrawal of care, Hospice)? DNR status @ -No What co-morbidities impacted this encounter? (DM, HTN, Smoking, COPD, CAD, Cancer, CVA, ARF, Chemo, Hep., AIDS, mental health diagnosis, sleep apnea, morbid obesity)? @ -COPD, CHF, morbid obesity, hypertension Was patient admitted / discharged? Hospital course, mention meds given and route, prescriptions, significant lab abnormalities, going to OR and other pertinent info. @ -The patient was seen and evaluated in the emergency department. Physical exam, the patient was seen initially on arrival and was having tachypnea and falling asleep during my evaluation. Due to this, the patient was moved to the critical area and was placed on BiPAP. The patient did have improvement on BiPAP. Laboratory workup was largely within normal limits and chest x-ray was negative indicating this is likely a COPD exacerbation. The patient's proBNP was also elevated at this time. Due to the patient's status on BiPAP in the setting of a COPD exacerbation, the patient will be admitted for further workup and evaluation. The patient did receive Decadron, magnesium and did receive a breathing treatment with EMS. The patient's care physician was being covered by [facility] and Dr. Whyte was called and accepted the patient at 0645. The patient was told this plan and was agreeable. The patient was admitted in stable condition. Undiagnosed new problem with uncertain prognosis? @ -No Drug Therapy requiring intensive monitoring for toxicity (Heparin, Nitro, Insulin, Cardizem)? @ -No Were any procedures done? @ -No Diagnosis/symptom? @ -COPD exacerbation on BiPAP Acute, or Chronic, or Acute on Chronic? @ -Acute Uncomplicated (without systemic symptoms) or Complicated (systemic symptoms)? @ -Complicated Side effects of treatment? @ -No Exacerbation, Progression, or Severe Exacerbation? @ -Exacerbation Poses a threat to life or bodily function? How? (Chest pain, [place], [place], pneumonia, PE, COPD, DKA, ARF, appy, cholecystitis, CVA, Diverticulitis, Homicidal, Suicidal, threat to staff... and all critical care pts) @ -No - Lab Data Result diagrams: 05/22/22 05:25 05/22/22 05:25 Lab Results 05/22/22 05/22/22 05/22/22 Range/Units 05:25 05:25 05:25 WBC 9.7 (3.8-10.6) k/uL RBC 4.30 (3.80-5.40) m/uL Hgb 11.1 L (11.4-16.0) gm/dL Hct 36.3 (34.0-46.0) % MCV 84.4 (80.0-100.0) fL MCH 25.8 (25.0-35.0) pg MCHC 30.6 L (31.0-37.0) g/dL RDW 17.8 H (11.5-15.5) % Plt Count 225 (150-450) k/uL MPV 8.2 Neutrophils % 75 % Lymphocytes % 16 % Monocytes % 7 % Eosinophils % 1 % Basophils % 0 % Neutrophils # 7.3 (1.3-7.7) k/uL Lymphocytes # 1.5 (1.0-4.8) k/uL Monocytes # 0.7 (0-1.0) k/uL Eosinophils # 0.1 (0-0.7) k/uL Basophils # 0.0 (0-0.2) k/uL Hypochromasia Marked Poikilocytosis Slight Anisocytosis Slight VBG pH (7.31-7.41) VBG pCO2 (37-51) mmHg VBG HCO3 (24-28) mmol/L Sodium 138 (137-145) mmol/L Potassium 4.9 (3.5-5.1) mmol/L Chloride 99 (98-107) mmol/L Carbon Dioxide 31 H (22-30) mmol/L Anion Gap 8 mmol/L BUN 25 H (7-17) mg/dL Creatinine 0.99 (0.52-1.04) mg/dL Est GFR (CKD-EPI)AfAm 62 (>60 ml/min/1.73 sqM) Est GFR (CKD-EPI)NonAf 54 (>60 ml/min/1.73 sqM) Glucose 130 H (74-99) mg/dL Calcium 8.7 (8.4-10.2) mg/dL Magnesium 1.3 L (1.6-2.3) mg/dL Total Bilirubin 0.8 (0.2-1.3) mg/dL AST 56 H (14-36) U/L ALT 35 H (4-34) U/L Alkaline Phosphatase 117 (38-126) U/L Troponin I 0.040 H* (0.000-0.034) ng/mL NT-Pro-B Natriuret Pep pg/mL Total Protein 6.4 (6.3-8.2) g/dL Albumin 4.1 (3.5-5.0) g/dL Influenza Type A (PCR) (Not Detectd) Influenza Type B (PCR) (Not Detectd) RSV (PCR) (Not Detectd) SARS-CoV-2 (PCR) (Not Detectd) 05/22/22 05/22/22 05/22/22 Range/Units 05:25 05:25 05:25 WBC (3.8-10.6) k/uL RBC (3.80-5.40) m/uL Hgb (11.4-16.0) gm/dL Hct (34.0-46.0) % MCV (80.0-100.0) fL MCH (25.0-35.0) pg MCHC (31.0-37.0) g/dL RDW (11.5-15.5) % Plt Count (150-450) k/uL MPV Neutrophils % % Lymphocytes % % Monocytes % % Eosinophils % % Basophils % % Neutrophils # (1.3-7.7) k/uL Lymphocytes # (1.0-4.8) k/uL Monocytes # (0-1.0) k/uL Eosinophils # (0-0.7) k/uL Basophils # (0-0.2) k/uL Hypochromasia Poikilocytosis Anisocytosis VBG pH 7.32 (7.31-7.41) VBG pCO2 62 H (37-51) mmHg VBG HCO3 31 H (24-28) mmol/L Sodium (137-145) mmol/L Potassium (3.5-5.1) mmol/L Chloride (98-107) mmol/L Carbon Dioxide (22-30) mmol/L Anion Gap mmol/L BUN (7-17) mg/dL Creatinine (0.52-1.04) mg/dL Est GFR (CKD-EPI)AfAm (>60 ml/min/1.73 sqM) Est GFR (CKD-EPI)NonAf (>60 ml/min/1.73 sqM) Glucose (74-99) mg/dL Calcium (8.4-10.2) mg/dL Magnesium (1.6-2.3) mg/dL Total Bilirubin (0.2-1.3) mg/dL AST (14-36) U/L ALT (4-34) U/L Alkaline Phosphatase (38-126) U/L Troponin I (0.000-0.034) ng/mL NT-Pro-B Natriuret Pep 3330 pg/mL Total Protein (6.3-8.2) g/dL Albumin (3.5-5.0) g/dL Influenza Type A (PCR) Not Detected (Not Detectd) Influenza Type B (PCR) Not Detected (Not Detectd) RSV (PCR) Not Detected (Not Detectd) SARS-CoV-2 (PCR) Not Detected (Not Detectd) Critical Care Time Critical Care Time: Yes Total Critical Care Time: 34 Disposition Clinical Impression: COPD exacerbation, Congestive heart failure Disposition: ADMITTED IP TO THIS [facility] Condition: Stable Is patient prescribed a controlled substance at d/c from ED?: No Referrals: Jose Butcher MD [Primary Care Provider] - 1-2 days Time of Disposition: 06:45 Decision to Admit Reason: Admit from EC Decision Date: 05/22/22 Decision Time: 06:45
[2022-05-22 07:00] LABS: INR 8.8 (<1.2)
[2022-05-22] MEDS ORDERED: PHYTONADIONE ORAL 5 MG/5 ML ORAL.SYRG PO STA (07:49)
[2022-05-22] MEDS ORDERED: DEXTROSE 50% SYRINGE 50 ML IVP PRN ×2 (07:56)
[2022-05-22] MEDS ORDERED: INSULIN ASPART (NovoLOG) 100 UNIT/ML VIAL SQ SCH (08:00)
[2022-05-22 08:10] LABS: Glucose,Whole Blood 146 mg/dL (70-110)
[2022-05-22] MEDS: methylPREDNISolone SOD SUCCI 125 MG/2 ML VIAL IV SCH ×3 (08:34→17:01)
[2022-05-22] MEDS: IPRATROPIUM-ALBUTEROL 3 ML NEB INHALATION SCH ×4 (09:20→19:14)
[2022-05-22] MEDS ORDERED: ALBUTEROL NEBULIZED 2.5 MG/3 ML INHALATION PRN (09:26)
[2022-05-22] MEDS: MAGNESIUM OXIDE 400 MG TAB PO SCH ×2 (10:49→22:59)
--- NOTE | 2022-05-22 12:40 | P.HPIM ---
History of Present Illness H&P Date: 05/22/22 This is a 81-year-old female with a past medical history of COPD with chronic hypoxic respiratory failure on oxygen 2 L nasal cannula, A. fib, complete heart block status post ventricular pacemaker, hypertension, hyperlipidemia, and type 2 diabetes mellitus. Patient returns to [facility] with increased shortness of breath and fatigue. Patient was last seen and discharged on 05/11/2022 for a similar presentation. She was placed on Coumadin because she was unable to afford Xarelto. INR in the emergency department was 8.8. Patient states that she was placed on oral antibiotics this past week. Patient has felt unwell over the past week with increased shortness of breath a nd fatigue. Patient was given oral antibiotics for an upper respiratory infection. Hence her elevated INR. Patient does not recall what antibiotic she was taking. Patient is currently on BiPAP. Patient denies nausea vomiting fevers or chills. Patient further denies chest pain. Troponin 1 was elevated. Last cardiac cath was on 05/08/22. Right coronary artery showed a moderate area stenosis in the mid RCA. Left main coronary artery was free of stenosis. LAD and its branches circumflex coronary artery and its branches free of significant stenosis. Moderate arthrosclerotic plaque involving mid RCA at its worst seems to be around 40% to 50% stenosis. Medical therapy was recommended at that time. A echocardiogram on 04/12/22 showed normal LV function EF estimated at 55-60% with mild to moderate concentric LVH. Review of Systems A 14 point review systems was assessed patient was only positive for those pertinent in HPI Past Medical History Past Medical History: Atrial Fibrillation, Cancer, COPD, Hypertension Additional Past Medical History / Comment(s): breast cancer 2000 post Lt l umpectomy & lymph node, and bladder cancer post , carpletunnel, chronic atrail fibrillation History of Any Multi-Drug Resistant Organisms: None Reported Past Surgical History: Back Surgery, Joint Replacement, Orthopedic Surgery, Pacemaker, Tonsillectomy, Tubal Ligation Additional Past Surgical History / Comment(s): bilat knees, rt shoulder repair, lung nodule removal, both carotids repaired (occluded) Past Anesthesia/Blood Transfusion Reactions: No Reported Reaction Type of Cardiac Device: Permanent Pacemaker Device Placement Date:: 02/16/2017 Past Psychological History: Anxiety, Depression Smoking Status: Former smoker - Past Family History Mother Family Medical History: COPD Medications and Allergies Home Medications Medication Instructions Recorded Confirmed Type Metoprolol Tartrate [Lopressor] 100 mg PO BID 02/17/22 05/04/22 History Nortriptyline [Pamelor] 25 mg PO TID 02/17/22 05/04/22 History Pantoprazole Sodium [Protonix] 40 mg PO BID 02/17/22 05/04/22 History Vitamin [id number]-[id number] 1 tab SUBLINGUAL DAILY 02/17/22 05/04/22 History rOPINIRole HCL [Requip] 2 mg PO BID 02/17/22 05/04/22 History metFORMIN HCL [Glucophage] 500 mg PO BID 04/06/22 05/04/22 History Albuterol Inhaler [Ventolin Hfa 2 puff INHALATION RT-Q4H PRN #1 04/12/22 05/04/22 Rx Inhaler] each Magnesium Oxide [Mag-Ox] 400 mg PO BID #60 tab 04/12/22 05/04/22 Rx Torsemide [Demadex] 40 mg PO DAILY #30 tab 04/12/22 05/04/22 Rx Cholecalciferol [Vitamin D3 (25 25 mcg PO HS 05/04/22 05/04/22 History Mcg = 1000 Iu)] Insulin Detemir [Levemir Flextouch 8 units SQ HS 05/04/22 05/04/22 History Pen] lisinopriL [Zestril] 5 mg PO DAILY 05/04/22 05/04/22 History oxyCODONE HCL/ACETAMINOPHEN 1 tab PO Q6HR 05/05/22 05/05/22 History [Percocet 10-325 mg] Aspirin 81 mg PO DAILY #30 tab 05/11/22 Rx Atorvastatin [Lipitor] 80 mg PO HS #30 tab 05/11/22 Rx Budesonide-Formot 160-4.5 Mcg 2 puff INHALATION RT-BID #1 each 05/11/22 Rx [Symbicort 160-4.5 Mcg Inhaler] Warfarin Sodium 6 mg PO DAILY #30 tablet 05/11/22 Rx predniSONE [Deltasone] 40 mg PO DAILY #8 tab 05/11/22 Rx Allergies Allergy/AdvReac Type Severity Reaction Status Date / Time morphine Allergy Itching Verified 05/14/22 23:18 tizanidine [From Zanaflex] Allergy Unknown Verified 05/14/22 23:18 zolpidem [From Ambien] Allergy Unknown Verified 05/14/22 23:18 gabapentin AdvReac Hallucinati Verified 05/14/22 23:18 ons hydromorphone [From Dilaudid] AdvReac Hallucinati Verified 05/14/22 23:18 ons pentazocine [From Talwin] AdvReac Hallucinati Verified 05/14/22 23:18 ons pregabalin [From Lyrica] AdvReac Hallucinati Verified 05/14/22 23:18 ons Physical Exam Osteopathic Statement: *. No significant issues noted on an osteopathic structural exam other than those noted in the History and Physical/Consult. Vitals: Vital Signs Temp Pulse Resp BP Pulse Ox FiO2 05/22/22 07:23 30 05/22/22 06:50 97.9 F 62 25 H 125/60 92 L 05/22/22 06:00 60 20 123/62 97 05/22/22 05:50 60 17 132/66 98 05/22/22 05:44 60 16 130/70 98 05/22/22 05:25 35 05/22/22 05:19 68 20 97 05/22/22 05:04 96.9 F L 61 28 H 156/79 100 Intake and Output 05/21/22 05/22/22 05/22/22 22:59 06:59 14:59 Other: Weight 81.647 kg General: [non toxic], [on BiPAP], [appears at stated age] Derm: [warm], [dry] Head: [atraumatic], [normocephalic], [symmetric] Eyes: [EOMI], [no lid lag], [anicteric sclera] Mouth: [no lip lesion], [mucus membranes moist] Cardiovascular: [S1S2 reg], [no murmur], [positive posterior tibial pulse bilateral], Lungs: [Bilateral expiratory wheezing] , [no accessory muscle use] Abdominal: [soft], [ nontender to palpation], [no guarding], [no appreciable organomegaly] Ext: [no gross muscle atrophy], [no edema], [no contractures] Neuro: [ CN II-XI grossly intact], [no focal neuro deficits] Psych: [Alert], [oriented], [appropriate affect] Results CBC & Chem 7: 05/22/22 05:25 05/22/22 05:25 Labs: Abnormal Lab Results - Last 24 Hours (Table) 05/22/22 05/22/22 05/22/22 Range/Units 05:25 05:25 05:25 Hgb 11.1 L (11.4-16.0) gm/dL MCHC 30.6 L (31.0-37.0) g/dL RDW 17.8 H (11.5-15.5) % PT 89.3 H (9.0-12.0) sec INR 8.8 H* (<1.2) APTT 37.9 H (22.0-30.0) sec VBG pCO2 (37-51) mmHg VBG HCO3 (24-28) mmol/L Carbon Dioxide 31 H (22-30) mmol/L BUN 25 H (7-17) mg/dL Glucose 130 H (74-99) mg/dL POC Glucose (mg/dL) (70-110) mg/dL Magnesium 1.3 L (1.6-2.3) mg/dL AST 56 H (14-36) U/L ALT 35 H (4-34) U/L Troponin I (0.000-0.034) ng/mL 05/22/22 05/22/22 05/22/22 Range/Units 05:25 05:25 08:07 Hgb (11.4-16.0) gm/dL MCHC (31.0-37.0) g/dL RDW (11.5-15.5) % PT (9.0-12.0) sec INR (<1.2) APTT (22.0-30.0) sec VBG pCO2 62 H (37-51) mmHg VBG HCO3 31 H (24-28) mmol/L Carbon Dioxide (22-30) mmol/L BUN (7-17) mg/dL Glucose (74-99) mg/dL POC Glucose (mg/dL) 146 H (70-110) mg/dL Magnesium (1.6-2.3) mg/dL AST (14-36) U/L ALT (4-34) U/L Troponin I 0.040 H* (0.000-0.034) ng/mL Thrombosis Risk Factor Assmnt - DVT/VTE Prophylaxis DVT/VTE Prophylaxis: Pharmacologic Prophylaxis ordered, Mechanical Prophylaxis ordered Assessment and Plan Assessment: 1. Acute on chronic hypoxic respiratory failure (on oxygen 2 L nasal cannula at home) secondary to acute exacerbation of COPD Continue oxygen supplementation with BiPAP Consult pulmonology Solu-Medrol 60 mg IV push every 6 hours Duo nebs every 4 hours Vitals every 4 hours Telemetry 2. Supratherapeutic INR Vitamin K provided Coumadin currently held Pharmacy consultation for Coumadin to dose 3. Elevated troponin level secondary to #1 Cardiology will follow Last cardiac cath was on 05/08/22. Right coronary artery showed a moderate area stenosis in the mid RCA. Left main coronary artery was free of stenosis. LAD and its branches circumflex coronary artery and its branches free of significant stenosis. Moderate arthrosclerotic plaque involving mid RCA at its worst seems to be around 40% to 50% stenosis. Medical therapy was recommended at that time. A echocardiogram on 04/12/22 showed normal LV function EF estimated at 55-60% with mild to moderate concentric LVH. 4. History of A. fib on anticoagulation Coumadin currently held secondary to #2 Cardiology consult Resume beta katherine Telemetry 5. Uncontrolled type 2 diabetes mellitus Resume insulin Insulin sliding scale Hemoglobin A1c at 8.2% Diabetic diet 6. Hypomagnesemia Magnesium replaced in ER 7. Chronic conditions: complete heart block status post ventricular pacemaker, hypertension, hyperlipidemia, RLS Resume home medication 8. GI DVT prophylaxis 9. A.m. labs Patient is a full code Disposition: Patient will likely require rehab Greater than 45 minutes spent coordinating care documenting and counseling patient Time with Patient: Greater than 30
[2022-05-22] MEDS ORDERED: PHYTONADIONE 2 MG in SODIUM CHLORIDE 0.9% 50 ML IVPB STA (12:43)
--- NOTE | 2022-05-22 12:43 | P.CNPUL ---
History of Present Illness Consult date: 05/22/22 Reason for consult: dyspnea History of present illness: This is a pleasant 81-year-old female patient was coming in for another hospitalization for shortness of breath. The patient was in the hospital back in February 2022 and at that time the patient a Covid 19 infection. Subsequently, she was hospitalized twice in March and April 2022 for acute COPD and CHF exacerbation treated and discharged home. The viral screening has been essentially negative. The patient during her most recent hospitalization April 2022 underwent cardiac evaluation also. On 05/06/2022 the patient underwent a cardiac catheterization that showed nonocclusive disease involving the RCA whereas the left main and circumflex and LAD were free of any stenosis and the patient was out for medical management. Her echocardiogram from March 2022 showed a preserved LV function with an EF of around 55-60%, moderate RV dilatation, no significant valvular abnormalities.She is known to have chronic atrial fibrillation and previous history of cardiac block requiring a pacemaker insertion and the patient has been maintained on long-term and coagulation with warfarin. During this current admission, she reported worsening shortness of breath, no angina, increased lower oximetry edema. She has been on oxygen at home at 3 L/m nasal cannula and she takes Demadex for chronic diuresis. In terms of maintenance inhalers, the patient is using a combination of Symbicort twice a day and Spiriva once a day and albuterol nebulized treatments up to 4 times a day. She is a ex-smoker and she quit smoking. No angina. No palpitation. In the ED, chest x-ray showed some CHF with pulmonary vessel congestion. ProBNP level was elevated at 2000 range. Patient was initially placed on a BiPAP at a pressure of 12/6 cm of water and currently she is off the BiPAP and she is on nasal cannula at 5 L. She was also diuresed and showed produced excellent urine output. She is on bronchodilators. She is on steroids. No fever. No chills. No signs of any CO2 narcosis. Her blood work from today shows a WBC count of 9.7 with a hemoglobin of 11. INR is at 8.8. BUN 25 with a creatinine of 0.9 and a sodium level is at 133. Troponins are 0.043 respectively. Influenza, Covid 19 and RSV are all negative. ProBNP level was initially added 2160 and currently is up to 3330. Review of Systems Constitutional: Reports as per HPI, Reports weakness, Reports weight gain Eyes: denies as per HPI, denies blurred vision, denies bulging eye, denies decreased vision, denies diplopia, denies discharge, denies dry eye, denies irritation, denies itching, denies pain, denies photophobia, denies loss of peripheral vision, denies loss of vision, denies tunnel vision/blind spots Ears: deny: decreased hearing, ear discharge, earache, tinnitus Ears, nose, mouth and throat: Reports as per HPI Breasts: absent: as per HPI, change in shape, gynecomastia, masses, nipple discharge, pain, skin changes, swelling Cardiovascular: Reports decreased exercise tolerance, Reports dyspnea on exertion, Reports edema, Reports irregular heart beat Respiratory: Reports as per HPI, Reports cough, Reports dyspnea, Reports wheezing Gastrointestinal: Reports as per HPI Genitourinary: Reports as per HPI Menstruation: Reports as per HPI Musculoskeletal: Reports as per HPI Musculoskeletal: absent: ankle pain, ankle stiffness, ankle swelling Integumentary: Reports as per HPI Neurological: Reports as per HPI Psychiatric: Reports as per HPI Endocrine: Reports as per HPI Hematologic/Lymphatic: Reports as per HPI Allergic/Immunologic: Reports as per HPI Past Medical History Past Medical History: Atrial Fibrillation, Coronary Artery Disease (CAD), Cancer , COPD, Hypertension Additional Past Medical History / Comment(s): breast cancer 2001 post Lt lumpectomy & lymph node, and bladder cancer post , carpletunnel, chronic atrail fibrillation History of Any Multi-Drug Resistant Organisms: None Reported Past Surgical History: Back Surgery, Joint Replacement, Orthopedic Surgery, Pacemaker, Tonsillectomy, Tubal Ligation Additional Past Surgical History / Comment(s): bilat knees, rt shoulder repair, lung nodule removal, both carotids repaired (occluded) Past Anesthesia/Blood Transfusion Reactions: No Reported Reaction Type of Cardiac Device: Permanent Pacemaker Device Placement Date:: 02/16/2017 Past Psychological History: Anxiety, Depression Smoking Status: Former smoker - Past Family History Mother Family Medical History: COPD Medications and Allergies Home Medications Medication Instructions Recorded Confirmed Type Metoprolol Tartrate [Lopressor] 100 mg PO BID 02/17/22 05/04/22 History Nortriptyline [Pamelor] 25 mg PO TID 02/17/22 05/04/22 History Pantoprazole Sodium [Protonix] 40 mg PO BID 02/17/22 05/04/22 History Vitamin [id number] 1 tab SUBLINGUAL DAILY 02/17/22 05/04/22 History rOPINIRole HCL [Requip] 2 mg PO BID 02/17/22 05/04/22 History metFORMIN HCL [Glucophage] 500 mg PO BID 04/06/22 05/04/22 History Albuterol Inhaler [Ventolin Hfa 2 puff INHALATION RT-Q4H PRN #1 04/12/2204/15 Rx Inhaler] each Magnesium Oxide [Mag-Ox] 400 mg PO BID #60 tab 04/12/22 05/04/22 Rx Torsemide [Demadex] 40 mg PO DAILY #30 tab 04/12/22 05/04/22 Rx Cholecalciferol [Vitamin D3 (25 25 mcg PO HS 05/04/22 05/04/22 History Mcg = 1000 Iu)] Insulin Detemir [Levemir Flextouch 8 units SQ HS 05/04/22 05/04/22 History Pen] lisinopriL [Zestril] 5 mg PO DAILY 05/04/22 05/04/22 History oxyCODONE HCL/ACETAMINOPHEN 1 tab PO Q6HR 05/05/22 05/05/22 History [Percocet 10-325 mg] Aspirin 81 mg PO DAILY #30 tab 05/11/22 Rx Atorvastatin [Lipitor] 80 mg PO HS #30 tab 05/11/22 Rx Budesonide-Formot 160-4.5 Mcg 2 puff INHALATION RT-BID #1 each 05/11/22 Rx [Symbicort 160-4.5 Mcg Inhaler] Warfarin Sodium 6 mg PO DAILY #30 tablet 05/11/22 Rx predniSONE [Deltasone] 40 mg PO DAILY #8 tab 05/11/22 Rx Allergies Allergy/AdvReac Type Severity Reaction Status Date / Time morphine Allergy Itching Verified 05/22/22 12:40 tizanidine [From Zanaflex] Allergy Unknown Verified 05/22/22 12:40 zolpidem [From Ambien] Allergy Unknown Verified 05/22/22 12:40 gabapentin AdvReac Hallucinati Verified 05/22/22 12:40 ons hydromorphone [From Dilaudid] AdvReac Hallucinati Verified 05/22/22 12:40 ons pentazocine [From Talwin] AdvReac Hallucinati Verified 05/22/22 12:40 ons pregabalin [From Lyrica] AdvReac Hallucinati Verified 05/22/22 12:40 ons Physical Exam Vitals: Vital Signs Temp Pulse Resp BP Pulse Ox FiO2 05/22/22 11:26 64 05/22/22 11:15 64 05/22/22 07:23 30 05/22/22 06:50 97.9 F 62 25 H 125/60 92 L 05/22/22 06:00 60 20 123/62 97 05/22/22 05:50 60 17 132/66 98 05/22/22 05:44 60 16 130/70 98 05/22/22 05:25 35 05/22/22 05:19 68 20 97 05/22/22 05:04 96.9 F L 61 28 H 156/79 100 Intake and Output 05/21/22 05/22/22 05/22/22 22:59 06:59 14:59 Other: Weight 81.647 kg General: non toxic, no distress, appears at stated age, obese, currently on 5 L of oxygen by nasal cannula. Body mass index is 31.9 Derm: no unusual rashes/lesions, warm Head: atraumatic, normocephalic, symmetric Eyes: EOMI, no lid lag, anicteric sclera, pupils equal round reactive to light ENT: Nose and ears atraumatic Neck: No cervical lymphadenopathy, trachea midline, supple Mouth: no lip lesion, mucus membranes moist Cardiovascular: S1S2 reg, no murmur, positive dorsalis pedis pulse bilateral, 1+ bilateral lower extremity pitting edema, no calf tenderness Lungs: Poor air entry bilaterally with expiratory wheezing noted, no accessory muscle use Abdominal: soft, nontender to palpation, no guarding Ext: muscle strength 5 out of 5 in all 4 extremities grossly, no gross muscle atrophy, no contractures, Neuro: CN II-XI grossly intact, no gross focal neuro deficits Psych: Alert, oriented, appropriate affect Results - Laboratory Findings CBC and BMP: 05/22/22 05:25 05/22/22 05:25 PT/INR, D-dimer PT 89.3 sec (9.0-12.0) H 01/08/23 05:25 INR 8.8 (<1.2) H* 05/22/22 05:25 Abnormal lab findings: Abnormal Labs 05/22/22 05/22/22 05/22/22 05:25 05:25 05:25 Hgb 11.1 L MCHC 30.6 L RDW 17.8 H PT 89.3 H INR 8.8 H* APTT 37.9 H VBG pCO2 VBG HCO3 Carbon Dioxide 31 H BUN 25 H Glucose 130 H POC Glucose (mg/dL) Hemoglobin A1c Magnesium 1.3 L AST 56 H ALT 35 H Troponin I 05/22/22 05/22/22 05/22/22 05:25 05:25 08:07 Hgb MCHC RDW PT INR APTT VBG pCO2 62 H VBG HCO3 31 H Carbon Dioxide BUN Glucose POC Glucose (mg/dL) 146 H Hemoglobin A1c Magnesium AST ALT Troponin I 0.040 H* 05/22/22 05/22/22 08:42 08:42 Hgb MCHC RDW PT INR APTT VBG pCO2 VBG HCO3 Carbon Dioxide BUN Glucose POC Glucose (mg/dL) Hemoglobin A1c 8.2 H Magnesium AST ALT Troponin I 0.040 H* - Diagnostic Findings Chest x-ray: image reviewed Assessment and Plan Plan: Acute COPD/CHF exacerbation. Noted the patient was recently infected with Covid 19 on 02/17 2022 and the patient was hospitalized and discharged home. Currently, she had another hospitalization back in March 2022, treated and discharged home. Subsequently, she had another hospitalization in [facility] 2021, treated and discharged home. Note that the viral screen that was done on the admissions from March and April were negative. She is coming in for another exacerbation and acute on chronic hypoxic/hypercapnic respiratory failure requiring BiPAP initially at a pressures of 12/6 cm of water 30% and currently she is off the BiPAP on 5 L O2 nasal cannula. Her home oxygen requirements are at 3 L. I suspect, there is obviously a component of CHF also as the patient's proBNP level is high, she has crackling and she also has cardiomegaly and mild colovesical congestion on her chest x-ray. Acute hypoxic respiratory failure currently off the BiPAP and the patient is currently on 5 L of O2 nasal cannula Shortness of breath secondary to above Coronary artery disease with recent cardiac catheterization and single-vessel disease involving RCA, offered medical treatment Remote history of breast cancer with a previous left lumpectomy History of bladder cancer post transurethral resection of the bladder tumor Chronic atrial fibrillation and the patient has been maintained on long-term a anticoagulation History of arrhythmia requiring a pacemaker insertion Hypertension History of ex-smoking. Diabetes mellitus maintain on Glucophage Hyperlipidemia Plan Keep the patient on 5 L of oxygen by nasal cannula IV Lasix 40 mg every 12 hours Continue bronchodilators Continue IV Solu-Medrol 60 mg every 6 hours Stop anticoagulation and give the patient 1 mg of vitamin K and monitor PT/INR Resume all medications Discontinue the BiPAP and use oxygen currently at 5 L/m nasal cannula Cardiology consultation for the limited troponin leak, likely a type II ischemia as the patient's most recent cardiac catheterization showed nonocclusive disease, single-vessel involvement involving the RCA We'll admit to the hospital
[2022-05-22] MEDS: oxyCODONE-APAP 10-325MG 1 EACH TAB PO PRN ×2 (15:44→23:02)
[2022-05-22 16:45] LABS: Glucose,Whole Blood 299 mg/dL (70-110)
[2022-05-22] MEDS: PANTOPRAZOLE 40 MG TABLET PO SCH (17:01)
[2022-05-22] MEDS: INSULIN ASPART (NovoLOG) 100 UNIT/ML VIAL SQ SCH ×2 (17:01→22:57)
[2022-05-22] MEDS ORDERED: WARFARIN 0.5 MG TAB PO ONE (18:00)
[2022-05-22] MEDS: SYMBICORT 160-4.5 MCG INHALER INHALATION SCH (19:14)
[2022-05-22] MEDS ORDERED: INSULIN DETEMIR (LEVEMIR) 100 UNIT/ML SYR SQ SCH (21:00)
[2022-05-22 22:56] LABS: Glucose,Whole Blood 290 mg/dL (70-110)
[2022-05-22] MEDS: NORTRIPTYLINE 25 MG CAP PO SCH (22:57)
[2022-05-22] MEDS: ATORVASTATIN 80 MG TAB PO SCH (22:59)
[2022-05-22] MEDS: CHOLECALCIFEROL 25 MCG (1000 IU) TABLET PO SCH (22:59)
[2022-05-22] MEDS: METOPROLOL TARTRATE 50 MG TAB PO SCH (22:59)
[2022-05-22] MEDS: FUROSEMIDE 10 MG/ML 4 ML VIAL IV SCH (23:00)
[2022-05-23] MEDS: methylPREDNISolone SOD SUCCI 125 MG/2 ML VIAL IV SCH ×4 (00:42→17:39)
[2022-05-23 05:42] LABS: INR 2.5 (<1.2)
[2022-05-23] MEDS: IPRATROPIUM-ALBUTEROL 3 ML NEB INHALATION SCH ×4 (07:09→20:12)
[2022-05-23] MEDS: SYMBICORT 160-4.5 MCG INHALER INHALATION SCH ×2 (07:11→20:12)
[2022-05-23 07:45] LABS: Glucose,Whole Blood 179 mg/dL (70-110)
[2022-05-23] MEDS: INSULIN ASPART (NovoLOG) 100 UNIT/ML VIAL SQ SCH ×4 (07:52→21:07)
[2022-05-23] MEDS: PANTOPRAZOLE 40 MG TABLET PO SCH ×2 (07:58→17:02)
[2022-05-23] MEDS: METOPROLOL TARTRATE 50 MG TAB PO SCH ×2 (08:00→21:07)
[2022-05-23] MEDS: MAGNESIUM OXIDE 400 MG TAB PO SCH ×2 (08:00→21:06)
[2022-05-23] MEDS: FUROSEMIDE 10 MG/ML 4 ML VIAL IV SCH ×2 (08:00→21:06)
[2022-05-23] MEDS: ASPIRIN 81 MG PO SCH (08:00)
[2022-05-23] MEDS: lisinopriL 5 MG TAB PO SCH (08:00)
[2022-05-23] MEDS: NORTRIPTYLINE 25 MG CAP PO SCH ×3 (08:01→21:39)
[2022-05-23] MEDS: oxyCODONE-APAP 10-325MG 1 EACH TAB PO PRN ×2 (08:07→17:39)
--- NOTE | 2022-05-23 08:48 | P.CRDCN ---
History of Present Illness Consult reason: atrial fibrillation, congestive heart failure History of present illness: 81-year-old lady with history of complete heart block status post permanent pacemaker hypertension diabetes dyslipidemia and COPD on home O2 and atrial fibrillation presented to hospital with symptoms of worsening shortness of breath. Its mild to moderate intensity has been getting progressively worse without any relieving factors. She comes to Hospital where she has been diagnosed with COPD and CHF exacerbations. She is currently being treated with intravenous diuretics and nebulizers with some improvement in his symptoms. Patient had a cardiac catheterization last month that revealed mild to moderate nonobstructive CAD for which she was advised medical therapy. She has normal LV systolic function and a recent echocardiogram. Troponins are normal BNP is elevated. Patient's clinical presentation is consistent with a diagnosis of COPD and CHF exacerbations. I will treat the patient with intravenous diuretics and continue rest of her medications. Troponins are in the leblanc zone at 0.0 4.04. She had coagulopathy and in initial presentation with INR of 8.8 but the INR is in therapeutic range this morning. Review of systems: 14 out of 14 review of systems has been performed pertinent is documented General: The patient is awake and alert, in no distress, and does not appear acutely ill. Skin: Skin is warm and dry and no rashes or lesions are noted. Eye: Pupils are equal, round and reactive to light, extra-ocular movements are intact; there is normal conjunctiva bilaterally. Ears, nose, mouth and throat: There are moist mucous membranes and no oral lesions. Neck: The neck is supple, there is no tenderness or JVD. Cardiovascular: Irregularly irregular systolic murmur at the apex Respiratory: Lungs are clear to auscultation, respirations are non-labored, breath sounds are equal. Gastrointestinal: Soft, non-distended, non-tender abdomen without masses or organomegaly noted. There is no rebound or guarding present. Bowel sounds are unremarkable. Back: There is no tenderness to palpation in the midline. There is no obvious deformity. Musculoskeletal: Normal ROM, no tenderness, There is no pedal edema. There is no calf tenderness or swelling. Extremities: No edema. Vascular: Femoral pulse is normal. Posterior tibial pulses are normal .Dorsalis pedis is palpable. Neurological: CN II-XII intact. There are no obvious motor or sensory deficits. Speech is normal. Psychiatric: Cooperative, appropriate mood & affect, normal judgment. Respiratory: Diminished air entry bilaterally with wheezes Assessment and plan: Persistent atrial fibrillation with controlled ventricular rate Acute exacerbation of chronic diastolic heart failure COPD exacerbation High-grade AV block status post permanent pacemaker Coronary artery disease Elevated troponin I will treat the patient with intravenous diuretics Adjust the medications based on clinical response Elevated troponin is probably secondary to type II mechanism Past Medical History Past Medical History: Atrial Fibrillation, Coronary Artery Disease (CAD), C ancer, COPD, Hypertension Additional Past Medical History / Comment(s): breast cancer 2000 post Lt lumpectomy & lymph node, and bladder cancer post , carpletunnel, chronic atrail fibrillation History of Any Multi-Drug Resistant Organisms: None Reported Past Surgical History: Back Surgery, Joint Replacement, Orthopedic Surgery, Pacemaker, Tonsillectomy, Tubal Ligation Additional Past Surgical History / Comment(s): bilat knees, rt shoulder repair, lung nodule removal, both carotids repaired (occluded) Past Anesthesia/Blood Transfusion Reactions: No Reported Reaction Type of Cardiac Device: Permanent Pacemaker Device Placement Date:: 02/16/2017 Past Psychological History: Anxiety, Depression Smoking Status: Former smoker Past Alcohol Use History: None Reported Past Drug Use History: None Reported - Past Family History Mother Family Medical History: COPD Medications and Allergies Home Medications Medication Instructions Recorded Confirmed Type Metoprolol Tartrate [Lopressor] 100 mg PO BID 02/17/22 05/22/22 History Nortriptyline [Pamelor] 25 mg PO DAILY 02/17/22 05/22/22 History Pantoprazole Sodium [Protonix] 40 mg PO BID 02/17/22 05/22/22 History rOPINIRole HCL [Requip] 2 mg PO BID 02/17/22 05/22/22 History metFORMIN HCL [Glucophage] 500 mg PO BID 04/06/22 05/22/22 History Albuterol Inhaler [Ventolin Hfa 2 puff INHALATION RT-Q4H PRN #1 04/12/22 05/22/22 Rx Inhaler] each Magnesium Oxide [Mag-Ox] 400 mg PO BID #60 tab 04/12/22 05/22/22 Rx Torsemide [Demadex] 40 mg PO DAILY #30 tab 04/12/22 05/22/22 Rx Cholecalciferol [Vitamin D3 (25 25 mcg PO HS 05/04/22 05/22/22 History Mcg = 1000 Iu)] Insulin Detemir [Levemir Flextouch 8 units SQ HS 05/04/22 05/22/22 History Pen] lisinopriL [Zestril] 5 mg PO DAILY 05/04/22 05/22/22 History oxyCODONE HCL/ACETAMINOPHEN 1 tab PO Q6HR PRN 05/05/22 05/22/22 History [Percocet 10-325 mg] Aspirin 81 mg PO DAILY #30 tab 05/11/22 05/22/22 Rx Atorvastatin [Lipitor] 80 mg PO HS #30 tab 05/11/22 05/22/22 Rx Ipratropium-Albuterol Nebulize 3 mg INHALATION RT-Q4H PRN 05/22/22 05/22/22 History [Duoneb 0.5 mg-3 mg/3 ml Soln] Spironolactone [Aldactone] 50 mg PO DAILY 05/22/22 05/22/22 History Warfarin Sodium [Jantoven] 5 mg PO DAILY 05/22/22 05/22/22 History Allergies Allergy/AdvReac Type Severity Reaction Status Date / Time morphine Allergy Itching Verified 05/22/22 12:40 tizanidine [From Zanaflex] Allergy Unknown Verified 05/22/22 12:40 zolpidem [From Ambien] Allergy Unknown Verified 05/22/22 12:40 gabapentin AdvReac Hallucinati Verified 05/22/22 12:40 ons hydromorphone [From Dilaudid] AdvReac Hallucinati Verified 05/22/22 12:40 ons pentazocine [From Talwin] AdvReac Hallucinati Verified 05/22/22 12:40 ons pregabalin [From Lyrica] AdvReac Hallucinati Verified 05/22/22 12:40 ons Physical Exam Vitals: Vital Signs Temp Pulse Pulse Resp BP BP Pulse Ox 05/23/22 07:44 64 17 152/77 97 05/23/22 07:18 64 05/23/22 07:12 60 05/23/22 05:00 83 18 135/92 94 L 05/23/22 03:47 18 05/23/22 00:00 64 20 134/79 95 05/22/22 23:47 18 05/22/22 20:00 63 13 128/68 95 05/22/22 19:47 18 05/22/22 19:24 69 05/22/22 19:14 66 05/22/22 16:09 66 05/22/22 15:58 72 05/22/22 15:48 97.5 F L 68 20 136/94 99 05/22/22 14:41 97.6 F 65 20 140/85 98 05/22/22 14:00 68 20 05/22/22 13:00 61 18 148/90 100 05/22/22 12:30 60 18 153/83 99 05/22/22 12:00 65 20 163/92 05/22/22 11:30 61 20 163/93 98 05/22/22 11:26 64 05/22/22 11:15 64 100 05/22/22 11:00 60 18 155/88 95 05/22/22 10:30 60 20 117/72 98 05/22/22 10:00 60 17 170/84 98 05/22/22 09:30 65 20 161/99 97 05/22/22 09:00 62 20 138/77 96 Intake and Output 05/22/22 05/23/22 05/23/22 22:59 06:59 14:59 Output Total 700 Balance -700 Output: Urine 700 Results 05/22/22 05:25 05/22/22 05:25 Cardiac Enzymes 05/22/22 Range/Units 08:42 Troponin I 0.040 H* (0.000-0.034) ng/mL Coagulation 05/23/22 Range/Units 05:10 PT 24.0 H (9.0-12.0) sec Current Medications Generic Name Dose Route Start Last Admin Trade Name Freq PRN Reason Stop Dose Admin Albuterol Sulfate 2.5 mg 05/22/22 09:26 Albuterol Nebulized 2.5 Mg/3 Ml INHALATION RT-Q4H PRN Shortness Of Breath Albuterol/Ipratropium 3 ml 05/22/22 08:00 05/23/22 07:09 Ipratropium-Albuterol 3 Ml Neb INHALATION 3 ml RT-QID PAULA Administration Aspirin 81 mg 05/23/22 09:00 05/23/22 08:00 Aspirin 81 Mg PO 81 mg DAILY PAULA Administration Atorvastatin Calcium 80 mg 05/22/22 21:00 05/22/22 22:59 Atorvastatin 80 Mg Tab PO 80 mg HS PAULA Administration Budesonide/Formoterol Fumarate 2 puff 05/22/22 20:00 05/23/22 07:11 Symbicort 160-4.5 Mcg Inhaler INHALATION 2 puff RT-BID PAULA Administration Cholecalciferol 25 mcg 05/22/22 21:00 05/22/22 22:59 Cholecalciferol 25 Mcg (1000 Iu) Tablet PO 25 mcg HS PAULA Administration Dextrose/Water 25 ml 05/22/22 07:56 Dextrose 50% Syringe 50 Ml IVP PER PROTOCOL PRN Hypoglycemia Protocol Dextrose/Water 50 ml 05/22/22 07:56 Dextrose 50% Syringe 50 Ml IVP PER PROTOCOL PRN Hypoglycemia Protocol Furosemide 40 mg 05/22/22 21:00 05/23/22 08:00 Furosemide 10 Mg/Ml 4 Ml Vial IV 40 mg Q12HR PAULA Administration Insulin Aspart 0 unit 05/22/22 17:30 05/23/22 07:52 Insulin Aspart (Novolog) 100 Unit/Ml Vial SQ 3 unit ACHS PAULA Administration Protocol Insulin Detemir 15 unit 05/23/22 21:00 Insulin Detemir (Levemir) 100 Unit/Ml Syr SQ [facility] Lisinopril 5 mg 05/23/22 09:00 05/23/22 08:00 Lisinopril 5 Mg Tab PO 5 mg DAILY PAULA Administration Magnesium Oxide 400 mg 05/22/22 09:30 05/23/22 08:00 Magnesium Oxide 400 Mg Tab PO 400 mg BID PAULA Administration Methylprednisolone Sodium Succinate 60 mg 05/22/22 08:00 05/23/22 05:48 Methylprednisolone Sod Succi 125 Mg/2 Ml Vial IV 60 mg Q6HR PAULA Administration Metoprolol Tartrate 100 mg 05/22/22 21:00 05/23/22 08:00 Metoprolol Tartrate 50 Mg Tab PO 100 mg BID PAULA Administration Naloxone HCl 0.2 mg 05/22/22 06:47 Naloxone 0.4 Mg/Ml 1 Ml Vial IV Q2M PRN Opioid Reversal Nortriptyline HCl 25 mg 05/22/22 16:00 05/23/22 08:01 Nortriptyline 25 Mg Cap PO 25 mg TID PAULA Administration Oxycodone/Acetaminophen 1 each 05/22/22 15:25 05/23/22 08:07 Oxycodone-Apap 10-325mg 1 Each Tab PO 1 each Q6HR PRN Administration Pain Pantoprazole Sodium 40 mg 05/22/22 17:30 05/23/22 07:58 Pantoprazole 40 Mg Tablet PO 40 mg AC-BID PAULA Administration Ropinirole HCl 2 mg 05/22/22 15:27 05/23/22 08:01 Ropinirole Hcl 1 Mg Tab PO 2 mg BID PAULA Administration Intake and Output 05/22/22 05/23/22 05/23/22 22:59 06:59 14:59 Output Total 700 Balance -700 Output: Urine 700 05/22/22 05:25 05/22/22 05:25
[2022-05-23] MEDS ORDERED: [UNRECOGNIZED DRUG - OTHER] SUBLINGUAL SCH (09:00)
[2022-05-23] MEDS ORDERED: TORSEMIDE 20 MG TAB PO SCH (09:00)
[2022-05-23 12:13] LABS: Glucose,Whole Blood 269 mg/dL (70-110)
--- NOTE | 2022-05-23 13:39 | P.PN ---
Subjective Progress Note Date: 05/23/22 This is a pleasant 81-year-old female patient was coming in for another hospitalization for shortness of breath. The patient was in the hospital back in February 2022 and at that time the patient a Covid 19 infection. Subsequently, she was hospitalized twice in March and April 2022 for acute COPD and CHF exacerbation treated and discharged home. The viral screening has been essentially negative. The patient during her most recent hospitalization April 2022 underwent cardiac evaluation also. On 05/06/2022 the patient underwent a cardiac catheterization that showed nonocclusive disease involving the RCA whereas the left main and circumflex and LAD were free of any stenosis and the patient was out for medical management. Her echocardiogram from March 2022 showed a preserved LV function with an EF of around 55-60%, moderate RV dilatation, no significant valvular abnormalities.She is known to have chronic atrial fibrillation and previous history of cardiac block requiring a pacemaker insertion and the patient has been maintained on long-term and coagulation with warfarin. During this current admission, she reported worsening shortness of breath, no angina, increased lower oximetry edema. She has been on oxygen at home at 3 L/m nasal cannula and she takes Demadex for chronic diuresis. In terms of maintenance inhalers, the patient is using a combination of Symbicort twice a day and Spiriva once a day and albuterol nebulized treatments up to 4 times a day. She is a ex-smoker and she quit smoking. No angina. No palpitation. In the ED, chest x-ray showed some CHF wi th pulmonary vessel congestion. ProBNP level was elevated at 2000 range. Patient was initially placed on a BiPAP at a pressure of 12/6 cm of water and currently she is off the BiPAP and she is on nasal cannula at 5 L. She was also diuresed and showed produced excellent urine output. She is on bronchodilators. She is on steroids. No fever. No chills. No signs of any CO2 narcosis. Her blood work from today shows a WBC count of 9.7 with a hemoglobin of 11. INR is at 8.8. BUN 25 with a creatinine of 0.9 and a sodium level is at 133. Troponins are 0.043 respectively. Influenza, Covid 19 and RSV are all negative. ProBNP level was initially added 2160 and currently is up to 3330. The patient is seen today 06/02/2022 in follow-up in the emergency department. Currently sitting up in bed. Awake and alert in no acute distress. Breathing a bit easier today compared to yesterday. She is currently on oxygen at 2 L/m per nasal cannula with O2 saturations in the mid to upper 90s. Afebrile. Hemodynamically stable. INR 2.5. Glucose 179. She is continued on Symbicort, albuterol, IV Solu-Medrol. Remains on IV diuretics. No accurate I&O. Objective - Vital Signs Vital signs: Vital Signs Temp 97.5 F L 05/22/22 15:48 Pulse 61 05/23/22 13:30 Resp 17 05/23/22 13:30 BP 143/83 05/23/22 13:30 Pulse Ox 94 L 05/23/22 13:30 FiO2 30 05/22/22 07:23 Intake & Output 05/22/22 05/23/22 05/23/22 18:59 06:59 18:59 Output Total 700 600 Balance -700 -600 Weight 81.647 kg Output: Urine 700 600 Other: Voiding Method External Catheter - Exam General: Awake, alert 81-year-old female patient, non toxic, no distress, appears stated age, obese, currently on 2 L of oxygen by nasal cannula. Body mass index is 31.9 Derm: no unusual rashes/lesions, warm Head: atraumatic, normocephalic, symmetric Eyes: EOMI, no lid lag, anicteric sclera, pupils equal round reactive to light ENT: Nose and ears atraumatic Neck: No cervical lymphadenopathy, trachea midline, supple Mouth: no lip lesion, mucus membranes moist Cardiovascular: S1S2 reg, no murmur, positive dorsalis pedis pulse bilateral, 1+ bilateral lower extremity pitting edema, no calf tenderness Lungs: Poor air entry bilaterally with expiratory wheezing noted, no accessory muscle use Abdominal: soft, nontender to palpation, no guarding Ext: muscle strength 5 out of 5 in all 4 extremities grossly, no gross muscle atrophy, no contractures, Neuro: CN II-XI grossly intact, no gross focal neuro deficits Psych: Alert, oriented, appropriate affect - Labs CBC & Chem 7: 05/22/22 05:25 05/22/22 05:25 Labs: Abnormal Lab Results - Last 24 Hours (Table) 05/22/22 05/22/22 05/23/22 Range/Units 16:39 22:55 05:10 PT 24.0 H (9.0-12.0) sec INR 2.5 H (<1.2) POC Glucose (mg/dL) 299 H 290 H (70-110) mg/dL 05/23/22 05/23/22 Range/Units 07:42 12:10 PT (9.0-12.0) sec INR (<1.2) POC Glucose (mg/dL) 179 H 269 H (70-110) mg/dL Assessment and Plan Assessment: Acute COPD/CHF exacerbation. Noted the patient was recently infected with Covid 19 on 02/17 2022 and the patient was hospitalized and discharged home. Currently, she had another hospitalization back in March 2022, treated and discharged home. Subsequently, she had another hospitalization in and of April 2022, treated and discharged home. Note that the viral screen that was done on the admissions from March and April were negative. She is coming in for another exacerbation and acute on chronic hypoxic/hypercapnic respiratory failure requiring BiPAP initially at a pressures of 12/6 cm of water 30% and currently she is off the BiPAP on 2 L O2 nasal cannula. Her home oxygen requirements are at 3 L. There is obviously a component of CHF also as the patient's proBNP level is high, she has crackling and she also has cardiomegaly and mild colovesical congestion on her chest x-ray. Acute hypoxic respiratory failure currently off the BiPAP and the patient is currently on 2 L of O2 nasal cannula Shortness of breath secondary to above Coronary artery disease with recent cardiac catheterization and single-vessel disease involving RCA, offered medical treatment Remote history of breast cancer with a previous left lumpectomy History of bladder cancer post transurethral resection of the bladder tumor Chronic atrial fibrillation and the patient has been maintained on long-term a anticoagulation with warfarin History of arrhythmia requiring a pacemaker insertion Hypertension History of ex-smoking. Diabetes mellitus maintain on Glucophage Hyperlipidemia Plan: The patient was seen and evaluated Medications and labs reviewed Currently stable and on 2 L nasal cannula Continue the current treatment plan We will continue to follow I have personally seen and examined the patient, performed the documentation and the assessment and plan as written. Number of minutes spent on the visit: 10.
--- NOTE | 2022-05-23 14:27 | P.PN ---
Subjective Progress Note Date: 05/23/22 Patient seen and examined at bedside. Today patient is off of BiPAP and breathing has improved. Patient denies chest pain. Patient further denies nausea vomiting fevers or chills. Objective - Vital Signs Vital signs: Vital Signs Temp 97.5 F L 05/22/22 15:48 Pulse 61 05/23/22 13:30 Resp 17 05/23/22 13:30 BP 143/83 05/23/22 13:30 Pulse Ox 94 L 05/23/22 13:30 FiO2 30 05/22/22 07:23 Intake & Output 05/22/22 05/23/22 05/23/22 18:59 06:59 18:59 Output Total 700 600 Balance -700 -600 Weight 81.647 kg Output: Urine 700 600 Other: Voiding Method External Catheter - Exam General: [non toxic], [no distress], [appears at stated age] Derm: [warm], [dry] Head: [atraumatic], [normocephalic], [symmetric] Eyes: [EOMI], [no lid lag], [anicteric sclera] Mouth: [no lip lesion], [mucus membranes moist] Cardiovascular: [S1S2 reg], [no murmur], [positive posterior tibial pulse bilateral], Lungs: [Diminished breath sounds bilaterally] , [no accessory muscle use] Abdominal: [soft], [ nontender to palpation], [no guarding], [no appreciable organomegaly] Ext: [no gross muscle atrophy], [no edema], [no contractures] Neuro: [ CN II-XI grossly intact], [no focal neuro deficits] Psych: [Alert], [oriented], [appropriate affect] - Labs CBC & Chem 7: 05/22/22 05:25 05/22/22 05:25 Labs: Abnormal Lab Results - Last 24 Hours (Table) 05/22/22 05/22/22 05/23/22 Range/Units 16:39 22:55 05:10 PT 24.0 H (9.0-12.0) sec INR 2.5 H (<1.2) POC Glucose (mg/dL) 299 H 290 H (70-110) mg/dL 05/23/22 05/23/22 Range/Units 07:42 12:10 PT (9.0-12.0) sec INR (<1.2) POC Glucose (mg/dL) 179 H 269 H (70-110) mg/dL Assessment and Plan Assessment: 1. Acute on chronic hypoxic respiratory failure (on oxygen 2 L nasal cannula at home) secondary to acute exacerbation of COPD and acute exacerbation of diastolic heart Continue oxygen supplementation with BiPAP pulmonology recommendations appreciated Solu-Medrol 60 mg IV push every 6 hours IV diuresis Duo nebs every 4 hours Vitals every 4 hours Telemetry 2. Acute exacerbation of diastolic heart failure A echocardiogram on 04/12/22 showed normal LV function EF estimated at 55-60% with mild to moderate concentric LVH. Continue IV diuresis 3. Supratherapeutic INR resolved after vitamin K given INR today is 2.5 Pharmacy consultation for Coumadin to dose 4. Elevated troponin level secondary to #1 Cardiology will follow Last cardiac cath was on 05/08/22. Right coronary artery showed a moderate area stenosis in the mid RCA. Left main coronary artery was free of stenosis. LAD and its branches circumflex coronary artery and its branches free of significant stenosis. Moderate arthrosclerotic plaque involving mid RCA at its worst seems to be around 40% to 50% stenosis. Medical therapy was recommended at that time. A echocardiogram on 04/12/22 showed normal LV function EF estimated at 55-60% with mild to moderate concentric LVH. 5. History of A. fib on anticoagulation Coumadin with pharmacy to dose INR today is 2.5 Cardiology consult Resume beta katherine Telemetry 6. Uncontrolled type 2 diabetes mellitus Increase Levemir to 15 units subcu daily at bedtime Insulin sliding scale Hemoglobin A1c at 8.2% Diabetic diet 7. Hypomagnesemia Magnesium replaced in ER Recheck magnesium level 8. 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 GI DVT prophylaxis 10. A.m. labs Patient is a full code Disposition: Patient will likely require rehab Greater than 45 minutes spent coordinating care documenting and counseling patient
[2022-05-23 16:41] LABS: Glucose,Whole Blood 181 mg/dL (70-110)
[2022-05-23 20:04] LABS: Glucose,Whole Blood 304 mg/dL (70-110)
[2022-05-23] MEDS: CHOLECALCIFEROL 25 MCG (1000 IU) TABLET PO SCH (21:06)
[2022-05-23] MEDS: ATORVASTATIN 80 MG TAB PO SCH (21:06)
[2022-05-23] MEDS: INSULIN DETEMIR (LEVEMIR) 100 UNIT/ML SYR SQ SCH (21:39)
[2022-05-23] MEDS ORDERED: MELATONIN 3 MG TABLET PO STA (21:45)
[2022-05-24] MEDS: BENZONATATE 100 MG CAP PO PRN ×3 (00:01→20:45)
[2022-05-24 02:02] LABS: Glucose,Whole Blood 234 mg/dL (70-110)
[2022-05-24 06:08] LABS: Glucose,Whole Blood 187 mg/dL (70-110)
[2022-05-24] MEDS: INSULIN ASPART (NovoLOG) 100 UNIT/ML VIAL SQ SCH ×4 (06:15→20:38)
[2022-05-24] MEDS: methylPREDNISolone SOD SUCCI 125 MG/2 ML VIAL IV SCH ×2 (06:15)
[2022-05-24] MEDS: PANTOPRAZOLE 40 MG TABLET PO SCH ×2 (06:15→17:12)
[2022-05-24] MEDS: SYMBICORT 160-4.5 MCG INHALER INHALATION SCH ×2 (07:21→19:24)
[2022-05-24] MEDS: IPRATROPIUM-ALBUTEROL 3 ML NEB INHALATION SCH ×4 (07:21→19:24)
[2022-05-24 07:56] LABS: Anisocytosis Slight; Basophils % (A) 0 %; Eosinophils # (A) 0.2 k/uL (0-0.7); Eosinophils % (A) 1 %; HCT 34.3 % (34.0-46.0); HGB 10.7 gm/dL (11.4-16.0); Hypochromasia Marked; Lymphocytes # (A) 0.6 k/uL (1.0-4.8); Lymphocytes % (A) 6 %; MCH 26.1 pg (25.0-35.0); MCHC 31.2 g/dL (31.0-37.0); MCV 83.6 fL (80.0-100.0); Mean Platelet Volume 8.3; Monocytes # (A) 0.6 k/uL (0-1.0); Monocytes % (A) 5 %; Neutrophils # (A) 9.5 k/uL (1.3-7.7); Neutrophils % (A) 87 %; Platelet Count 220 k/uL (150-450); Poikilocytosis Slight; RBC 4.11 m/uL (3.80-5.40); RDW 17.7 % (11.5-15.5)
[2022-05-24 08:10] LABS: INR 1.4 (<1.2); Prothrombin Time 13.9 sec (9.0-12.0)
[2022-05-24 08:15] LABS: Albumin 4.1 g/dL (3.5-5.0); Calcium 8.4 mg/dL (8.4-10.2); Magnesium 1.4 mg/dL (1.6-2.3); Potassium 4.5 mmol/L (3.5-5.1); Total Bilirubin 0.7 mg/dL (0.2-1.3); Total Protein 6.4 g/dL (6.3-8.2)
[2022-05-24] MEDS: oxyCODONE-APAP 10-325MG 1 EACH TAB PO PRN ×3 (08:56→22:57)
[2022-05-24] MEDS: ASPIRIN 81 MG PO SCH (08:58)
[2022-05-24] MEDS: METOPROLOL TARTRATE 50 MG TAB PO SCH ×2 (08:58→20:37)
[2022-05-24] MEDS: lisinopriL 5 MG TAB PO SCH (08:59)
[2022-05-24] MEDS: MAGNESIUM OXIDE 400 MG TAB PO SCH ×2 (08:59→20:37)
[2022-05-24] MEDS: NORTRIPTYLINE 25 MG CAP PO SCH ×3 (08:59→20:37)
[2022-05-24] MEDS: FUROSEMIDE 10 MG/ML 4 ML VIAL IV SCH ×2 (08:59→20:37)
--- NOTE | 2022-05-24 10:43 | P.PN ---
Subjective Progress Note Date: 05/24/22 HISTORY OF PRESENT ILLNESS: This is an 81-year-old female who sees Dr. Stockton in the office. Patient is admitted to the hospital secondary to COPD exacerbation and CHF exacerbation. P leslieient examined this morning at the bedside. Patient states her shortness of breath has improved since yesterday but she still feels dyspneic. She is requiring supplemental oxygen. She denies any chest pain or pressure. She remains on Lasix 40 mg IV every 12 hours. Creatinine this morning is 0.88. Fluid balance over the last 24 hours is -1900 mL. Telemetry reveals paced rhythm with underlying atrial fibrillation. Echocardiogram completed in March 2022 revealed ejection fraction 55-60%. It is noted that the patient underwent cardiac cath in April 2022 revealing mild to moderate non obstructive CAD and medical management was recommended. PHYSICAL EXAM: VITAL SIGNS: Reviewed. GENERAL: Well-developed in no acute distress. NECK: Supple. No JVD or thyromegaly LUNGS: Respirations even and unlabored. Lungs diminished with a few bibasilar crackles. HEART: Irregular rate and rhythm. S1 and S2 heard. EXTREMITIES: Normal range of motion. No clubbing or cyanosis. Peripheral pulses intact. Trace lower extremity edema ASSESSMENT: Shortness of breath Acute COPD exacerbation Acute on chronic heart failure with preserved ejection fraction, EF 55-60% Elevated troponin, likely secondary to type II OR, no evidence of acute coronary syndrome Coumadin coagulopathy, on admission, resolved [id number] nonobstructive coronary artery disease Persistent atrial fibrillation with controlled ventricular rate History of high-grade AV block with permanent pacemaker implantation PLAN: Continue current cardiac medications Continue Coumadin. Monitor INR. Continue IV lasix 40mg Q12 hours Daily weights, accurate I&O, and monitoring of kidney function Further recommendations pending patient course Nurse practitioner note has been reviewed by physician. Signing provider agrees with the documented findings, assessment, and plan of care. Objective - Vital Signs Vital signs: Vital Signs Temp 98.4 F 05/24/22 08:45 Pulse 66 05/24/22 08:45 Resp 18 05/24/22 08:45 BP 138/88 05/24/22 08:45 Pulse Ox 97 05/24/22 08:45 FiO2 30 05/22/22 07:23 Intake & Output 05/23/22 05/24/22 05/24/22 18:59 06:59 18:59 Output Total 600 1300 Balance -600 -1300 Output: Urine 600 1300 Other: Voiding Method External Catheter External Catheter # Voids 1 - Labs CBC & Chem 7: 05/24/22 07:44 05/24/22 07:44 Labs: Abnormal Lab Results - Last 24 Hours (Table) 05/23/22 05/23/22 05/23/22 Range/Units 12:10 16:40 20:02 WBC (3.8-10.6) k/uL Hgb (11.4-16.0) gm/dL RDW (11.5-15.5) % Neutrophils # (1.3-7.7) k/uL Lymphocytes # (1.0-4.8) k/uL PT (9.0-12.0) sec INR (<1.2) Sodium (137-145) mmol/L Chloride (98-107) mmol/L Carbon Dioxide (22-30) mmol/L BUN (7-17) mg/dL Glucose (74-99) mg/dL POC Glucose (mg/dL) 269 H 181 H 304 H (70-110) mg/dL Magnesium (1.6-2.3) mg/dL AST (14-36) U/L ALT (4-34) U/L 05/24/22 05/24/22 05/24/22 Range/Units 01:59 06:06 07:44 WBC (3.8-10.6) k/uL Hgb (11.4-16.0) gm/dL RDW (11.5-15.5) % Neutrophils # (1.3-7.7) k/uL Lymphocytes # (1.0-4.8) k/uL PT 13.9 H (9.0-12.0) sec INR 1.4 H (<1.2) Sodium (137-145) mmol/L Chloride (98-107) mmol/L Carbon Dioxide (22-30) mmol/L BUN (7-17) mg/dL Glucose (74-99) mg/dL POC Glucose (mg/dL) 234 H 187 H (70-110) mg/dL Magnesium (1.6-2.3) mg/dL AST (14-36) U/L ALT (4-34) U/L 05/24/22 05/24/22 Range/Units 07:44 07:44 WBC 11.0 H (3.8-10.6) k/uL Hgb 10.7 L (11.4-16.0) gm/dL RDW 17.7 H (11.5-15.5) % Neutrophils # 9.5 H (1.3-7.7) k/uL Lymphocytes # 0.6 L (1.0-4.8) k/uL PT (9.0-12.0) sec INR (<1.2) Sodium 132 L (137-145) mmol/L Chloride 91 L (98-107) mmol/L Carbon Dioxide 33 H (22-30) mmol/L BUN 27 H (7-17) mg/dL Glucose 153 H (74-99) mg/dL POC Glucose (mg/dL) (70-110) mg/dL Magnesium 1.4 L (1.6-2.3) mg/dL AST 43 H (14-36) U/L ALT 35 H (4-34) U/L
--- NOTE | 2022-05-24 11:42 | P.PN ---
Subjective Progress Note Date: 05/24/22 This is a pleasant 81-year-old female patient was coming in for another hospitalization for shortness of breath. The patient was in the hospital back in February 2022 and at that time the patient a Covid 19 infection. Subsequently, she was hospitalized twice in March and April 2022 for acute COPD and CHF exacerbation treated and discharged home. The viral screening has been essentially negative. The patient during her most recent hospitalization April 2022 underwent cardiac evaluation also. On 05/06/2022 the patient underwent a cardiac catheterization that showed nonocclusive disease involving the RCA whereas the left main and circumflex and LAD were free of any stenosis and the patient was out for medical management. Her echocardiogram from March 2022 showed a preserved LV function with an EF of around 55-60%, moderate RV dilatation, no significant valvular abnormalities.She is known to have chronic atrial fibrillation and previous history of cardiac block requiring a pacemaker insertion and the patient has been maintained on long-term and coagulation with warfarin. During this current admission, she reported worsening shortness of breath, no angina, increased lower oximetry edema. She has been on oxygen at home at 3 L/m nasal cannula and she takes Demadex for chronic diuresis. In terms of maintenance inhalers, the patient is using a combination of Symbicort twice a day and Spiriva once a day and albuterol nebulized treatments up to 4 times a day. She is a ex-smoker and she quit smoking. No angina. No palpitation. In the ED, chest x-ray showed some CHF wi th pulmonary vessel congestion. ProBNP level was elevated at 2000 range. Patient was initially placed on a BiPAP at a pressure of 12/6 cm of water and currently she is off the BiPAP and she is on nasal cannula at 5 L. She was also diuresed and showed produced excellent urine output. She is on bronchodilators. She is on steroids. No fever. No chills. No signs of any CO2 narcosis. Her blood work from today shows a WBC count of 9.7 with a hemoglobin of 11. INR is at 8.8. BUN 25 with a creatinine of 0.9 and a sodium level is at 133. Troponins are 0.043 respectively. Influenza, Covid 19 and RSV are all negative. ProBNP level was initially added 2160 and currently is up to 3330. The patient is seen today 05/23/2022 in follow-up in the emergency department. Currently sitting up in bed. Awake and alert in no acute distress. Breathing a bit easier today compared to yesterday. She is currently on oxygen at 2 L/m per nasal cannula with O2 saturations in the mid to upper 90s. Afebrile. Hemodynamically stable. INR 2.5. Glucose 179. She is continued on Symbicort, albuterol, IV Solu-Medrol. Remains on IV diuretics. No accurate I&O. The patient is seen today 05/24/2022 in follow-up on the selective care unit. She is currently sitting up in a chair at the bedside. Awake and alert in no acute distress. Breathing much easier today compared to yesterday. Maintaining good O2 saturations up to 100% on 2 L/m per nasal cannula. Afebrile. Hemodynamically stable. White count 11.0. Hemoglobin 10.7. Platelets 220. INR 1.4. Sodium 132. Potassium 4.5. Bicarb 33. BUN 27. Creatinine 0.88. Glucose 153. She is continued on DuoNeb inhalations, Symbicort, IV Solu-Medrol. Remains on IV diuretics. Anticoagulated with warfarin. Subtherapeutic. Objective - Vital Signs Vital signs: Vital Signs Temp 98.4 F 05/24/22 08:45 Pulse 64 05/24/22 11:34 Resp 18 05/24/22 08:45 BP 138/88 05/24/22 08:45 Pulse Ox 97 05/24/22 08:45 FiO2 30 05/22/22 07:23 Intake & Output 05/23/22 05/24/22 05/24/22 18:59 06:59 18:59 Intake Total 120 Output Total 600 1300 1400 Balance -600 1300 -0810 Intake: Oral 120 Output: Urine 600 1300 1400 Other: Voiding Method External Catheter External Catheter # Voids 1 - Exam General: Awake, alert 81-year-old female patient, up in a chair at the bedside no distress, currently on 2 L of oxygen by nasal cannula. Derm: no unusual rashes/lesions, warm Head: atraumatic, normocephalic, symmetric Eyes: EOMI, no lid lag, anicteric sclera, pupils equal round reactive to light ENT: Nose and ears atraumatic Neck: No cervical lymphadenopathy, trachea midline, supple Mouth: no lip lesion, mucus membranes moist Cardiovascular: S1S2 reg, no murmur, positive dorsalis pedis pulse bilateral, 1+ bilateral lower extremity pitting edema, no calf tenderness Lungs: Poor air entry bilaterally with faint end expiratory wheezing noted, no accessory muscle use Abdominal: soft, nontender to palpation, no guarding Ext: muscle strength 5 out of 5 in all 4 extremities grossly, no gross muscle atrophy, no contractures, Neuro: CN II-XI grossly intact, no gross focal neuro deficits Psych: Alert, oriented, appropriate affect - Labs CBC & Chem 7: 05/24/22 07:44 05/24/22 07:44 Labs: Abnormal Lab Results - Last 24 Hours (Table) 05/23/22 05/23/22 05/23/22 Range/Units 12:10 16:40 20:02 WBC (3.8-10.6) k/uL Hgb (11.4-16.0) gm/dL RDW (11.5-15.5) % Neutrophils # (1.3-7.7) k/uL Lymphocytes # (1.0-4.8) k/uL PT (9.0-12.0) sec INR (<1.2) Sodium (137-145) mmol/L Chloride (98-107) mmol/L Carbon Dioxide (22-30) mmol/L BUN (7-17) mg/dL Glucose (74-99) mg/dL POC Glucose (mg/dL) 269 H 181 H 304 H (70-110) mg/dL Magnesium (1.6-2.3) mg/dL AST (14-36) U/L ALT (4-34) U/L 05/24/22 05/24/22 05/24/22 Range/Units 01:59 06:06 07:44 WBC (3.8-10.6) k/uL Hgb (11.4-16.0) gm/dL RDW (11.5-15.5) % Neutrophils # (1.3-7.7) k/uL Lymphocytes # (1.0-4.8) k/uL PT 13.9 H (9.0-12.0) sec INR 1.4 H (<1.2) Sodium (137-145) mmol/L Chloride (98-107) mmol/L Carbon Dioxide (22-30) mmol/L BUN (7-17) mg/dL Glucose (74-99) mg/dL POC Glucose (mg/dL) 234 H 187 H (70-110) mg/dL Magnesium (1.6-2.3) mg/dL AST (14-36) U/L ALT (4-34) U/L 05/24/22 05/24/22 Range/Units 07:44 07:44 WBC 11.0 H (3.8-10.6) k/uL Hgb 10.7 L (11.4-16.0) gm/dL RDW 17.7 H (11.5-15.5) % Neutrophils # 9.5 H (1.3-7.7) k/uL Lymphocytes # 0.6 L (1.0-4.8) k/uL PT (9.0-12.0) sec INR (<1.2) Sodium 132 L (137-145) mmol/L Chloride 91 L (98-107) mmol/L Carbon Dioxide 33 H (22-30) mmol/L BUN 27 H (7-17) mg/dL Glucose 153 H (74-99) mg/dL POC Glucose (mg/dL) (70-110) mg/dL Magnesium 1.4 L (1.6-2.3) mg/dL AST 43 H (14-36) U/L ALT 35 H (4-34) U/L Assessment and Plan Assessment: Acute exacerbation of chronic diastolic CHF exacerbation. Noted the patient was recently infected with Covid 19 on 02/17 2022 and the patient was hospitalized and discharged home. Currently, she had another hospitalization back in March 2022, treated and discharged home. Subsequently, she had another hospitalization in and of April 2022, treated and discharged home. Note that the viral screen that was done on the admissions from March and April were negative. She is coming in for another exacerbation and acute on chronic hypoxic/hypercapnic respiratory failure requiring BiPAP initially at a pressures of 12/6 cm of water 30% and currently she is off the BiPAP on 2 L O2 nasal cannula. Her home oxygen requirements are at 3 L. There is obviously a component of CHF also as the patient's proBNP level is high, she has crackling and she also has cardiomegaly and mild colovesical congestion on her chest x- ray. Acute exacerbation of chronic obstructive pulmonary disease Acute hypoxic respiratory failure secondary to above currently on 2 L of O2 nasal cannula Coronary artery disease with recent cardiac catheterization and single-vessel disease involving RCA, offered medical treatment Remote history of breast cancer with a previous left lumpectomy History of bladder cancer post transurethral resection of the bladder tumor Chronic atrial fibrillation and the patient has been maintained on long-term a anticoagulation with warfarin History of arrhythmia requiring a pacemaker insertion Hypertension History of ex-smoking. Diabetes mellitus maintain on Glucophage Hyperlipidemia Plan: The patient was seen and evaluated Medications and labs reviewed Currently stable and on 2 L nasal cannula The patient does have home oxygen Discontinue IV Solu medrol, and prednisone taper Cleared for discharge from the pulmonary status Follow up in the office in 1 week I have personally seen and examined the patient, performed the documentation and the assessment and plan as written. Number of minutes spent on the visit: 10.
--- NOTE | 2022-05-24 11:44 | P.PN ---
Subjective Progress Note Date: 05/24/22 Hospital course: Patient is a very pleasant 81-year-old female with a past medical history of COPD with chronic hypoxic respiratory failure home oxygen dependent on 2 L at all times, atrial fibrillation on anticoagulation with Coumadin, complete heart block status post ventricular pacemaker, hypertension, hyperlipidemia, and type 2 insulin-dependent diabetes mellitus. She presented to the emergency department on 05/22/22 with a chief complaint of shortness of breath and fatigue. Patient reported symptoms began approximately 1 week prior to arrival and was seen by her PCP and prescribed a Z-Skinny. Upon arrival to our facility patient was found to be in acute hypoxic respiratory failure initially requiring nonrebreather and placed on BiPAP. Initial lab findings revealed suprat herapeutic INR of 8.8, hypercarbia with carbon dioxide of 31 and hypomagnesemia with magnesium of 1.3. Troponin was also elevated at 0.040 with repeat troponin of 0.040. ProBNP 3330. EKG revealed ventricular paced rhythm at 62 bpm. Chest x-ray was negative for acute cardiopulmonary process. Patient was admitted under our services with consultation to cardiology and pulmonology. Patient has been successfully weaned down from oxygen and is currently back to baseline 2 L O2 via nasal cannula. Physical exam: Patient seen and fully evaluated at bedside this morning. She is on baseline 2 L O2 via nasal cannula and appears to be doing well. IV steroids discontinued and patient started on prednisone taper. Cardiology recommending continued IV Lasix. Morning labs reviewed showing hyponatremia with sodium of 132, hypochloremia with chloride of 91 , Persistent hypercarbia with carbon dioxide of 33, and hypomagnesemia with magnesium of 1.4. Vital signs reviewed and stable. General: Nontoxic, no distress and appears stated age. Derm: Skin warm and dry, normal coloration for ethnicity. Head: Atraumatic, normocephalic and symmetric. Eyes: EOMs intact, no lid lag, and anicteric sclera Mouth: no lip lesions, mucus membranes moist Cardiovascular: regular rate and rhythm with normal S1S2, no murmur, positive posterior tibial pulses bilaterally, and cap refill < 2 seconds. Pacemaker left anterior chest Lungs: Respirations even, regular, and unlabored on room air. Lungs CTA bilaterally, no rhonchi, no rales, no wheezing, and no accessory muscle usage. Abdominal: soft, nontender to palpation, no guarding, no appreciable organomegaly Ext: ROM intact. No gross muscle atrophy, no edema, no contractures Neuro: Speech clear, face symmetrical and CN II-XII grossly intact with no noted focal neuro deficits Psych: Alert and oriented to person, place, time, and situation. Appropriate and pleasant affect. Assessment and Plan of Care: Acute on chronic hypoxic and hypercarbic respiratory failure Multi-factorial secondary to Acute Exacerbation of COPD and Acute Exacerbation of Diastolic Heart Failure Elevated troponin secondary to above -Continue oxygen supplementation to maintain SpO2 equal to or greater than 90%. Patient has been weaned back down to baseline home O2 of 2 L. -Pulmonology following, discontinued IV steroids and started patient on oral prednisone taper. -Cardiology following , recommending continued IV diuresis with Lasix -Telemetry monitoring -Duo nebs every 4 hours as needed for shortness of breath and/or wheezing -Vitals every 4 hours -Telemetry monitoring -Daily weights -Close monitoring of I's and O's, urinary output over the past 24 hours 1900 mL -A echocardiogram on 04/12/22 showed normal LV function EF estimated at 55-60% with mild to moderate concentric LVH. -Last cardiac cath was on 05/08/22. Right coronary artery showed a moderate area stenosis in the mid RCA. Left main coronary artery was free of stenosis. LAD and its branches circumflex coronary artery and its branches free of significant stenosis. Moderate arthrosclerotic plaque involving mid RCA at its worst seems to be around 40% to 50% stenosis. Medical therapy was recommended at that time. Paroxysmal atrial fibrillation Supratherapeutic INR resolved after vitamin K given -INR believed to be supratherapeutic secondary to combined use of Coumadin with azithromycin -INR today is subtherapeutic at 1.4, pharmacy has resumed dosing of Coumadin -Continue metoprolol 100 mg twice a day Uncontrolled type 2 diabetes mellitus -Glycemic protocol with NovoLog sliding scale. -Hemoglobin A1c at 8.2%, Levemir increased and blood glucose levels appear to be better stabilized -Encourage and educate patient on maintaining a heart healthy and carb consist ent diet. Hypomagnesemia -Replaced with 2 g IVPB and recommend continuing Mag-Ox 400 mg twice a day with continued close monitoring of magnesium levels with repeat a.m. labs. -Hypomagnesemia, hyponatremia, and hypochloremia is secondary to IV diuresis Chronic conditions: Complete heart block status post ventricular pacemaker, hypertension, hyperlipidemia, and RLS -Resume home medication regimen with aspirin, atorvastatin, lisinopril, and metoprolol. CODE STATUS: Full code DVT prophylaxis: Coumadin Discussed with: Patient and RN Anticipated discharge date: Within the next 24-[address]: Home with home care A total of 38 minutes was spent on the care of this complex patient more than 50% of the time was spent in counseling and care coordination. Derrick Decker NP rendered care for this patient independently, reviewed the findings and plan as documented in the note above. I did not physically speak with or examine the patient on this date. Objective - Vital Signs Vital signs: Vital Signs Temp 97.6 F 05/24/22 04:36 Pulse 60 05/24/22 07:34 Resp 18 05/24/22 04:36 BP 156/83 05/24/22 04:36 Pulse Ox 100 05/24/22 07:23 FiO2 30 05/22/22 07:23 Intake & Output 05/23/22 05/24/22 05/24/22 18:59 06:59 18:59 Output Total 600 1300 Balance -600 -1300 Output: Urine 600 1300 Other: Voiding Method External Catheter External Catheter # Voids 1 - Labs CBC & Chem 7: 05/25/22 06:43 05/25/22 06:43 Labs: Abnormal Lab Results - Last 24 Hours (Table) 05/23/22 05/23/22 05/23/22 Range/Units 12:10 16:40 20:02 WBC (3.8-10.6) k/uL Hgb (11.4-16.0) gm/dL RDW (11.5-15.5) % Neutrophils # (1.3-7.7) k/uL Lymphocytes # (1.0-4.8) k/uL PT (9.0-12.0) sec INR (<1.2) Sodium (137-145) mmol/L Chloride (98-107) mmol/L Carbon Dioxide (22-30) mmol/L BUN (7-17) mg/dL Glucose (74-99) mg/dL POC Glucose (mg/dL) 269 H 181 H 304 H (70-110) mg/dL Magnesium (1.6-2.3) mg/dL AST (14-36) U/L ALT (4-34) U/L 05/24/22 05/24/22 05/24/22 Range/Units 01:59 06:06 07:44 WBC (3.8-10.6) k/uL Hgb (11.4-16.0) gm/dL RDW (11.5-15.5) % Neutrophils # (1.3-7.7) k/uL Lymphocytes # (1.0-4.8) k/uL PT 13.9 H (9.0-12.0) sec INR 1.4 H (<1.2) Sodium (137-145) mmol/L Chloride (98-107) mmol/L Carbon Dioxide (22-30) mmol/L BUN (7-17) mg/dL Glucose (74-99) mg/dL POC Glucose (mg/dL) 234 H 187 H (70-110) mg/dL Magnesium (1.6-2.3) mg/dL AST (14-36) U/L ALT (4-34) U/L 05/24/22 05/24/22 Range/Units 07:44 07:44 WBC 11.0 H (3.8-10.6) k/uL Hgb 10.7 L (11.4-16.0) gm/dL RDW 17.7 H (11.5-15.5) % Neutrophils # 9.5 H (1.3-7.7) k/uL Lymphocytes # 0.6 L (1.0-4.8) k/uL PT (9.0-12.0) sec INR (<1.2) Sodium 132 L (137-145) mmol/L Chloride 91 L (98-107) mmol/L Carbon Dioxide 33 H (22-30) mmol/L BUN 27 H (7-17) mg/dL Glucose 153 H (74-99) mg/dL POC Glucose (mg/dL) (70-110) mg/dL Magnesium 1.4 L (1.6-2.3) mg/dL AST 43 H (14-36) U/L ALT 35 H (4-34) U/L
[2022-05-24 12:08] LABS: Glucose,Whole Blood 170 mg/dL (70-110)
[2022-05-24] MEDS: MAGNESIUM SULFATE-D5W PMX 1 GM in DEXTROSE/WATER 1 100ML.BAG IVPB SCH ×2 (12:24→13:51)
[2022-05-24 16:48] LABS: Glucose,Whole Blood 204 mg/dL (70-110)
[2022-05-24] MEDS ORDERED: WARFARIN 3 MG TAB PO ONE (18:00)
[2022-05-24 20:05] LABS: Glucose,Whole Blood 193 mg/dL (70-110)
[2022-05-24] MEDS: INSULIN DETEMIR (LEVEMIR) 100 UNIT/ML SYR SQ SCH (20:37)
[2022-05-24] MEDS: CHOLECALCIFEROL 25 MCG (1000 IU) TABLET PO SCH (20:37)
[2022-05-24] MEDS: ATORVASTATIN 80 MG TAB PO SCH (20:37)
[2022-05-25 02:10] LABS: Glucose,Whole Blood 187 mg/dL (70-110)
[2022-05-25] MEDS: oxyCODONE-APAP 10-325MG 1 EACH TAB PO PRN ×3 (04:01→18:38)
[2022-05-25] MEDS: BENZONATATE 100 MG CAP PO PRN ×3 (04:01→21:44)
[2022-05-25 06:03] LABS: Glucose,Whole Blood 148 mg/dL (70-110)
[2022-05-25] MEDS: INSULIN ASPART (NovoLOG) 100 UNIT/ML VIAL SQ SCH ×4 (06:05→21:44)
[2022-05-25] MEDS: PANTOPRAZOLE 40 MG TABLET PO SCH ×2 (06:22→16:46)
[2022-05-25 07:42] LABS: Anisocytosis Slight; HCT 32.8 % (34.0-46.0); Hypochromasia Marked; MCHC 30.3 g/dL (31.0-37.0); MCV 82.4 fL (80.0-100.0); Mean Platelet Volume 7.3; Microcytosis Slight; Platelet Count 186 k/uL (150-450); Poikilocytosis Slight; RBC 3.98 m/uL (3.80-5.40); RDW 18.3 % (11.5-15.5); WBC 12.5 k/uL (3.8-10.6)
[2022-05-25 07:55] LABS: INR 1.3 (<1.2)
[2022-05-25 08:01] LABS: Albumin 3.7 g/dL (3.5-5.0); Calcium 8.4 mg/dL (8.4-10.2); Magnesium 1.9 mg/dL (1.6-2.3); Potassium 4.3 mmol/L (3.5-5.1); Total Bilirubin 0.5 mg/dL (0.2-1.3); Total Protein 5.8 g/dL (6.3-8.2)
[2022-05-25] MEDS: IPRATROPIUM-ALBUTEROL 3 ML NEB INHALATION SCH ×4 (08:21→20:15)
[2022-05-25] MEDS: SYMBICORT 160-4.5 MCG INHALER INHALATION SCH ×2 (08:21→20:15)
[2022-05-25 08:27] LABS: Glucose,Whole Blood 150 mg/dL (70-110)
[2022-05-25] MEDS: FUROSEMIDE 10 MG/ML 4 ML VIAL IV SCH ×2 (08:58→21:44)
[2022-05-25] MEDS: MAGNESIUM OXIDE 400 MG TAB PO SCH ×2 (08:59→21:44)
[2022-05-25] MEDS: ASPIRIN 81 MG PO SCH (08:59)
[2022-05-25] MEDS: predniSONE 20 MG TAB PO SCH (08:59)
[2022-05-25] MEDS: NORTRIPTYLINE 25 MG CAP PO SCH ×3 (08:59→21:45)
[2022-05-25] MEDS: METOPROLOL TARTRATE 50 MG TAB PO SCH ×2 (09:00→21:44)
[2022-05-25] MEDS: lisinopriL 5 MG TAB PO SCH (09:00)
--- NOTE | 2022-05-25 11:22 | P.PN ---
Subjective Progress Note Date: 05/25/22 Hospital course: Patient is a very pleasant 81-year-old female with a past medical history of COPD with chronic hypoxic respiratory failure home oxygen dependent on 2 L at all times, atrial fibrillation on anticoagulation with Coumadin, complete heart block status post ventricular pacemaker, hypertension, hyperlipidemia, and type 2 insulin-dependent diabetes mellitus. She presented to the emergency department on 05/22/22 with a chief complaint of shortness of breath and fatigue. Patient reported symptoms began approximately 1 week prior to arrival and was seen by her PCP and prescribed a Z-Skinny. Upon arrival to our facility patient was found to be in acute hypoxic respiratory failure initially requiring nonrebreather and placed on BiPAP. Initial lab findings revealed suprat herapeutic INR of 8.8, hypercarbia with carbon dioxide of 31 and hypomagnesemia with magnesium of 1.3. Troponin was also elevated at 0.040 with repeat troponin of 0.040. ProBNP 3330. EKG revealed ventricular paced rhythm at 62 bpm. Chest x-ray was negative for acute cardiopulmonary process. Patient was admitted under our services with consultation to cardiology and pulmonology. Patient has been successfully weaned down from oxygen and is currently back to baseline 2 L O2 via nasal cannula. Physical exam: Patient seen and fully evaluated at bedside this morning. She remains on baseline 2 L O2 via nasal cannula but appears to be much shorter of breath with conversation and fatigued this morning. When asked patient states she "feels terrible", states she just feels as though she is battling a terrible cold. Patient does have noted coarse cough. She remains on IV Lasix 40 mg IVP twice daily and had a documented 2500 mL of urinary output over the past 24 hours. Morning labs reviewed and stable. CBC revealing mild leukocytosis at 12.5 believed to be reactive secondary to steroid use. Hemoglobin stable at 10.0. INR is subtherapeutic at 1.3, pharmacy is dosing Coumadin. BMP revealing mild hyponatremia with sodium of 130, hypochloremia with chloride of 91, and prerenal azotemia with BUN of 34 all believed to be resulting from IV diuresis and we will continue to monitor closely with repeat morning BMP. Hypomagnesemia has resolved with magnesium of 1.9 this morning. Vital signs continue to be unremarkable. Morning blood pressure 110/62, heart rate 61, respiratory rate 18, temp 97.7F, and SpO2 of 95% on 2 L O2 via nasal cannula. Patient does report weakness and fatigue but denies currently experiencing any chest pain, palpitations, nausea, vomiting, or experiencing any numbness/tingling/focal weakness in her extremities. Vital signs reviewed and stable. General: Nontoxic, no distress and appears stated age. Derm: Skin warm and dry, normal coloration for ethnicity. Head: Atraumatic, normocephalic and symmetric. Eyes: EOMs intact, no lid lag, and anicteric sclera Mouth: no lip lesions, mucus membranes moist Cardiovascular: regular rate and rhythm with normal S1S2, soft systolic murmur, positive posterior tibial pulses bilaterally, and cap refill < 2 seconds. Pacemaker left anterior chest Lungs: Lungs diminished with expiratory wheezes. Conversational dyspnea noted. Remains on baseline 2 L O2. Bibasilar crackles present. Abdominal: soft, nontender to palpation, no guarding, no appreciable organomegaly Ext: ROM intact. No gross muscle atrophy, minimal bilateral lower extremity edema, no contractures Neuro: Speech clear, face symmetrical and CN II-XII grossly intact with no noted focal neuro deficits Psych: Alert and oriented to person, place, time, and situation. Appropriate and pleasant affect. Assessment and Plan of Care: Acute on chronic hypoxic and hypercarbic respiratory failure , multifactorial secondary to Acute Exacerbation of COPD and Acute Exacerbation of Diastolic Heart Failure Elevated troponin secondary to above, flat -Continue oxygen supplementation to maintain SpO2 equal to or greater than 90%. Patient has been weaned back down to baseline home O2 of 2 L. -Pulmonology following, discontinued IV steroids and started patient on oral prednisone taper 05/24/22. -Cardiology following , recommending continued IV diuresis with Lasix -Telemetry monitoring -Duo nebs every 4 hours as needed for shortness of breath and/or wheezing -Vitals every 4 hours -Telemetry monitoring -Daily weights -Close monitoring of I's and O's, urinary output over the past 24 hours 1900 mL -A echocardiogram on 04/12/22 showed normal LV function EF estimated at 55-60% with mild to moderate concentric LVH. -Last cardiac cath was on 05/08/22. Right coronary artery showed a moderate area stenosis in the mid RCA. Left main coronary artery was free of stenosis. LAD and its branches circumflex coronary artery and its branches free of significant stenosis. Moderate arthrosclerotic plaque involving mid RCA at its worst seems to be around 40% to 50% stenosis. Medical therapy was recommended at that time. Paroxysmal atrial fibrillation Supratherapeutic INR resolved after vitamin K given -INR believed to be supratherapeutic secondary to combined use of Coumadin with azithromycin -INR today is subtherapeutic at 1.4, pharmacy has resumed dosing of Coumadin -Continue metoprolol 100 mg twice a day Uncontrolled type 2 diabetes mellitus -Glycemic protocol with NovoLog sliding scale. -Hemoglobin A1c at 8.2%, Levemir increased and blood glucose levels appear to be better stabilized -Encourage and educate patient on maintaining a heart healthy and carb consistent diet. Hypomagnesemia, resolved Hyponatremia and hypochloremia -Resulting from diuresis. -We will continue to monitor closely, follow I's and O's closely and obtain a repeat BMP with a.m. labs. Chronic conditions: Complete heart block status post ventricular pacemaker, hypertension, hyperlipidemia, and RLS -Resume home medication regimen with aspirin, atorvastatin, lisinopril, and metoprolol. CODE STATUS: Full code DVT prophylaxis: Coumadin Discussed with: Patient and RN Anticipated discharge date: Pending course Anticipated discharge place: longterm facility A total of 36 minutes was spent on the care of this complex patient more than 50% of the time was spent in counseling and care coordination. Objective - Vital Signs Vital signs: Vital Signs Temp 98.1 F 05/25/22 03:58 Pulse 68 05/25/22 08:34 Resp 19 05/25/22 03:58 BP 102/64 05/25/22 03:58 Pulse Ox 96 05/25/22 03:58 FiO2 30 05/22/22 07:23 Intake & Output 05/24/22 05/25/22 05/25/22 18:59 06:59 18:59 Intake Total 360 10 Output Total 1400 1100 Balance -1040 -1090 Intake: IV 10 Invasive Line 2 10 Oral 360 Output: Urine 1400 1100 Other: Voiding Method Toilet Toilet Bedside Commode # Voids 2 - Labs CBC & Chem 7: 05/25/22 06:43 05/25/22 06:43 Labs: Abnormal Lab Results - Last 24 Hours (Table) 05/24/22 05/24/22 05/24/22 Range/Units 12:05 16:47 20:03 WBC (3.8-10.6) k/uL Hgb (11.4-16.0) gm/dL Hct (34.0-46.0) % MCHC (31.0-37.0) g/dL RDW (11.5-15.5) % PT (9.0-12.0) sec INR (<1.2) Sodium (137-145) mmol/L Chloride (98-107) mmol/L Carbon Dioxide (22-30) mmol/L BUN (7-17) mg/dL Glucose (74-99) mg/dL POC Glucose (mg/dL) 170 H 204 H 193 H (70-110) mg/dL AST (14-36) U/L Total Protein (6.3-8.2) g/dL 05/25/22 05/25/22 05/25/22 Range/Units 02:06 06:01 06:43 WBC 12.5 H (3.8-10.6) k/uL Hgb 10.0 L (11.4-16.0) gm/dL Hct 32.8 L (34.0-46.0) % MCHC 30.3 L (31.0-37.0) g/dL RDW 18.3 H (11.5-15.5) % PT (9.0-12.0) sec INR (<1.2) Sodium (137-145) mmol/L Chloride (98-107) mmol/L Carbon Dioxide (22-30) mmol/L BUN (7-17) mg/dL Glucose (74-99) mg/dL POC Glucose (mg/dL) 187 H 148 H (70-110) mg/dL AST (14-36) U/L Total Protein (6.3-8.2) g/dL 05/25/22 05/25/22 05/25/22 Range/Units 06:43 06:43 08:25 WBC (3.8-10.6) k/uL Hgb (11.4-16.0) gm/dL Hct (34.0-46.0) % MCHC (31.0-37.0) g/dL RDW (11.5-15.5) % PT 13.0 H (9.0-12.0) sec INR 1.3 H (<1.2) Sodium 130 L (137-145) mmol/L Chloride 91 L (98-107) mmol/L Carbon Dioxide 33 H (22-30) mmol/L BUN 34 H (7-17) mg/dL Glucose 129 H (74-99) mg/dL POC Glucose (mg/dL) 150 H (70-110) mg/dL AST 39 H (14-36) U/L Total Protein 5.8 L (6.3-8.2) g/dL
--- NOTE | 2022-05-25 11:35 | P.PN ---
Subjective Progress Note Date: 05/25/22 HISTORY OF PRESENT ILLNESS: This is an 81-year-old female who sees Dr. Stockton in the office. Patient is admitted to the hospital secondary to COPD exacerbation and CHF exacerbation. P atient examined this morning at the bedside. Patient states her shortness of breath has improved since yesterday but she still feels dyspneic. She is requiring supplemental oxygen. She denies any chest pain or pressure. She remains on Lasix 40 mg IV every 12 hours. Creatinine this morning is 0.88. Fluid balance over the last 24 hours is -1900 mL. Telemetry reveals paced rhythm with underlying atrial fibrillation. Echocardiogram completed in March 2022 revealed ejection fraction 55-60%. It is noted that the patient underwent cardiac cath in April 2022 revealing mild to moderate non obstructive CAD and medical management was recommended. 05/25/2022 Patient examined this morning at the bedside. Patient denies chest pain or pressure. She denies SOB at rest. She continues to report SOB with minimal exertion. Vital signs are stable. INR today 1.3. PHYSICAL EXAM: VITAL SIGNS: Reviewed. GENERAL: Well-developed in no acute distress. NECK: Supple. No JVD or thyromegaly LUNGS: Respirations even and unlabored. Lungs diminished with rhonchi throughout HEART: Irregular rate and rhythm. S1 and S2 heard. EXTREMITIES: Normal range of motion. No clubbing or cyanosis. Peripheral pulses intact. Trace lower extremity edema ASSESSMENT: Shortness of breath Acute COPD exacerbation Acute on chronic heart failure with preserved ejection fraction, EF 55-60% Elevated troponin, likely secondary to type II OH, no evidence of acute coronary syndrome Coumadin coagulopathy, on admission, resolved [id number] nonobstructive coronary artery disease Persistent atrial fibrillation with controlled ventricular rate History of high-grade AV block with permanent pacemaker implantation PLAN: Continue current cardiac medications Continue Coumadin. Monitor INR. Continue IV lasix 40mg Q12 hours. Likely transition to oral dosing tomorrow Daily weights, accurate I&O, and monitoring of kidney function Further recommendations pending patient course Nurse practitioner note has been reviewed by physician. Signing provider agrees with the documented findings, assessment, and plan of care. Objective - Vital Signs Vital signs: Vital Signs Temp 97.7 F 05/25/22 08:55 Pulse 70 05/25/22 11:28 Resp 18 05/25/22 08:55 BP 110/62 01/11/23 08:55 Pulse Ox 95 05/25/22 08:55 FiO2 30 05/22/22 07:23 Intake & Output 05/24/22 05/25/22 05/25/22 18:59 06:59 18:59 Intake Total 360 10 118 Output Total 1400 1100 Balance -1040 -1090 118 Intake: IV 10 Invasive Line 2 10 Oral 360 118 Output: Urine 1400 1100 Other: Voiding Method Toilet Toilet Toilet Bedside Commode Bedside Commode # Voids 2 - Labs CBC & Chem 7: 05/25/22 06:43 05/25/22 06:43 Labs: Abnormal Lab Results - Last 24 Hours (Table) 05/24/22 05/24/22 05/24/22 Range/Units 12:05 16:47 20:03 WBC (3.8-10.6) k/uL Hgb (11.4-16.0) gm/dL Hct (34.0-46.0) % MCHC (31.0-37.0) g/dL RDW (11.5-15.5) % PT (9.0-12.0) sec INR (<1.2) Sodium (137-145) mmol/L Chloride (98-107) mmol/L Carbon Dioxide (22-30) mmol/L BUN (7-17) mg/dL Glucose (74-99) mg/dL POC Glucose (mg/dL) 170 H 204 H 193 H (70-110) mg/dL AST (14-36) U/L Total Protein (6.3-8.2) g/dL 05/25/22 05/25/22 05/25/22 Range/Units 02:06 06:01 06:43 WBC 12.5 H (3.8-10.6) k/uL Hgb 10.0 L (11.4-16.0) gm/dL Hct 32.8 L (34.0-46.0) % MCHC 30.3 L (31.0-37.0) g/dL RDW 18.3 H (11.5-15.5) % PT (9.0-12.0) sec INR (<1.2) Sodium (137-145) mmol/L Chloride (98-107) mmol/L Carbon Dioxide (22-30) mmol/L BUN (7-17) mg/dL Glucose (74-99) mg/dL POC Glucose (mg/dL) 187 H 148 H (70-110) mg/dL AST (14-36) U/L Total Protein (6.3-8.2) g/dL 05/25/22 05/25/22 05/25/22 Range/Units 06:43 06:43 08:25 WBC (3.8-10.6) k/uL Hgb (11.4-16.0) gm/dL Hct (34.0-46.0) % MCHC (31.0-37.0) g/dL RDW (11.5-15.5) % PT 13.0 H (9.0-12.0) sec INR 1.3 H (<1.2) Sodium 130 L (137-145) mmol/L Chloride 91 L (98-107) mmol/L Carbon Dioxide 33 H (22-30) mmol/L BUN 34 H (7-17) mg/dL Glucose 129 H (74-99) mg/dL POC Glucose (mg/dL) 150 H (70-110) mg/dL AST 39 H (14-36) U/L Total Protein 5.8 L (6.3-8.2) g/dL
--- NOTE | 2022-05-25 12:43 | P.PN ---
Subjective Progress Note Date: 05/25/22 This is a pleasant 81-year-old female patient was coming in for another hospitalization for shortness of breath. The patient was in the hospital back in February 2022 and at that time the patient a Covid 19 infection. Subsequently, she was hospitalized twice in March and April 2022 for acute COPD and CHF exacerbation treated and discharged home. The viral screening has been essentially negative. The patient during her most recent hospitalization April 2022 underwent cardiac evaluation also. On 05/06/2022 the patient underwent a cardiac catheterization that showed nonocclusive disease involving the RCA whereas the left main and circumflex and LAD were free of any stenosis and the patient was out for medical management. Her echocardiogram from March 2022 showed a preserved LV function with an EF of around 55-60%, moderate RV dilatation, no significant valvular abnormalities.She is known to have chronic atrial fibrillation and previous history of cardiac block requiring a pacemaker insertion and the patient has been maintained on long-term and coagulation with warfarin. During this current admission, she reported worsening shortness of breath, no angina, increased lower oximetry edema. She has been on oxygen at home at 3 L/m nasal cannula and she takes Demadex for chronic diuresis. In terms of maintenance inhalers, the patient is using a combination of Symbicort twice a day and Spiriva once a day and albuterol nebulized treatments up to 4 times a day. She is a ex-smoker and she quit smoking. No angina. No palpitation. In the ED, chest x-ray showed some CHF wi th pulmonary vessel congestion. ProBNP level was elevated at 2000 range. Patient was initially placed on a BiPAP at a pressure of 12/6 cm of water and currently she is off the BiPAP and she is on nasal cannula at 5 L. She was also diuresed and showed produced excellent urine output. She is on bronchodilators. She is on steroids. No fever. No chills. No signs of any CO2 narcosis. Her blood work from today shows a WBC count of 9.7 with a hemoglobin of 11. INR is at 8.8. BUN 25 with a creatinine of 0.9 and a sodium level is at 133. Troponins are 0.043 respectively. Influenza, Covid 19 and RSV are all negative. ProBNP level was initially added 2160 and currently is up to 3330. The patient is seen today 05/23/2022 in follow-up in the emergency department. Currently sitting up in bed. Awake and alert in no acute distress. Breathing a bit easier today compared to yesterday. She is currently on oxygen at 2 L/m per nasal cannula with O2 saturations in the mid to upper 90s. Afebrile. Hemodynamically stable. INR 2.5. Glucose 179. She is continued on Symbicort, albuterol, IV Solu-Medrol. Remains on IV diuretics. No accurate I&O. The patient is seen today 05/24/2022 in follow-up on the selective care unit. She is currently sitting up in a chair at the bedside. Awake and alert in no acute distress. Breathing much easier today compared to yesterday. Maintaining good O2 saturations up to 100% on 2 L/m per nasal cannula. Afebrile. Hemodynamically stable. White count 11.0. Hemoglobin 10.7. Platelets 220. INR 1.4. Sodium 132. Potassium 4.5. Bicarb 33. BUN 27. Creatinine 0.88. Glucose 153. She is continued on DuoNeb inhalations, Symbicort, IV Solu-Medrol. Remains on IV diuretics. Anticoagulated with warfarin. Subtherapeutic. The patient is seen today 05/25/2022 in follow-up on the selective care unit. She is awake and alert in no acute distress. Sitting up in a chair at the base. She is still dyspneic with conversation. Dyspneic with exertion. She states she was coughing all night. She is maintaining good O2 saturations in the mid 90s on 2 L/m per nasal cannula. She's been afebrile. Hemodynamically stable. She is continued on DuoNeb inhalations, Symbicort, prednisone. She is on Tessalon Perles. Anticoagulated with warfarin. White count 12.5. Hemoglobin 10.0. INR 1.3. Sodium 1:30. Potassium 4.3. Bicarb 33. BUN 34. Creatinine 1.04. Glucose 129. Continued on IV diuretics. Currently in a -2.1 L balance. Objective - Vital Signs Vital signs: Vital Signs Temp 97.7 F 05/25/22 08:55 Pulse 70 05/25/22 11:28 Resp 18 05/25/22 08:55 BP 110/62 05/25/22 08:55 Pulse Ox 95 05/25/22 08:55 FiO2 30 05/22/22 07:23 Intake & Output 05/24/22 05/25/22 05/25/22 18:59 06:59 18:59 Intake Total 360 10 118 Output Total 1400 1100 Balance -1040 -1090 118 Intake: IV 10 Invasive Line 2 10 Oral 360 118 Output: Urine 1400 1100 Other: Voiding Method Toilet Toilet Toilet Bedside Commode Bedside Commode # Voids 2 - Exam General: Awake, alert 81-year-old female, up in a chair at the bedside, currently on 2 L of oxygen by nasal cannula. Derm: no unusual rashes/lesions, warm Head: atraumatic, normocephalic, symmetric Eyes: EOMI, no lid lag, anicteric sclera, pupils equal round reactive to light ENT: Nose and ears atraumatic Neck: No cervical lymphadenopathy, trachea midline, supple Mouth: no lip lesion, mucus membranes moist Cardiovascular: S1S2 reg, no murmur, positive dorsalis pedis pulse bilateral, 1+ bilateral lower extremity pitting edema, no calf tenderness Lungs: Poor air entry bilaterally with end expiratory wheezing noted, no accessory muscle use Abdominal: soft, nontender to palpation, no guarding Ext: muscle strength 5 out of 5 in all 4 extremities grossly, no gross muscle atrophy, no contractures, Neuro: CN II-XI grossly intact, no gross focal neuro deficits Psych: Alert, oriented, appropriate affect - Labs CBC & Chem 7: 05/25/22 06:43 05/25/22 06:43 Labs: Abnormal Lab Results - Last 24 Hours (Table) 05/24/22 05/24/22 05/25/22 Range/Units 16:47 20:03 02:06 WBC (3.8-10.6) k/uL Hgb (11.4-16.0) gm/dL Hct (34.0-46.0) % MCHC (31.0-37.0) g/dL RDW (11.5-15.5) % PT (9.0-12.0) sec INR (<1.2) Sodium (137-145) mmol/L Chloride (98-107) mmol/L Carbon Dioxide (22-30) mmol/L BUN (7-17) mg/dL Glucose (74-99) mg/dL POC Glucose (mg/dL) 204 H 193 H 187 H (70-110) mg/dL AST (14-36) U/L Total Protein (6.3-8.2) g/dL 05/25/22 05/25/22 05/25/22 Range/Units 06:01 06:43 06:43 WBC 12.5 H (3.8-10.6) k/uL Hgb 10.0 L (11.4-16.0) gm/dL Hct 32.8 L (34.0-46.0) % MCHC 30.3 L (31.0-37.0) g/dL RDW 18.3 H (11.5-15.5) % PT (9.0-12.0) sec INR (<1.2) Sodium 130 L (137-145) mmol/L Chloride 91 L (98-107) mmol/L Carbon Dioxide 33 H (22-30) mmol/L BUN 34 H (7-17) mg/dL Glucose 129 H (74-99) mg/dL POC Glucose (mg/dL) 148 H (70-110) mg/dL AST 39 H (14-36) U/L Total Protein 5.8 L (6.3-8.2) g/dL 05/25/22 05/25/22 Range/Units 06:43 08:25 WBC (3.8-10.6) k/uL Hgb (11.4-16.0) gm/dL Hct (34.0-46.0) % MCHC (31.0-37.0) g/dL RDW (11.5-15.5) % PT 13.0 H (9.0-12.0) sec INR 1.3 H (<1.2) Sodium (137-145) mmol/L Chloride (98-107) mmol/L Carbon Dioxide (22-30) mmol/L BUN (7-17) mg/dL Glucose (74-99) mg/dL POC Glucose (mg/dL) 150 H (70-110) mg/dL AST (14-36) U/L Total Protein (6.3-8.2) g/dL Assessment and Plan Assessment: Acute exacerbation of chronic diastolic CHF exacerbation. Noted the patient was recently infected with Covid 19 on 02/17/2022 and the patient was hospitalized and discharged home. Currently, she had another hospitalization back in March 2022, treated and discharged home. Subsequently, she had another hospitalization in and of April 2022, treated and discharged home. Note that the viral screen that was done on the admissions from March and April were negative. She is coming in for another exacerbation and acute on chronic hypoxic/hypercapnic respiratory failure requiring BiPAP initially at a pressures of 12/6 cm of water 30% and currently she is off the BiPAP on 2 L O2 nasal cannula. Her home oxygen requirements are at 3 L. There is obviously a component of CHF also as the patient's proBNP level is high, she has crackling and she also has cardiomegaly and mild pulmonary vascular congestion on her chest x-ray. Acute exacerbation of chronic obstructive pulmonary disease Acute hypoxic respiratory failure secondary to above currently on 2 L of O2 nasal cannula Coronary artery disease with recent cardiac catheterization and single-vessel disease involving RCA, offered medical treatment Remote history of breast cancer with a previous left lumpectomy History of bladder cancer post transurethral resection of the bladder tumor Chronic atrial fibrillation and the patient has been maintained on long-term a anticoagulation with warfarin History of arrhythmia requiring a pacemaker insertion Hypertension History of ex-smoking. Diabetes mellitus maintain on Glucophage Hyperlipidemia Plan: The patient was seen and evaluated Medications and labs reviewed Still with significant cough and congestion Continue DuoNeb inhalations, Symbicort, prednisone taper Continue Tessalon Perles Continue IV diuretics Follow-up chest x-ray in a.m. We'll continue to follow I have personally seen and examined the patient, performed the documentation and the assessment and plan as written. Number of minutes spent on the visit: 10.
[2022-05-25 14:06] LABS: Glucose,Whole Blood 276 mg/dL (70-110)
[2022-05-25 17:00] LABS: Glucose,Whole Blood 202 mg/dL (70-110)
[2022-05-25] MEDS ORDERED: WARFARIN 2 MG TAB PO ONE (18:00)
[2022-05-25 20:18] LABS: Glucose,Whole Blood 336 mg/dL (70-110)
[2022-05-25] MEDS: CHOLECALCIFEROL 25 MCG (1000 IU) TABLET PO SCH (21:44)
[2022-05-25] MEDS: ATORVASTATIN 80 MG TAB PO SCH (21:44)
[2022-05-25] MEDS: INSULIN DETEMIR (LEVEMIR) 100 UNIT/ML SYR SQ SCH (21:44)
[2022-05-26] MEDS: oxyCODONE-APAP 10-325MG 1 EACH TAB PO PRN ×2 (00:53→10:08)
[2022-05-26 02:10] LABS: Glucose,Whole Blood 180 mg/dL (70-110)
[2022-05-26 06:00] LABS: Glucose,Whole Blood 121 mg/dL (70-110)
[2022-05-26] MEDS: INSULIN ASPART (NovoLOG) 100 UNIT/ML VIAL SQ SCH ×2 (06:11→12:25)
[2022-05-26] MEDS: PANTOPRAZOLE 40 MG TABLET PO SCH ×2 (06:24→16:14)
--- NOTE | 2022-05-26 07:12 | XR ---
EXAMINATION TYPE: XR chest 1V portable DATE OF EXAM: 05/26/2022 CLINICAL HISTORY: Difficulty breathing progress study. TECHNIQUE: Single AP portable upright view of the chest is obtained. COMPARISON: Chest x-ray from 4 days earlier FINDINGS: Persistent cardiomegaly with dual lead pacemaker and atherosclerotic thoracic aorta. Mild Chronic parenchymal changes bilaterally without suspicious new focal airspace opacity, pleural effusi on, or pneumothorax seen. Surgical clips left axillary region are redemonstrated. Anterior fusion dillon te cervical thoracic junction redemonstrated. Partial visualization of surgical change in the lumbar spine is redemonstrated. Degenerative change bilateral glenohumeral joints again seen. IMPRESSION: Cardiomegaly and chronic changes without acute pulmonary process. No significant change f rom most recent study.
[2022-05-26] MEDS: SYMBICORT 160-4.5 MCG INHALER INHALATION SCH (07:45)
[2022-05-26] MEDS: IPRATROPIUM-ALBUTEROL 3 ML NEB INHALATION SCH ×3 (07:45→16:31)
[2022-05-26 09:21] LABS: INR 1.4 (<1.2); Prothrombin Time 14.4 sec (9.0-12.0)
[2022-05-26 09:38] LABS: Calcium 8.2 mg/dL (8.4-10.2); Potassium 4.5 mmol/L (3.5-5.1)
[2022-05-26] MEDS: FUROSEMIDE 10 MG/ML 4 ML VIAL IV SCH (10:01)
[2022-05-26] MEDS: predniSONE 20 MG TAB PO SCH (10:01)
[2022-05-26] MEDS: ASPIRIN 81 MG PO SCH (10:01)
[2022-05-26] MEDS: lisinopriL 5 MG TAB PO SCH (10:01)
[2022-05-26] MEDS: METOPROLOL TARTRATE 50 MG TAB PO SCH (10:01)
[2022-05-26] MEDS: MAGNESIUM OXIDE 400 MG TAB PO SCH (10:01)
[2022-05-26] MEDS: NORTRIPTYLINE 25 MG CAP PO SCH ×2 (10:02→16:14)
[2022-05-26] MEDS: BENZONATATE 100 MG CAP PO PRN (10:08)
[2022-05-26] MEDS ORDERED: BENZONATATE 100 MG CAP PO PRN (10:21)
--- NOTE | 2022-05-26 11:37 | P.PN ---
Subjective Progress Note Date: 05/26/22 HISTORY OF PRESENT ILLNESS: This is an 81-year-old female who sees Dr. Stockton in the office. Patient is admitted to the hospital secondary to COPD exacerbation and CHF exacerbation. P atient examined this morning at the bedside. Patient states her shortness of breath has improved since yesterday but she still feels dyspneic. She is requiring supplemental oxygen. She denies any chest pain or pressure. She remains on Lasix 40 mg IV every 12 hours. Creatinine this morning is 0.88. Fluid balance over the last 24 hours is -1900 mL. Telemetry reveals paced rhythm with underlying atrial fibrillation. Echocardiogram completed in March 2022 revealed ejection fraction 55-60%. It is noted that the patient underwent cardiac cath in April 2022 revealing mild to moderate non obstructive CAD and medical management was recommended. 05/25/2022 Patient examined this morning at the bedside. Patient denies chest pain or pressure. She denies SOB at rest. She continues to report SOB with minimal exertion. Vital signs are stable. INR today 1.3. 05/28/2022 Patient examined this morning at the bedside. The patient reports improvement in her SOB. She denies chest pain or pressure. Vital signs are stable. PHYSICAL EXAM: VITAL SIGNS: Reviewed. GENERAL: Well-developed in no acute distress. NECK: Supple. No JVD or thyromegaly LUNGS: Respirations even and unlabored. Lungs diminished with rhonchi, improving. HEART: Irregular rate and rhythm. S1 and S2 heard. EXTREMITIES: Normal range of motion. No clubbing or cyanosis. Peripheral pulses intact. 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 Monitor INR. Discontinue IV lasix. Resume home dose of Demadex. Patient is stable from a cardiac standpoint Further recommendations pending patient course Nurse practitioner note has been reviewed by physician. Signing provider agrees with the documented findings, assessment, and plan of care. Objective - Vital Signs Vital signs: Vital Signs Temp 98.0 F 05/26/22 04:00 Pulse 75 05/26/22 11:34 Resp 18 05/26/22 04:00 BP 138/70 05/26/22 04:00 Pulse Ox 99 05/26/22 04:00 FiO2 30 05/22/22 07:23 Intake & Output 05/25/22 05/26/22 05/26/22 18:59 06:59 18:59 Intake Total 118 10 Output Total 800 Balance -682 10 Weight 82.07 kg Intake: IV 10 Invasive Line 2 10 Oral 118 Output: Urine 800 Other: Voiding Method Toilet Toilet Bedside Commode - Labs CBC & Chem 7: 05/25/22 06:43 05/26/22 08:18 Labs: Abnormal Lab Results - Last 24 Hours (Table) 05/25/22 05/25/22 05/25/22 Range/Units 14:04 16:48 20:17 PT (9.0-12.0) sec INR (<1.2) Sodium (137-145) mmol/L Chloride (98-107) mmol/L Carbon Dioxide (22-30) mmol/L BUN (7-17) mg/dL Glucose (74-99) mg/dL POC Glucose (mg/dL) 276 H 202 H 336 H (70-110) mg/dL Calcium (8.4-10.2) mg/dL 05/26/22 05/26/22 05/26/22 Range/Units 02:08 05:58 08:18 PT (9.0-12.0) sec INR (<1.2) Sodium 131 L (137-145) mmol/L Chloride 91 L (98-107) mmol/L Carbon Dioxide 33 H (22-30) mmol/L BUN 31 H (7-17) mg/dL Glucose 156 H (74-99) mg/dL POC Glucose (mg/dL) 180 H 121 H (70-110) mg/dL Calcium 8.2 L (8.4-10.2) mg/dL 05/26/22 Range/Units 08:18 PT 14.4 H (9.0-12.0) sec INR 1.4 H (<1.2) Sodium (137-145) mmol/L Chloride (98-107) mmol/L Carbon Dioxide (22-30) mmol/L BUN (7-17) mg/dL Glucose (74-99) mg/dL POC Glucose (mg/dL) (70-110) mg/dL Calcium (8.4-10.2) mg/dL
[2022-05-26 11:39] LABS: Glucose,Whole Blood 151 mg/dL (70-110)
--- NOTE | 2022-05-26 11:56 | P.PN ---
Subjective Progress Note Date: 05/26/22 This is a pleasant 81-year-old female patient was coming in for another hospitalization for shortness of breath. The patient was in the hospital back in February 2022 and at that time the patient a Covid 19 infection. Subsequently, she was hospitalized twice in March and April 2022 for acute COPD and CHF exacerbation treated and discharged home. The viral screening has been essentially negative. The patient during her most recent hospitalization April 2022 underwent cardiac evaluation also. On 05/06/2022 the patient underwent a cardiac catheterization that showed nonocclusive disease involving the RCA whereas the left main and circumflex and LAD were free of any stenosis and the patient was out for medical management. Her echocardiogram from March 2022 showed a preserved LV function with an EF of around 55-60%, moderate RV dilatation, no significant valvular abnormalities.She is known to have chronic atrial fibrillation and previous history of cardiac block requiring a pacemaker insertion and the patient has been maintained on long-term and coagulation with warfarin. During this current admission, she reported worsening shortness of breath, no angina, increased lower oximetry edema. She has been on oxygen at home at 3 L/m nasal cannula and she takes Demadex for chronic diuresis. In terms of maintenance inhalers, the patient is using a combination of Symbicort twice a day and Spiriva once a day and albuterol nebulized treatments up to 4 times a day. She is a ex-smoker and she quit smoking. No angina. No palpitation. In the ED, chest x-ray showed some CHF wi th pulmonary vessel congestion. ProBNP level was elevated at 2000 range. Patient was initially placed on a BiPAP at a pressure of 12/6 cm of water and currently she is off the BiPAP and she is on nasal cannula at 5 L. She was also diuresed and showed produced excellent urine output. She is on bronchodilators. She is on steroids. No fever. No chills. No signs of any CO2 narcosis. Her blood work from today shows a WBC count of 9.7 with a hemoglobin of 11. INR is at 8.8. BUN 25 with a creatinine of 0.9 and a sodium level is at 133. Troponins are 0.043 respectively. Influenza, Covid 19 and RSV are all negative. ProBNP level was initially added 2160 and currently is up to 3330. The patient is seen today 05/23/2022 in follow-up in the emergency department. Currently sitting up in bed. Awake and alert in no acute distress. Breathing a bit easier today compared to yesterday. She is currently on oxygen at 2 L/m per nasal cannula with O2 saturations in the mid to upper 90s. Afebrile. Hemodynamically stable. INR 2.5. Glucose 179. She is continued on Symbicort, albuterol, IV Solu-Medrol. Remains on IV diuretics. No accurate I&O. The patient is seen today 05/24/2022 in follow-up on the selective care unit. She is currently sitting up in a chair at the bedside. Awake and alert in no acute distress. Breathing much easier today compared to yesterday. Maintaining good O2 saturations up to 100% on 2 L/m per nasal cannula. Afebrile. Hemodynamically stable. White count 11.0. Hemoglobin 10.7. Platelets 220. INR 1.4. Sodium 132. Potassium 4.5. Bicarb 33. BUN 27. Creatinine 0.88. Glucose 153. She is continued on DuoNeb inhalations, Symbicort, IV Solu-Medrol. Remains on IV diuretics. Anticoagulated with warfarin. Subtherapeutic. The patient is seen today 05/25/2022 in follow-up on the selective care unit. She is awake and alert in no acute distress. Sitting up in a chair at the base. She is still dyspneic with conversation. Dyspneic with exertion. She states she was coughing all night. She is maintaining good O2 saturations in the mid 90s on 2 L/m per nasal cannula. She's been afebrile. Hemodynamically stable. She is continued on DuoNeb inhalations, Symbicort, prednisone. She is on Tessalon Perles. Anticoagulated with warfarin. White count 12.5. Hemoglobin 10.0. INR 1.3. Sodium 1:30. Potassium 4.3. Bicarb 33. BUN 34. Creatinine 1.04. Glucose 129. Continued on IV diuretics. Currently in a -2.1 L balance. The patient is seen today 05/26/2022 in follow-up on the selective care unit. She is currently sitting up in bed. Awake and alert in no acute distress. She is breathing quite a bit better. Less wheezing. Maintaining good O2 saturations up to 99% on 2 L/m per nasal cannula. She still has a nonproductive cough. She remains on Tessalon Perles. She is continued on Symbicort, DuoNeb inhalations, prednisone taper. On oral diuretics in the form of Demadex. Remains in a negative balance. Continued on warfarin for anticoagulation. INR 1.4. Sodium 131. Potassium 4.5. Bicarb 33. BUN 31. Creatinine 0.86. Glucose 156. Chest x-ray reveals evidence of cardiomegaly and chronic changes without acute pulmonary process. Objective - Vital Signs Vital signs: Vital Signs Temp 98.0 F 05/26/22 04:00 Pulse 75 05/26/22 11:34 Resp 18 05/26/22 04:00 BP 138/70 05/26/22 04:00 Pulse Ox 99 05/26/22 04:00 FiO2 30 05/22/22 07:23 Intake & Output 05/25/22 05/26/22 05/26/22 18:59 06:59 18:59 Intake Total 118 10 Output Total 800 Balance -682 10 Weight 82.07 kg Intake: IV 10 Invasive Line 2 10 Oral 118 Output: Urine 800 Other: Voiding Method Toilet Toilet Bedside Commode - Exam General: Awake, alert 81-year-old female, currently on 2 L of oxygen by nasal cannula. Derm: no unusual rashes/lesions, warm Head: atraumatic, normocephalic, symmetric Eyes: EOMI, no lid lag, anicteric sclera, pupils equal round reactive to light ENT: Nose and ears atraumatic Neck: No cervical lymphadenopathy, trachea midline, supple Mouth: no lip lesion, mucus membranes moist Cardiovascular: S1S2 reg, no murmur, positive dorsalis pedis pulse bilateral, 1+ bilateral lower extremity pitting edema, no calf tenderness Lungs: Equal air entry bilaterally with end expiratory wheezing noted, no accessory muscle use Abdominal: soft, nontender to palpation, no guarding Ext: muscle strength 5 out of 5 in all 4 extremities grossly, no gross muscle atrophy, no contractures, Neuro: CN II-XI grossly intact, no gross focal neuro deficits Psych: Alert, oriented, appropriate affect - Labs CBC & Chem 7: 05/25/22 06:43 05/26/22 08:18 Labs: Abnormal Lab Results - Last 24 Hours (Table) 05/25/22 05/25/22 05/25/22 Range/Units 14:04 16:48 20:17 PT (9.0-12.0) sec INR (<1.2) Sodium (137-145) mmol/L Chloride (98-107) mmol/L Carbon Dioxide (22-30) mmol/L BUN (7-17) mg/dL Glucose (74-99) mg/dL POC Glucose (mg/dL) 276 H 202 H 336 H (70-110) mg/dL Calcium (8.4-10.2) mg/dL 05/26/22 05/26/22 05/26/22 Range/Units 02:08 05:58 08:18 PT (9.0-12.0) sec INR (<1.2) Sodium 131 L (137-145) mmol/L Chloride 91 L (98-107) mmol/L Carbon Dioxide 33 H (22-30) mmol/L BUN 31 H (7-17) mg/dL Glucose 156 H (74-99) mg/dL POC Glucose (mg/dL) 180 H 121 H (70-110) mg/dL Calcium 8.2 L (8.4-10.2) mg/dL 05/26/22 05/26/22 Range/Units 08:18 11:37 PT 14.4 H (9.0-12.0) sec INR 1.4 H (<1.2) Sodium (137-145) mmol/L Chloride (98-107) mmol/L Carbon Dioxide (22-30) mmol/L BUN (7-17) mg/dL Glucose (74-99) mg/dL POC Glucose (mg/dL) 151 H (70-110) mg/dL Calcium (8.4-10.2) mg/dL Assessment and Plan Assessment: Acute exacerbation of chronic diastolic CHF exacerbation. Noted the patient was recently infected with Covid 19 on 02/17/2022 and the patient was hospitalized and discharged home. Currently, she had another hospitalization back in March 2022, treated and discharged home. Subsequently, she had another hospitalization in and of April 2022, treated and discharged home. Note that the viral screen that was done on the admissions from March and April were negative. She is coming in for another exacerbation and acute on chronic hypoxic/hypercapnic respiratory failure requiring BiPAP initially at a pressures of 12/6 cm an FiO2 of 30% and currently she is off the BiPAP on 2 L O2 nasal cannula. Her home oxygen requirements are at 3 L. There is obviously a component of CHF also as the patient's proBNP level is high, she has crackling and she also has cardiomegaly and mild pulmonary vascular congestion on her chest x-ray. Acute exacerbation of chronic obstructive pulmonary disease Acute hypoxic respiratory failure secondary to above currently on 2 L of O2 nasal cannula Coronary artery disease with recent cardiac catheterization and single-vessel disease involving RCA, offered medical treatment Remote history of breast cancer with a previous left lumpectomy History of bladder cancer post transurethral resection of the bladder tumor Chronic atrial fibrillation and the patient has been maintained on long-term a anticoagulation with warfarin History of arrhythmia requiring a pacemaker insertion Hypertension History of ex-smoking. Diabetes mellitus maintain on Glucophage Hyperlipidemia Plan: The patient was seen and evaluated Medications, chest x-ray and labs reviewed Continue DuoNeb inhalations, Symbicort, prednisone taper Continue Tessalon Perles Continue oral diuretics Cleared for discharge from the pulmonary standpoint I have personally seen and examined the patient, performed the documentation and the assessment and plan as written. Number of minutes spent on the visit: 10.
[2022-05-26] MEDS ORDERED: BENZOCAINE/MENTHOL LOZENG 1 EACH LOZENGE MUCOUS MEM PRN (12:11)
[2022-05-26] MEDS ORDERED: polyethylene glycoL 3350 17 GM POWD.PACK PO PRN (12:12)
--- NOTE | 2022-05-26 14:27 | P.DS ---
Providers Date of admission: 05/22/22 06:47 Expected date of discharge: 05/26/22 Attending physician: Chadwick Whyte MD Consults: 05/22/22 07:52 Consult Physician Routine Consulting Provider: Marty Desir Consult Reason/Comments: elevated troponin Do you want consulting provider notified?: Yes 05/22/22 08:14 Consult Physician Routine Consulting Provider: Christine Reddy Consult Reason/Comments: COPD exacerbation currently on BiPAP Do you want consulting provider notified?: Yes Primary care physician: Jose Butcher Hospital Course: Discharge Diagnosis: Acute on chronic hypoxic and hypercarbic respiratory failure, multifactorial secondary to Acute Exacerbation of COPD and Acute Exacerbation of Diastolic Heart Failure. Elevated troponin secondary to above, flat. Acute coronary event ruled out. Troponins elevated secondary to hypoxic state and CHF exacerbation. Cardiology recommending patient continue cardiac medication regimen with Coumadin, aspirin, atorvastatin, lisinopril, and metoprolol as well as resuming normal home dose of Demadex Paroxysmal atrial fibrillation, continue warfarin 5 mg daily with repeat INR to be completed in 2 days with results to be sent to PCP and cardiology for follow- up and management including any changes to medication dosing. Supratherapeutic INR resolved after vitamin K given. Continue warfarin 5 mg daily with repeat INR to be completed in 2 days with results to be sent to PCP and cardiology for follow-up and management including any changes to medication dosing. Continue warfarin 5 mg daily Uncontrolled type 2 diabetes mellitus. Hemoglobin A1c at 8.2%, Levemir increased and blood glucose levels appear to be better stabilized Hypomagnesemia, resolved Hyponatremia and hypochloremia, Resulting from diuresis and is stable. Complete heart block status post ventricular pacemaker, continue to follow up outpatient with cardiology for long-term monitoring and management Hypertension, continue daily medication regimen with metoprolol and lisinopril. Hyperlipidemia, continue daily medication regimen with atorvastatin nightly. Encourage heart healthy carb consistent diet. RLS, continue pain management with Percocet and continue Requip. Hospital Course: Patient is a very pleasant 81-year-old female with a past medical history of COPD with chronic hypoxic respiratory failure home oxygen dependent on 2 L at all times, atrial fibrillation on anticoagulation with Coumadin, complete heart block status post ventricular pacemaker, hypertension, hyperlipidemia, and type 2 insulin-dependent diabetes mellitus. She presented to the emergency department on 05/22/22 with a chief complaint of shortness of breath and fatigue. Patient reported symptoms began approximately 1 week prior to arrival and was seen by her PCP and prescribed a Z-Skinny. Upon arrival to our facility patient was found to be in acute hypoxic respiratory failure initially requiring nonrebreather and placed on BiPAP. Initial lab findings revealed supratherapeutic INR of 8.8, hypercarbia with carbon dioxide of 31 and hypomagnesemia with magnesium of 1.3. Troponin was also elevated at 0.040 with repeat troponin of 0.040. ProBNP 3330. EKG revealed ventricular paced rhythm at 62 bpm. Chest x-ray was negative for acute cardiopulmonary process. Patient was admitted under our services with consultation to cardiology and pulmonology. Patient has been successfully weaned down from oxygen and is currently back to baseline 2 L O2 via nasal cannula. She underwent successful IV diuresis and was also followed closely by postbed stitcher and pension manager. Patient is back at baseline levels, however it is recommended that patient attend rehab upon discharge as her endurance has significantly decreased from reported baseline and patient becomes clinically fatigued and short of breath with exertion. Patient has been accepted at [facility] for rehabilitation to work with PT/OT on building strength and endurance. Cardiology recommending patient to resume home dose of Demadex and follow-up outpatient in their office. Pulmonary also clearing patient from pulmonary standpoint recommending to continue Tessalon Perles, oral diuretics along with DuoNeb, Symbicort, and prednisone as directed. Physical exam: Vital signs reviewed and stable. General: Nontoxic, no distress and appears stated age. Derm: Skin warm and dry, normal coloration for ethnicity. Head: Atraumatic, normocephalic and symmetric. Eyes: EOMs intact, no lid lag, and anicteric sclera Mouth: no lip lesions, mucus membranes moist Cardiovascular: regular rate and rhythm with normal S1S2, soft systolic murmur, positive posterior tibial pulses bilaterally, and cap refill < 2 seconds. Pacemaker left anterior chest Lungs: Lungs diminished with expiratory wheezes. Conversational dyspnea noted. Remains on baseline 2 L O2. Abdominal: soft, nontender to palpation, no guarding, no appreciable organomegaly Ext: ROM intact. No gross muscle atrophy, minimal bilateral lower extremity edema, no contractures Neuro: Speech clear, face symmetrical and CN II-XII grossly intact with no noted focal neuro deficits Psych: Alert and oriented to person, place, time, and situation. Appropriate and pleasant affect. A total of 34 minutes of time were spent preparing this complex discharge summary. Pt was discharged on 05/26/22 at 2:22 PM.luciano Decker NP rendered care for this patient independently, reviewed the findings and plan as documented in the note above. I did not physically speak with or examine the patient on this date. Patient Condition at Discharge: Stable Plan - Discharge Summary Discharge Rx Participant: No New Discharge Prescriptions: New predniSONE [Deltasone] 40 mg PO DAILY 5 Days #10 tab Budesonide-Formot 160-4.5 Mcg [Symbicort 160-4.5 Mcg Inhaler] 2 puff INHALATION RT-BID 30 Days #1 each Benzonatate [Tessalon Perles] 100 mg PO TID PRN cap PRN Reason: Cough Continue rOPINIRole HCL [Requip] 2 mg PO BID Nortriptyline [Pamelor] 25 mg PO DAILY Metoprolol Tartrate [Lopressor] 100 mg PO BID metFORMIN HCL [Glucophage] 500 mg PO BID Albuterol Inhaler [Ventolin Hfa Inhaler] 2 puff INHALATION RT-Q4H PRN #1 each PRN Reason: Shortness Of Breath Atorvastatin [Lipitor] 80 mg PO HS #30 tab Spironolactone [Aldactone] 50 mg PO DAILY oxyCODONE HCL/ACETAMINOPHEN [Percocet 10-325 mg] 1 tab PO Q6HR PRN #12 tab PRN Reason: Pain Pantoprazole Sodium [Protonix] 40 mg PO BID Torsemide [Demadex] 40 mg PO DAILY #30 tab Magnesium Oxide [Mag-Ox] 400 mg PO BID #60 tab lisinopriL [Zestril] 5 mg PO DAILY Cholecalciferol [Vitamin D3 (25 Mcg = 1000 Iu)] 25 mcg PO HS Aspirin 81 mg PO DAILY #30 tab Ipratropium-Albuterol Nebulize [Duoneb 0.5 mg-3 mg/3 ml Soln] 3 mg INHALATION RT-Q4H PRN PRN Reason: Shortness Of Breath Warfarin Sodium [Jantoven] 5 mg PO DAILY Changed Insulin Detemir [Levemir Flextouch Pen] 15 units SQ HS #0 Discharge Medication List Metoprolol Tartrate [Lopressor] 100 mg PO BID 02/17/22 [History] Nortriptyline [Pamelor] 25 mg PO DAILY 02/17/22 [History] Pantoprazole Sodium [Protonix] 40 mg PO BID 02/17/22 [History] rOPINIRole HCL [Requip] 2 mg PO BID 02/17/22 [History] metFORMIN HCL [Glucophage] 500 mg PO BID 04/06/22 [History] Albuterol Inhaler [Ventolin Hfa Inhaler] 2 puff INHALATION RT-Q4H PRN #1 each 04/12/22 [Rx] Magnesium Oxide [Mag-Ox] 400 mg PO BID #60 tab 04/12/22 [Rx] Torsemide [Demadex] 40 mg PO DAILY #30 tab 04/12/22 [Rx] Cholecalciferol [Vitamin D3 (25 Mcg = 1000 Iu)] 25 mcg PO HS 05/04/22 [History] lisinopriL [Zestril] 5 mg PO DAILY 05/04/22 [History] Aspirin 81 mg PO DAILY #30 tab 05/11/22 [Rx] Atorvastatin [Lipitor] 80 mg PO HS #30 tab 05/11/22 [Rx] Ipratropium-Albuterol Nebulize [Duoneb 0.5 mg-3 mg/3 ml Soln] 3 mg INHALATION RT-Q4H PRN 05/22/22 [History] Spironolactone [Aldactone] 50 mg PO DAILY 05/22/22 [History] Warfarin Sodium [Jantoven] 5 mg PO DAILY 05/22/22 [History] Benzonatate [Tessalon Perles] 100 mg PO TID PRN cap 05/24/22 [Rx] Budesonide-Formot 160-4.5 Mcg [Symbicort 160-4.5 Mcg Inhaler] 2 puff INHALATION RT-BID 30 Days #1 each 05/24/22 [Rx] Insulin Detemir [Levemir Flextouch Pen] 15 units SQ HS #0 05/24/22 [Rx] oxyCODONE HCL/ACETAMINOPHEN [Percocet 10-325 mg] 1 tab PO Q6HR PRN #12 tab 05/24/22 [Rx] predniSONE [Deltasone] 40 mg PO DAILY 5 Days #10 tab 05/24/22 [Rx] Follow up Appointment(s)/Referral(s): Lisa Muro MD [STAFF PHYSICIAN] - 1 Week Jose Butcher MD [Primary Care Provider] - 1-2 days Geo Ibarra MD [STAFF PHYSICIAN] - 1 Week Ambulatory/Diagnostic Orders: Prothrombin Time INR [LAB.AMB] Time Frame: 2 Days, Location: None Selected Patient Instructions/Handouts: Heart Failure (DC), COPD (Chronic Obstructive Pulmonary Disease) (DC), Chronic Lung Disease and Infection Prevention (DC), Pulmonary Rehabilitation (DC) Activity/Diet/Wound Care/Special Instructions: Activity: As tolerated. Take breaks as needed. Diet: Heart healthy and carb consistent diet. Avoid salts, or foods with hidden salts such as canned or boxed foods and frozen dinners. Extra salt makes your heart work harder and traps the fluid in your body for longer. Special Instructions: Take all of your medications as directed and remember to keep all of your doctor's appointments and follow-up as needed. Please reassess INR in 2 days so adjustments may be made if needed to Coumadin/Warfarin dosage as indicated and managed by patient's postbed stitcher, Dr. Ibarra. Order placed and results to be sent to PCP and cardiology for follow up and management. Thank you for allowing us to participate in your care, it was truly a pleasure having you for our patient!!! Discharge Disposition: TRANSFER TO SNF/ECF
[2022-05-26 16:41] VITALS: BP 124/66; PULSE 68; RESP 17; TEMP 98.4
[2022-05-26] MEDS ORDERED: WARFARIN 5 MG TAB PO ONE (18:00)
[2022-05-27] MEDS ORDERED: TORSEMIDE 20 MG TAB PO SCH (09:00)
== END 2022-05-26 16:36 | DRG 280 ==
LOC: EC 04:43 → 3SCARD 06:47
PROVIDERS: ADMIT Internal Medicine; ATTEND Internal Medicine
PROC: 5A09357 Assistance with Respiratory Ventilation, Less than 24 Consecutive Hours, Continuous Positive Airway Pressure (ICD-10-PCS; principal; 2022-05-22)
DX: I11.0 Hypertensive heart disease with heart failure (principal); I21.A1 Myocardial infarction type 2; I50.33 Acute on chronic diastolic (congestive) heart failure; J96.21 Acute and chronic respiratory failure with hypoxia; J96.22 Acute and chronic respiratory failure with hypercapnia; J44.1 Chronic obstructive pulmonary disease with (acute) exacerbation; I44.2 Atrioventricular block, complete; E87.1 Hypo-osmolality and hyponatremia; D68.9 Coagulation defect, unspecified; I48.19 Other persistent atrial fibrillation; Z20.822 Contact with and (suspected) exposure to COVID-19; E11.9 Type 2 diabetes mellitus without complications; E78.5 Hyperlipidemia, unspecified; F32.A Depression, unspecified; F41.9 Anxiety disorder, unspecified; G25.81 Restless legs syndrome; E83.42 Hypomagnesemia; I25.10 Atherosclerotic heart disease of native coronary artery without angina pectoris; T45.515A Adverse effect of anticoagulants, initial encounter; E87.8 Other disorders of electrolyte and fluid balance, not elsewhere classified; Z99.81 Dependence on supplemental oxygen; Z85.3 Personal history of malignant neoplasm of breast; Z85.51 Personal history of malignant neoplasm of bladder; Z87.891 Personal history of nicotine dependence; Z79.899 Other long term (current) drug therapy; Z79.84 Long term (current) use of oral hypoglycemic drugs; Z79.82 Long term (current) use of aspirin; Z79.01 Long term (current) use of anticoagulants; Z79.4 Long term (current) use of insulin; Z79.51 Long term (current) use of inhaled steroids; Z82.5 Family history of asthma and other chronic lower respiratory diseases; Z95.0 Presence of cardiac pacemaker
CPT/HCPCS: 36410; 36415; 71045; 76937; 80048; 80053; 82803; 83036; 83735; 83880; 84484; 85025; 85027; 85610; 85730; 87635; 87636; 93005; 94640; 94660; 94760; 96365; 96375; 96376; 99291

== ENCOUNTER 2022-06-01 19:13 | Inpatient (IN) | payer MEDICARE, OTHER ==
[2022-06-01 19:37] LABS: Anisocytosis Slight; Basophils % (A) 1 %; Eosinophils % (A) 0 %; HCT 32.7 % (34.0-46.0); HGB 10.1 gm/dL (11.4-16.0); Hypochromasia Moderate; Lymphocytes # (A) 0.7 k/uL (1.0-4.8); Lymphocytes % (A) 8 %; MCH 24.9 pg (25.0-35.0); MCV 80.2 fL (80.0-100.0); Mean Platelet Volume 7.9; Microcytosis Slight; Monocytes # (A) 0.5 k/uL (0-1.0); Monocytes % (A) 5 %; Neutrophils # (A) 7.4 k/uL (1.3-7.7); Neutrophils % (A) 85 %; Platelet Count 221 k/uL (150-450); Poikilocytosis Slight; RBC 4.07 m/uL (3.80-5.40); WBC 8.7 k/uL (3.8-10.6)
[2022-06-01 19:48] LABS: Albumin 3.9 g/dL (3.5-5.0); Calcium 8.3 mg/dL (8.4-10.2); Potassium 4.2 mmol/L (3.5-5.1); Total Bilirubin 0.6 mg/dL (0.2-1.3); Total Protein 6.1 g/dL (6.3-8.2)
--- NOTE | 2022-06-01 20:06 | XR ---
EXAMINATION TYPE: XR chest 2V DATE OF EXAM: 06/01/2022 7:40 PM COMPARISON: Chest radiographs from 05/26/2022 TECHNIQUE: XR chest 2V Frontal and lateral views of the chest. CLINICAL INDICATION:Female, 81 years old with history of SOB; FINDINGS: Lungs/Pleura: There is no evidence of pleural effusion, focal consolidation, or pneumothorax. Pulmonary vascularity: Unremarkable. Heart/mediastinum: Cardiomediastinal silhouette is enlarged and stable. Atherosclerotic calcificatio ns are seen in the aorta. Two lead cardiac conduction device overlying the left hemithorax with lead tips projecting over the right ventricle and right atrium. Musculoskeletal: No acute osseous pathology. Partial visualization of cervical fusion hardware. Bilat eral shoulder arthropathy. Partial visualization of surgical changes of the lumbar spine. Other: Surgical clips in the left axilla redemonstrated. IMPRESSION: Cardiomegaly and chronic changes without acute pulmonary process. No significant change from prior ex amination.
[2022-06-01] MEDS ORDERED: FUROSEMIDE 10 MG/ML 4 ML VIAL IV STA (21:28)
[2022-06-01 21:33] LABS: Glucose,Whole Blood 397 mg/dL (70-110)
--- NOTE | 2022-06-01 21:56 | ED ---
General Adult HPI - General Chief complaint: Shortness of Breath Stated complaint: Difficulty Breathing, Low O2 Time Seen by Provider: 06/01/22 19:20 Source: EMS Mode of arrival: EMS Limitations: no limitations - History of Present Illness Initial comments: This is an 81-year-old female with a past medical history including COPD and CHF presents emergency department via EMS for shortness of breath. The patient was at her nursing facility when she had an acute episode of shortness of breath where she cannot take a full breath. The patient did then call 911 and was given a breathing treatment as well as placed on BiPAP. The patient had improvement of her symptoms and on arrival stated that her symptoms were improved however was still having intermittent shortness of breath. The patient did state that her lower extremities were swelling more than she is used to and denied any other chest pain or acute pain or distress. The patient was however resting in bed comfortably on my evaluation. - Related Data Home Medications Medication Instructions Recorded Confirmed Metoprolol Tartrate [Lopressor] 100 mg PO BID 02/17/22 05/22/22 Nortriptyline [Pamelor] 25 mg PO DAILY 02/17/22 05/22/22 Pantoprazole Sodium [Protonix] 40 mg PO BID 02/17/22 05/22/22 rOPINIRole HCL [Requip] 2 mg PO BID 02/17/22 05/22/22 metFORMIN HCL [Glucophage] 500 mg PO BID 04/06/22 05/22/22 Cholecalciferol [Vitamin D3 (25 25 mcg PO HS 05/04/22 05/22/22 Mcg = 1000 Iu)] lisinopriL [Zestril] 5 mg PO DAILY 05/04/22 05/22/22 Ipratropium-Albuterol Nebulize 3 mg INHALATION RT-Q4H PRN 05/22/22 05/22/22 [Duoneb 0.5 mg-3 mg/3 ml Soln] Spironolactone [Aldactone] 50 mg PO DAILY 05/22/22 05/22/22 Warfarin Sodium [Jantoven] 5 mg PO DAILY 05/22/22 05/22/22 Previous Rx's Medication Instructions Recorded Albuterol Inhaler [Ventolin Hfa 2 puff INHALATION RT-Q4H PRN #1 04/12/22 Inhaler] each Magnesium Oxide [Mag-Ox] 400 mg PO BID #60 tab 04/12/22 Torsemide [Demadex] 40 mg PO DAILY #30 tab 04/12/22 Aspirin 81 mg PO DAILY #30 tab 05/11/22 Atorvastatin [Lipitor] 80 mg PO HS #30 tab 05/11/22 Benzonatate [Tessalon Perles] 100 mg PO TID PRN cap 05/24/22 Budesonide-Formot 160-4.5 Mcg 2 puff INHALATION RT-BID 30 Days 05/24/22 [Symbicort 160-4.5 Mcg Inhaler] #1 each Insulin Detemir [Levemir Flextouch 15 units SQ HS #0 05/24/22 Pen] oxyCODONE HCL/ACETAMINOPHEN 1 tab PO Q6HR PRN #12 tab 05/24/22 [Percocet 10-325 mg] predniSONE [Deltasone] 40 mg PO DAILY 5 Days #10 tab 05/24/22 Allergies Allergy/AdvReac Type Severity Reaction Status Date / Time morphine Allergy Itching Verified 06/01/22 21:56 tizanidine [From Zanaflex] Allergy Unknown Verified 06/01/22 21:56 zolpidem [From Ambien] Allergy Unknown Verified 06/01/22 21:56 gabapentin AdvReac Hallucinati Verified 06/01/22 21:56 ons hydromorphone [From Dilaudid] AdvReac Hallucinati Verified 06/01/22 21:56 ons pentazocine [From Talwin] AdvReac Hallucinati Verified 06/01/22 21:56 ons pregabalin [From Lyrica] AdvReac Hallucinati Verified 06/01/22 21:56 ons Review of Systems ROS Statement: Those systems with pertinent positive or pertinent negative responses have been documented in the HPI. ROS Other: All systems not noted in ROS Statement are negative. Past Medical History Past Medical History: Atrial Fibrillation, Coronary Artery Disease (CAD), Cancer, COPD, Hypertension Additional Past Medical History / Comment(s): breast cancer 2000 post Lt lumpectomy & lymph node, and bladder cancer post , carpletunnel, chronic atrail fibrillation History of Any Multi-Drug Resistant Organisms: None Reported Past Surgical History: Back Surgery, Joint Replacement, Orthopedic Surgery, Pacemaker, Tonsillectomy, Tubal Ligation Additional Past Surgical History / Comment(s): bilat knees, rt shoulder repair, lung nodule removal, both carotids repaired (occluded) Past Anesthesia/Blood Transfusion Reactions: No Reported Reaction Type of Cardiac Device: Permanent Pacemaker Device Placement Date:: 02/16/2017 Past Psychological History: Anxiety, Depression Smoking Status: Former smoker Past Alcohol Use History: None Reported Past Drug Use History: None Reported - Past Family History Mother Family Medical History: COPD General Exam Limitations: no limitations General appearance: alert, in distress (In mild distress secondary to tachypnea, on bipap), obese Head exam: Present: atraumatic, normocephalic, normal inspection Eye exam: Present: normal appearance, PERRL Pupils: Present: normal accommodation ENT exam: Present: normal exam, normal oropharynx, mucous membranes moist Neck exam: Present: normal inspection, full ROM Respiratory exam: Present: normal lung sounds bilaterally Cardiovascular Exam: Present: regular rate, normal rhythm, normal heart sounds GI/Abdominal exam: Present: soft, normal bowel sounds Extremities exam: Present: normal inspection, full ROM, pedal edema Back exam: Present: normal inspection, full ROM Neurological exam: Present: alert, oriented X3, CN II-XII intact Psychiatric exam: Present: normal affect, normal mood Skin exam: Present: warm, dry Course Vital Signs 06/01/22 06/01/22 19:15 20:43 Temperature 98.2 F Pulse Rate 74 71 Respiratory 21 22 Rate Blood Pressure 149/82 122/66 O2 Sat by Pulse 100 96 Oximetry EKG Findings - EKG Comments: EKG Findings:: An EKG was obtained and was interpreted by myself showing a rate of 63, QRS duration 141, QTC of 449. This EKG showed electronic ventricularly paced rhythm without any ST segment elevation or depression noted. Medical Decision Making - Medical Decision Making Was pt. sent in by a medical professional or institution (, PA, CREDIT PRODUCTS OFFICER, urgent care, hospital, or usp...) When possible be specific @ -Yes, nursing facility Did you speak to anyone other than the patient for history (EMS, parent, family, police, friend...)? What history was obtained from this source @ -No Did you review nursing and triage notes (agree or disagree)? Why? @ -I reviewed and agree with nursing and triage notes Were old charts reviewed (outside hosp., previous admission, EMS record, old EKG, old radiological studies, urgent care reports/EKG's, usp records)? Report findings @ -No old charts were reviewed Differential Diagnosis (chest pain, altered mental status, abdominal pain women, abdominal pain men, vaginal bleeding, weakness, fever, dyspnea, syncope, headache, dizziness, GI bleed, back pain, seizure, CVA, palpatations, mental health)? @ -CHF exacerbation, COPD exacerbation, ACS EKG interpreted by me (3pts min.). @ -As above X-rays interpreted by me (1pt min.). @ -Chest x-ray was obtained and was interpreted by myself showing cardiomegaly and chronic changes without acute pulmonary process. There is no significant change the prior exam. CT interpreted by me (1pt min.). @ -None done U/S interpreted by me (1pt. min.). @ -None done What testing was considered but not performed or refused? (CT, X-rays, U/S, labs)? Why? @ -None What meds were considered but not given or refused? Why? @ -None Did you discuss the management of the patient with other professionals (radha taylor i.eAng Mayorga, PA, CREDIT PRODUCTS OFFICER, lab, RT, psych nurse, director social, channel manager, teacher, aboriginal home school liaison officer, manager case)? Give summary @ -Yes, admitted physician Was smoking cessation discussed for >3mins.? @ -No Was critical care preformed (if so, how long)? @ -No Were there social determinants of health that impacted care today? How? (Homelessness, low income, unemployed, alcoholism, drug addiction, transportation, low edu. Level, literacy, decrease access to med. care, retirement, rehab)? @ -No Was there de-escalation of care discussed even if they declined (Discuss DNR or withdrawal of care, Hospice)? DNR status @ -No What co-morbidities impacted this encounter? (DM, HTN, Smoking, COPD, CAD, Cancer, CVA, ARF, Chemo, Hep., AIDS, mental health diagnosis, sleep apnea, morbid obesity)? @ -Congestive heart failure, COPD Was patient admitted / discharged? Hospital course, mention meds given and route, prescriptions, significant lab abnormalities, going to OR and other pertinent info. @ -The patient was seen and evaluated in emergency department. Physical exam, the patient was resting in bed on BiPAP from EMS. The patient stated that her symptoms had improved. Laboratory workup was largely within normal limits however the patient's troponin was elevated at 0.055 that this was not significantly elevated from her baseline. ProBNP was elevated at 2970. The patient did receive 40 mg of Lasix IV. The patient was taken off of the BiPAP and did have improvement of her symptoms. The patient was likely having a CHF exacerbation and will be admitted for further workup and evaluation with cardiology on consult. The patient's primary care physician was being covered and Dr. Staples was contacted and accepted the patient for admission. The patient was admitted in stable condition. Undiagnosed new problem with uncertain prognosis? @ -No Drug Therapy requiring intensive monitoring for toxicity (Heparin, Nitro, Insulin, Cardizem)? @ -No Were any procedures done? @ -No Diagnosis/symptom? @ -Congestive heart failure exacerbation Acute, or Chronic, or Acute on Chronic? @ -Acute Uncomplicated (without systemic symptoms) or Complicated (systemic symptoms)? @ -Complicated Side effects of treatment? @ -No Exacerbation, Progression, or Severe Exacerbation? @ -Exacerbation Poses a threat to life or bodily function? How? (Chest pain, [place], [place], pneumonia, PE, COPD, DKA, ARF, appy, cholecystitis, CVA, Diverticulitis, Homicidal, Suicidal, threat to staff... and all critical care pts) @ -No - Lab Data Result diagrams: 06/01/22 19:28 06/01/22 19:28 Lab Results 06/01/22 06/01/22 06/01/22 Range/Units 19:28 19:28 19:28 WBC 8.7 (3.8-10.6) k/uL RBC 4.07 (3.80-5.40) m/uL Hgb 10.1 L (11.4-16.0) gm/dL Hct 32.7 L (34.0-46.0) % MCV 80.2 (80.0-100.0) fL MCH 24.9 L (25.0-35.0) pg MCHC 31.0 (31.0-37.0) g/dL RDW 18.0 H (11.5-15.5) % Plt Count 221 (150-450) k/uL MPV 7.9 Neutrophils % 85 % Lymphocytes % 8 % Monocytes % 5 % Eosinophils % 0 % Basophils % 1 % Neutrophils # 7.4 (1.3-7.7) k/uL Lymphocytes # 0.7 L (1.0-4.8) k/uL Monocytes # 0.5 (0-1.0) k/uL Eosinophils # 0.0 (0-0.7) k/uL Basophils # 0.0 (0-0.2) k/uL Hypochromasia Moderate Poikilocytosis Slight Anisocytosis Slight Microcytosis Slight Sodium 133 L (137-145) mmol/L Potassium 4.2 (3.5-5.1) mmol/L Chloride 88 L (98-107) mmol/L Carbon Dioxide 37 H (22-30) mmol/L Anion Gap 8 mmol/L BUN 25 H (7-17) mg/dL Creatinine 0.95 (0.52-1.04) mg/dL Est GFR (CKD-EPI)AfAm 66 (>60 ml/min/1.73 sqM) Est GFR (CKD-EPI)NonAf 57 (>60 ml/min/1.73 sqM) Glucose 375 H (74-99) mg/dL POC Glucose (mg/dL) (70-110) mg/dL POC Glu Wire Rigger ID Calcium 8.3 L (8.4-10.2) mg/dL Magnesium 1.0 L (1.6-2.3) mg/dL Total Bilirubin 0.6 (0.2-1.3) mg/dL AST 42 H (14-36) U/L ALT 40 H (4-34) U/L Alkaline Phosphatase 118 (38-126) U/L Troponin I 0.055 H* (0.000-0.034) ng/mL NT-Pro-B Natriuret Pep pg/mL Total Protein 6.1 L (6.3-8.2) g/dL Albumin 3.9 (3.5-5.0) g/dL 06/01/22 06/01/22 Range/Units 19:28 21:31 WBC (3.8-10.6) k/uL RBC (3.80-5.40) m/uL Hgb (11.4-16.0) gm/dL Hct (34.0-46.0) % MCV (80.0-100.0) fL MCH (25.0-35.0) pg MCHC (31.0-37.0) g/dL RDW (11.5-15.5) % Plt Count (150-450) k/uL MPV Neutrophils % % Lymphocytes % % Monocytes % % Eosinophils % % Basophils % % Neutrophils # (1.3-7.7) k/uL Lymphocytes # (1.0-4.8) k/uL Monocytes # (0-1.0) k/uL Eosinophils # (0-0.7) k/uL Basophils # (0-0.2) k/uL Hypochromasia Poikilocytosis Anisocytosis Microcytosis Sodium (137-145) mmol/L Potassium (3.5-5.1) mmol/L Chloride (98-107) mmol/L Carbon Dioxide (22-30) mmol/L Anion Gap mmol/L BUN (7-17) mg/dL Creatinine (0.52-1.04) mg/dL Est GFR (CKD-EPI)AfAm (>60 ml/min/1.73 sqM) Est GFR (CKD-EPI)NonAf (>60 ml/min/1.73 sqM) Glucose (74-99) mg/dL POC Glucose (mg/dL) 397 H (70-110) mg/dL POC Glu Wire Rigger ID Rafaela Salter Calcium (8.4-10.2) mg/dL Magnesium (1.6-2.3) mg/dL Total Bilirubin (0.2-1.3) mg/dL AST (14-36) U/L ALT (4-34) U/L Alkaline Phosphatase (38-126) U/L Troponin I (0.000-0.034) ng/mL NT-Pro-B Natriuret Pep 2970 pg/mL Total Protein (6.3-8.2) g/dL Albumin (3.5-5.0) g/dL Disposition Clinical Impression: Congestive heart failure Disposition: ADMITTED IP TO THIS HOSP Condition: Stable Is patient prescribed a controlled substance at d/c from ED?: No Referrals: Jose Butcher MD [Primary Care Provider] - 1-2 days Time of Disposition: 21:40 Decision to Admit Reason: Admit from EC Decision Date: 06/01/22 Decision Time: 21:40
[2022-06-01] MEDS ORDERED: NALOXONE 0.4 MG/ML 1 ML VIAL IV PRN (22:04)
[2022-06-02] MEDS ORDERED: BENZONATATE 100 MG CAP PO PRN (00:18)
[2022-06-02] MEDS ORDERED: bisacodyL 10 MG SUPP RECTAL PRN (00:18)
[2022-06-02] MEDS ORDERED: ACETAMINOPHEN TAB 325 MG TAB PO PRN (00:18)
[2022-06-02] MEDS: oxyCODONE-APAP 10-325MG 1 EACH TAB PO PRN ×3 (00:43→17:31)
[2022-06-02] MEDS: LORazepam 1 MG TAB PO PRN (00:43)
[2022-06-02] MEDS: ALBUTEROL NEBULIZED 2.5 MG/3 ML INHALATION PRN ×2 (04:45→07:38)
[2022-06-02 05:58] LABS: Glucose,Whole Blood 200 mg/dL (70-110)
[2022-06-02 07:38] LABS: INR 2.8 (<1.2); Partial Thromboplastin Time 31.3 sec (22.0-30.0); Prothrombin Time 27.2 sec (9.0-12.0)
[2022-06-02] MEDS: SYMBICORT 160-4.5 MCG INHALER INHALATION SCH ×2 (07:38→19:04)
[2022-06-02] MEDS: SPIRONOLACTONE 25 MG TAB PO SCH (07:56)
[2022-06-02] MEDS: MAGNESIUM OXIDE 400 MG TAB PO SCH ×2 (07:56→17:30)
[2022-06-02] MEDS: METOPROLOL TARTRATE 50 MG TAB PO SCH ×2 (07:56→17:30)
[2022-06-02] MEDS: lisinopriL 5 MG TAB PO SCH (07:56)
[2022-06-02] MEDS: PANTOPRAZOLE 40 MG TABLET PO SCH ×2 (07:56→17:30)
[2022-06-02] MEDS: LORazepam 0.5 MG TAB PO PRN (07:56)
[2022-06-02] MEDS ORDERED: IPRATROPIUM-ALBUTEROL 3 ML NEB INHALATION PRN ×2 (08:00→11:58)
[2022-06-02] MEDS ORDERED: TORSEMIDE 20 MG TAB PO SCH (08:00)
[2022-06-02] MEDS ORDERED: MAGNESIUM HYDROXIDE 2,400 MG/10 ML CUP PO PRN (09:00)
[2022-06-02] MEDS: metFORMIN 500 MG TAB PO SCH ×2 (09:53→17:30)
[2022-06-02] MEDS: FUROSEMIDE 10 MG/ML 4 ML VIAL IV SCH ×2 (09:53→20:49)
[2022-06-02] MEDS: polyethylene glycoL 3350 17 GM POWD.PACK PO SCH (09:53)
[2022-06-02] MEDS: ASPIRIN 81 MG PO SCH (11:36)
[2022-06-02 11:53] LABS: Glucose,Whole Blood 166 mg/dL (70-110)
--- NOTE | 2022-06-02 12:05 | P.HPIM ---
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 Patient was recently discharged to [facility] on 05/22/2022 after being treated for CHF and COPD exacerbation. Patient reports shortness of breath while at rehab. Of note, patient states that she in very unhappy about being at [facility] and would like to go home this time, but would like to stay until Monday. She denies any headache, lower extremity edema, nausea vomiting, fever or chills, chest pain, palpitations, changes in bowel habits. No changes in appetite or weight. She denies any numbness/ weakness/tingling of the extremities. In the ED, vital signs were stable on 2L NC. CBC showed hemoglobin of 10.1. CMP Na 133, Cl 88, bicarb 37, BUN 25, glucose 375, Ca 8.3, AST 42, ALT 40. INR was 1.2. Troponin was 0.055, EKG showing electronic ventricular pacemaker rhythm . Chest x-ray showed cardiomegaly with no acute process. BNP was 2970. Review of systems is performed and is negative except above. General: non toxic, no distress, appears at stated age, appears dyspnea Derm: warm, dry Head: atraumatic, normocephalic, symmetric Eyes: EOMI, no lid lag, anicteric sclera Mouth: no lip lesion, mucus membranes moist Cardiovascular: S1S2 reg, no murmur, positive posterior tibial pulse bilateral, Lungs: Scattered wheezing bilateral, no rhonchi, no rales , no accessory muscle use Abdominal: soft, nontender to palpation, no guarding, no appreciable organomegaly Ext: no gross muscle atrophy, no edema, no contractures Neuro: CN II-XI grossly intact, no focal neuro deficits Psych: Alert, oriented, appropriate affect #Acute on Chronic COPD exacerbation #Acute on Chronic diastolic CHF exacerbation #Chronic respiratory failure #Troponin elevation #Hypomagnesemia #Hyponatremia, hypochloremic #Metabolic alkalosis #Transaminitis #Generalized weakness and debility Chronic conditions: History of paroxysmal atrial fibrillation, History of complete heart block with dual-chamber pacemaker, Restless leg syndrome, depression DuoNeb scheduled and is here for shortness of breath and wheezing. Start Prednisone and slow taper on discharge. Started on Lasix 40 mg IV BID. BNP at baseline. Echo 03/2022 shows mild to moderate LVH with normal EF. Cardiology consult. Likely troponin leak. Patient without chest pain. Trend Trop/EKG to rule out ACS. Magnesium sulfate 4 gram IV today. Repeating magnesium level tomorrow. Electrolyte abnormalities and alkalosis likely related to Torsemide (home medication). Repeat BMP tomorrow. Unknown etiology for transaminitis. Patient will need outpatient workup. PT and OT will be consulted to work with this patient. Fall precautions. Home medications reviewed and restarted. DVT prophylaxis: Coumadin Discussed with: Patient, nursing Anticipated discharge: 2-[address]: Home versus prison facility A total of 35 minutes was spent on the care of this complex patient more than 50% of the time was spent in counseling and care coordination. Patient names her decision maker if she can't make decisions for herself. Patient would like to be full code. Past Medical History Past Medical History: Atrial Fibrillation, Coronary Artery Disease (CAD), Cancer, COPD, Hypertension Additional Past Medical History / Comment(s): breast cancer 2000 post Lt lumpectomy & lymph node, and bladder cancer post , carpletunnel, chronic atrail fibrillation History of Any Multi-Drug Resistant Organisms: None Reported Past Surgical History: Back Surgery, Joint Replacement, Orthopedic Surgery, Pacemaker, Tonsillectomy, Tubal Ligation Additional Past Surgical History / Comment(s): bilat knees, rt shoulder repair, lung nodule removal, both carotids repaired (occluded) Past Anesthesia/Blood Transfusion Reactions: No Reported Reaction Type of Cardiac Device: Permanent Pacemaker Device Placement Date:: 02/16/2017 Past Psychological History: Anxiety, Depression Smoking Status: Former smoker Past Alcohol Use History: None Reported Past Drug Use History: None Reported - Past Family History Mother Family Medical History: COPD Medications and Allergies Home Medications Medication Instructions Recorded Confirmed Type Metoprolol Tartrate [Lopressor] 100 mg PO BID@0800,1700 02/17/22 06/01/22 History Pantoprazole Sodium [Protonix] 40 mg PO BID@0800,1700 02/17/22 06/01/22 History rOPINIRole HCL [Requip] 2 mg PO BID@0800,2100 02/17/22 06/01/22 History metFORMIN HCL [Glucophage] 500 mg PO BID@0800,1700 04/06/22 06/01/22 History Albuterol Inhaler [Ventolin Hfa 2 puff INHALATION RT-Q4H PRN #1 04/12/22 06/01/22 Rx Inhaler] each Cholecalciferol [Vitamin D3 (25 25 mcg PO HS@2100 05/04/22 06/01/22 History Mcg = 1000 Iu)] lisinopriL [Zestril] 5 mg PO DAILY@0800 05/04/22 06/01/22 History Ipratropium-Albuterol Nebulize 3 mg INHALATION RT-QID@08,12,17,05/22/22 06/01/22 History [Duoneb 0.5 mg-3 mg/3 ml Soln] PRN Spironolactone [Aldactone] 50 mg PO DAILY@0800 05/22/22 06/01/22 History Warfarin Sodium [Jantoven] 5 mg PO DAILY@1700 05/22/22 06/01/22 History Benzonatate [Tessalon Perles] 100 mg PO TID PRN cap 05/24/22 06/01/22 Rx oxyCODONE HCL/ACETAMINOPHEN 1 tab PO Q6HR PRN #12 tab 05/24/22 06/01/22 Rx [Percocet 10-325 mg] Acetaminophen [Tylenol] 650 mg PO Q4H PRN 06/01/22 06/01/22 History Aspirin 81 mg PO DAILY@1200 06/01/22 06/01/22 History Atorvastatin [Lipitor] 80 mg PO HS@2100 06/01/22 06/01/22 History Budesonide-Formot 160-4.5 Mcg 2 puff INHALATION RT-BID@0800,1700 06/01/22 06/01/22 History [Symbicort 160-4.5 Mcg Inhaler] Insulin Detemir [Levemir Flextouch 15 units SQ HS@2130 06/01/22 06/01/22 History Pen] LORazepam [Ativan] 0.5 mg PO DAILY PRN 06/01/22 06/01/22 History LORazepam [Ativan] 1 mg PO HS PRN 06/01/22 06/01/22 History Magnesium Hydroxide [Milk of 7,200 mg PO DAILY PRN 06/01/22 06/01/22 History Magnesia Concentrate] Magnesium Oxide [Mag-Ox] 400 mg PO BID@0800,1700 06/01/22 06/01/22 History Na Phos,M-B/Na Phos,Di-Ba [Fleet 133 ml RECTAL DAILY PRN 06/01/22 06/01/22 H istory Adult] Torsemide [Demadex] 40 mg PO DAILY@0800 06/01/22 06/01/22 History bisacodyL [Dulcolax] 10 mg RECTAL DAILY PRN 06/01/22 06/01/22 History polyethylene glycoL 3350 [Miralax] 17 gm PO DAILY@0800 06/01/22 06/01/22 History predniSONE See Taper PO DIRECTED 06/01/22 06/01/22 History Allergies Allergy/AdvReac Type Severity Reaction Status Date / Time morphine Allergy Itching Verified 06/01/22 21:56 tizanidine [From Zanaflex] Allergy Unknown Verified 06/01/22 21:56 zolpidem [From Ambien] Allergy Unknown Verified 06/01/22 21:56 gabapentin AdvReac Hallucinati Verified 06/01/22 21:56 ons hydromorphone [From Dilaudid] AdvReac Hallucinati Verified 06/01/22 21:56 ons pentazocine [From Talwin] AdvReac Hallucinati Verified 06/01/22 21:56 ons pregabalin [From Lyrica] AdvReac Hallucinati Verified 06/01/22 21:56 ons Physical Exam Vitals: Vital Signs Temp Pulse Pulse Resp BP BP Pulse Ox 06/02/22 11:33 65 128/59 96 06/02/22 08:04 17 06/02/22 07:50 98.1 F 61 17 143/79 97 06/02/22 07:48 68 06/02/22 07:38 70 06/02/22 04:57 60 06/02/22 04:47 60 98 06/02/22 04:21 14 98 06/02/22 04:19 99 06/02/22 04:16 98.1 F 63 14 146/65 100 06/02/22 03:43 87 15 155/71 97 06/02/22 00:45 77 20 139/84 100 06/01/22 20:43 71 22 122/66 96 06/01/22 19:15 98.2 F 74 21 149/82 100 Intake and Output 06/01/22 06/02/22 06/02/22 22:59 06:59 14:59 Intake Total 0 Balance 0 Intake: Oral 0 Other: Voiding Method External Catheter Weight 82.1 kg 87.5 kg Results CBC & Chem 7: 06/01/22 19:28 06/01/22 19:28 Labs: Abnormal Lab Results - Last 24 Hours (Table) 06/01/22 06/01/22 06/01/22 Range/Units 19:28 19:28 19:28 Hgb 10.1 L (11.4-16.0) gm/dL Hct 32.7 L (34.0-46.0) % MCH 24.9 L (25.0-35.0) pg RDW 18.0 H (11.5-15.5) % Lymphocytes # 0.7 L (1.0-4.8) k/uL PT (9.0-12.0) sec INR (<1.2) APTT (22.0-30.0) sec Sodium 133 L (137-145) mmol/L Chloride 88 L (98-107) mmol/L Carbon Dioxide 37 H (22-30) mmol/L BUN 25 H (7-17) mg/dL Glucose 375 H (74-99) mg/dL POC Glucose (mg/dL) (70-110) mg/dL Calcium 8.3 L (8.4-10.2) mg/dL Magnesium 1.0 L (1.6-2.3) mg/dL AST 42 H (14-36) U/L ALT 40 H (4-34) U/L Troponin I 0.055 H* (0.000-0.034) ng/mL Total Protein 6.1 L (6.3-8.2) g/dL 06/01/22 06/02/22 06/02/22 Range/Units 21:31 05:57 06:44 Hgb (11.4-16.0) gm/dL Hct (34.0-46.0) % MCH (25.0-35.0) pg RDW (11.5-15.5) % Lymphocytes # (1.0-4.8) k/uL PT 27.2 H (9.0-12.0) sec INR 2.8 H (<1.2) APTT 31.3 H (22.0-30.0) sec Sodium (137-145) mmol/L Chloride (98-107) mmol/L Carbon Dioxide (22-30) mmol/L BUN (7-17) mg/dL Glucose (74-99) mg/dL POC Glucose (mg/dL) 397 H 200 H (70-110) mg/dL Calcium (8.4-10.2) mg/dL Magnesium (1.6-2.3) mg/dL AST (14-36) U/L ALT (4-34) U/L Troponin I (0.000-0.034) ng/mL Total Protein (6.3-8.2) g/dL 06/02/22 Range/Units 11:51 Hgb (11.4-16.0) gm/dL Hct (34.0-46.0) % MCH (25.0-35.0) pg RDW (11.5-15.5) % Lymphocytes # (1.0-4.8) k/uL PT (9.0-12.0) sec INR (<1.2) APTT (22.0-30.0) sec Sodium (137-145) mmol/L Chloride (98-107) mmol/L Carbon Dioxide (22-30) mmol/L BUN (7-17) mg/dL Glucose (74-99) mg/dL POC Glucose (mg/dL) 166 H (70-110) mg/dL Calcium (8.4-10.2) mg/dL Magnesium (1.6-2.3) mg/dL AST (14-36) U/L ALT (4-34) U/L Troponin I (0.000-0.034) ng/mL Total Protein (6.3-8.2) g/dL Thrombosis Risk Factor Assmnt - Choose All That Apply Any of the Below Risk Factors Present?: Yes Each Factor Represents 1 point: Abnormal pulmonary function (COPD), Obesity (BMI >25) Other Risk Factors: Yes Each Risk Factor Represents 3 Points: Age 75 years or older Other congenital or acquired thrombophilia - If yes, enter type in comment: No Thrombosis Risk Factor Assessment Total Risk Factor Score: 5 Thrombosis Risk Factor Assessment Level: High Risk
[2022-06-02] MEDS: MAGNESIUM SULFATE-D5W PMX 1 GM in DEXTROSE/WATER 1 100ML.BAG IVPB SCH ×4 (12:09→20:23)
[2022-06-02] MEDS: predniSONE 20 MG TAB PO SCH (12:09)
--- NOTE | 2022-06-02 14:01 | P.CRDCN ---
History of Present Illness Consult date: 06/02/22 Consult reason: congestive heart failure (Exacerbation) History of present illness: History of present illness: This is an 81-year-old female with history of complete heart block status post permanent pacemaker, hypertension, persistent atrial fibrillation, diabetes, dyslipidemia and COPD on home O2. We have been asked to see the patient for CHF exacerbation. Patient had a recent hospitalization at which time she was treated for acute diastolic heart failure. Patient resides at [facility] and states she couldn't breathe with wheezing. She denies having any chest pain. No lightheadedness or dizziness. She states she is feeling much better at this time. Cardiac catheterization 05/08/2022 revealed mild to moderate nonobstructive CAD for which she was advised medical therapy. Echocardiogram 04/12/2022 revealed normal LV systolic function with mild to moderate concentric left ventricle hypertrophy. Mild to moderate tricuspid regurgitation without pulmonary hypertension. Mild mitral annular calcificati on. Troponins 0.04, 0.04, 0.05. Sodium 133, potassium 4.2, BUN 25 and creatinine 0.9. AST 42 and ALT 40. Hemoglobin 10.1 INR was 2.8. Home cardiac medications aspirin 81 mg daily, atorvastatin 80 mg at bedtime, lisinopril 5 mg daily, Lopressor 100 mg twice daily, Aldactone 50 mg daily, Demadex 40 mg oral daily, Coumadin 5 mg daily Review Of Systems: At the time of my evaluation: Constitutional: No fever, no chills EENT: No headache. No epistaxis. Lungs: Reports improved shortness of breath, no cough, no sputum production. No wheezing. Cardiovascular: No chest pain, no lower extremity edema. No palpitations. No paroxysmal nocturnal dyspnea. No orthopnea. No lightheadedness or dizziness. No syncopal episodes. Abdominal: No abdominal pain. No nausea, vomiting. No diarrhea. No constipation. No bloody or tarry stools. Musculoskeletal: No myalgias. Chronic muscle weakness. Integumentary: No wounds. No rash or pruritus. No unusual bruising. Neurologic: No aphasia. No facial droop. No change in mentation. Psychiatric: No depression. No anxiety. Endocrine: Noted abnormal blood sugars. General: The patient is awake and alert, in no distress, and does not appear acutely ill. Skin: Skin is warm and dry and no rashes or lesions are noted. Eye: Pupils are equal, round and reactive to light, extra-ocular movements are intact; there is normal conjunctiva bilaterally. Ears, nose, mouth and throat: There are moist mucous membranes and no oral lesions. Neck: The neck is supple, there is no tenderness or JVD. Cardiovascular: Irregularly irregular systolic murmur at the apex Respiratory: Lungs are crackles in the bilateral bases, respirations are non- labored, breath sounds are equal. Gastrointestinal: Soft. Extremities: No edema. Neurological: There are no obvious motor or sensory deficits. Speech is normal. Assessment: Persistent atrial fibrillation with controlled ventricular rate Acute exacerbation of chronic diastolic heart failure COPD with chronic hypoxic respiratory failure on home O2 at 2 L High-grade AV block status post permanent pacemaker Coronary artery disease Chronically elevated troponin Plan: Continue patient on Lasix 40 mg IV every 12 hours Monitor I&O and daily weights, electrolytes and renal function Continue patient's home cardiac medications No need to repeat echocardiogram Further recommendations as patient progresses. Linda lawson for this consultation Nurse practitioner note has been reviewed, I agree with the documented findings and plan of care. Patient was seen and examined. Past Medical History Past Medical History: Atrial Fibrillation, Coronary Artery Disease (CAD), Cancer, COPD, Hypertension Additional Past Medical History / Comment(s): breast cancer 2001 post Lt lumpectomy & lymph node, and bladder cancer post , carpletunnel, chronic atrail fibrillation History of Any Multi-Drug Resistant Organisms: None Reported Past Surgical History: Back Surgery, Joint Replacement, Orthopedic Surgery, Pacemaker, Tonsillectomy, Tubal Ligation Additional Past Surgical History / Comment(s): bilat knees, rt shoulder repair, lung nodule removal, both carotids repaired (occluded) Past Anesthesia/Blood Transfusion Reactions: No Reported Reaction Type of Cardiac Device: Permanent Pacemaker Device Placement Date:: 02/16/2017 Past Psychological History: Anxiety, Depression Smoking Status: Former smoker Past Alcohol Use History: None Reported Past Drug Use History: None Reported - Past Family History Mother Family Medical History: COPD Medications and Allergies Home Medications Medication Instructions Recorded Confirmed Type Metoprolol Tartrate [Lopressor] 100 mg PO BID@0800,1700 02/17/22 06/01/22 History Pantoprazole Sodium [Protonix] 40 mg PO BID@0800,1700 02/17/22 06/01/22 History rOPINIRole HCL [Requip] 2 mg PO BID@0800,2100 02/17/22 06/01/22 History metFORMIN HCL [Glucophage] 500 mg PO BID@0800,1700 04/06/22 06/01/22 History Albuterol Inhaler [Ventolin Hfa 2 puff INHALATION RT-Q4H PRN #1 04/12/22 06/01/22 Rx Inhaler] each Cholecalciferol [Vitamin D3 (25 25 mcg PO HS@209905/04/22 06/01/22 History Mcg = 1000 Iu)] lisinopriL [Zestril] 5 mg PO DAILY@0800 05/04/22 06/01/22 History Ipratropium-Albuterol Nebulize 3 mg INHALATION RT-QID@,,,05/22/22 06/01/22 History [Duoneb 0.5 mg-3 mg/3 ml Soln] PRN Spironolactone [Aldactone] 50 mg PO DAILY@0800 05/22/22 06/01/22 History Warfarin Sodium [Jantoven] 5 mg PO DAILY@17005/22/22 06/01/22 History Benzonatate [Tessalon Perles] 100 mg PO TID PRN cap 05/24/22 06/01/22 Rx oxyCODONE HCL/ACETAMINOPHEN 1 tab PO Q6HR PRN #12 tab 05/24/22 06/01/22 Rx [Percocet 10-325 mg] Acetaminophen [Tylenol] 650 mg PO Q4H PRN 06/01/22 06/01/22 History Aspirin 81 mg PO DAILY@1200 06/01/22 06/01/22 History Atorvastatin [Lipitor] 80 mg PO HS@209906/01/22 06/01/22 History Budesonide-Formot 160-4.5 Mcg 2 puff INHALATION RT-BID@0800,1700 06/01/22 06/01/22 History [Symbicort 160-4.5 Mcg Inhaler] Insulin Detemir [Levemir Flextouch 15 units SQ HS@21306/01/22 06/01/22 History Pen] LORazepam [Ativan] 0.5 mg PO DAILY PRN 06/01/22 06/01/22 History LORazepam [Ativan] 1 mg PO HS PRN 06/01/22 06/01/22 History Magnesium Hydroxide [Milk of 7,200 mg PO DAILY PRN 06/01/22 06/01/22 History Magnesia Concentrate] Magnesium Oxide [Mag-Ox] 400 mg PO BID@0800,1700 06/01/22 06/01/22 History Na Phos,M-B/Na Phos,Di-Ba [Fleet 133 ml RECTAL DAILY PRN 06/01/22 06/01/22 History Adult] Torsemide [Demadex] 40 mg PO DAILY@0800 06/01/22 06/01/22 History bisacodyL [Dulcolax] 10 mg RECTAL DAILY PRN 06/01/22 06/01/22 History polyethylene glycoL 3350 [Miralax] 17 gm PO DAILY@0800 06/01/22 06/01/22 History predniSONE See Taper PO DIRECTED 06/01/22 06/01/22 History Allergies Allergy/AdvReac Type Severity Reaction Status Date / Time morphine Allergy Itching Verified 06/01/22 21:56 tizanidine [From Zanaflex] Allergy Unknown Verified 06/01/22 21:56 zolpidem [From Ambien] Allergy Unknown Verified 06/01/22 21:56 gabapentin AdvReac Hallucinati Verified 06/01/22 21:56 ons hydromorphone [From Dilaudid] AdvReac Hallucinati Verified 06/01/22 21:56 ons pentazocine [From Talwin] AdvReac Hallucinati Verified 06/01/22 21:56 ons pregabalin [From Lyrica] AdvReac Hallucinati Verified 06/01/22 21:56 ons Physical Exam Vitals: Vital Signs Temp Pulse Pulse Resp BP BP Pulse Ox 06/02/22 04:57 60 06/02/22 04:47 60 98 06/02/22 04:21 14 98 06/02/22 04:19 99 06/02/22 04:16 98.1 F 63 14 146/65 100 06/02/22 03:43 87 15 155/71 97 06/02/22 00:45 77 20 139/84 100 06/01/22 20:43 71 22 122/66 96 06/01/22 19:15 98.2 F 74 21 149/82 100 Intake and Output 0106/02/22 06/02/22 22:59 06:59 14:59 Other: Weight 82.1 kg 87.5 kg Results 06/01/22 19:28 06/01/22 19:28 Cardiac Enzymes 06/01/22 06/01/22 Range/Units 19:28 19:28 AST 42 H (14-36) U/L Troponin I 0.055 H* (0.000-0.034) ng/mL CBC 06/01/22 Range/Units 19:28 WBC 8.7 (3.8-10.6) k/uL RBC 4.07 (3.80-5.40) m/uL Hgb 10.1 L (11.4-16.0) gm/dL Hct 32.7 L (34.0-46.0) % Plt Count 221 (150-450) k/uL Comprehensive Metabolic Panel 06/01/22 Range/Units 19:28 Sodium 133 L (137-145) mmol/L Potassium 4.2 (3.5-5.1) mmol/L Chloride 88 L (98-107) mmol/L Carbon Dioxide 37 H (22-30) mmol/L BUN 25 H (7-17) mg/dL Creatinine 0.95 (0.52-1.04) mg/dL Glucose 375 H (74-99) mg/dL Calcium 8.3 L (8.4-10.2) mg/dL AST 42 H (14-36) U/L ALT 40 H (4-34) U/L Alkaline Phosphatase 118 (38-126) U/L Total Protein 6.1 L (6.3-8.2) g/dL Albumin 3.9 (3.5-5.0) g/dL Current Medications Generic Name Dose Route Start Last Admin Trade Name Freq PRN Reason Stop Dose Admin Acetaminophen 650 mg 06/02/22 00:18 Acetaminophen Tab 325 Mg Tab PO Q4H PRN Pain or Fever > 100.5 Albuterol Sulfate 2.5 mg 06/02/22 01:00 06/02/22 04:45 Albuterol Nebulized 2.5 Mg/3 Ml INHALATION 2.5 mg RT-Q4H PRN Administration Shortness Of Breath Albuterol/Ipratropium 9 ml 06/02/22 08:00 Ipratropium-Albuterol 3 Ml Neb INHALATION RT-QID@08,12,17,21 PRN Shortness Of Breath Aspirin 81 mg 06/02/22 12:00 Aspirin 81 Mg PO DAILY@1200 [facility] Atorvastatin Calcium 80 mg 06/02/22 21:00 Atorvastatin 80 Mg Tab PO HS@2100 [facility] Benzonatate 100 mg 06/02/22 00:18 Benzonatate 100 Mg Cap PO TID PRN Cough Bisacodyl 10 mg 06/02/22 00:18 Bisacodyl 10 Mg Supp RECTAL DAILY PRN Constipation Budesonide/Formoterol Fumarate 2 puff 06/02/22 08:00 Symbicort 160-4.5 Mcg Inhaler INHALATION RT-BID@0800,1700 [facility] Cholecalciferol 25 mcg 06/02/22 21:00 Cholecalciferol 25 Mcg (1000 Iu) Tablet PO HS@2100 [facility] Insulin Detemir 15 unit 06/02/22 21:30 Insulin Detemir (Levemir) 100 Unit/Ml Syr SQ HS@2130 [facility] Lisinopril 5 mg 06/02/22 08:00 Lisinopril 5 Mg Tab PO DAILY@0800 [facility] Lorazepam 0.5 mg 06/02/22 00:18 Lorazepam 0.5 Mg Tab PO DAILY PRN Anxiety Lorazepam 1 mg 06/02/22 00:18 06/02/22 00:43 Lorazepam 1 Mg Tab PO 1 mg HS PRN Administration Anxiety Magnesium Hydroxide 2,400 mg 06/02/22 09:00 Magnesium Hydroxide 2,400 Mg/10 Ml Cup PO DAILY PRN Constipation Magnesium Oxide 400 mg 06/02/22 08:00 Magnesium Oxide 400 Mg Tab PO BID@0800,1700 [facility] Metformin HCl 500 mg 06/02/22 08:00 Metformin 500 Mg Tab PO BID@0800,1700 [facility] Metoprolol Tartrate 100 mg 06/02/22 08:00 Metoprolol Tartrate 50 Mg Tab PO BID@0800,1700 [facility] Naloxone HCl 0.2 mg 06/01/22 22:04 Naloxone 0.4 Mg/Ml 1 Ml Vial IV Q2M PRN Opioid Reversal Oxycodone/Acetaminophen 1 each 06/02/22 00:18 06/02/22 00:43 Oxycodone-Apap 10-325mg 1 Each Tab PO 1 each Q6HR PRN Administration Pain Pantoprazole Sodium 40 mg 06/02/22 08:00 Pantoprazole 40 Mg Tablet PO BID@0800,1700 [facility] Polyethylene Glycol 17 gm 06/02/22 08:00 Polyethylene Glycol 3350 17 Gm Powd.Pack PO DAILY@0800 [facility] Ropinirole HCl 2 mg 06/02/22 08:00 Ropinirole Hcl 1 Mg Tab PO BID@0800,2100 [facility] Spironolactone 50 mg 06/02/22 08:00 Spironolactone 25 Mg Tab PO DAILY@0800 [facility] Torsemide 40 mg 06/02/22 08:00 Torsemide 20 Mg Tab PO DAILY@0800 [facility] Warfarin Sodium 5 mg 06/02/22 17:00 Warfarin 5 Mg Tab PO DAILY@1700 [facility] Protocol Intake and Output 06/01/22 06/02/22 06/02/22 22:59 06:59 14:59 Other: Weight 82.1 kg 87.5 kg 06/01/22 19:28 06/01/22 19:28
[2022-06-02] MEDS: IPRATROPIUM-ALBUTEROL 3 ML NEB INHALATION SCH ×3 (15:04→19:04)
[2022-06-02 16:40] LABS: Glucose,Whole Blood 329 mg/dL (70-110)
[2022-06-02] MEDS: WARFARIN 5 MG TAB PO SCH (17:55)
[2022-06-02 20:06] LABS: Glucose,Whole Blood 435 mg/dL (70-110)
[2022-06-02] MEDS: ATORVASTATIN 80 MG TAB PO SCH (20:49)
[2022-06-02] MEDS: INSULIN DETEMIR (LEVEMIR) 100 UNIT/ML SYR SQ SCH (20:49)
[2022-06-02] MEDS: CHOLECALCIFEROL 25 MCG (1000 IU) TABLET PO SCH (20:49)
[2022-06-03 00:44] LABS: Glucose,Whole Blood 311 mg/dL (70-110)
[2022-06-03] MEDS: LORazepam 1 MG TAB PO PRN ×2 (00:55→20:40)
[2022-06-03 06:19] LABS: Glucose,Whole Blood 170 mg/dL (70-110)
[2022-06-03] MEDS: IPRATROPIUM-ALBUTEROL 3 ML NEB INHALATION SCH ×4 (07:17→18:57)
[2022-06-03] MEDS: SYMBICORT 160-4.5 MCG INHALER INHALATION SCH ×2 (07:17→15:25)
[2022-06-03] MEDS: polyethylene glycoL 3350 17 GM POWD.PACK PO SCH (08:26)
[2022-06-03] MEDS: LORazepam 0.5 MG TAB PO PRN (08:33)
[2022-06-03] MEDS: oxyCODONE-APAP 10-325MG 1 EACH TAB PO PRN ×2 (08:33→20:40)
[2022-06-03] MEDS: FUROSEMIDE 10 MG/ML 4 ML VIAL IV SCH ×2 (08:34→21:23)
[2022-06-03] MEDS: PANTOPRAZOLE 40 MG TABLET PO SCH ×2 (08:34→17:02)
[2022-06-03] MEDS: MAGNESIUM OXIDE 400 MG TAB PO SCH ×2 (08:34→17:02)
[2022-06-03] MEDS: SPIRONOLACTONE 25 MG TAB PO SCH (08:34)
[2022-06-03] MEDS: METOPROLOL TARTRATE 50 MG TAB PO SCH ×2 (08:34→17:02)
[2022-06-03] MEDS: predniSONE 20 MG TAB PO SCH (08:34)
[2022-06-03] MEDS: lisinopriL 5 MG TAB PO SCH (08:34)
[2022-06-03] MEDS: metFORMIN 500 MG TAB PO SCH ×2 (08:35→17:02)
[2022-06-03 08:38] LABS: INR 2.7 (<1.2); Prothrombin Time 25.9 sec (9.0-12.0)
[2022-06-03 09:15] LABS: Calcium 8.4 mg/dL (8.4-10.2); Potassium 4.2 mmol/L (3.5-5.1)
[2022-06-03 11:46] LABS: Glucose,Whole Blood 208 mg/dL (70-110)
[2022-06-03] MEDS: ASPIRIN 81 MG PO SCH (12:00)
--- NOTE | 2022-06-03 12:12 | P.PN ---
Subjective Progress Note Date: 06/03/22 History of present illness: This is an 81-year-old female with history of complete heart block status post permanent pacemaker, hypertension, persistent atrial fibrillation, diabetes, dyslipidemia and COPD on home O2. We have been asked to see the patient for CHF exacerbation. Patient had a recent hospitalization at which time she was treated for acute diastolic heart failure. Patient resides at [facility] and states she couldn't breathe with wheezing. She denies having any chest pain. No lightheadedness or dizziness. She states she is feeling much better at this time. Cardiac catheterization 05/08/2022 revealed mild to moderate nonobstructive CAD for which she was advised medical therapy. Echocardiogram 04/12/2022 revealed normal LV systolic function with mild to moderate concentric left ventricle hypertrophy. Mild to moderate tricuspid regurgitation without pulmonary hypertension. Mild mitral annular calcification. Troponins 0.04, 0.04, 0.05. Sodium 133, potassium 4.2, BUN 25 and creatinine 0.9. AST 42 and ALT 40. Hemoglobin 10.1 INR was 2.8. Home cardiac medications aspirin 81 mg daily, atorvastatin 80 mg at bedtime, lisinopril 5 mg daily, Lopressor 100 mg twice daily, Aldactone 50 mg daily, Demadex 40 mg oral daily, Coumadin 5 mg daily 06/03 Patient states that she is still feeling short of breath no real improvement from yesterday. She has been maintained on Lasix 40 mg IV every 12 hours. Repeat blood work reveals INR 2.7. Sodium 133, potassium 4.2, chloride 87, CO2 39, BUN 33 and creatinine 1.32. Repeat troponin 0.047. Pulse ox is 94% on 4 L. Patient has home O2 at 2 L. Telemetry atrial fibrillation rate controlled. Heart rate is in the 60s and 70s, blood pressure 132/76. General: The patient is awake and alert, in no distress, and does not appear acutely ill. Skin: Skin is warm and dry and no rashes or lesions are noted. Eye: Pupils are equal, round and reactive to light, extra-ocular movements are intact; there is normal conjunctiva bilaterally. Ears, nose, mouth and throat: There are moist mucous membranes and no oral lesions. Neck: The neck is supple, there is no tenderness or JVD. Cardiovascular: Irregularly irregular systolic murmur at the apex Respiratory: Lungs are crackles in the bilateral bases, respirations are non- labored, breath sounds are equal. Gastrointestinal: Soft. Extremities: No edema. Neurological: There are no obvious motor or sensory deficits. Speech is normal. Assessment: Persistent atrial fibrillation with controlled ventricular rate Acute exacerbation of chronic diastolic heart failure COPD with chronic hypoxic respiratory failure on home O2 at 2 L High-grade AV block status post permanent pacemaker Coronary artery disease Chronically elevated troponin Plan: Continue patient on Lasix 40 mg IV every 12 hours Monitor I&O and daily weights, electrolytes and renal function Continue patient's home cardiac medications No need to repeat echocardiogram Further recommendations as patient progresses. Nurse practitioner note has been reviewed, I agree with the documented findings and plan of care. Patient was seen and examined. Objective - Vital Signs Vital signs: Vital Signs Temp 98.5 F 06/03/22 03:51 Pulse 70 06/03/22 07:30 Resp 16 06/03/22 03:51 BP 133/67 06/03/22 03:51 Pulse Ox 99 06/03/22 07:18 FiO2 Intake & Output 06/02/22 06/03/22 06/03/22 18:59 06:59 18:59 Intake Total 240 240 Output Total 300 600 Balance -60 -360 Weight 86.5 kg Intake: Oral 240 240 Output: Urine 300 600 Other: Voiding Method External Catheter External Catheter # Voids 1 1 - Labs CBC & Chem 7: 06/01/22 19:28 06/03/22 08:18 Labs: Abnormal Lab Results - Last 24 Hours (Table) 06/02/22 06/02/22 06/02/22 Range/Units 11:51 16:38 20:05 PT (9.0-12.0) sec INR (<1.2) POC Glucose (mg/dL) 166 H 329 H 435 H (70-110) mg/dL 06/03/22 06/03/22 06/03/22 Range/Units 00:32 06:18 08:18 PT 25.9 H (9.0-12.0) sec INR 2.7 H (<1.2) POC Glucose (mg/dL) 311 H 170 H (70-110) mg/dL
--- NOTE | 2022-06-03 14:47 | P.PN ---
Subjective Progress Note Date: 06/03/22 81-year-old woman with a medical history of atrial fibrillation, complete heart block with dual chamber pacemaker, COPD on 2L home O2, heart valve replacement presented for dyspnea and cough. Patient was recently discharged to [facility] on 05/22/2022 after being treated for CHF and COPD exacerbation. Patient reports shortness of breath while at rehab. Of note, patient states that she in very unhappy about being at [facility] and would like to go home this time, but would like to stay until Monday. She denies any headache, lower extremity edema, nausea vomiting, fever or chills, chest pain, palpitations, changes in bowel habits. No changes in appetite or weight. She denies any numbness/weakne ss/tingling of the extremities. In the ED, vital signs were stable on 2L NC. CBC showed hemoglobin of 10.1. CMP Na 133, Cl 88, bicarb 37, BUN 25, glucose 375, Ca 8.3, AST 42, ALT 40. INR was 1.2. Troponin was 0.055, EKG showing electronic ventricular pacemaker rhythm . Chest x-ray showed cardiomegaly with no acute process. BNP was 2970. Patient was seen and examined. No acute events overnight. Patient returns report shortness of breath. Review of vitals show that she desaturated to 76% this morning. She reports no improvement. General: non toxic, no distress, appears at stated age, appears dyspnea Derm: warm, dry Head: atraumatic, normocephalic, symmetric Eyes: EOMI, no lid lag, anicteric sclera Mouth: no lip lesion, mucus membranes moist Cardiovascular: S1S2 reg, no murmur Lungs: Scattered wheezing bilateral with rhonchi, no rales , no accessory muscle use Abdominal: soft, nontender to palpation, no guarding, no appreciable organomegaly Ext: no gross muscle atrophy, no edema, no contractures Neuro: no focal neuro deficits Psych: Alert, oriented, appropriate affect #Acute on Chronic COPD exacerbation #Acute on Chronic diastolic CHF exacerbation #Chronic respiratory failure #Troponin elevation #Hypomagnesemia #Hyponatremia, hypochloremic #Metabolic alkalosis #Transaminitis #Generalized weakness and debility Chronic conditions: History of paroxysmal atrial fibrillation, History of complete heart block with dual-chamber pacemaker, Restless leg syndrome, depression DuoNeb scheduled and is here for shortness of breath and wheezing. Start Prednisone and slow taper on discharge. 0.6L fluid loss since admission. Continue Lasix 40 mg IV BID. BNP at baseline. Echo 03/2022 shows mild to moderate LVH with normal EF. Cardiology consult. ACS ruled out. Magnesium sulfate 4 gram IV today. Repeating magnesium level tomorrow. Electrolyte abnormalities and alkalosis likely related to Torsemide (home medication). Repeat BMP tomorrow. Unknown etiology for transaminitis. Patient will need outpatient workup. PT and OT will be consulted to work with this patient. Fall precautions. Home medications reviewed and restarted. DVT prophylaxis: Coumadin Discussed with: Patient, nursing Anticipated discharge: 1-2 days Objective - Vital Signs Vital signs: Vital Signs Temp 97.4 F L 06/03/22 08:00 Pulse 52 L 06/03/22 14:00 Resp 18 06/03/22 14:00 BP 164/77 06/03/22 12:00 Pulse Ox 100 06/03/22 12:00 FiO2 Intake & Output 06/02/22 06/03/22 06/03/22 18:59 06:59 18:59 Intake Total 240 240 378 Output Total 300 600 600 Balance -60 -360 -222 Weight 86.5 kg Intake: IV 20 Invasive Line 5 20 Oral 240 240 358 Output: Urine 300 600 600 Other: Voiding Method External Catheter External Catheter # Voids 1 1 - Labs CBC & Chem 7: 06/01/22 19:28 06/03/22 08:18 Labs: Abnormal Lab Results - Last 24 Hours (Table) 06/02/22 06/02/22 06/03/22 Range/Units 16:38 20:05 00:32 PT (9.0-12.0) sec INR (<1.2) Sodium (137-145) mmol/L Chloride (98-107) mmol/L Carbon Dioxide (22-30) mmol/L BUN (7-17) mg/dL Creatinine (0.52-1.04) mg/dL Glucose (74-99) mg/dL POC Glucose (mg/dL) 329 H 435 H 311 H (70-110) mg/dL Troponin I (0.000-0.034) ng/mL 06/03/22 06/03/22 06/03/22 Range/Units 06:18 08:18 08:18 PT 25.9 H (9.0-12.0) sec INR 2.7 H (<1.2) Sodium 133 L (137-145) mmol/L Chloride 87 L (98-107) mmol/L Carbon Dioxide 39 H (22-30) mmol/L BUN 33 H (7-17) mg/dL Creatinine 1.32 H (0.52-1.04) mg/dL Glucose 178 H (74-99) mg/dL POC Glucose (mg/dL) 170 H (70-110) mg/dL Troponin I (0.000-0.034) ng/mL 06/03/22 06/03/22 Range/Units 08:18 11:45 PT (9.0-12.0) sec INR (<1.2) Sodium (137-145) mmol/L Chloride (98-107) mmol/L Carbon Dioxide (22-30) mmol/L BUN (7-17) mg/dL Creatinine (0.52-1.04) mg/dL Glucose (74-99) mg/dL POC Glucose (mg/dL) 208 H (70-110) mg/dL Troponin I 0.047 H* (0.000-0.034) ng/mL
[2022-06-03 16:50] LABS: Glucose,Whole Blood 402 mg/dL (70-110)
[2022-06-03 16:50] LABS: Glucose,Whole Blood 436 mg/dL (70-110)
[2022-06-03] MEDS: WARFARIN 5 MG TAB PO SCH (17:02)
[2022-06-03] MEDS ORDERED: INSULIN ASPART (NovoLOG) 100 UNIT/ML VIAL SQ ONE (17:11)
[2022-06-03 19:53] LABS: Glucose,Whole Blood 394 mg/dL (70-110)
[2022-06-03] MEDS: INSULIN DETEMIR (LEVEMIR) 100 UNIT/ML SYR SQ SCH (20:39)
[2022-06-03] MEDS: CHOLECALCIFEROL 25 MCG (1000 IU) TABLET PO SCH (20:40)
[2022-06-03] MEDS: ATORVASTATIN 80 MG TAB PO SCH (20:40)
[2022-06-03] MEDS: INSULIN ASPART (NovoLOG) 100 UNIT/ML VIAL SQ SCH (20:47)
[2022-06-04] MEDS: oxyCODONE-APAP 10-325MG 1 EACH TAB PO PRN ×3 (03:12→22:22)
[2022-06-04 06:04] LABS: Glucose,Whole Blood 57 mg/dL (70-110)
[2022-06-04 06:42] LABS: Glucose,Whole Blood 102 mg/dL (70-110)
--- NOTE | 2022-06-04 06:42 | P.PN ---
Subjective Progress Note Date: 06/04/22 Principal diagnosis: Shortness of breath This is an 81-year-old female with history of complete heart block status post permanent pacemaker, hypertension, persistent atrial fibrillation, diabetes, dyslipidemia and COPD on home O2. We have been asked to see the patient for CHF exacerbation. Patient had a recent hospitalization at which time she was treated for acute diastolic heart failure. Patient resides at [facility] and states she couldn't breathe with wheezing. She denies having any chest pain. No lightheadedness or dizziness. She states she is feeling much better at this time. Cardiac catheterization 05/08/2022 revealed mild to moderate nonobstructive CAD for which she was advised medical therapy. Echocardiogram 04/12/2022 revealed normal LV systolic function with mild to moderate concentric left ventricle hypertrophy. Mild to moderate tricuspid regurgitation without pulmonary hypertension. Mild mitral annular calcification. Troponins 0.04, 0.04, 0.05. Sodium 133, potassium 4.2, BUN 25 and creatinine 0.9. AST 42 and ALT 40. Hemoglobin 10.1 INR was 2.8. Home cardiac medications aspirin 81 mg daily, atorvastatin 80 mg at bedtime, lisinopril 5 mg daily, Lopressor 100 mg twice daily, Aldactone 50 mg daily, Demadex 40 mg oral daily, Coumadin 5 mg daily 06/03 Patient states that she is still feeling short of breath no real improvement from yesterday. She has been maintained on Lasix 40 mg IV every 12 hours. Repeat blood work reveals INR 2.7. Sodium 133, potassium 4.2, chloride 87, CO2 39, BUN 33 and creatinine 1.32. Repeat troponin 0.047. Pulse ox is 94% on 4 L. Patient has home O2 at 2 L. Telemetry atrial fibrillation rate controlled. Heart rate is in the 60s and 70s, blood pressure 132/76. June [id number] The patient was seen this morning. She continues to be congested. She continues to be hypoxic requiring oxygen but she is known to have chronic hypoxic respiratory failure. On examination she does have bilateral expiratory wheezing and bilateral rhonchi. She has no lower extremities edema noted. Currently she is on Lasix IV which I would suggest to continue for additional 24 hours would continue monitor the kidney function and electrolytes and follow-up with the patient. She is on oral anticoagulation for the atrial fibrillation Assessment: Persistent atrial fibrillation with controlled ventricular rate Acute exacerbation of chronic diastolic heart failure COPD with chronic hypoxic respiratory failure on home O2 at 2 L High-grade AV block status post permanent pacemaker Coronary artery disease Chronically elevated troponin Plan: Continue patient on Lasix 40 mg IV every 12 hours Monitor I&O and daily weights, electrolytes and renal function Continue patient's home cardiac medications No need to repeat echocardiogram Further recommendations as patient progresses. Objective - Vital Signs Vital signs: Vital Signs Temp 98 F 06/04/22 04:00 Pulse 73 06/04/22 04:00 Resp 18 06/04/22 04:00 BP 141/87 06/04/22 04:00 Pulse Ox 94 L 06/04/22 04:00 FiO2 Intake & Output 06/03/22 06/03/22 06/04/22 06:59 18:59 06:59 Intake Total 240 1036 260 Output Total 600 1225 1200 Balance -360 189 940 Weight 86.5 kg 83.2 kg Intake: IV 20 20 Invasive Line 5 20 20 Oral 240 1016 240 Output: Urine 600 1225 1200 Other: Voiding Method External Catheter External Catheter External Catheter # Voids 1 - Labs CBC & Chem 7: 06/01/22 19:28 06/03/22 08:18 Labs: Abnormal Lab Results - Last 24 Hours (Table) 06/03/22 06/03/22 06/03/22 Range/Units 08:18 08:18 08:18 PT 25.9 H (9.0-12.0) sec INR 2.7 H (<1.2) Sodium 133 L (137-145) mmol/L Chloride 87 L (98-107) mmol/L Carbon Dioxide 39 H (22-30) mmol/L BUN 33 H (7-17) mg/dL Creatinine 1.32 H (0.52-1.04) mg/dL Glucose 178 H (74-99) mg/dL POC Glucose (mg/dL) (70-110) mg/dL Troponin I 0.047 H* (0.000-0.034) ng/mL 06/03/22 06/03/22 06/03/22 Range/Units 11:45 16:46 16:48 PT (9.0-12.0) sec INR (<1.2) Sodium (137-145) mmol/L Chloride (98-107) mmol/L Carbon Dioxide (22-30) mmol/L BUN (7-17) mg/dL Creatinine (0.52-1.04) mg/dL Glucose (74-99) mg/dL POC Glucose (mg/dL) 208 H 436 H 402 H (70-110) mg/dL Troponin I (0.000-0.034) ng/mL 06/03/22 06/04/22 Range/Units 19:51 06:02 PT (9.0-12.0) sec INR (<1.2) Sodium (137-145) mmol/L Chloride (98-107) mmol/L Carbon Dioxide (22-30) mmol/L BUN (7-17) mg/dL Creatinine (0.52-1.04) mg/dL Glucose (74-99) mg/dL POC Glucose (mg/dL) 394 H 57 L (70-110) mg/dL Troponin I (0.000-0.034) ng/mL
[2022-06-04] MEDS: INSULIN ASPART (NovoLOG) 100 UNIT/ML VIAL SQ SCH ×5 (06:52→20:52)
[2022-06-04 07:24] LABS: INR 4.6 (<1.2)
[2022-06-04 07:35] LABS: Anisocytosis Slight; Basophils # (A) 0.1 k/uL (0-0.2); Basophils % (A) 1 %; Eosinophils # (A) 0.1 k/uL (0-0.7); Eosinophils % (A) 0 %; HCT 35.2 % (34.0-46.0); HGB 10.9 gm/dL (11.4-16.0); Hypochromasia Moderate; Lymphocytes # (A) 1.9 k/uL (1.0-4.8); Lymphocytes % (A) 12 %; MCH 24.8 pg (25.0-35.0); MCHC 30.9 g/dL (31.0-37.0); MCV 80.2 fL (80.0-100.0); Mean Platelet Volume 8.1; Microcytosis Slight; Monocytes # (A) 1.1 k/uL (0-1.0); Monocytes % (A) 7 %; Neutrophils # (A) 13.3 k/uL (1.3-7.7); Neutrophils % (A) 80 %; Platelet Count 215 k/uL (150-450); Poikilocytosis Slight; RBC 4.39 m/uL (3.80-5.40); RDW 17.9 % (11.5-15.5); WBC 16.7 k/uL (3.8-10.6)
[2022-06-04 07:41] LABS: Calcium 8.9 mg/dL (8.4-10.2); Potassium 4.6 mmol/L (3.5-5.1)
[2022-06-04] MEDS: SYMBICORT 160-4.5 MCG INHALER INHALATION SCH ×2 (07:49→15:07)
[2022-06-04] MEDS: IPRATROPIUM-ALBUTEROL 3 ML NEB INHALATION SCH ×4 (07:49→19:59)
[2022-06-04] MEDS: FUROSEMIDE 10 MG/ML 4 ML VIAL IV SCH (08:53)
[2022-06-04] MEDS: predniSONE 20 MG TAB PO SCH (08:53)
[2022-06-04] MEDS: METOPROLOL TARTRATE 50 MG TAB PO SCH ×2 (08:53→17:26)
[2022-06-04] MEDS: MAGNESIUM OXIDE 400 MG TAB PO SCH ×2 (08:54→17:26)
[2022-06-04] MEDS: PANTOPRAZOLE 40 MG TABLET PO SCH ×2 (08:54→17:26)
[2022-06-04] MEDS: LORazepam 0.5 MG TAB PO PRN (08:54)
[2022-06-04] MEDS: polyethylene glycoL 3350 17 GM POWD.PACK PO SCH (08:54)
[2022-06-04] MEDS: SPIRONOLACTONE 25 MG TAB PO SCH (08:54)
[2022-06-04] MEDS: lisinopriL 5 MG TAB PO SCH (08:54)
[2022-06-04] MEDS: metFORMIN 500 MG TAB PO SCH ×2 (08:54→17:27)
[2022-06-04 09:11] LABS: Glucose,Whole Blood 153 mg/dL (70-110)
--- NOTE | 2022-06-04 09:26 | XR ---
EXAMINATION TYPE: XR chest 1V portable DATE OF EXAM: 06/04/2022 COMPARISON: 06/01/2022 HISTORY: Shortness of breath TECHNIQUE: Single frontal view of the chest is obtained. FINDINGS: There is cardiac pacemaker. There are postsurgical changes in the cervical spine. The heart size normal and the pulmonary vasculature is not congested. There is no abnormal airspace or interstitial lung opacity. There is no pleural effusion, pleural thickening or pneumothorax. There is marked degeneration of the right glenohumeral joint. IMPRESSION: No acute cardiopulmonary disease.
[2022-06-04 11:14] LABS: ABG Base Excess 14.3 mmol/L; ABG HCO3 39 mmol/L (21-25); ABG Oxygen Saturation 94.2 % (94-97); ABG PCO2 59 mmHg (35-45); ABG PH 7.43 (7.35-7.45); ABG PO2 87 mmHg (83-108); ABG TCO2 41 mmol/L (19-24); Allen Test Performed? Yes
[2022-06-04 11:42] LABS: Glucose,Whole Blood 229 mg/dL (70-110)
[2022-06-04] MEDS: ASPIRIN 81 MG PO SCH (11:46)
--- NOTE | 2022-06-04 13:22 | P.PN ---
Subjective Progress Note Date: 06/04/22 81-year-old woman with a medical history of atrial fibrillation, complete heart block with dual chamber pacemaker, COPD on 2L home O2, heart valve replacement presented for dyspnea and cough. Patient was recently discharged to [facility] on 05/22/2022 after being treated for CHF and COPD exacerbation. Patient reports shortness of breath while at rehab. Of note, patient states that she in very unhappy about being at [facility] and would like to go home this time, but would like to stay until Monday. She denies any headache, lower extremity edema, nausea vomiting, fever or chills, chest pain, palpitations, changes in bowel habits. No changes in appetite or weight. She denies any numbness/weakne ss/tingling of the extremities. In the ED, vital signs were stable on 2L NC. CBC showed hemoglobin of 10.1. CMP Na 133, Cl 88, bicarb 37, BUN 25, glucose 375, Ca 8.3, AST 42, ALT 40. INR was 1.2. Troponin was 0.055, EKG showing electronic ventricular pacemaker rhythm . Chest x-ray showed cardiomegaly with no acute process. BNP was 2970. Patient was seen and examined. No acute events overnight. Patient is more restless this morning. She appears more confused. Nursing reports that patient is more diaphoretic and anxious. General: non toxic, moderate distress, appears at stated age, diaphoretic and anxious Derm: warm, dry Head: atraumatic, normocephalic, symmetric Eyes: EOMI, no lid lag, anicteric sclera Mouth: no lip lesion, mucus membranes moist Cardiovascular: S1S2 reg, no murmur Lungs: Decreased breath sounds bilaterally, no rales , no accessory muscle use Abdominal: soft, nontender to palpation, no guarding, no appreciable organomegaly Ext: no gross muscle atrophy, no edema, no contractures Neuro: no focal neuro deficits Psych: Alert, oriented, appropriate affect #Acute metabolic encephalopathy #Acute on chronic hypoxic hypercapnic respiratory failure #Acute on chronic COPD exacerbation #Acute on chronic diastolic CHF exacerbation #Diabetes mellitus with hyperglycemia #Troponin elevation #Acute kidney injury #Transaminitis #Generalized weakness and debility Resolved: Hypomagnesmia Chronic conditions: History of paroxysmal atrial fibrillation, History of compl ete heart block with dual-chamber pacemaker, Restless leg syndrome, depression ABG shows pH of 7.43, pCO2 59 and bicarb of 37. Consistent with primary metabolic alkalosis with respiratory acidosis. Metabolic alkalosis likely related to Torsemide (home medicatioI n). Chest x-ray shows no acute changes. Lungs are clear to auscultation bilaterally. Patient afebrile with new leukocytosis of 16.7 which could also be steroid induced. DuoNeb scheduled and is here for shortness of breath and wheezing. Trial of BiPAP 02/16. 1.5L fluid loss since admission. Continue Lasix 40 mg IV BID. BNP at baseline. Echo 03/2022 shows mild to moderate LVH with normal EF. Cardiology on board. Hemoglobin A1c 8.22 May 2022. Recent Levemir 15 units at bedtime. Medium dose sliding scale. Add 5 units NovoLog 3 times a day before meals. ACS ruled out. Likely demand ischemia. Acute kidney injury likely due to forced diuresis. Unknown etiology for transaminitis. Patient will need outpatient workup. PT and OT will be consulted to work with this patient. Fall precautions. Home medications reviewed and restarted. DVT prophylaxis: Coumadin Discussed with: Patient, nursing Anticipated discharge: Depending on clinical course Objective - Vital Signs Vital signs: Vital Signs Temp 97.5 F L 06/04/22 08:00 Pulse 84 06/04/22 12:01 Resp 18 06/04/22 11:54 BP 164/108 06/04/22 11:54 Pulse Ox 99 06/04/22 11:54 FiO2 35 06/04/22 11:25 Intake & Output 06/03/22 06/04/22 06/04/22 18:59 06:59 18:59 Intake Total 1036 260 250 Output Total 1225 1200 200 Balance -189 -940 50 Weight 83.2 kg Intake: IV 20 20 10 Invasive Line 5 20 20 10 Oral 1016 240 240 Output: Urine 1225 1200 200 Other: Voiding Method External Catheter External Catheter - Labs CBC & Chem 7: 06/04/22 06:47 06/04/22 06:47 Labs: Abnormal Lab Results - Last 24 Hours (Table) 06/03/22 06/03/22 06/03/22 Range/Units 16:46 16:48 19:51 WBC (3.8-10.6) k/uL Hgb (11.4-16.0) gm/dL MCH (25.0-35.0) pg MCHC (31.0-37.0) g/dL RDW (11.5-15.5) % Neutrophils # (1.3-7.7) k/uL Monocytes # (0-1.0) k/uL PT (9.0-12.0) sec INR (<1.2) ABG pCO2 (35-45) mmHg ABG HCO3 (21-25) mmol/L ABG Total CO2 (19-24) mmol/L Sodium (137-145) mmol/L Chloride (98-107) mmol/L Carbon Dioxide (22-30) mmol/L BUN (7-17) mg/dL Creatinine (0.52-1.04) mg/dL Glucose (74-99) mg/dL POC Glucose (mg/dL) 436 H 402 H 394 H (70-110) mg/dL Troponin I (0.000-0.034) ng/mL 06/04/22 06/04/22 06/04/22 Range/Units 06:02 06:42 06:47 WBC 16.7 H (3.8-10.6) k/uL Hgb 10.9 L (11.4-16.0) gm/dL MCH 24.8 L (25.0-35.0) pg MCHC 30.9 L (31.0-37.0) g/dL RDW 17.9 H (11.5-15.5) % Neutrophils # 13.3 H (1.3-7.7) k/uL Monocytes # 1.1 H (0-1.0) k/uL PT 45.0 H (9.0-12.0) sec INR 4.6 H (<1.2) ABG pCO2 (35-45) mmHg ABG HCO3 (21-25) mmol/L ABG Total CO2 (19-24) mmol/L Sodium (137-145) mmol/L Chloride (98-107) mmol/L Carbon Dioxide (22-30) mmol/L BUN (7-17) mg/dL Creatinine (0.52-1.04) mg/dL Glucose (74-99) mg/dL POC Glucose (mg/dL) 57 L (70-110) mg/dL Troponin I (0.000-0.034) ng/mL 06/04/22 06/04/22 06/04/22 Range/Units 06:47 06:47 09:09 WBC (3.8-10.6) k/uL Hgb (11.4-16.0) gm/dL MCH (25.0-35.0) pg MCHC (31.0-37.0) g/dL RDW (11.5-15.5) % Neutrophils # (1.3-7.7) k/uL Monocytes # (0-1.0) k/uL PT (9.0-12.0) sec INR (<1.2) ABG pCO2 (35-45) mmHg ABG HCO3 (21-25) mmol/L ABG Total CO2 (19-24) mmol/L Sodium 133 L (137-145) mmol/L Chloride 89 L (98-107) mmol/L Carbon Dioxide 37 H (22-30) mmol/L BUN 40 H (7-17) mg/dL Creatinine 1.12 H (0.52-1.04) mg/dL Glucose 100 H (74-99) mg/dL POC Glucose (mg/dL) 153 H (70-110) mg/dL Troponin I 0.065 H* (0.000-0.034) ng/mL 06/04/22 06/04/22 Range/Units 11:11 11:39 WBC (3.8-10.6) k/uL Hgb (11.4-16.0) gm/dL MCH (25.0-35.0) pg MCHC (31.0-37.0) g/dL RDW (11.5-15.5) % Neutrophils # (1.3-7.7) k/uL Monocytes # (0-1.0) k/uL PT (9.0-12.0) sec INR (<1.2) ABG pCO2 59 H (35-45) mmHg ABG HCO3 39 H (21-25) mmol/L ABG Total CO2 41 H (19-24) mmol/L Sodium (137-145) mmol/L Chloride (98-107) mmol/L Carbon Dioxide (22-30) mmol/L BUN (7-17) mg/dL Creatinine (0.52-1.04) mg/dL Glucose (74-99) mg/dL POC Glucose (mg/dL) 229 H (70-110) mg/dL Troponin I (0.000-0.034) ng/mL
[2022-06-04] MEDS ORDERED: LORazepam 1 MG TAB PO STA (14:16)
[2022-06-04 16:48] LABS: Glucose,Whole Blood 204 mg/dL (70-110)
[2022-06-04] MEDS: methylPREDNISolone SOD SUCCI 125 MG/2 ML VIAL IV SCH ×2 (17:26→23:41)
[2022-06-04] MEDS ORDERED: WARFARIN 0.5 MG TAB PO ONE (18:00)
[2022-06-04 20:07] LABS: Glucose,Whole Blood 259 mg/dL (70-110)
[2022-06-04] MEDS: INSULIN DETEMIR (LEVEMIR) 100 UNIT/ML SYR SQ SCH (20:52)
[2022-06-04] MEDS: ATORVASTATIN 80 MG TAB PO SCH (20:52)
[2022-06-04] MEDS: CHOLECALCIFEROL 25 MCG (1000 IU) TABLET PO SCH (20:52)
[2022-06-04] MEDS: acetaZOLAMIDE 250 MG TAB PO SCH (20:52)
[2022-06-05] MEDS: oxyCODONE-APAP 10-325MG 1 EACH TAB PO PRN ×2 (04:54→21:00)
[2022-06-05 06:09] LABS: Glucose,Whole Blood 163 mg/dL (70-110)
[2022-06-05 06:12] LABS: INR 4.9 (<1.2); Prothrombin Time 48.6 sec (9.0-12.0)
[2022-06-05] MEDS: INSULIN ASPART (NovoLOG) 100 UNIT/ML VIAL SQ SCH ×7 (06:13→21:01)
--- NOTE | 2022-06-05 06:43 | P.PN ---
Subjective Progress Note Date: 06/05/22 Principal diagnosis: Shortness of breath This is an 81-year-old female with history of complete heart block status post permanent pacemaker, hypertension, persistent atrial fibrillation, diabetes, dyslipidemia and COPD on home O2. We have been asked to see the patient for CHF exacerbation. Patient had a recent hospitalization at which time she was treated for acute diastolic heart failure. Patient resides at [facility] and states she couldn't breathe with wheezing. She denies having any chest pain. No lightheadedness or dizziness. She states she is feeling much better at this time. Cardiac catheterization 05/08/2022 revealed mild to moderate nonobstructive CAD for which she was advised medical therapy. Echocardiogram 04/12/2022 revealed normal LV systolic function with mild to moderate concentric left ventricle hypertrophy. Mild to moderate tricuspid regurgitation without pulmonary hypertension. Mild mitral annular calcification. Troponins 0.04, 0.04, 0.05. Sodium 133, potassium 4.2, BUN 25 and creatinine 0.9. AST 42 and ALT 40. Hemoglobin 10.1 INR was 2.8. Home cardiac medications aspirin 81 mg daily, atorvastatin 80 mg at bedtime, lisinopril 5 mg daily, Lopressor 100 mg twice daily, Aldactone 50 mg daily, Demadex 40 mg oral daily, Coumadin 5 mg daily 06/03 Patient states that she is still feeling short of breath no real improvement from yesterday. She has been maintained on Lasix 40 mg IV every 12 hours. Repeat blood work reveals INR 2.7. Sodium 133, potassium 4.2, chloride 87, CO2 39, BUN 33 and creatinine 1.32. Repeat troponin 0.047. Pulse ox is 94% on 4 L. Patient has home O2 at 2 L. Telemetry atrial fibrillation rate controlled. Heart rate is in the 60s and 70s, blood pressure 132/76. June 042022 The patient was seen this morning. She continues to be congested. She continues to be hypoxic requiring oxygen but she is known to have chronic hypoxic respiratory failure. On examination she does have bilateral expiratory wheezing and bilateral rhonchi. She has no lower extremities edema noted. Currently she is on Lasix IV which I would suggest to continue for additional 24 hours would continue monitor the kidney function and electrolytes and follow-up with the patient. She is on oral anticoagulation for the atrial fibrillation June 052022 The patient was seen and evaluated this morning. She is overall doing better. Her shortness of breath is better. The lower extent his edema has improved as well. Currently she is on 3 L of oxygen and normally extended-care facility she is on 2 L of oxygen. She is currently on oral diuretics. The pressure remains elevated. I'm going to increase the dose of lisinopril. Otherwise continue the rest of the current medical regimen including oral anticoagulation. On examination she does have diminished but clear breathing sounds bilaterally with no lower extent with his edema noted. Assessment: Persistent atrial fibrillation with controlled ventricular rate Acute exacerbation of chronic diastolic heart failure which has improved COPD with chronic hypoxic respiratory failure on home O2 at 2 L High-grade AV block status post permanent pacemaker Coronary artery disease Chronically elevated troponin Plan: Continue the current medical regimen including the current dose of oral diuretics Continue oral anticoagulation Increase the dose of lisinopril Follow-up with the patient Objective - Vital Signs Vital signs: Vital Signs Temp 98.6 F 06/05/22 04:00 Pulse 65 06/05/22 04:00 Resp 19 06/05/22 04:00 BP 167/78 06/05/22 04:00 Pulse Ox 97 06/05/22 04:00 FiO2 35 06/05/22 03:17 Intake & Output 06/04/22 06/04/22 06/05/22 06:59 18:59 06:59 Intake Total 260 500 20 Output Total 1200 1200 Balance -940 -700 20 Weight 83.2 kg 79.3 kg Intake: IV 20 20 20 Invasive Line 5 20 20 20 Oral 240 480 Output: Urine 1200 1200 Other: Voiding Method External Catheter # Voids 1 2 - Labs CBC & Chem 7: 06/04/22 06:47 06/04/22 06:47 Labs: Abnormal Lab Results - Last 24 Hours (Table) 06/04/22 06/04/22 06/04/22 Range/Units 06:42 06:47 06:47 WBC 16.7 H (3.8-10.6) k/uL Hgb 10.9 L (11.4-16.0) gm/dL MCH 24.8 L (25.0-35.0) pg MCHC 30.9 L (31.0-37.0) g/dL RDW 17.9 H (11.5-15.5) % Neutrophils # 13.3 H (1.3-7.7) k/uL Monocytes # 1.1 H (0-1.0) k/uL PT 45.0 H (9.0-12.0) sec INR 4.6 H (<1.2) ABG pCO2 (35-45) mmHg ABG HCO3 (21-25) mmol/L ABG Total CO2 (19-24) mmol/L Sodium 133 L (137-145) mmol/L Chloride 89 L (98-107) mmol/L Carbon Dioxide 37 H (22-30) mmol/L BUN 40 H (7-17) mg/dL Creatinine 1.12 H (0.52-1.04) mg/dL Glucose 100 H (74-99) mg/dL POC Glucose (mg/dL) (70-110) mg/dL Troponin I (0.000-0.034) ng/mL 06/04/22 06/04/22 06/04/22 Range/Units 06:47 09:09 11:11 WBC (3.8-10.6) k/uL Hgb (11.4-16.0) gm/dL MCH (25.0-35.0) pg MCHC (31.0-37.0) g/dL RDW (11.5-15.5) % Neutrophils # (1.3-7.7) k/uL Monocytes # (0-1.0) k/uL PT (9.0-12.0) sec INR (<1.2) ABG pCO2 59 H (35-45) mmHg ABG HCO3 39 H (21-25) mmol/L ABG Total CO2 41 H (19-24) mmol/L Sodium (137-145) mmol/L Chloride (98-107) mmol/L Carbon Dioxide (22-30) mmol/L BUN (7-17) mg/dL Creatinine (0.52-1.04) mg/dL Glucose (74-99) mg/dL POC Glucose (mg/dL) 153 H (70-110) mg/dL Troponin I 0.065 H* (0.000-0.034) ng/mL 06/04/22 06/04/22 06/04/22 Range/Units 11:39 16:46 20:06 WBC (3.8-10.6) k/uL Hgb (11.4-16.0) gm/dL MCH (25.0-35.0) pg MCHC (31.0-37.0) g/dL RDW (11.5-15.5) % Neutrophils # (1.3-7.7) k/uL Monocytes # (0-1.0) k/uL PT (9.0-12.0) sec INR (<1.2) ABG pCO2 (35-45) mmHg ABG HCO3 (21-25) mmol/L ABG Total CO2 (19-24) mmol/L Sodium (137-145) mmol/L Chloride (98-107) mmol/L Carbon Dioxide (22-30) mmol/L BUN (7-17) mg/dL Creatinine (0.52-1.04) mg/dL Glucose (74-99) mg/dL POC Glucose (mg/dL) 229 H 204 H 259 H (70-110) mg/dL Troponin I (0.000-0.034) ng/mL 06/05/22 06/05/22 Range/Units 05:46 06:07 WBC (3.8-10.6) k/uL Hgb (11.4-16.0) gm/dL MCH (25.0-35.0) pg MCHC (31.0-37.0) g/dL RDW (11.5-15.5) % Neutrophils # (1.3-7.7) k/uL Monocytes # (0-1.0) k/uL PT 48.6 H (9.0-12.0) sec INR 4.9 H (<1.2) ABG pCO2 (35-45) mmHg ABG HCO3 (21-25) mmol/L ABG Total CO2 (19-24) mmol/L Sodium (137-145) mmol/L Chloride (98-107) mmol/L Carbon Dioxide (22-30) mmol/L BUN (7-17) mg/dL Creatinine (0.52-1.04) mg/dL Glucose (74-99) mg/dL POC Glucose (mg/dL) 163 H (70-110) mg/dL Troponin I (0.000-0.034) ng/mL
[2022-06-05 08:07] LABS: Anisocytosis Slight; HCT 33.5 % (34.0-46.0); HGB 10.3 gm/dL (11.4-16.0); Hypochromasia Marked; MCH 25.2 pg (25.0-35.0); MCHC 30.8 g/dL (31.0-37.0); MCV 81.8 fL (80.0-100.0); Mean Platelet Volume 8.4; Microcytosis Slight; Platelet Count 195 k/uL (150-450); Poikilocytosis Slight; RBC 4.09 m/uL (3.80-5.40); RDW 17.9 % (11.5-15.5); WBC 12.4 k/uL (3.8-10.6)
[2022-06-05] MEDS: SYMBICORT 160-4.5 MCG INHALER INHALATION SCH (08:07)
[2022-06-05] MEDS: IPRATROPIUM-ALBUTEROL 3 ML NEB INHALATION SCH ×4 (08:07→19:59)
[2022-06-05 08:10] LABS: Potassium 4.3 mmol/L (3.5-5.1)
[2022-06-05] MEDS: methylPREDNISolone SOD SUCCI 125 MG/2 ML VIAL IV SCH ×3 (08:42→23:30)
[2022-06-05] MEDS: PANTOPRAZOLE 40 MG TABLET PO SCH ×2 (08:42→17:19)
[2022-06-05] MEDS: SPIRONOLACTONE 25 MG TAB PO SCH (08:42)
[2022-06-05] MEDS: MAGNESIUM OXIDE 400 MG TAB PO SCH ×2 (08:42→17:19)
[2022-06-05] MEDS: LORazepam 0.5 MG TAB PO PRN (08:42)
[2022-06-05] MEDS: METOPROLOL TARTRATE 50 MG TAB PO SCH ×2 (08:42→17:19)
[2022-06-05] MEDS: polyethylene glycoL 3350 17 GM POWD.PACK PO SCH (08:43)
[2022-06-05] MEDS: metFORMIN 500 MG TAB PO SCH (08:43)
[2022-06-05] MEDS: acetaZOLAMIDE 250 MG TAB PO SCH ×2 (08:43→21:01)
[2022-06-05] MEDS: lisinopriL 10 MG TAB PO SCH (08:43)
--- NOTE | 2022-06-05 11:14 | XR ---
EXAMINATION TYPE: XR chest 1V portable DATE OF EXAM: 06/05/2022 COMPARISON: 06/04/2022 HISTORY: Shortness of breath TECHNIQUE: Single frontal view of the chest is obtained. FINDINGS: There is a 2-lead cardiac pacemaker. The heart is mildly to moderately prominent. The pulmonary vasculature does not appear congested. The lungs are clear. There is no pleural effusion or pneumothorax. IMPRESSION: Mild to moderate cardiomegaly without overt CHF. There is no acute cardiopulmonary disea se. No interval change.
[2022-06-05 11:42] LABS: Glucose,Whole Blood 224 mg/dL (70-110)
--- NOTE | 2022-06-05 11:56 | P.PN ---
Subjective Progress Note Date: 06/05/22 81-year-old woman with a medical history of atrial fibrillation, complete heart block with dual chamber pacemaker, COPD on 2L home O2, heart valve replacement presented for dyspnea and cough. Patient was recently discharged to [facility] on 05/22/2022 after being treated for CHF and COPD exacerbation. Patient reports shortness of breath while at rehab. Patient states that she in very unhappy about being at [facility] and would like to go home this time, but would like to stay until Monday. She denies any headache, lower extremity edema, nausea vomiting, fever or chills, chest pain, palpitations, changes in bowel habits. No changes in appetite or weight. She denies any numbness/weakness/tingling of the extremities. In the ED, vital signs were stable on 2L NC. CBC showed hemoglobin of 10.1. CMP Na 133, Cl 88, bicarb 37, BUN 25, glucose 375, Ca 8.3, AST 42, ALT 40. INR was 1.2. Troponin was 0.055, EKG showing electronic ventricular pacemaker rhythm . Chest x-ray showed cardiomegaly with no acute process. BNP was 2970. Patient was started on Lasix IV and DuoNeb scheduled along with prednisone. Her respiratory status appears stable but mentation worsened over the next 2 days. ABG showed pH of 7.43, pCO2 59 and bicarb of 37. Patient was started on BiPAP 10/5 and Diamox. Patient continues to wax and wane with regard to her mentation. The case was discussed extensively with multiple family members at bedside with regard to her CODE STATUS. Family was agreeable for no heroic measures including intubation. Patient was switched to DNR/DNI. Patient was seen and examined. No acute events overnight. Patient is more restless this morning. Her mentation continues to wax and wane. She is attempting to pull off her BiPAP. She is however redirectable. Unable to obtain ABG this morning. General: non toxic, moderate distress, appears at stated age, diaphoretic and anxious on BiPAP Derm: warm, dry Head: atraumatic, normocephalic, symmetric Eyes: EOMI, no lid lag, anicteric sclera Mouth: no lip lesion, mucus membranes moist Cardiovascular: S1S2 reg, no murmur Lungs: Decreased breath sounds bilaterally, no rales , no accessory muscle use Abdominal: soft, nontender to palpation, no guarding, no appreciable organomegaly Ext: no gross muscle atrophy, no edema, no contractures Neuro: no focal neuro deficits Psych: Waxing and waning #Acute metabolic encephalopathy #Acute on chronic hypoxic hypercapnic respiratory failure #Acute on chronic COPD exacerbation #Acute on chronic diastolic CHF exacerbation #Diabetes mellitus with hyperglycemia #Leukocytosis #Troponin elevation #Acute kidney injury #Transaminitis #Normocytic anemia #Generalized weakness and debility Resolved: Hypomagnesmia Chronic conditions: History of paroxysmal atrial fibrillation, History of com plete heart block with dual-chamber pacemaker, Restless leg syndrome, depression ABG shows pH of 7.43, pCO2 59 and bicarb of 37. Consistent with metabolic alkalosis with respiratory acidosis. Chest x-ray from June 05 shows cardiomegaly with no acute changes. Solu-Medrol will be discontinued as patient does not appear to be in overt COPD exacerbation and may be affecting her mentation. Patient afebrile with new leukocytosis of 16.7-12.4 which is likely steroid induced. DuoNeb scheduled and as needed for shortness of breath and wheezing. Continue BiPAP 02/16. Pulmonology consulted. 1.5L fluid loss since admission. Lungs are clear to auscultation bilaterally with no lower extremity edema. Lasix will be discontinued as patient does not appear to be in overt CHF exacerbation. BNP at baseline. Echo 03/2022 shows mild to moderate LVH with normal EF. Cardiology on board. Hemoglobin A1c 8.22 May 2022. [id number] glucose 224 today, persistently elevated though improved. Continue Levemir 15 units at bedtime. Medium dose sliding scale. Add 5 units NovoLog 3 times a day before meals. ACS ruled out. Likely demand ischemia. Acute kidney injury likely due to forced diuresis. Unknown etiology for transaminitis. Patient will need outpatient workup. PT and OT will be consulted to work with this patient. Fall precautions. Home medications reviewed and restarted. Patient is very poor prognosis due to end-stage COPD. Family is agreeable for DNR/DNI. Palliative care will be consulted. DVT prophylaxis: Coumadin Discussed with: Patient, nursing Anticipated discharge: Depending on clinical course Objective - Vital Signs Vital signs: Vital Signs Temp 97.8 F 06/05/22 08:00 Pulse 75 06/05/22 08:16 Resp 18 06/05/22 08:00 BP 152/64 06/05/22 08:00 Pulse Ox 98 06/05/22 08:00 FiO2 35 06/05/22 03:17 Intake & Output 06/04/22 06/05/22 06/05/22 18:59 06:59 18:59 Intake Total 500 20 128 Output Total 1200 Balance -700 20 128 Weight 79.3 kg Intake: IV 20 20 10 Invasive Line 5 20 20 10 Oral 480 118 Output: Urine 1200 Other: # Voids 1 2 - Labs CBC & Chem 7: 06/05/22 05:46 06/05/22 05:46 Labs: Abnormal Lab Results - Last 24 Hours (Table) 06/04/22 06/04/22 06/04/22 Range/Units 11:39 16:46 20:06 WBC (3.8-10.6) k/uL Hgb (11.4-16.0) gm/dL Hct (34.0-46.0) % MCHC (31.0-37.0) g/dL RDW (11.5-15.5) % PT (9.0-12.0) sec INR (<1.2) Sodium (137-145) mmol/L Chloride (98-107) mmol/L Carbon Dioxide (22-30) mmol/L BUN (7-17) mg/dL Creatinine (0.52-1.04) mg/dL Glucose (74-99) mg/dL POC Glucose (mg/dL) 229 H 204 H 259 H (70-110) mg/dL 06/05/22 06/05/22 06/05/22 Range/Units 05:46 05:46 05:46 WBC 12.4 H (3.8-10.6) k/uL Hgb 10.3 L (11.4-16.0) gm/dL Hct 33.5 L (34.0-46.0) % MCHC 30.8 L (31.0-37.0) g/dL RDW 17.9 H (11.5-15.5) % PT 48.6 H (9.0-12.0) sec INR 4.9 H (<1.2) Sodium 134 L (137-145) mmol/L Chloride 94 L (98-107) mmol/L Carbon Dioxide 32 H (22-30) mmol/L BUN 43 H (7-17) mg/dL Creatinine 1.25 H (0.52-1.04) mg/dL Glucose 153 H (74-99) mg/dL POC Glucose (mg/dL) (70-110) mg/dL 06/05/22 Range/Units 06:07 WBC (3.8-10.6) k/uL Hgb (11.4-16.0) gm/dL Hct (34.0-46.0) % MCHC (31.0-37.0) g/dL RDW (11.5-15.5) % PT (9.0-12.0) sec INR (<1.2) Sodium (137-145) mmol/L Chloride (98-107) mmol/L Carbon Dioxide (22-30) mmol/L BUN (7-17) mg/dL Creatinine (0.52-1.04) mg/dL Glucose (74-99) mg/dL POC Glucose (mg/dL) 163 H (70-110) mg/dL
[2022-06-05] MEDS: ASPIRIN 81 MG PO SCH (12:32)
--- NOTE | 2022-06-05 12:39 | P.CNPUL ---
History of Present Illness Consult date: 06/05/22 Requesting physician: Solange Cabrera Reason for consult: dyspnea, COPD, hypoxemia Chief complaint: Shortness of breath. History of present illness: Pulmonary consult dated 06/05/2022. 81-year-old female who was admitted through the emergency department on June 01. The patient was brought into the emergency department by EMS because of shortness of breath, and low saturations. The patient has had multiple admissions to this hospital, beginning February of last year. She does have a history of underlying COPD, and CHF. Currently, she is seen in room 374. The patient has been here since , and we were only consulted today. The patient's condition apparently deteriorated earlier today, and a rapid response was called on the patient. My ICU nurse, Sherron, was able to speak to the family about CODE STATUS. The patient, was clear, that she did not want intubation or mechanical ventilation, and the family agreed. Apparently this was also decided upon yesterday, but for some reason, the hospital service decided to reverse the CODE STATUS. Anyway, I had a long conversation with the patient and the family today, and is clear to me that neither the patient or the family would want this patient to be intubated and ventilated. I told the family and the patient, that we would do everything short of that. Other important medical history includes atrial fibrillation, CAD, hypertension, breast cancer, and pacemaker insertion among other things. The patient was a former smoker. Laboratory data today includes a white count of 12.4, hemoglobin 10.3, hematocrit 33.5, and platelet count 295,000. PTT was 48.6 with an INR of 2.9. Sodium 134, potassium 4.3, chlorides 94, CO2 32, anion gap normal, BUN 43, and creatinine 1.25. Calcium was normal. The chest x-rays have shown primarily cardiomegaly, without fluid overload/CHF. A blood gas done on 32% oxygen, yeste rday showed a pO2 of 87, a pCO2 of 59, and a pH is 7.43. This is likely her baseline arterial blood gas, which reveals a well compensated respiratory acidosis, secondary to COPD. N-terminal proBNP on admission was 2970. Screening for influenza, RSV, and coronavirus were negative. Review of Systems REVIEW OF SYSTEMS: CONSTITUTIONAL: [Negative.] NEUROLOGIC: [ Negative.] HEENT: [ Negative.] CARDIAC: [Negative.] PULMONARY: Shortness of breath, progressive. GI: [Negative.] : [Negative.] RHEUMATOLOGIC: [ Negative.] IMMUNOLOGIC: [ Negative.] ENDOCRINE: [Negative. ] DERMATOLOGIC: [Negative.] Past Medical History Past Medical History: Atrial Fibrillation, Coronary Artery Disease (CAD), Cancer, COPD, Hypertension Additional Past Medical History / Comment(s): breast cancer 2001 post Lt lump ectomy & lymph node, and bladder cancer post , carpletunnel, chronic atrail fibrillation History of Any Multi-Drug Resistant Organisms: None Reported Past Surgical History: Back Surgery, Joint Replacement, Orthopedic Surgery, Pacemaker, Tonsillectomy, Tubal Ligation Additional Past Surgical History / Comment(s): bilat knees, rt shoulder repair, lung nodule removal, both carotids repaired (occluded) Past Anesthesia/Blood Transfusion Reactions: No Reported Reaction Type of Cardiac Device: Permanent Pacemaker Device Placement Date:: 02/16/2017 Past Psychological History: Anxiety, Depression Smoking Status: Former smoker Past Alcohol Use History: None Reported Past Drug Use History: None Reported - Past Family History Mother Family Medical History: COPD Medications and Allergies Home Medications Medication Instructions Recorded Confirmed Type Metoprolol Tartrate [Lopressor] 100 mg PO BID@0800,1700 02/17/22 06/01/22 History Pantoprazole Sodium [Protonix] 40 mg PO BID@0800,1700 02/17/22 06/01/22 History rOPINIRole HCL [Requip] 2 mg PO BID@0800,2100 02/17/22 06/01/22 History metFORMIN HCL [Glucophage] 500 mg PO BID@0800,1700 04/06/22 06/01/22 History Albuterol Inhaler [Ventolin Hfa 2 puff INHALATION RT-Q4H PRN #1 04/12/22 06/01/22 Rx Inhaler] each Cholecalciferol [Vitamin D3 (25 25 mcg PO HS@2100 05/04/22 06/01/22 History Mcg = 1000 Iu)] lisinopriL [Zestril] 5 mg PO DAILY@0800 05/04/22 06/01/22 History Ipratropium-Albuterol Nebulize 3 mg INHALATION RT-QID@08,12,17,05/22/22 06/01/22 History [Duoneb 0.5 mg-3 mg/3 ml Soln] PRN Spironolactone [Aldactone] 50 mg PO DAILY@0800 05/22/22 06/01/22 History Warfarin Sodium [Jantoven] 5 mg PO DAILY@1700 05/22/22 06/01/22 History Benzonatate [Tessalon Perles] 100 mg PO TID PRN cap 05/24/22 06/01/22 Rx oxyCODONE HCL/ACETAMINOPHEN 1 tab PO Q6HR PRN #12 tab 05/24/22 06/01/22 Rx [Percocet 10-325 mg] Acetaminophen [Tylenol] 650 mg PO Q4H PRN 06/01/22 06/01/22 History Aspirin 81 mg PO DAILY@1200 06/01/22 06/01/22 History Atorvastatin [Lipitor] 80 mg PO HS@2100 06/01/22 06/01/22 History Budesonide-Formot 160-4.5 Mcg 2 puff INHALATION RT-BID@0800,1700 06/01/22 06/01/22 History [Symbicort 160-4.5 Mcg Inhaler] Insulin Detemir [Levemir Flextouch 15 units SQ HS@2130 06/01/22 06/01/22 History Pen] LORazepam [Ativan] 0.5 mg PO DAILY PRN 06/01/22 06/01/22 History LORazepam [Ativan] 1 mg PO HS PRN 06/01/22 06/01/22 History Magnesium Hydroxide [Milk of 7,200 mg PO DAILY PRN 06/01/22 06/01/22 History Magnesia Concentrate] Magnesium Oxide [Mag-Ox] 400 mg PO BID@0800,1700 06/01/22 06/01/22 History Na Phos,M-B/Na Phos,Di-Ba [Fleet 133 ml RECTAL DAILY PRN 06/01/22 06/01/22 History Adult] Torsemide [Demadex] 40 mg PO DAILY@0800 06/01/22 06/01/22 History bisacodyL [Dulcolax] 10 mg RECTAL DAILY PRN 06/01/22 06/01/22 History polyethylene glycoL 3350 [Miralax] 17 gm PO DAILY@0800 06/01/22 06/01/22 History predniSONE See Taper PO DIRECTED 06/01/22 06/01/22 History Allergies Allergy/AdvReac Type Severity Reaction Status Date / Time morphine Allergy Itching Verified 06/01/22 21:56 tizanidine [From Zanaflex] Allergy Unknown Verified 06/01/22 21:56 zolpidem [From Ambien] Allergy Unknown Verified 06/01/22 21:56 gabapentin AdvReac Hallucinati Verified 06/01/22 21:56 ons hydromorphone [From Dilaudid] AdvReac Hallucinati Verified 06/01/22 21:56 ons pentazocine [From Talwin] AdvReac Hallucinati Verified 06/01/22 21:56 ons pregabalin [From Lyrica] AdvReac Hallucinati Verified 06/01/22 21:56 ons Physical Exam Osteopathic Statement: *. No significant issues noted on an osteopathic structural exam other than those noted in the History and Physical/Consult. Vitals: Vital Signs Temp Pulse Pulse Resp BP Pulse Ox FiO2 06/05/22 12:07 80 06/05/22 11:56 78 35 06/05/22 08:16 75 06/05/22 08:07 74 06/05/22 08:00 97.8 F 62 18 152/64 98 06/05/22 04:00 98.6 F 65 19 167/78 97 06/05/22 03:17 35 06/05/22 00:00 65 18 153/81 98 06/04/22 23:27 99 35 06/04/22 23:22 35 06/04/22 20:13 75 06/04/22 20:00 98.4 F 67 17 136/97 99 06/04/22 19:59 74 06/04/22 16:00 60 18 140/63 06/04/22 15:08 60 06/04/22 14:59 79 94 L 34 06/04/22 14:00 63 18 Intake and Output 06/04/22 06/05/22 06/05/22 22:59 06:59 14:59 Intake Total 250 10 128 Output Total 1000 Balance -750 10 128 Intake: IV 10 10 10 Invasive Line 5 10 10 10 Oral 240 118 Output: Urine 1000 Other: # Voids 1 2 Weight 79.3 kg Mild to moderate respiratory distress, with conversational dyspnea, and use of accessory muscles, oriented, with BiPAP mask in place. The patient is able to speak in incomplete sentences. HEENT examination is grossly unremarkable. Neck supple. Full range of motion. No adenopathy thyromegaly or neck vein distention. Cardiovascular examination reveals regular rhythm rate. S1-S2 normal. No S3 or S4. No discernible murmur noted. Heart sounds are distant. Heart rate 80 bpm. Lungs reveal diminished bilateral breath sounds. Scattered rhonchi are noted. Few scattered wheezes are noted. No crackles. Breath sounds equal bilaterally. Abdomen soft bowel sounds are heard. No masses or tenderness. Extremities are intact. No cyanosis, clubbing, or significant edema. Skin is without rash or lesion. Neurologic examination is brief but nonfocal. Results - Laboratory Findings CBC and BMP: 06/05/22 05:46 06/05/22 05:46 ABG ABG pH 7.43 (7.35-7.45) 06/04/22 11:11 ABG pCO2 59 mmHg (35-45) H 06/04/22 11:11 ABG pO2 87 mmHg (83-108) 06/04/22 11:11 ABG O2 Saturation 94.2 % (94-97) 06/04/22 11:11 PT/INR, D-dimer PT 48.6 sec (9.0-12.0) H 06/05/22 05:46 INR 4.9 (<1.2) H 06/05/22 05:46 Abnormal lab findings: Abnormal Labs 06/01/22 06/01/22 06/01/22 19:28 19:28 19:28 WBC Hgb 10.1 L Hct 32.7 L MCH 24.9 L MCHC RDW 18.0 H Neutrophils # Lymphocytes # 0.7 L Monocytes # PT INR APTT ABG pCO2 ABG HCO3 ABG Total CO2 Sodium 133 L Chloride 88 L Carbon Dioxide 37 H BUN 25 H Creatinine Glucose 375 H POC Glucose (mg/dL) Calcium 8.3 L Magnesium 1.0 L AST 42 H ALT 40 H Troponin I 0.055 H* Total Protein 6.1 L 06/01/22 06/02/22 06/02/22 21:31 05:57 06:44 WBC Hgb Hct MCH MCHC RDW Neutrophils # Lymphocytes # Monocytes # PT 27.2 H INR 2.8 H APTT 31.3 H ABG pCO2 ABG HCO3 ABG Total CO2 Sodium Chloride Carbon Dioxide BUN Creatinine Glucose POC Glucose (mg/dL) 397 H 200 H Calcium Magnesium AST ALT Troponin I Total Protein 06/02/22 06/02/22 06/02/22 11:51 16:38 20:05 WBC Hgb Hct MCH MCHC RDW Neutrophils # Lymphocytes # Monocytes # PT INR APTT ABG pCO2 ABG HCO3 ABG Total CO2 Sodium Chloride Carbon Dioxide BUN Creatinine Glucose POC Glucose (mg/dL) 166 H 329 H 435 H Calcium Magnesium AST ALT Troponin I Total Protein 06/03/22 06/03/22 06/03/22 00:32 06:18 08:18 WBC Hgb Hct MCH MCHC RDW Neutrophils # Lymphocytes # Monocytes # PT 25.9 H INR 2.7 H APTT ABG pCO2 ABG HCO3 ABG Total CO2 Sodium Chloride Carbon Dioxide BUN Creatinine Glucose POC Glucose (mg/dL) 311 H 170 H Calcium Magnesium AST ALT Troponin I Total Protein 06/03/22 06/03/22 06/03/22 08:18 08:18 11:45 WBC Hgb Hct MCH MCHC RDW Neutrophils # Lymphocytes # Monocytes # PT INR APTT ABG pCO2 ABG HCO3 ABG Total CO2 Sodium 133 L Chloride 87 L Carbon Dioxide 39 H BUN 33 H Creatinine 1.32 H Glucose 178 H POC Glucose (mg/dL) 208 H Calcium Magnesium AST ALT Troponin I 0.047 H* Total Protein 06/03/22 06/03/22 06/03/22 16:46 16:48 19:51 WBC Hgb Hct MCH MCHC RDW Neutrophils # Lymphocytes # Monocytes # PT INR APTT ABG pCO2 ABG HCO3 ABG Total CO2 Sodium Chloride Carbon Dioxide BUN Creatinine Glucose POC Glucose (mg/dL) 436 H 402 H 394 H Calcium Magnesium AST ALT Troponin I Total Protein 06/04/22 06/04/22 06/04/22 06:02 06:42 06:47 WBC 16.7 H Hgb 10.9 L Hct MCH 24.8 L MCHC 30.9 L RDW 17.9 H Neutrophils # 13.3 H Lymphocytes # Monocytes # 1.1 H PT 45.0 H INR 4.6 H APTT ABG pCO2 ABG HCO3 ABG Total CO2 Sodium Chloride Carbon Dioxide BUN Creatinine Glucose POC Glucose (mg/dL) 57 L Calcium Magnesium AST ALT Troponin I Total Protein 06/04/22 06/04/22 06/04/22 06:47 06:47 09:09 WBC Hgb Hct MCH MCHC RDW Neutrophils # Lymphocytes # Monocytes # PT INR APTT ABG pCO2 ABG HCO3 ABG Total CO2 Sodium 133 L Chloride 89 L Carbon Dioxide 37 H BUN 40 H Creatinine 1.12 H Glucose 100 H POC Glucose (mg/dL) 153 H Calcium Magnesium AST ALT Troponin I 0.065 H* Total Protein 06/04/22 06/04/22 06/04/22 11:11 11:39 16:46 WBC Hgb Hct MCH MCHC RDW Neutrophils # Lymphocytes # Monocytes # PT INR APTT ABG pCO2 59 H ABG HCO3 39 H ABG Total CO2 41 H Sodium Chloride Carbon Dioxide BUN Creatinine Glucose POC Glucose (mg/dL) 229 H 204 H Calcium Magnesium AST ALT Troponin I Total Protein 06/04/22 06/05/22 06/05/22 20:06 05:46 05:46 WBC 12.4 H Hgb 10.3 L Hct 33.5 L MCH MCHC 30.8 L RDW 17.9 H Neutrophils # Lymphocytes # Monocytes # PT 48.6 H INR 4.9 H APTT ABG pCO2 ABG HCO3 ABG Total CO2 Sodium Chloride Carbon Dioxide BUN Creatinine Glucose POC Glucose (mg/dL) 259 H Calcium Magnesium AST ALT Troponin I Total Protein 06/05/22 06/05/22 06/05/22 05:46 06:07 11:41 WBC Hgb Hct MCH MCHC RDW Neutrophils # Lymphocytes # Monocytes # PT INR APTT ABG pCO2 ABG HCO3 ABG Total CO2 Sodium 134 L Chloride 94 L Carbon Dioxide 32 H BUN 43 H Creatinine 1.25 H Glucose 153 H POC Glucose (mg/dL) 163 H 224 H Calcium Magnesium AST ALT Troponin I Total Protein - Diagnostic Findings Chest x-ray: image reviewed Assessment and Plan Assessment: Acute on chronic hypoxemic and hypercapnic respiratory failure, secondary to COPD exacerbation. Diffuse coronary disease, to be treated medically. History of CHF. History of atrial fibrillation. COPD, secondary to former tobacco use. History of hypertension. History of permanent pacemaker implantation. History of left breast cancer, status post lumpectomy. Status post open heart surgery, with previous valve replacement. History of anxiety/depression. Plan: Plan dated 06/05/2022. The patient has had recent multiple admissions to the hospital, beginning in February, on February 17, and , April 05, May 04, May 14, May 22, and June 01. The patient is currently on BiPAP therapy. The patient is adore ant about not being intubated and being in the intensive care unit. In addition, her family feels exactly the same way. I had a long conversation with the patient and the patient's family today. Labs, x-rays, and medications are reviewed. Additional recommendations and suggestions are forthcoming. The plan is to use primarily conservative measures to treat this patient. Prognosis is certainly guarded. Time with Patient: Greater than 30
[2022-06-05 16:43] LABS: Glucose,Whole Blood 265 mg/dL (70-110)
[2022-06-05] MEDS ORDERED: WARFARIN 0.5 MG TAB PO ONE (18:00)
[2022-06-05] MEDS: FORMOTEROL FUMARATE 20 MCG/2 ML NEBU INHALATION SCH (19:59)
[2022-06-05] MEDS: BUDESONIDE 1 MG/2 ML NEBU INHALATION SCH (19:59)
[2022-06-05 20:16] LABS: Glucose,Whole Blood 202 mg/dL (70-110)
[2022-06-05] MEDS: CHOLECALCIFEROL 25 MCG (1000 IU) TABLET PO SCH (21:01)
[2022-06-05] MEDS: ATORVASTATIN 80 MG TAB PO SCH (21:01)
[2022-06-05] MEDS: INSULIN DETEMIR (LEVEMIR) 100 UNIT/ML SYR SQ SCH (21:01)
[2022-06-05] MEDS: LORazepam 1 MG TAB PO PRN (23:29)
[2022-06-06 06:20] LABS: Glucose,Whole Blood 280 mg/dL (70-110)
[2022-06-06] MEDS: methylPREDNISolone SOD SUCCI 125 MG/2 ML VIAL IV SCH ×4 (06:46→23:09)
[2022-06-06] MEDS: INSULIN ASPART (NovoLOG) 100 UNIT/ML VIAL SQ SCH ×7 (06:46→20:30)
[2022-06-06] MEDS: IPRATROPIUM-ALBUTEROL 3 ML NEB INHALATION SCH ×4 (07:01→19:15)
[2022-06-06] MEDS: FORMOTEROL FUMARATE 20 MCG/2 ML NEBU INHALATION SCH ×2 (07:01→19:15)
[2022-06-06] MEDS: BUDESONIDE 1 MG/2 ML NEBU INHALATION SCH ×2 (07:01→19:15)
[2022-06-06] MEDS: METOPROLOL TARTRATE 50 MG TAB PO SCH ×2 (08:34→17:32)
[2022-06-06] MEDS: lisinopriL 10 MG TAB PO SCH (08:34)
[2022-06-06] MEDS: acetaZOLAMIDE 250 MG TAB PO SCH (08:34)
[2022-06-06] MEDS: SPIRONOLACTONE 25 MG TAB PO SCH (08:35)
[2022-06-06] MEDS: ASPIRIN 81 MG PO SCH (08:35)
[2022-06-06] MEDS: MAGNESIUM OXIDE 400 MG TAB PO SCH ×2 (08:35→17:32)
[2022-06-06] MEDS: polyethylene glycoL 3350 17 GM POWD.PACK PO SCH (08:35)
[2022-06-06] MEDS: PANTOPRAZOLE 40 MG TABLET PO SCH ×2 (08:35→17:32)
--- NOTE | 2022-06-06 08:39 | P.PN ---
Subjective Progress Note Date: 06/06/22 81-year-old female who was admitted through the emergency department on June 01. The patient was brought into the emergency department by EMS because of shortness of breath, and low saturations. The patient has had multiple admissions to this hospital, beginning February of last year. She does have a history of underlying COPD, and CHF. Currently, she is seen in room 374. The patient has been here since , and we were only consulted today. The patient's condition apparently deteriorated earlier today, and a rapid response was called on the patient. My ICU nurse, Sherron, was able to speak to the family about CODE STATUS. The patient, was clear, that she did not want intubation or mechanical ventilation, and the family agreed. Apparently this was also decided upon yesterday, but for some reason, the hospital service decided to reverse the CODE STATUS. Anyway, I had a long conversation with the patient and the family today, and is clear to me that neither the patient or the family would want this patient to be intubated and ventilated. I told the family and the patient, that we would do everything short of that. Other important medical history includes atrial fibrillation, CAD, hypertension, breast cancer, and pacemaker insertion among other things. The patient was a f ormer smoker. Laboratory data today includes a white count of 12.4, hemoglobin 10.3, hematocrit 33.5, and platelet count 295,000. PTT was 48.6 with an INR of 2.9. Sodium 134, potassium 4.3, chlorides 94, CO2 32, anion gap normal, BUN 43, and creatinine 1.25. Calcium was normal. The chest x-rays have shown primarily cardiomegaly, without fluid overload/CHF. A blood gas done on 32% oxygen, yes terday showed a pO2 of 87, a pCO2 of 59, and a pH is 7.43. This is likely her baseline arterial blood gas, which reveals a well compensated respiratory acidosis, secondary to COPD. N-terminal proBNP on admission was 2970. Screening for influenza, RSV, and coronavirus were negative. On today's evaluation of 06/06/2022, the patient is being seen for a follow-up. Currently she is on oxygen at 3 L/m nasal cannula. She was hospitalized for shortness of breath and acute COPD/CHF exacerbation. The patient has a BiPAP BiPAP at the bedside and she did not use it last night. However she was using either earlier. The chest x-ray from yesterday on 06/05/2022 shows cardiomegaly. The mediastinum is slightly widened. The patient has a pacemaker in place. There is some mild pulmonary vascular congestion. No airspace disease of consolidation. Diaphragms are essentially clear. The chest x-ray findings of essentially stable. At the same time, the patient is currently on DuoNeb nebulized treatments 4 times a day, she is on IV Solu-Medrol 60 mg every 6 hours. No antibiotic coverage. She is on Levemir insulin 15 units at bedtime and she is taking NovoLog 5 units with meals and a sliding scale coverage. She also takes Diamox 250 mg by mouth twice a day. Blood sugars from today this morning is 280. INR is at 4.9 no response 12.4 with a hemoglobin of 10.3 and a platelet count of 195. Serum bicarb is at 32 sodium is at 134 with a potassium level of 4.3. Objective - Vital Signs Vital signs: Vital Signs Temp 97.2 F L 06/05/22 20:00 Pulse 70 06/06/22 07:18 Resp 24 06/06/22 04:00 BP 163/75 06/06/22 04:00 Pulse Ox 100 06/06/22 07:04 FiO2 35 06/05/22 12:00 Intake & Output 06/05/22 06/06/22 06/06/22 18:59 06:59 18:59 Intake Total 256 10 Balance 256 10 Intake: IV 20 10 Invasive Line 5 20 10 Oral 236 Other: # Voids 1 2 # Bowel Movements 1 1 - Exam Mild to moderate respiratory distress, with conversational dyspnea, and use of accessory muscles, oriented, with BiPAP mask in place. The patient is able to speak in incomplete sentences. HEENT examination is grossly unremarkable. Neck supple. Full range of motion. No adenopathy thyromegaly or neck vein distention. Cardiovascular examination reveals regular rhythm rate. S1-S2 normal. No S3 or S4. No discernible murmur noted. Heart sounds are distant. Lungs reveal diminished bilateral breath sounds. Scattered rhonchi are noted. Few scattered wheezes are noted. No crackles. Breath sounds equal bilaterally. Abdomen soft bowel sounds are heard. No masses or tenderness. Extremities are intact. No cyanosis, clubbing, or significant edema. Skin is without rash or lesion. Neurologic examination is brief but nonfocal. - Labs CBC & Chem 7: 06/05/22 05:46 06/05/22 05:46 Labs: Abnormal Lab Results - Last 24 Hours (Table) 06/05/22 06/05/22 06/05/22 Range/Units 11:41 16:41 20:14 POC Glucose (mg/dL) 224 H 265 H 202 H (70-110) mg/dL 06/06/22 Range/Units 06:19 POC Glucose (mg/dL) 280 H (70-110) mg/dL Assessment and Plan Plan: Acute on chronic hypoxemic and hypercapnic respiratory failure, secondary to COPD exacerbation. The patient is free of any acute pulmonary infiltrates. advanced COPD at a baseline chronic COPD with chronic hypoxic respiratory failure, mechanically combination of Symbicort on outpatient basis Chronic hypoxic respiratory failure maintains on O2 at 2 L/m nasal cannula at home Diffuse coronary disease, to be treated medically. History of CHF. Most recent echocardiogram from 04/12/2022 showed a preserved LV function with an EF around 55-60%. The patient has moderate RV dilatation, RV systolic pressure has been within normal limits. No significant valvular abnormalities. History of atrial fibrillation. INR at 4.9 COPD, secondary to former tobacco use. History of hypertension. History of permanent pacemaker implantation. History of left breast cancer, status post lumpectomy. Status post open heart surgery History of anxiety/depression. Acute kidney injury, creatinine is up to 1.25 Plan DC diamox Continue bronchodilators Continue steroids Monitor the blood sugar and may need to adjust the Levemir insulin for tighter blood sugar control No signs of encephalopathy Bicarb is at the bedside Monitor the INR for now and the Coumadin is currently on hold Creatinine is stable at 1.25
[2022-06-06 10:40] LABS: Anisocytosis Slight; HCT 35.7 % (34.0-46.0); HGB 10.8 gm/dL (11.4-16.0); Hypochromasia Marked; MCH 25.1 pg (25.0-35.0); MCHC 30.4 g/dL (31.0-37.0); MCV 82.8 fL (80.0-100.0); Platelet Count 221 k/uL (150-450); Poikilocytosis Slight; RBC 4.31 m/uL (3.80-5.40); WBC 17.5 k/uL (3.8-10.6)
[2022-06-06 10:52] LABS: INR 2.8 (<1.2); Prothrombin Time 26.8 sec (9.0-12.0)
[2022-06-06 10:59] LABS: Calcium 9.3 mg/dL (8.4-10.2); Potassium 3.9 mmol/L (3.5-5.1)
--- NOTE | 2022-06-06 11:21 | P.PN ---
Subjective Progress Note Date: 06/06/22 HISTORY OF PRESENT ILLNESS: This is an 81-year-old female who is admitted to the hospital secondary to congestive heart failure and COPD. Patient examined this morning. She is sitti ng up in the chair. She currently denies chest pain or pressure. She denies shortness of breath. She is maintained on oral diuretics. Vital signs are stable. INR today 2.8. Telemetry reveals atrial fibrillation with controlled ventricular rate PHYSICAL EXAM: VITAL SIGNS: Reviewed. GENERAL: Well-developed in no acute distress. NECK: Supple. No JVD or thyromegaly LUNGS: Respirations even and unlabored. Lungs diminished to auscultation bilaterally. HEART: Irregular rate and rhythm. S1 and S2 heard. Systolic murmur noted EXTREMITIES: Normal range of motion. No clubbing or cyanosis. Peripheral pulses intact. 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 Case management consulted for coverage. Further recommendations pending patient's course Nurse practitioner note has been reviewed by physician. Signing provider agrees with the documented findings, assessment, and plan of care. Objective - Vital Signs Vital signs: Vital Signs Temp 97.5 F L 06/06/22 08:00 Pulse 72 06/06/22 10:59 Resp 20 06/06/22 08:00 BP 155/72 06/06/22 08:00 Pulse Ox 96 06/06/22 08:00 FiO2 35 06/05/22 12:00 Intake & Output 06/05/22 06/06/22 06/06/22 18:59 06:59 18:59 Intake Total 256 10 Balance 256 10 Intake: IV 20 10 Invasive Line 5 20 10 Oral 236 Other: # Voids 1 2 # Bowel Movements 1 1 - Labs CBC & Chem 7: 06/06/22 10:23 06/06/22 10:23 Labs: Abnormal Lab Results - Last 24 Hours (Table) 06/05/22 06/05/2206/05/23 Range/Units 11:41 16:41 20:14 WBC (3.8-10.6) k/uL Hgb (11.4-16.0) gm/dL MCHC (31.0-37.0) g/dL RDW (11.5-15.5) % PT (9.0-12.0) sec INR (<1.2) Sodium (137-145) mmol/L Chloride (98-107) mmol/L BUN (7-17) mg/dL Creatinine (0.52-1.04) mg/dL Glucose (74-99) mg/dL POC Glucose (mg/dL) 224 H 265 H 202 H (70-110) mg/dL 06/06/22 06/06/22 06/06/22 Range/Units 06:19 10:23 10:23 WBC 17.5 H (3.8-10.6) k/uL Hgb 10.8 L (11.4-16.0) gm/dL MCHC 30.4 L (31.0-37.0) g/dL RDW 18.0 H (11.5-15.5) % PT (9.0-12.0) sec INR (<1.2) Sodium 134 L (137-145) mmol/L Chloride 95 L (98-107) mmol/L BUN 44 H (7-17) mg/dL Creatinine 1.20 H (0.52-1.04) mg/dL Glucose 241 H (74-99) mg/dL POC Glucose (mg/dL) 280 H (70-110) mg/dL 06/06/22 Range/Units 10:23 WBC (3.8-10.6) k/uL Hgb (11.4-16.0) gm/dL MCHC (31.0-37.0) g/dL RDW (11.5-15.5) % PT 26.8 H (9.0-12.0) sec INR 2.8 H (<1.2) Sodium (137-145) mmol/L Chloride (98-107) mmol/L BUN (7-17) mg/dL Creatinine (0.52-1.04) mg/dL Glucose (74-99) mg/dL POC Glucose (mg/dL) (70-110) mg/dL
[2022-06-06 11:54] LABS: Glucose,Whole Blood 399 mg/dL (70-110)
[2022-06-06] MEDS: DAPAGLIFLOZIN PROPANEDIOL 10 MG TABLET PO SCH (12:14)
--- NOTE | 2022-06-06 12:46 | P.CONS ---
History of Present Illness - Reason for Consult Consult date: 06/06/22 Goals of care Requesting physician: Solange Cabrera - Chief Complaint Shortness of breath - History of Present Illness The patient is an 81-year-old female with a past medical history significant for A. fib, CAD, COPD on 2 L home O2, hypertension, breast cancer, bladder cancer, complete heart block, , AVR , MVR ,and permanent pacemaker. The patient was at her subacute rehab facility when she had an acute episode of shortness of breath. She denies any headache, nausea, vomiting, fever, or chills. In the emergency department her vital signs were stable and she was on 2 L NC. Chest x-ray showed cardiomegaly with no acute process. BNP was 2970. The patient's condition deteriorated and a rapid response was called. Apparently the patient was very clear that she did not want intubation or mechanical ventilation in the family agreed. She was made a DO NOT RESUSCITATE. The patient has a BiPAP at bedtime and is refusing to use it. The patient has been treated with bronchodilators and steroids. Review of Systems Constitutional: Reports chronic pain, Denies chills, Denies fever Ears, nose, mouth and throat: Denies headache Cardiovascular: Reports shortness of breath, Denies chest pain Respiratory: Reports cough Gastrointestinal: Denies nausea, Denies vomiting Neurological: Reports confusion Endocrine: Denies weight change Past Medical History Past Medical History: Atrial Fibrillation, Coronary Artery Disease (CAD), C ancer, COPD, Hypertension Additional Past Medical History / Comment(s): breast cancer 2000 post Lt lumpectomy & lymph node, and bladder cancer post , carpletunnel, chronic atrail fibrillation History of Any Multi-Drug Resistant Organisms: None Reported Past Surgical History: Back Surgery, Joint Replacement, Orthopedic Surgery, Pacemaker, Tonsillectomy, Tubal Ligation Additional Past Surgical History / Comment(s): bilat knees, rt shoulder repair, lung nodule removal, both carotids repaired (occluded) Past Anesthesia/Blood Transfusion Reactions: No Reported Reaction Type of Cardiac Device: Permanent Pacemaker Device Placement Date:: 02/16/2017 Past Psychological History: Anxiety, Depression Smoking Status: Former smoker Past Alcohol Use History: None Reported Past Drug Use History: None Reported - Past Family History Mother Family Medical History: COPD Medications and Allergies Home Medications Medication Instructions Recorded Confirmed Type Metoprolol Tartrate [Lopressor] 100 mg PO BID@0800,1700 02/17/22 06/01/22 History Pantoprazole Sodium [Protonix] 40 mg PO BID@0800,1700 02/17/22 06/01/22 History rOPINIRole HCL [Requip] 2 mg PO BID@0800,2100 02/17/22 06/01/22 History metFORMIN HCL [Glucophage] 500 mg PO BID@0800,1700 04/06/22 06/01/22 History Albuterol Inhaler [Ventolin Hfa 2 puff INHALATION RT-Q4H PRN #1 04/12/22 06/01/22 Rx Inhaler] each Cholecalciferol [Vitamin D3 (25 25 mcg PO HS@209905/04/22 06/01/22 History Mcg = 1000 Iu)] lisinopriL [Zestril] 5 mg PO DAILY@0800 05/04/22 06/01/22 History Ipratropium-Albuterol Nebulize 3 mg INHALATION RT-QID@08,12,,05/22/22 06/01/22 History [Duoneb 0.5 mg-3 mg/3 ml Soln] PRN Spironolactone [Aldactone] 50 mg PO DAILY@0800 05/22/22 06/01/22 History Warfarin Sodium [Jantoven] 5 mg PO DAILY@169905/22/22 06/01/22 History Benzonatate [Tessalon Perles] 100 mg PO TID PRN cap 05/24/22 06/01/22 Rx oxyCODONE HCL/ACETAMINOPHEN 1 tab PO Q6HR PRN #12 tab 05/24/22 06/01/22 Rx [Percocet 10-325 mg] Acetaminophen [Tylenol] 650 mg PO Q4H PRN 06/01/22 06/01/22 History Aspirin 81 mg PO DAILY@1200 06/01/22 06/01/22 History Atorvastatin [Lipitor] 80 mg PO HS@209906/01/22 06/01/22 History Budesonide-Formot 160-4.5 Mcg 2 puff INHALATION RT-BID@0800,1700 06/01/22 06/01/22 History [Symbicort 160-4.5 Mcg Inhaler] Insulin Detemir [Levemir Flextouch 15 units SQ HS@2130 06/01/22 06/01/22 History Pen] LORazepam [Ativan] 0.5 mg PO DAILY PRN 06/01/22 06/01/22 History LORazepam [Ativan] 1 mg PO HS PRN 06/01/22 06/01/22 History Magnesium Hydroxide [Milk of 7,200 mg PO DAILY PRN 06/01/22 06/01/22 History Magnesia Concentrate] Magnesium Oxide [Mag-Ox] 400 mg PO BID@0800,1700 06/01/22 06/01/22 History Na Phos,M-B/Na Phos,Di-Ba [Fleet 133 ml RECTAL DAILY PRN 06/01/22 06/01/22 History Adult] Torsemide [Demadex] 40 mg PO DAILY@0800 06/01/22 06/01/22 History bisacodyL [Dulcolax] 10 mg RECTAL DAILY PRN 06/01/22 06/01/22 History polyethylene glycoL 3350 [Miralax] 17 gm PO DAILY@0800 06/01/22 06/01/22 History predniSONE See Taper PO DIRECTED 06/01/22 06/01/22 History Apixaban [Eliquis] 5 mg PO BID #60 tab 06/06/22 Rx Dapagliflozin Propanediol [Farxiga] 10 mg PO DAILY #30 tablet 06/06/22 Rx Allergies Allergy/AdvReac Type Severity Reaction Status Date / Time morphine Allergy Itching Verified 06/01/22 21:56 tizanidine [From Zanaflex] Allergy Unknown Verified 06/01/22 21:56 zolpidem [From Ambien] Allergy Unknown Verified 06/01/22 21:56 gabapentin AdvReac Hallucinati Verified 06/01/22 21:56 ons hydromorphone [From Dilaudid] AdvReac Hallucinati Verified 06/01/22 21:56 ons pentazocine [From Talwin] AdvReac Hallucinati Verified 06/01/22 21:56 ons pregabalin [From Lyrica] AdvReac Hallucinati Verified 06/01/22 21:56 ons Physical Exam Vitals: Vital Signs Temp Pulse Pulse Resp BP Pulse Ox 06/06/22 12:00 97.5 F L 84 8 L 149/70 95 06/06/22 10:59 72 06/06/22 10:48 68 06/06/22 08:00 97.5 F L 98 20 155/72 96 06/06/22 07:18 70 06/06/22 07:10 72 06/06/22 07:04 71 100 06/06/22 04:00 86 24 163/75 98 06/06/22 00:00 61 18 129/63 95 06/05/22 20:24 70 06/05/22 20:16 68 06/05/22 20:15 68 06/05/22 20:02 66 100 06/05/22 20:00 97.2 F L 61 20 145/67 96 06/05/22 16:00 98.1 F 63 24 143/76 92 L 06/05/22 15:04 72 06/05/22 14:53 72 06/05/22 14:00 63 28 H Intake and Output 06/05/22 06/06/22 06/06/22 22:59 06:59 14:59 Intake Total 128 Balance 128 Intake: IV 10 Invasive Line 5 10 Oral 118 Other: # Voids 1 2 # Bowel Movements 1 General: Well developed, well nourished. No mild respiratory distress. Chronically ill appearing HEENT: Head is atraumatic, normocephalic. Mucus membranes dry CV: Heart regular in rate and rhythm positive S1 and S2. Lungs: Diminished bilateral bases. Conversational dyspnea. On 3 L nasal cannula. Trace lower extremity edema Abdomen/GI: Soft. No guarding, rigidity, or abdominal tenderness. Musculoskeletal/ Extremities: KATE, No gross atrophy. + generalized weakness Skin: Warm and dry Neurologic: Awake, alert and oriented 2 Psychiatric: Agitated Results CBC & Chem 7: 06/06/22 10:23 06/06/22 10:23 Labs: Abnormal Lab Results - Last 24 Hours (Table) 06/05/22 06/05/22 06/06/22 Range/Units 16:41 20:14 06:19 WBC (3.8-10.6) k/uL Hgb (11.4-16.0) gm/dL MCHC (31.0-37.0) g/dL RDW (11.5-15.5) % PT (9.0-12.0) sec INR (<1.2) Sodium (137-145) mmol/L Chloride (98-107) mmol/L BUN (7-17) mg/dL Creatinine (0.52-1.04) mg/dL Glucose (74-99) mg/dL POC Glucose (mg/dL) 265 H 202 H 280 H (70-110) mg/dL 06/06/22 06/06/22 06/06/22 Range/Units 10:23 10:23 10:23 WBC 17.5 H (3.8-10.6) k/uL Hgb 10.8 L (11.4-16.0) gm/dL MCHC 30.4 L (31.0-37.0) g/dL RDW 18.0 H (11.5-15.5) % PT 26.8 H (9.0-12.0) sec INR 2.8 H (<1.2) Sodium 134 L (137-145) mmol/L Chloride 95 L (98-107) mmol/L BUN 44 H (7-17) mg/dL Creatinine 1.20 H (0.52-1.04) mg/dL Glucose 241 H (74-99) mg/dL POC Glucose (mg/dL) (70-110) mg/dL 06/06/22 Range/Units 11:52 WBC (3.8-10.6) k/uL Hgb (11.4-16.0) gm/dL MCHC (31.0-37.0) g/dL RDW (11.5-15.5) % PT (9.0-12.0) sec INR (<1.2) Sodium (137-145) mmol/L Chloride (98-107) mmol/L BUN (7-17) mg/dL Creatinine (0.52-1.04) mg/dL Glucose (74-99) mg/dL POC Glucose (mg/dL) 399 H (70-110) mg/dL Chest x-ray: report reviewed Assessment and Plan Assessment: Symptoms * Pain - 8/10, continue Tylenol, and Percocet * Fatigue - decreased energy level and weakness, continue PT/OT * SOB - conversational dyspnea, sob at rest, on 3 L nasal cannula today. Continue Aldactone, DuoNeb,, Pulmicort, Perforomist, and Solu-Medrol. * Insomnia - no * N/V - no * Anxiety - yes, continue Ativan * Depression - no * Confusion - yes * Agitation - yes, continue Ativan * Hallucinations - yes * Appetite/weight loss - no decreased appetite or recent weight loss, continue heart healthy diet. * Dysphagia - no * Constipation - occasional. Continue MiraLAX and Dulcolax as needed * Incontinence - occasional * Itch - no * Cough - yes, dry cough, continue Tesnicolas Escudero Plan: Summary/Goals - Patient resides with her and her daughter, Shivani. However, the patient has had multiple admissions, as this is her seventh, in the last 4 months for COPD/CHF exacerbations. She has been back and forth going between the hospital and [facility]. The patient was able to tell me the current year, and that she was at a hospital. However she got to the [facility]. The patient stated that she was here for confusion. During examination patient was observed hallucinating. She thought she had a cup of water in her hand and was attempting to drink it. Patient states that she is 81 years old and not going to get any better. The patient's daughter, Jenny, entered the room and asked to speak privately. Jenny stated that the patient's is the medical decision maker. Jenny stated the family is aware that the patient's COPD and CHF have progressed. They are also aware that there are no cures for these chronic illness and the treatments available are becoming less effective. Information regarding hospice and palliative care philosophies and services was provided. Jenny said that siblings and herself have spoken and they would like to see their mother comfortable and not suffering. However, they have not spoken about hospice specifically. Jenny is requesting an informational hospice meeting for herself, her siblings, and her father. Her father receives outpatient dialysis treatments. She is concerned that he may not be able physically to join meetings. She was reassured that her father can still be included via telephone or Face Time. A consult for hospice was placed. senior consulting manager was notified. Recommendations - hospice Advanced Directives - none on file Code Status - DO NOT RESUSCITATE Thank you for this consultation Taylor Alvarenga [facility] Palliative Care [facility] [id number] Email: [email or web address] Time with Patient: Greater than 30
[2022-06-06 12:59] VITALS: BMI 30.9
[2022-06-06] MEDS ORDERED: oxyCODONE-APAP 10-325MG 1 EACH TAB PO PRN (13:18)
--- NOTE | 2022-06-06 13:56 | P.PN ---
Subjective Progress Note Date: 06/06/22 Patient is an 81-year-old female with atrial fibrillation, complete heart block s/p dual chamber pacemaker, and COPD on 2L home O2 whopresented for dyspnea and cough. Patient was recently hospitalizaed from 05/22/22 through 05/26/22 for CHF and COPD exacerbation, discharged to [facility]. In the ED she underwent an extensive evaluation. He vitals were stable on her home O2. Laboratory analysis revealed a hemoglobin of 10.1, Na 133, Cl 88, bicarb 37, BUN 25, glucose 375, Ca 8.3, AST 42, ALT 40, INR 1.2, and Troponin 0.05. BNP was 2970. EKG showing electronic ventricular pacemaker rhythm . Chest x-ray showed cardiomegaly with no acute process. She was started on Lasix IV and DuoNeb scheduled along with prednisone. Her respiratory status remained stable but mentation worsened over the next 2 days. Patient ultimately required BiPAP and Diamox, which then were discontinue/ Patient continues to wax and wane with regard to her mentation. Patient was switched to DNR/DNI. Cardio had been following the case since admission and pulmonary was consulted. Patient seen and examined at bedside. She is pleasantly confused. She is putting her IV in her mouth adn dipping it inot syrup--nursing alerted and asked to clean and redress. General: ill appearing, no distress, appears at stated age Derm: warm, dry Head: atraumatic, normocephalic, symmetric Eyes: EOMI, no lid lag, anicteric sclera Mouth: no lip lesion, mucus membranes moist Cardiovascular: S1S2 reg, no murmur, positive posterior tibial pulse bilateral, Lungs: Course bs bilateral, no rhonchi, no rales , no accessory muscle use Abdominal: soft, nontender to palpation, no guarding, no appreciable organomegaly Ext: no gross muscle atrophy, no edema, no contractures Neuro: CN II-XI grossly intact, no focal neuro deficits Psych: awake but confused, oriented to person, appropriate affect Assessment/Plan: Acute metabolic encephalopathy - actively hallucinating - check ammonia level, could have hepatic congestion from CHF - Supportive care - Stop Ativan, patient was not taking on discharge on 05/26/22 and may be contributing - decrease percocet to every 12 hours Coagulopathy - continue to hold coumadin no signs of active bruising or bleeding. Acute on chronic hypoxic hypercapnic respiratory failure Acute on chronic COPD exacerbation - Chest x-ray from June 05 with cardiomegaly with no acute changes. - leukocytosis likely steroid induced - DuoNeb scheduled and as needed for shortness of breath and wheezing. - pulm recs appreciated - palliative care recs appreciated. Acute on chronic diastolic CHF exacerbation - off lasix - Echo 03/2022 shows mild to moderate LVH with normal EF. - Cardiology recs appreciated Diabetes mellitus with hyperglycemia - Hemoglobin A1c 8.22 May 2022. - [id number] glucose 265 today, persistently elevated though improved. - Levemir increased to 18 units at bedtime. - Medium dose sliding scale. - Continue NovoLog 3 times a day before meals increased to 6 units Leukocytosis - reactive to steroids - repeat CBC in AM - Follow fever profile Acute kidney injury-Acute kidney injury likely due to forced diuresis, improving - avoid nephrotoxic agents - follow BMP Transaminitis-Unknown etiology for transaminitis. - Patient will need outpatient workup. Normocytic anemia Generalized weakness and debility Troponin elevation, flat at baseline - CBC and BMP preview, BS reviewed, check CBC and BMP in AM Resolved: Hypomagnesmia Chronic conditions: History of paroxysmal atrial fibrillation, History of complete heart block with dual-chamber pacemaker, Restless leg syndrome, depression Active Medications Generic Name Dose Route Start Last Admin Trade Name Freq PRN Reason Stop Dose Admin Acetaminophen 650 mg 06/02/22 00:18 Acetaminophen Tab 325 Mg Tab PO Q4H PRN Pain or Fever > 100.5 Albuterol/Ipratropium 3 ml 06/02/22 11:58 Ipratropium-Albuterol 3 Ml Neb INHALATION RT-QID PRN Shortness Of Breath Or Wheezing Albuterol/Ipratropium 3 ml 06/02/22 12:00 06/06/22 10:47 Ipratropium-Albuterol 3 Ml Neb INHALATION 3 ml RT-QID PAULA Administration Aspirin 81 mg 06/02/22 12:00 06/06/22 08:35 Aspirin 81 Mg PO 81 mg DAILY@1200 PAULA Administration Atorvastatin Calcium 80 mg 06/02/22 21:00 06/05/22 21:01 Atorvastatin 80 Mg Tab PO 80 mg HS@2100 PAULA Administration Benzonatate 100 mg 06/02/22 00:18 Benzonatate 100 Mg Cap PO TID PRN Cough Bisacodyl 10 mg 06/02/22 00:18 Bisacodyl 10 Mg Supp RECTAL DAILY PRN Constipation Budesonide 1 mg 06/05/22 20:00 06/06/22 07:01 Budesonide 1 Mg/2 Ml Nebu INHALATION 1 mg RT-BID PAULA Administration Cholecalciferol 25 mcg 06/02/22 21:00 06/05/22 21:01 Cholecalciferol 25 Mcg (1000 Iu) Tablet PO 25 mcg HS@2100 [facility] Administration Dapagliflozin 10 mg 06/06/22 09:15 06/06/22 12:14 Dapagliflozin Propanediol 10 Mg Tablet PO 10 mg DAILY PAULA Administration Formoterol Fumarate 20 mcg 06/05/22 20:00 06/06/22 07:01 Formoterol Fumarate 20 Mcg/2 Ml Nebu INHALATION 20 mcg RT-BID PAULA Administration Insulin Aspart 0 unit 06/03/22 21:00 06/06/22 12:13 Insulin Aspart (Novolog) 100 Unit/Ml Vial SQ 15 unit ACHS [facility] Administration Protocol Insulin Aspart 5 unit 06/04/22 17:30 06/06/22 12:13 Insulin Aspart (Novolog) 100 Unit/Ml Vial SQ 5 unit AC-TID [facility] Administration Insulin Detemir 18 unit 06/06/22 21:30 Insulin Detemir (Levemir) 100 Unit/Ml Syr SQ HS@2130 [facility] Lisinopril 10 mg 06/05/22 09:00 06/06/22 08:34 Lisinopril 10 Mg Tab PO 10 mg DAILY PAULA Administration Lorazepam 0.5 mg 06/02/22 00:18 06/05/22 08:42 Lorazepam 0.5 Mg Tab PO 0.5 mg DAILY PRN Administration Anxiety Lorazepam 1 mg 06/02/22 00:18 06/05/22 23:29 Lorazepam 1 Mg Tab PO 1 mg HS PRN Administration Anxiety Magnesium Hydroxide 2,400 mg 06/02/22 09:00 Magnesium Hydroxide 2,400 Mg/10 Ml Cup PO DAILY PRN Constipation Magnesium Oxide 400 mg 06/02/22 08:00 06/06/22 08:35 Magnesium Oxide 400 Mg Tab PO 400 mg BID@0800,1700 [facility] Administration Methylprednisolone Sodium Succinate 60 mg 06/05/22 18:00 06/06/22 12:13 Methylprednisolone Sod Succi 125 Mg/2 Ml Vial IV 60 mg Q6HR PAULA Administration Metoprolol Tartrate 100 mg 06/02/22 08:00 06/06/22 08:34 Metoprolol Tartrate 50 Mg Tab PO 100 mg BID@0800,1700 [facility] Administration Miscellaneous Information 0 each 06/02/22 08:32 Warfarin Per Pharmacy MISCELLANE DIRECTED PRN ANTICOAG Naloxone HCl 0.2 mg 06/01/22 22:04 Naloxone 0.4 Mg/Ml 1 Ml Vial IV Q2M PRN Opioid Reversal Oxycodone/Acetaminophen 1 each 06/02/22 00:18 06/05/22 21:00 Oxycodone-Apap 10-325mg 1 Each Tab PO 1 each Q6HR PRN Administration Pain Pantoprazole Sodium 40 mg 06/02/22 08:00 06/06/22 08:35 Pantoprazole 40 Mg Tablet PO 40 mg BID@0800,1700 [facility] Administration Polyethylene Glycol 17 gm 06/02/22 08:00 06/06/22 08:35 Polyethylene Glycol 3350 17 Gm Powd.Pack PO Not Given DAILY@0800 [facility] Ropinirole HCl 2 mg 06/02/22 08:00 06/06/22 08:34 Ropinirole Hcl 1 Mg Tab PO 2 mg BID@0800,2100 [facility] Administration Spironolactone 50 mg 06/02/22 08:00 06/06/22 08:35 Spironolactone 25 Mg Tab PO 50 mg DAILY@0800 [facility] Administration Warfarin Sodium 4 mg 06/06/22 18:00 Warfarin 2 Mg Tab PO 06/06/22 18:01 ONCE@1800 ONE Objective - Vital Signs Vital signs: Vital Signs Temp 97.2 F L 06/05/22 20:00 Pulse 70 06/06/22 07:18 Resp 24 06/06/22 04:00 BP 163/75 06/06/22 04:00 Pulse Ox 100 06/06/22 07:04 FiO2 35 06/05/22 12:00 Intake & Output 06/05/22 06/06/22 06/06/22 18:59 06:59 18:59 Intake Total 256 10 Balance 256 10 Intake: IV 20 10 Invasive Line 5 20 10 Oral 236 Other: # Voids 1 2 # Bowel Movements 1 1 - Labs CBC & Chem 7: 06/06/22 10:23 06/06/22 10:23 Labs: Abnormal Lab Results - Last 24 Hours (Table) 06/05/22 06/05/22 06/05/22 Range/Units 11:41 16:41 20:14 POC Glucose (mg/dL) 224 H 265 H 202 H (70-110) mg/dL 06/06/22 Range/Units 06:19 POC Glucose (mg/dL) 280 H (70-110) mg/dL
[2022-06-06 16:50] LABS: Glucose,Whole Blood 305 mg/dL (70-110)
[2022-06-06] MEDS ORDERED: WARFARIN 2 MG TAB PO ONE (18:00)
[2022-06-06 20:05] LABS: Glucose,Whole Blood 244 mg/dL (70-110)
[2022-06-06] MEDS: CHOLECALCIFEROL 25 MCG (1000 IU) TABLET PO SCH (20:29)
[2022-06-06] MEDS: ATORVASTATIN 80 MG TAB PO SCH (20:29)
[2022-06-06] MEDS ORDERED: INSULIN DETEMIR (LEVEMIR) 100 UNIT/ML SYR SQ SCH (21:30)
[2022-06-07 00:36] LABS: Glucose,Whole Blood 167 mg/dL (70-110)
[2022-06-07 06:01] LABS: Glucose,Whole Blood 161 mg/dL (70-110)
[2022-06-07] MEDS: methylPREDNISolone SOD SUCCI 125 MG/2 ML VIAL IV SCH (06:59)
[2022-06-07] MEDS: INSULIN ASPART (NovoLOG) 100 UNIT/ML VIAL SQ SCH ×6 (06:59→18:27)
[2022-06-07] MEDS: IPRATROPIUM-ALBUTEROL 3 ML NEB INHALATION SCH ×4 (07:42→19:12)
[2022-06-07] MEDS: BUDESONIDE 1 MG/2 ML NEBU INHALATION SCH ×2 (07:42→19:12)
[2022-06-07] MEDS: FORMOTEROL FUMARATE 20 MCG/2 ML NEBU INHALATION SCH ×2 (07:42→19:12)
[2022-06-07 07:43] LABS: INR 2.1 (<1.2); Prothrombin Time 20.4 sec (9.0-12.0)
[2022-06-07 08:00] LABS: Calcium 9.4 mg/dL (8.4-10.2); Potassium 3.9 mmol/L (3.5-5.1)
[2022-06-07 09:00] LABS: Anisocytosis Slight; HCT 33.5 % (34.0-46.0); HGB 10.4 gm/dL (11.4-16.0); Hypochromasia Moderate; MCH 24.8 pg (25.0-35.0); Mean Platelet Volume 8.3; Microcytosis Slight; Platelet Count 214 k/uL (150-450); Poikilocytosis Slight; RBC 4.18 m/uL (3.80-5.40); RDW 18.6 % (11.5-15.5); WBC 16.8 k/uL (3.8-10.6)
[2022-06-07] MEDS: MAGNESIUM OXIDE 400 MG TAB PO SCH ×2 (09:03→18:27)
--- NOTE | 2022-06-07 09:03 | P.PN ---
Subjective Progress Note Date: 06/07/22 81-year-old female who was admitted through the emergency department on June 01. The patient was brought into the emergency department by EMS because of shortness of breath, and low saturations. The patient has had multiple admissions to this hospital, beginning February of last year. She does have a history of underlying COPD, and CHF. Currently, she is seen in room 374. The patient has been here since , and we were only consulted today. The patient's condition apparently deteriorated earlier today, and a rapid response was called on the patient. My ICU nurse, Sherron, was able to speak to the family about CODE STATUS. The patient, was clear, that she did not want intubation or mechanical ventilation, and the family agreed. Apparently this was also decided upon yesterday, but for some reason, the hospital service decided to reverse the CODE STATUS. Anyway, I had a long conversation with the patient and the family today, and is clear to me that neither the patient or the family would want this patient to be intubated and ventilated. I told the family and the patient, that we would do everything short of that. Other important medical history includes atrial fibrillation, CAD, hypertension, breast cancer, and pacemaker insertion among other things. The patient was a f ormer smoker. Laboratory data today includes a white count of 12.4, hemoglobin 10.3, hematocrit 33.5, and platelet count 295,000. PTT was 48.6 with an INR of 2.9. Sodium 134, potassium 4.3, chlorides 94, CO2 32, anion gap normal, BUN 43, and creatinine 1.25. Calcium was normal. The chest x-rays have shown primarily cardiomegaly, without fluid overload/CHF. A blood gas done on 32% oxygen, yes terday showed a pO2 of 87, a pCO2 of 59, and a pH is 7.43. This is likely her baseline arterial blood gas, which reveals a well compensated respiratory acidosis, secondary to COPD. N-terminal proBNP on admission was 2970. Screening for influenza, RSV, and coronavirus were negative. On today's evaluation of 06/06/2022, the patient is being seen for a follow-up. Currently she is on oxygen at 3 L/m nasal cannula. She was hospitalized for shortness of breath and acute COPD/CHF exacerbation. The patient has a BiPAP BiPAP at the bedside and she did not use it last night. However she was using either earlier. The chest x-ray from yesterday on 06/05/2022 shows cardiomegaly. The mediastinum is slightly widened. The patient has a pacemaker in place. There is some mild pulmonary vascular congestion. No airspace disease of consolidation. Diaphragms are essentially clear. The chest x-ray findings of essentially stable. At the same time, the patient is currently on DuoNeb nebulized treatments 4 times a day, she is on IV Solu-Medrol 60 mg every 6 hours. No antibiotic coverage. She is on Levemir insulin 15 units at bedtime and she is taking NovoLog 5 units with meals and a sliding scale coverage. She also takes Diamox 250 mg by mouth twice a day. Blood sugars from today this morning is 280. INR is at 4.9 no response 12.4 with a hemoglobin of 10.3 and a platelet count of 195. Serum bicarb is at 32 sodium is at 134 with a potassium level of 4.3. 06/07/2022, the patient is still on oxygen at 3 L/m nasal cannula. As mentioned earlier, she was hospitalized for acute COPD/CHF exacerbation. She is communicating. No altered mentation. No chest pain. She did have some episodes of shortness of breath overnight. She was given bronchodilators. She remains on DuoNeb nebulized treatments 4 times a day and she remains on IV Solu- Medrol. She remains on Levemir insulin for blood sugar control 15 units at bedtime and NovoLog 5 units with a sliding scale coverage. Today's blood work the patient has a WD significant of 16.8 with a hemoglobin of 10.4 and a platelet count of 214. INR is down to 2.1. BUN is at 42 with a creatinine of 1.2. Objective - Vital Signs Vital signs: Vital Signs Temp 97.1 F L 06/07/22 08:24 Pulse 64 06/07/22 08:00 Resp 20 06/07/22 08:24 BP 166/84 06/07/22 08:24 Pulse Ox 100 06/07/22 08:24 FiO2 35 06/05/22 12:00 Intake & Output 06/06/22 06/07/22 06/07/22 18:59 06:59 18:59 Intake Total 660 Balance 660 Weight 79.3 kg Intake: Oral 660 Other: Voiding Method External Catheter # Voids 1 - Exam Mild to moderate respiratory distress, with conversational dyspnea, and use of accessory muscles, oriented, with BiPAP mask in place. The patient is able to speak in incomplete sentences. HEENT examination is grossly unremarkable. Neck supple. Full range of motion. No adenopathy thyromegaly or neck vein distention. Cardiovascular examination reveals regular rhythm rate. S1-S2 normal. No S3 or S4. No discernible murmur noted. Heart sounds are distant. Lungs reveal diminished bilateral breath sounds. Scattered rhonchi are noted. Few scattered wheezes are noted. No crackles. Breath sounds equal bilaterally. Abdomen soft bowel sounds are heard. No masses or tenderness. Extremities are intact. No cyanosis, clubbing, or significant edema. Skin is without rash or lesion. Neurologic examination is brief but nonfocal. - Labs CBC & Chem 7: 06/06/22 10:23 06/07/22 06:52 Labs: Abnormal Lab Results - Last 24 Hours (Table) 06/06/22 06/06/22 06/06/22 Range/Units 10:23 10:23 10:23 WBC 17.5 H (3.8-10.6) k/uL Hgb 10.8 L (11.4-16.0) gm/dL MCHC 30.4 L (31.0-37.0) g/dL RDW 18.0 H (11.5-15.5) % PT 26.8 H (9.0-12.0) sec INR 2.8 H (<1.2) Sodium 134 L (137-145) mmol/L Chloride 95 L (98-107) mmol/L BUN 44 H (7-17) mg/dL Creatinine 1.20 H (0.52-1.04) mg/dL Glucose 241 H (74-99) mg/dL POC Glucose (mg/dL) (70-110) mg/dL 06/06/22 06/06/22 06/06/22 Range/Units 11:52 16:48 20:00 WBC (3.8-10.6) k/uL Hgb (11.4-16.0) gm/dL MCHC (31.0-37.0) g/dL RDW (11.5-15.5) % PT (9.0-12.0) sec INR (<1.2) Sodium (137-145) mmol/L Chloride (98-107) mmol/L BUN (7-17) mg/dL Creatinine (0.52-1.04) mg/dL Glucose (74-99) mg/dL POC Glucose (mg/dL) 399 H 305 H 244 H (70-110) mg/dL 06/07/22 06/07/22 06/07/22 Range/Units 00:33 05:56 06:52 WBC (3.8-10.6) k/uL Hgb (11.4-16.0) gm/dL MCHC (31.0-37.0) g/dL RDW (11.5-15.5) % PT (9.0-12.0) sec INR (<1.2) Sodium 135 L (137-145) mmol/L Chloride (98-107) mmol/L BUN 42 H (7-17) mg/dL Creatinine 1.20 H (0.52-1.04) mg/dL Glucose 146 H (74-99) mg/dL POC Glucose (mg/dL) 167 H 161 H (70-110) mg/dL 06/07/22 Range/Units 06:52 WBC (3.8-10.6) k/uL Hgb (11.4-16.0) gm/dL MCHC (31.0-37.0) g/dL RDW (11.5-15.5) % PT 20.4 H (9.0-12.0) sec INR 2.1 H (<1.2) Sodium (137-145) mmol/L Chloride (98-107) mmol/L BUN (7-17) mg/dL Creatinine (0.52-1.04) mg/dL Glucose (74-99) mg/dL POC Glucose (mg/dL) (70-110) mg/dL Assessment and Plan Plan: Acute on chronic hypoxemic and hypercapnic respiratory failure, secondary to COPD exacerbation. The patient is free of any acute pulmonary infiltrates. advanced COPD at a baseline chronic COPD with chronic hypoxic respiratory failure, mechanically combination of Symbicort on outpatient basis Chronic hypoxic respiratory failure maintains on O2 at 2 L/m nasal cannula at home Diffuse coronary disease, to be treated medically. History of CHF. Most recent echocardiogram from 04/12/2022 showed a preserved LV function with an EF around 55-60%. The patient has moderate RV dilatation, RV systolic pressure has been within normal limits. No significant valvular abnormalities. History of atrial fibrillation. INR at 4.9 COPD, secondary to former tobacco use. History of hypertension. History of permanent pacemaker implantation. History of left breast cancer, status post lumpectomy. Status post open heart surgery History of anxiety/depression. Acute kidney injury, creatinine is up to 1.25 Plan Discontinue the IV Solu-Medrol and start the patient on a prednisone burst taper Continue bronchodilators Monitor the blood sugar and may need to adjust the Levemir insulinto 18 U for tighter blood sugar control No signs of encephalopathy Monitor the INR for now and the level is therapeutic Creatinine is stable at 1.25 Long-term prognosis poor based on her age and advanced lung disease and lorena rbidities. We'll continue to follow. Possibility of hospice versus palliative care.
[2022-06-07] MEDS: lisinopriL 10 MG TAB PO SCH (09:04)
[2022-06-07] MEDS: PANTOPRAZOLE 40 MG TABLET PO SCH ×2 (09:04→18:27)
[2022-06-07] MEDS: SPIRONOLACTONE 25 MG TAB PO SCH (09:04)
[2022-06-07] MEDS: DAPAGLIFLOZIN PROPANEDIOL 10 MG TABLET PO SCH (09:04)
[2022-06-07] MEDS: METOPROLOL TARTRATE 50 MG TAB PO SCH ×2 (09:05→18:27)
[2022-06-07] MEDS: polyethylene glycoL 3350 17 GM POWD.PACK PO SCH ×2 (09:06→09:10)
[2022-06-07 11:23] VITALS: TEMP 96.9
--- NOTE | 2022-06-07 11:31 | P.PN ---
Subjective Progress Note Date: 06/07/22 HISTORY OF PRESENT ILLNESS: This is an 81-year-old female who is admitted to the hospital secondary to congestive heart failure and COPD. Patient examined this morning. She is sitti ng up in the chair. She currently denies chest pain or pressure. She denies shortness of breath. She is maintained on oral diuretics. Vital signs are stable. INR today 2.8. Telemetry reveals atrial fibrillation with controlled ventricular rate 06/07/2022 Patient examined this morning at the bedside. Patient denies chest pain or pressure. She reports shortness of breath and states that she had a bad night yesterday. Patient's blood pressures are currently stable. Telemetry reveals atrial for ablation with controlled ventricular rate. INR today 2.1. PHYSICAL EXAM: VITAL SIGNS: Reviewed. GENERAL: Well-developed in no acute distress. NECK: Supple. No JVD or thyromegaly LUNGS: Respirations even and unlabored. Lungs diminished to auscultation bilaterally. HEART: Irregular rate and rhythm. S1 and S2 heard. Systolic murmur noted EXTREMITIES: Normal range of motion. No clubbing or cyanosis. Peripheral pulses intact. 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 Monitor INR. Eliquis and Farxiga copay checked yesterday with copays that are too expensive for patient. Hospice consult pending We will sign off. Please reconsult if needed. Nurse practitioner note has been reviewed by physician. Signing provider agrees with the documented findings, assessment, and plan of care. Objective - Vital Signs Vital signs: Vital Signs Temp 96.9 F L 06/07/22 11:22 Pulse 61 06/07/22 11:22 Resp 20 06/07/22 11:22 BP 178/89 06/07/22 11:22 Pulse Ox 98 06/07/22 11:22 FiO2 35 06/05/22 12:00 Intake & Output 06/06/22 06/07/22 06/07/22 18:59 06:59 18:59 Intake Total 660 Balance 660 Weight 79.3 kg Intake: Oral 660 Other: Voiding Method External Catheter # Voids 1 - Labs CBC & Chem 7: 06/07/22 06:52 06/07/22 06:52 Labs: Abnormal Lab Results - Last 24 Hours (Table) 06/06/22 06/06/22 06/06/22 Range/Units 11:52 16:48 20:00 WBC (3.8-10.6) k/uL Hgb (11.4-16.0) gm/dL Hct (34.0-46.0) % MCH (25.0-35.0) pg RDW (11.5-15.5) % PT (9.0-12.0) sec INR (<1.2) Sodium (137-145) mmol/L BUN (7-17) mg/dL Creatinine (0.52-1.04) mg/dL Glucose (74-99) mg/dL POC Glucose (mg/dL) 399 H 305 H 244 H (70-110) mg/dL 06/07/22 06/07/22 06/07/22 Range/Units 00:33 05:56 06:52 WBC (3.8-10.6) k/uL Hgb (11.4-16.0) gm/dL Hct (34.0-46.0) % MCH (25.0-35.0) pg RDW (11.5-15.5) % PT (9.0-12.0) sec INR (<1.2) Sodium 135 L (137-145) mmol/L BUN 42 H (7-17) mg/dL Creatinine 1.20 H (0.52-1.04) mg/dL Glucose 146 H (74-99) mg/dL POC Glucose (mg/dL) 167 H 161 H (70-110) mg/dL 06/07/22 06/07/22 Range/Units 06:52 06:52 WBC 16.8 H (3.8-10.6) k/uL Hgb 10.4 L (11.4-16.0) gm/dL Hct 33.5 L (34.0-46.0) % MCH 24.8 L (25.0-35.0) pg RDW 18.6 H (11.5-15.5) % PT 20.4 H (9.0-12.0) sec INR 2.1 H (<1.2) Sodium (137-145) mmol/L BUN (7-17) mg/dL Creatinine (0.52-1.04) mg/dL Glucose (74-99) mg/dL POC Glucose (mg/dL) (70-110) mg/dL
[2022-06-07 11:39] LABS: Glucose,Whole Blood 169 mg/dL (70-110)
--- NOTE | 2022-06-07 12:52 | P.PN ---
Subjective Progress Note Date: 06/07/22 The patient is an 81-year-old female with a past medical history significant for A. fib, CAD, COPD on 2 L home O2, hypertension, breast cancer, bladder cancer, complete heart block, , AVR , MVR ,and permanent pacemaker. The patient was at her subacute rehab facility when she had an acute episode of shortness of breath. She denies any headache, nausea, vomiting, fever, or chills. In the emergency department her vital signs were stable and she was on 2 L NC. Chest x-ray showed cardiomegaly with no acute process. BNP was 2970. The patient's condition deteriorated and a rapid response was called. Apparently the patient was very clear that she did not want intubation or mechanical ventilation in the family agreed. She was made a DO NOT RESUSCITATE. The patient has a BiPAP at bedtime and is refusing to use it. The patient has been treated with bronchodilators and steroids. 06/06 Patient resides with her and her daughter, Shivani. However, the patient has had multiple admissions, as this is her seventh, in the last 4 months for COPD/CHF exacerbations. She has been back and forth going between the hospital and [facility]. The patient was able to tell me the current year, and that she was at a hospital. However she got to the [facility]. The patient stated that she was here for confusion. During examination patient was observed hallucinating. She thought she had a cup of water in her hand and was attempting to drink it. Patient states that she is 81 years old and not going to get any better. The patient's daughter, Jenny, entered the room and asked to speak privately. Jenny stated that the patient's is the medical decision maker. Jenny stated the family is aware that the patient's COPD and CHF have progressed. They are also aware that there are no cures for these chronic illness and the treatments available are becoming less effective. Information regarding hospice and palliative care philosophies and services was provided. Jenny said that siblings and herself have spoken and they would like to see their mother comfortable and not suffering. However, they have not spoken about hospice specifically. Jenny is requesting an informational hospice meeting for herself, her siblings, and her father. Her father receives outpatient dialysis treatments. She is concerned that he may not be able physically to join meetings. She was reassured that her father can still be included via telephone or Face Time. A consult for hospice was placed. advanced manager was notified. Objective - Vital Signs Vital signs: Vital Signs Temp 96.9 F L 06/07/22 11:22 Pulse 61 06/07/22 12:00 Resp 16 06/07/22 12:00 BP 160/66 06/07/22 12:00 Pulse Ox 99 06/07/22 12:00 FiO2 35 06/05/22 12:00 Intake & Output 06/06/22 06/07/22 06/07/22 18:59 06:59 18:59 Intake Total 660 Balance 660 Weight 79.3 kg Intake: Oral 660 Other: Voiding Method External Catheter # Voids 1 - Exam General: Well developed, well nourished. No mild respiratory distress. Chronically ill appearing HEENT: Head is atraumatic, normocephalic. Mucus membranes dry CV: Heart regular in rate and rhythm positive S1 and S2. Lungs: Diminished bilateral bases. Conversational dyspnea. On 3 L nasal cannula. Trace lower extremity edema Abdomen/GI: Soft. No guarding, rigidity, or abdominal tenderness. Musculoskeletal/ Extremities: KATE, No gross atrophy. + generalized weakness Skin: Warm and dry Neurologic: Awake, alert and oriented 2 Psychiatric: Agitated - Labs CBC & Chem 7: 06/07/22 06:52 06/07/22 06:52 Labs: Abnormal Lab Results - Last 24 Hours (Table) 06/06/22 06/06/22 06/07/22 Range/Units 16:48 20:00 00:33 WBC (3.8-10.6) k/uL Hgb (11.4-16.0) gm/dL Hct (34.0-46.0) % MCH (25.0-35.0) pg RDW (11.5-15.5) % PT (9.0-12.0) sec INR (<1.2) Sodium (137-145) mmol/L BUN (7-17) mg/dL Creatinine (0.52-1.04) mg/dL Glucose (74-99) mg/dL POC Glucose (mg/dL) 305 H 244 H 167 H (70-110) mg/dL 06/07/22 06/07/22 06/07/22 Range/Units 05:56 06:52 06:52 WBC (3.8-10.6) k/uL Hgb (11.4-16.0) gm/dL Hct (34.0-46.0) % MCH (25.0-35.0) pg RDW (11.5-15.5) % PT 20.4 H (9.0-12.0) sec INR 2.1 H (<1.2) Sodium 135 L (137-145) mmol/L BUN 42 H (7-17) mg/dL Creatinine 1.20 H (0.52-1.04) mg/dL Glucose 146 H (74-99) mg/dL POC Glucose (mg/dL) 161 H (70-110) mg/dL 06/07/22 06/07/22 Range/Units 06:52 11:37 WBC 16.8 H (3.8-10.6) k/uL Hgb 10.4 L (11.4-16.0) gm/dL Hct 33.5 L (34.0-46.0) % MCH 24.8 L (25.0-35.0) pg RDW 18.6 H (11.5-15.5) % PT (9.0-12.0) sec INR (<1.2) Sodium (137-145) mmol/L BUN (7-17) mg/dL Creatinine (0.52-1.04) mg/dL Glucose (74-99) mg/dL POC Glucose (mg/dL) 169 H (70-110) mg/dL Assessment and Plan Assessment: Symptoms * Pain - 6/10, continue Tylenol, and Percocet * Fatigue - decreased energy level and weakness, continue PT/OT * SOB - conversational dyspnea, sob at rest, on 3 L nasal cannula today. Continue Aldactone, DuoNeb,, Pulmicort, Perforomist, and Solu-Medrol. * Insomnia - no * N/V - no * Anxiety - yes, continue Ativan * Depression - no * Confusion - yes * Agitation - yes, continue Ativan * Hallucinations - yes * Appetite/weight loss - no decreased appetite or recent weight loss, continue heart healthy diet. * Dysphagia - no * Constipation - occasional. Continue MiraLAX and Dulcolax as needed, LBM 06/05 * Incontinence - occasional * Itch - no * Cough - yes, dry cough, continue Vignesh Escudero Plan: Summary/Goals - Family meeting today with [facility]. The patient's 2 daughters, son, , and [id number] were present. Information provided regarding hospice philosophies and services was provided by [facility] hospice team. Education was provided regarding COPD and CHF including the progression and trajectory of these diseases. All questions answered regarding the patient's medical condition. The patient is very confused and agitated. She refuses to wear her BiPAP and often tears off the nasal cannula. The family was in agreement that she was ready for hospice. They would like the patient's care to be focused more on control and comfort at this time. The patient is needing 24/7 care at this time. The patient's daughter, Shivani, does not think they would be able to to meet the patient's needs at her home as they are unable to provide 24/7 care. Both the patient and her , Hector, liver Shivani. Hector requires hemodialysis 3 times a weThe patient's family decided that a hospice home would be the best option for her. advanced manager notified to place a referral [facility]. [facility]ations [facility] Advanced Directives - none on file Code Status - DO NOT RESUSCITATE Thank you for this consultation Taylor Alvarenga [facility] Palliative Care [place]ink [phone] Email: [email or web address] Time with Patient: Greater than 30
[2022-06-07] MEDS: ASPIRIN 81 MG PO SCH (13:01)
[2022-06-07] MEDS ORDERED: oxyCODONE-APAP 10-325MG 1 EACH TAB PO PRN (14:14)
--- NOTE | 2022-06-07 14:14 | P.PN ---
Subjective Progress Note Date: 06/07/22 (delayed charting seen at 0925) Patient is an 81-year-old female with atrial fibrillation, complete heart block s/p dual chamber pacemaker, and COPD on 2L home O2 whopresented for dyspnea and cough. Patient was recently hospitalizaed from 05/22/22 through 05/26/22 for CHF and COPD exacerbation, discharged to [facility]. In the ED she underwent an extensive evaluation. He vitals were stable on her home O2. Laboratory analysis revealed a hemoglobin of 10.1, Na 133, Cl 88, bicarb 37, BUN 25, glucose 375, Ca 8.3, AST 42, ALT 40, INR 1.2, and Troponin 0.05. BNP was 2970. EKG showing electronic ventricular pacemaker rhythm . Chest x-ray showed cardiomegaly with no acute process. She was started on Lasix IV and DuoNeb scheduled along with prednisone. Her respiratory status remained stable but mentation worsened over the next 2 days. Patient ultimately required BiPAP and Diamox, which then were discontinue/ Patient continues to wax and wane with regard to her mentation. Patient was switched to DNR/DNI. Cardio had been following the case since admission and pulmonary was consulted. Patient seen and examined at bedside. She is pleasantly confused. She is putting her IV in her mouth adn dipping it inot syrup--nursing alerted and asked to clean and redress. General: ill appearing, no distress, appears at stated age Derm: warm, dry Head: atraumatic, normocephalic, symmetric Eyes: EOMI, no lid lag, anicteric sclera Mouth: no lip lesion, mucus membranes moist Cardiovascular: S1S2 reg, no murmur, positive posterior tibial pulse bilateral, Lungs: Course bs bilateral, no rhonchi, no rales , no accessory muscle use Abdominal: soft, nontender to palpation, no guarding, no appreciable organomegaly Ext: no gross muscle atrophy, no edema, no contractures Neuro: CN II-XI grossly intact, no focal neuro deficits Psych: awake but confused, oriented to person, appropriate affect Assessment/Plan: Acute metabolic encephalopathy, improved - hallucinations, resolved - ammonia, resolved - off ativan - Supportive care - increase percoet dosing Coagulopathy - coumadin per pharmacy Acute on chronic hypoxic hypercapnic respiratory failure Acute on chronic COPD exacerbation - Chest x-ray from June 05 with cardiomegaly with no acute changes. - leukocytosis likely steroid induced - DuoNeb scheduled and as needed for shortness of breath and wheezing. - pulm recs appreciated: off solumedrol and changed to prednisone - palliative care recs appreciated. - D/W hospice and patient's family would like [facility], new consult has been placed for [facility] on chronic diastolic CHF exacerbation - off lasix - Echo 03/2022 shows mild to moderate LVH with normal EF. - Cardiology signed off Diabetes mellitus with hyperglycemia - Hemoglobin A1c 8.22 May 2022. - [id number] glucose reviewed and much improved since increase on 05/06/23 - [id number] units at bedtime. - Medium dose sliding scale. - Continue NovoLog 3 times a day before meals increased to 6 units Leukocytosis, improving - reactive to steroids Acute kidney injury-Acute kidney injury likely due to forced diuresis, improving - avoid nephrotoxic agents Transaminitis-Unknown etiology for transaminitis. - Patient will need outpatient workup. Normocytic anemia Generalized weakness and debility Troponin elevation, flat at baseline - CBC and BMP review and have been stable, family likely to sign on with hospice, labs stable Resolved: Hypomagnesmia Chronic conditions: History of paroxysmal atrial fibrillation, History of complete heart block with dual-chamber pacemaker, Restless leg syndrome, depression Active Medications Generic Name Dose Route Start Last Admin Trade Name Freq PRN Reason Stop Dose Admin Acetaminophen 650 mg 06/02/22 00:18 Acetaminophen Tab 325 Mg Tab PO Q4H PRN Pain or Fever > 100.5 Albuterol/Ipratropium 3 ml 06/02/22 11:58 Ipratropium-Albuterol 3 Ml Neb INHALATION RT-QID PRN Shortness Of Breath Or Wheezing Albuterol/Ipratropium 3 ml 06/02/22 12:00 06/07/22 11:08 Ipratropium-Albuterol 3 Ml Neb INHALATION 3 ml RT-QID PAULA Administration Aspirin 81 mg 06/02/22 12:00 06/07/22 13:01 Aspirin 81 Mg PO 81 mg DAILY@1200 [facility] Administration Atorvastatin Calcium 80 mg 06/02/22 21:00 06/06/22 20:29 Atorvastatin 80 Mg Tab PO 80 mg HS@2100 PAULA Administration Benzonatate 100 mg 06/02/22 00:18 Benzonatate 100 Mg Cap PO TID PRN Cough Bisacodyl 10 mg 06/02/22 00:18 Bisacodyl 10 Mg Supp RECTAL DAILY PRN Constipation Budesonide 1 mg 06/05/22 20:00 06/07/22 07:42 Budesonide 1 Mg/2 Ml Nebu INHALATION 1 mg RT-BID PAULA Administration Cholecalciferol 25 mcg 06/02/22 21:00 06/06/22 20:29 Cholecalciferol 25 Mcg (1000 Iu) Tablet PO 25 mcg HS@2100 PAULA Administration Dapagliflozin 10 mg 06/06/22 09:15 06/07/22 09:04 Dapagliflozin Propanediol 10 Mg Tablet PO 10 mg DAILY PAULA Administration Formoterol Fumarate 20 mcg 06/05/22 20:00 06/07/22 07:42 Formoterol Fumarate 20 Mcg/2 Ml Nebu INHALATION 20 mcg RT-BID PAULA Administration Insulin Aspart 0 unit 06/03/22 21:00 06/07/22 13:01 Insulin Aspart (Novolog) 100 Unit/Ml Vial SQ 3 unit ACHS [facility] Administration Protocol Insulin Aspart 6 unit 06/06/22 17:30 06/07/22 13:02 Insulin Aspart (Novolog) 100 Unit/Ml Vial SQ 6 unit AC-TID [facility] Administration Insulin Detemir 18 unit 06/06/22 21:30 06/06/22 20:30 Insulin Detemir (Levemir) 100 Unit/Ml Syr SQ 18 unit HS@2130 PAULA Administration Lisinopril 10 mg 06/05/22 09:00 06/07/22 09:04 Lisinopril 10 Mg Tab PO 10 mg DAILY PAULA Administration Magnesium Hydroxide 2,400 mg 06/02/22 09:00 Magnesium Hydroxide 2,400 Mg/10 Ml Cup PO DAILY PRN Constipation Magnesium Oxide 400 mg 06/02/22 08:00 06/07/22 09:03 Magnesium Oxide 400 Mg Tab PO 400 mg BID@0800,1700 [facility] Administration Metoprolol Tartrate 100 mg 06/02/22 08:00 06/07/22 09:05 Metoprolol Tartrate 50 Mg Tab PO 100 mg BID@0800,1700 [facility] Administration Miscellaneous Information 0 each 06/02/22 08:32 Warfarin Per Pharmacy MISCELLANE DIRECTED PRN ANTICOAG Naloxone HCl 0.2 mg 01/18/23 22:04 Naloxone 0.4 Mg/Ml 1 Ml Vial IV Q2M PRN Opioid Reversal Oxycodone/Acetaminophen 1 each 06/06/22 13:18 Oxycodone-Apap 10-325mg 1 Each Tab PO Q12H PRN Pain Pantoprazole Sodium 40 mg 06/02/22 08:00 06/07/22 09:04 Pantoprazole 40 Mg Tablet PO 40 mg BID@0800,1700 [facility] Administration Polyethylene Glycol 17 gm 06/02/22 08:00 06/07/22 09:10 Polyethylene Glycol 3350 17 Gm Powd.Pack PO Not Given DAILY@0800 [facility] Prednisone 40 mg 06/08/22 09:00 Prednisone 20 Mg Tab PO DAILY [facility] Ropinirole HCl 2 mg 06/02/22 08:00 06/07/22 09:04 Ropinirole Hcl 1 Mg Tab PO 2 mg BID@0800,2100 [facility] Administration Spironolactone 50 mg 06/02/22 08:00 06/07/22 09:04 Spironolactone 25 Mg Tab PO 50 mg DAILY@0800 [facility] Administration Warfarin Sodium 4 mg 06/07/22 18:00 Warfarin 2 Mg Tab PO 06/07/22 18:01 ONCE@1800 ONE Objective - Vital Signs Vital signs: Vital Signs Temp 96.9 F L 06/07/22 11:22 Pulse 61 06/07/22 12:00 Resp 16 06/07/22 12:00 BP 160/66 06/07/22 12:00 Pulse Ox 99 06/07/22 12:00 FiO2 35 06/05/22 12:00 Intake & Output 06/06/22 06/07/22 06/07/22 18:59 06:59 18:59 Intake Total 660 Balance 660 Weight 79.3 kg Intake: Oral 660 Other: Voiding Method External Catheter # Voids 1 - Labs CBC & Chem 7: 06/07/22 06:52 06/07/22 06:52 Labs: Abnormal Lab Results - Last 24 Hours (Table) 06/06/22 06/06/22 06/07/22 Range/Units 16:48 20:00 00:33 WBC (3.8-10.6) k/uL Hgb (11.4-16.0) gm/dL Hct (34.0-46.0) % MCH (25.0-35.0) pg RDW (11.5-15.5) % PT (9.0-12.0) sec INR (<1.2) Sodium (137-145) mmol/L BUN (7-17) mg/dL Creatinine (0.52-1.04) mg/dL Glucose (74-99) mg/dL POC Glucose (mg/dL) 305 H 244 H 167 H (70-110) mg/dL 06/07/22 06/07/22 06/07/22 Range/Units 05:56 06:52 06:52 WBC (3.8-10.6) k/uL Hgb (11.4-16.0) gm/dL Hct (34.0-46.0) % MCH (25.0-35.0) pg RDW (11.5-15.5) % PT 20.4 H (9.0-12.0) sec INR 2.1 H (<1.2) Sodium 135 L (137-145) mmol/L BUN 42 H (7-17) mg/dL Creatinine 1.20 H (0.52-1.04) mg/dL Glucose 146 H (74-99) mg/dL POC Glucose (mg/dL) 161 H (70-110) mg/dL 06/07/22 06/07/22 Range/Units 06:52 11:37 WBC 16.8 H (3.8-10.6) k/uL Hgb 10.4 L (11.4-16.0) gm/dL Hct 33.5 L (34.0-46.0) % MCH 24.8 L (25.0-35.0) pg RDW 18.6 H (11.5-15.5) % PT (9.0-12.0) sec INR (<1.2) Sodium (137-145) mmol/L BUN (7-17) mg/dL Creatinine (0.52-1.04) mg/dL Glucose (74-99) mg/dL POC Glucose (mg/dL) 169 H (70-110) mg/dL
[2022-06-07 15:38] VITALS: BP 162/85; PULSE 70; RESP 26
[2022-06-07] MEDS ORDERED: HALOPERIDOL LACTATE 5 MG/ML 1 ML VIAL IM ONE (15:50)
[2022-06-07] MEDS ORDERED: LORazepam 2 MG/ML INJ IV STA ×2 (16:36→18:34)
[2022-06-07] MEDS ORDERED: WARFARIN 2 MG TAB PO ONE (18:00)
[2022-06-07] MEDS ORDERED: MORPHINE SULFATE 4 MG/ML SYRINGE IVP PRN (18:34)
[2022-06-08] MEDS ORDERED: predniSONE 20 MG TAB PO SCH (09:00)
--- NOTE | 2022-06-08 15:57 | P.DS ---
Providers Date of admission: 06/01/22 22:04 Expected date of discharge: 06/08/22 Attending physician: Solange Cabrera MD Consults: 06/05/22 10:05 Consult Physician Urgent Consulting Provider: Duglas Hager Consult Reason/Comments: increased shortness of breath, bipap Do you want consulting provider notified?: Yes 06/05/22 11:54 Consult to Palliative Care Routine Consulting Provider: Taylor Alvarenga Consult Reason/Comments: Goals of care Do you want consulting provider notified?: Yes, Notify in am Primary care physician: Jose Butcher Hospital Course: Discharge Diagnosis: Discharged to [facility] hospice Acute metabolic encephalopathy, improved Coagulopathy Acute on chronic hypoxic hypercapnic respiratory failure Acute on chronic COPD exacerbation Acute on chronic diastolic CHF exacerbation Diabetes mellitus with hyperglycemia Leukocytosis, improving - reactive to steroids Acute kidney injury-Acute kidney injury likely due to forced diuresis, improving Transaminitis-Unknown etiology for transaminitis. Normocytic anemia Generalized weakness and debility Troponin elevation, flat at baseline Hypomagnesmia Chronic conditions: History of paroxysmal atrial fibrillation, History of complete heart block with dual-chamber pacemaker, Restless leg syndrome, depression Hospital Course: Patient is an 81-year-old female with atrial fibrillation, complete heart block s/p dual chamber pacemaker, and COPD on 2L home O2 whopresented for dyspnea and cough. Patient was recently hospitalizaed from 05/22/22 through 05/26/22 for CHF and COPD exacerbation, discharged to [facility]. In the ED she underwent an extensive evaluation. He vitals were stable on her home O2. Laboratory analysis revealed a hemoglobin of 10.1, Na 133, Cl 88, bicarb 37, BUN 25, glucose 375, Ca 8.3, AST 42, ALT 40, INR 1.2, and Troponin 0.05. BNP was 2970. EKG showing electronic ventricular pacemaker rhythm . Chest x-ray showed cardiomegaly with no acute process. She was started on Lasix IV and DuoNeb scheduled along with prednisone. Her respiratory status remained stable but mentation worsened over the next 2 days. Patient ultimately required BiPAP and Diamox, which then were discontinue/ Patient continues to wax and wane with regard to her mentation. Patient was switched to DNR/DNI. Cardio had been following the case since admission and pulmonary was consulted. She continued to decline despite aggressive management. She continued to have altered mentation. Family decided to sign-on with hospice due to rapidly worsening symptoms. Patient was admitted to . 6. For physical exam see progress note same date. A total of 35 minutes of time were spent preparing this complex discharge summary. Patient was discharged on 06/08/22. Patient Condition at Discharge: Poor Plan - Discharge Summary New Discharge Prescriptions: No Action rOPINIRole HCL [Requip] 2 mg PO BID@0800,2100 Metoprolol Tartrate [Lopressor] 100 mg PO BID@0800,1700 metFORMIN HCL [Glucophage] 500 mg PO BID@0800,1700 Albuterol Inhaler [Ventolin Hfa Inhaler] 2 puff INHALATION RT-Q4H PRN #1 each PRN Reason: Shortness Of Breath Spironolactone [Aldactone] 50 mg PO DAILY@0800 oxyCODONE HCL/ACETAMINOPHEN [Percocet 10-325 mg] 1 tab PO Q6HR PRN #12 tab PRN Reason: Pain predniSONE See Taper PO DIRECTED Magnesium Hydroxide [Milk of Magnesia Concentrate] 7,200 mg PO DAILY PRN PRN Reason: Constipation Acetaminophen [Tylenol] 650 mg PO Q4H PRN PRN Reason: Pain Or Fever > 100.5 Budesonide-Formot 160-4.5 Mcg [Symbicort 160-4.5 Mcg Inhaler] 2 puff INHALATION RT-BID@0800,1700 Magnesium Oxide [Mag-Ox] 400 mg PO BID@0800,1700 Insulin Detemir [Levemir Flextouch Pen] 15 units SQ HS@2130 Torsemide [Demadex] 40 mg PO DAILY@0800 Atorvastatin [Lipitor] 80 mg PO HS@2100 Aspirin 81 mg PO DAILY@1200 Pantoprazole Sodium [Protonix] 40 mg PO BID@0800,1700 lisinopriL [Zestril] 5 mg PO DAILY@0800 Cholecalciferol [Vitamin D3 (25 Mcg = 1000 Iu)] 25 mcg PO HS@2100 Ipratropium-Albuterol Nebulize [Duoneb 0.5 mg-3 mg/3 ml Soln] 3 mg INHALATION RT-QID@08,12,17,21 PRN PRN Reason: Shortness Of Breath Warfarin Sodium [Jantoven] 5 mg PO DAILY@1700 Benzonatate [Tessalon Perles] 100 mg PO TID PRN cap PRN Reason: Cough bisacodyL [Dulcolax] 10 mg RECTAL DAILY PRN PRN Reason: Constipation Na Phos,M-B/Na Phos,Di-Ba [Fleet Adult] 133 ml RECTAL DAILY PRN PRN Reason: Constipation LORazepam [Ativan] 0.5 mg PO DAILY PRN PRN Reason: Anxiety LORazepam [Ativan] 1 mg PO HS PRN PRN Reason: Anxiety polyethylene glycoL 3350 [Miralax] 17 gm PO DAILY@0800 Discharge Medication List Metoprolol Tartrate [Lopressor] 100 mg PO BID@0800,1700 02/17/22 [History] Pantoprazole Sodium [Protonix] 40 mg PO BID@0800,1700 02/17/22 [History] rOPINIRole HCL [Requip] 2 mg PO BID@0800,2100 02/17/22 [History] metFORMIN HCL [Glucophage] 500 mg PO BID@0800,1700 04/06/22 [History] Albuterol Inhaler [Ventolin Hfa Inhaler] 2 puff INHALATION RT-Q4H PRN #1 each 04/12/22 [Rx] Cholecalciferol [Vitamin D3 (25 Mcg = 1000 Iu)] 25 mcg PO HS@2100 05/04/22 [History] lisinopriL [Zestril] 5 mg PO DAILY@0800 05/04/22 [History] Ipratropium-Albuterol Nebulize [Duoneb 0.5 mg-3 mg/3 ml Soln] 3 mg INHALATION RT-QID@,,, PRN 05/22/22 [History] Spironolactone [Aldactone] 50 mg PO DAILY@0800 05/22/22 [History] Warfarin Sodium [Jantoven] 5 mg PO DAILY@1700 05/22/22 [History] Benzonatate [Tessalon Perles] 100 mg PO TID PRN cap 05/24/22 [Rx] oxyCODONE HCL/ACETAMINOPHEN [Percocet 10-325 mg] 1 tab PO Q6HR PRN #12 tab 05/24/22 [Rx] Acetaminophen [Tylenol] 650 mg PO Q4H PRN 06/01/22 [History] Aspirin 81 mg PO DAILY@1200 06/01/22 [History] Atorvastatin [Lipitor] 80 mg PO HS@2100 06/01/22 [History] Budesonide-Formot 160-4.5 Mcg [Symbicort 160-4.5 Mcg Inhaler] 2 puff INHALATION RT-BID@0800,1700 06/01/22 [History] Insulin Detemir [Levemir Flextouch Pen] 15 units SQ HS@2130 06/01/22 [History] LORazepam [Ativan] 0.5 mg PO DAILY PRN 06/01/22 [History] LORazepam [Ativan] 1 mg PO HS PRN 06/01/22 [History] Magnesium Hydroxide [Milk of Magnesia Concentrate] 7,200 mg PO DAILY PRN 06/01/22 [History] Magnesium Oxide [Mag-Ox] 400 mg PO BID@0800,1700 06/01/22 [History] Na Phos,M-B/Na Phos,Di-Ba [Fleet Adult] 133 ml RECTAL DAILY PRN 06/01/22 [History] Torsemide [Demadex] 40 mg PO DAILY@0800 06/01/22 [History] bisacodyL [Dulcolax] 10 mg RECTAL DAILY PRN 06/01/22 [History] polyethylene glycoL 3350 [Miralax] 17 gm PO DAILY@0800 06/01/22 [History] predniSONE See Taper PO DIRECTED 06/01/22 [History] Follow up Appointment(s)/Referral(s): [facility] [Provider Group] - 1 Week Jose Butcher MD [Primary Care Provider] - 1-2 days [facility] [NON-STAFF] - [facility]: [facility]
== END 2022-06-07 19:29 | disposition hospice, inpatient (51) | DRG 291 ==
LOC: EC 19:13 → 3SCARD 22:04
PROVIDERS: ADMIT Family Medicine; ATTEND Family Medicine
PROC: 05H933Z Insertion of Infusion Device into Right Brachial Vein, Percutaneous Approach (ICD-10-PCS; 2022-06-03 08:30)
PROC: 5A09357 Assistance with Respiratory Ventilation, Less than 24 Consecutive Hours, Continuous Positive Airway Pressure (ICD-10-PCS; principal; 2022-06-04)
DX: I11.0 Hypertensive heart disease with heart failure (principal); G93.41 Metabolic encephalopathy; I50.33 Acute on chronic diastolic (congestive) heart failure; J96.21 Acute and chronic respiratory failure with hypoxia; J96.22 Acute and chronic respiratory failure with hypercapnia; I48.19 Other persistent atrial fibrillation; I44.2 Atrioventricular block, complete; I24.8 Other forms of acute ischemic heart disease; J44.1 Chronic obstructive pulmonary disease with (acute) exacerbation; D68.9 Coagulation defect, unspecified; E87.1 Hypo-osmolality and hyponatremia; E87.4 Mixed disorder of acid-base balance; N17.9 Acute kidney failure, unspecified; I08.1 Rheumatic disorders of both mitral and tricuspid valves; Z66 Do not resuscitate; Z51.5 Encounter for palliative care; Z68.31 Body mass index [BMI] 31.0-31.9, adult; E66.9 Obesity, unspecified; E87.8 Other disorders of electrolyte and fluid balance, not elsewhere classified; F32.A Depression, unspecified; Z99.81 Dependence on supplemental oxygen; Z95.2 Presence of prosthetic heart valve; E86.9 Volume depletion, unspecified; E11.65 Type 2 diabetes mellitus with hyperglycemia; G25.81 Restless legs syndrome; D64.9 Anemia, unspecified; I25.10 Atherosclerotic heart disease of native coronary artery without angina pectoris; R45.1 Restlessness and agitation; F41.9 Anxiety disorder, unspecified; Z79.01 Long term (current) use of anticoagulants; R53.81 Other malaise; Z20.822 Contact with and (suspected) exposure to COVID-19; K59.00 Constipation, unspecified; T50.1X5A Adverse effect of loop [high-ceiling] diuretics, initial encounter; D72.829 Elevated white blood cell count, unspecified; T38.0X5A Adverse effect of glucocorticoids and synthetic analogues, initial encounter; E83.42 Hypomagnesemia; E78.5 Hyperlipidemia, unspecified; R74.01 Elevation of levels of liver transaminase levels; Z79.4 Long term (current) use of insulin; Z79.51 Long term (current) use of inhaled steroids; Z79.82 Long term (current) use of aspirin; Z79.84 Long term (current) use of oral hypoglycemic drugs; Z79.899 Other long term (current) drug therapy; Z82.5 Family history of asthma and other chronic lower respiratory diseases; Z85.3 Personal history of malignant neoplasm of breast; Z85.51 Personal history of malignant neoplasm of bladder; Z95.0 Presence of cardiac pacemaker; Z96.653 Presence of artificial knee joint, bilateral; R32 Unspecified urinary incontinence; Z88.5 Allergy status to narcotic agent; Z88.8 Allergy status to other drugs, medicaments and biological substances; Z87.891 Personal history of nicotine dependence
CPT/HCPCS: 36410; 36415; 36600; 71045; 71046; 76937; 80048; 80053; 82140; 82805; 83735; 83880; 84484; 85025; 85027; 85610; 85730; 87636; 93005; 94640; 94660; 94760; 96374; 99285

== ENCOUNTER 2022-06-07 19:29 | Inpatient (IN) | payer MEDICAID ==
[2022-06-07] MEDS ORDERED: MORPHINE SULFATE 4 MG/ML SYRINGE IVP ONE (19:39)
[2022-06-07] MEDS ORDERED: MORPHINE SULFATE 2 MG/ML SYRINGE IV PRN (19:39)
[2022-06-07] MEDS ORDERED: ACETAMINOPHEN SUPPOSITORY 650 MG SUPP RECTAL PRN (19:39)
[2022-06-07] MEDS ORDERED: ONDANSETRON 4 MG/2 ML VIAL IVP PRN (19:39)
[2022-06-07] MEDS ORDERED: bisacodyL 10 MG SUPP RECTAL PRN (19:44)
[2022-06-07] MEDS ORDERED: MORPHINE SULFATE (100 MG/2 ML) 100 MG in SODIUM CHLORIDE 0.9% 100 ML IV SCH (19:45)
[2022-06-07] MEDS: LORazepam 2 MG/ML INJ IV PRN (20:08)
[2022-06-07] MEDS: GLYCOPYRROLATE 0.2 MG/ML 2 ML VIAL IVP PRN (21:42)
[2022-06-08 06:43] VITALS: PULSE 62
[2022-06-08] MEDS: GLYCOPYRROLATE 0.2 MG/ML 2 ML VIAL IVP PRN ×2 (11:46→17:36)
[2022-06-08] MEDS ORDERED: SCOPOLAMINE 1 MG/72 HR PATCH TRANSDERM STA (12:42)
[2022-06-08] MEDS: ATROPINE OPHTH SOLN 1% 5ML BTL SUBLINGUAL PRN ×2 (14:00→17:36)
--- NOTE | 2022-06-08 15:51 | P.HPIM ---
History of Present Illness H&P Date: 06/08/22 (delayed charting seen at 10am) Patient is an 81-year-old female with atrial fibrillation, complete heart block s/p dual chamber pacemaker, and COPD on 2L home O2 whopresented for dyspnea and cough. She has had multiple recent admissions. She was readmitted on 06/02 through 06/03 for 2 days acute exacerbation of COPD and acute exacerbation of congestive heart failure. She had worsening of her condition and mentation felt to be secondary to CO2 retention. Due to the progressive nature of her COPD family elected hospice care. She was subsequently discharged and readmitted to inpatient hospice. Patient is currently nonresponsive. No family is present at bedside. All infor mation is gathered from thorough chart review of recent hospitalization. Unable to obtain review of systems as patient is unresponsive. Vital signs reviewed General: nontoxic, no distress, appears at stated age Derm: warm, dry, + cyanosis toes Mouth: no lip lesion, mucus membranes dry Cardiovascular: S1S2 reg, no murmur, positive posterior tibial pulse bilateral, no edema, capillary refill less than 2 seconds Lungs: Coarse breath sounds bilateral, decreased chest wall excursion, shallow respirations, slow respirations Abdominal: soft, nontender to palpation, no guarding, no appreciable o rganomegaly, normal bowel sounds Psych: Somnolent, does not arouse to light touch Assessment/Plan: Acute metabolic encephalopathy, improved A fib Coagulopathy Acute on chronic hypoxic hypercapnic respiratory failure Acute on chronic COPD exacerbation Acute on chronic diastolic CHF exacerbation Diabetes mellitus with hyperglycemia Transaminitis-Unknown etiology for transaminitis. Normocytic anemia - conitnue with morhpine gtt, as needed Ativan, and propanol. Patient currently appears comfortable. Continue with hospice management. Past Medical History Past Medical History: Atrial Fibrillation, Coronary Artery Disease (CAD), Cancer, COPD, Hypertension Additional Past Medical History / Comment(s): breast cancer 2000 post Lt lumpectomy & lymph node, and bladder cancer post , carpletunnel, chronic atrail fibrillation History of Any Multi-Drug Resistant Organisms: None Reported Past Surgical History: Back Surgery, Joint Replacement, Orthopedic Surgery, Pacemaker, Tonsillectomy, Tubal Ligation Additional Past Surgical History / Comment(s): bilat knees, rt shoulder repair, lung nodule removal, both carotids repaired (occluded) Past Anesthesia/Blood Transfusion Reactions: No Reported Reaction Type of Cardiac Device: Permanent Pacemaker Device Placement Date:: 02/16/2017 Past Psychological History: Anxiety, Depression Smoking Status: Former smoker Past Alcohol Use History: None Reported Past Drug Use History: None Reported - Past Family History Mother Family Medical History: COPD Medications and Allergies Home Medications Medication Instructions Recorded Confirmed Type Metoprolol Tartrate [Lopressor] 100 mg PO BID@0800,1700 02/17/22 06/01/22 History Pantoprazole Sodium [Protonix] 40 mg PO BID@0800,1700 02/17/22 06/01/22 History rOPINIRole HCL [Requip] 2 mg PO BID@0800,2100 02/17/22 06/01/22 History metFORMIN HCL [Glucophage] 500 mg PO BID@0800,1700 04/06/22 06/01/22 History Albuterol Inhaler [Ventolin Hfa 2 puff INHALATION RT-Q4H PRN #1 04/12/22 06/01/22 Rx Inhaler] each Cholecalciferol [Vitamin D3 (25 25 mcg PO HS@2100 05/04/22 06/01/22 History Mcg = 1000 Iu)] lisinopriL [Zestril] 5 mg PO DAILY@0800 05/04/22 06/01/22 History Ipratropium-Albuterol Nebulize 3 mg INHALATION RT-QID@08,12,17,05/22/22 06/01/22 History [Duoneb 0.5 mg-3 mg/3 ml Soln] PRN Spironolactone [Aldactone] 50 mg PO DAILY@0800 05/22/22 06/01/22 History Warfarin Sodium [Jantoven] 5 mg PO DAILY@1700 05/22/22 06/01/22 History Benzonatate [Tessalon Perles] 100 mg PO TID PRN cap 05/24/22 06/01/22 Rx oxyCODONE HCL/ACETAMINOPHEN 1 tab PO Q6HR PRN #12 tab 05/24/22 06/01/22 Rx [Percocet 10-325 mg] Acetaminophen [Tylenol] 650 mg PO Q4H PRN 06/01/22 06/01/22 History Aspirin 81 mg PO DAILY@1200 06/01/22 06/01/22 History Atorvastatin [Lipitor] 80 mg PO HS@2100 06/01/22 06/01/22 History Budesonide-Formot 160-4.5 Mcg 2 puff INHALATION RT-BID@0800,1700 06/01/22 06/01/22 History [Symbicort 160-4.5 Mcg Inhaler] Insulin Detemir [Levemir Flextouch 15 units SQ HS@2130 06/01/22 06/01/22 History Pen] LORazepam [Ativan] 0.5 mg PO DAILY PRN 06/01/22 06/01/22 History LORazepam [Ativan] 1 mg PO HS PRN 06/01/22 06/01/22 History Magnesium Hydroxide [Milk of 7,200 mg PO DAILY PRN 06/01/22 06/01/22 History Magnesia Concentrate] Magnesium Oxide [Mag-Ox] 400 mg PO BID@0800,1700 06/01/22 06/01/22 History Na Phos,M-B/Na Phos,Di-Ba [Fleet 133 ml RECTAL DAILY PRN 06/01/22 06/01/22 History Adult] Torsemide [Demadex] 40 mg PO DAILY@0800 06/01/22 06/01/22 History bisacodyL [Dulcolax] 10 mg RECTAL DAILY PRN 06/01/22 06/01/22 History polyethylene glycoL 3350 [Miralax] 17 gm PO DAILY@0800 06/01/22 06/01/22 History predniSONE See Taper PO DIRECTED 06/01/22 06/01/22 History Allergies Allergy/AdvReac Type Severity Reaction Status Date / Time morphine Allergy Itching Verified 06/01/22 21:56 tizanidine [From Zanaflex] Allergy Unknown Verified 06/01/22 21:56 zolpidem [From Ambien] Allergy Unknown Verified 06/01/22 21:56 gabapentin AdvReac Hallucinati Verified 06/01/22 21:56 ons hydromorphone [From Dilaudid] AdvReac Hallucinati Verified 06/01/22 21:56 ons pentazocine [From Talwin] AdvReac Hallucinati Verified 06/01/22 21:56 ons pregabalin [From Lyrica] AdvReac Hallucinati Verified 06/01/22 21:56 ons Physical Exam Osteopathic Statement: *. No significant issues noted on an osteopathic structural exam other than those noted in the History and Physical/Consult. Vitals: Vital Signs Pulse Resp Pulse Ox 06/08/22 14:00 10 L 06/08/22 11:21 10 L 06/08/22 08:17 97 06/08/22 08:00 10 L 06/08/22 04:00 62 12 96 06/08/22 01:53 14 06/08/22 00:00 65 16 100 06/07/22 21:05 60 14 06/07/22 20:00 14 Intake and Output 06/08/22 06/08/22 06/08/22 06:59 14:59 22:59 Intake Total 6.97 15 Output Total 600 Balance -593.03 15 Intake: IV 15 Morphine Sulfate (100 mg/ 15 2 ml) 100 mg In Sodium Chloride 0.9% 100 ml @ 4 MG/HR 4.08 mls/hr IV . Q24H PAULA Rx#:[id number] Intake, IV Titration 6.97 Amount Morphine Sulfate (100 mg/ 6.97 2 ml) 100 mg In Sodium Chloride 0.9% 100 ml @ 4 MG/HR 4.08 mls/hr IV . Q24H PAULA Rx#:[id number] Output: Urine 600
[2022-06-08] MEDS: LORazepam 2 MG/ML INJ IV PRN (15:55)
[2022-06-08 21:43] VITALS: RESP 8
--- NOTE | 2022-06-09 10:34 | P.DS ---
Providers Date of admission: 06/07/22 19:29 Expected date of discharge: 06/08/22 Attending physician: Solange Cabrera MD Primary care physician: Jose Butcher Hospital Course: Admitting diagnoses: Acute on chronic hypoxic respiratory failure Discharge diagnoses: Patient 06/08/2022 at 2215 hrs. Hospital course: Patient is an 81-year-old female with atrial fibrillation, complete heart block s/p dual chamber pacemaker, and COPD on 2L home O2 whopresented for dyspnea and cough. She has had multiple recent admissions. She was readmitted on 06/02 through 06/03 for 2 days acute exacerbation of COPD and acute exacerbation of congestive heart failure. She had worsening of her condition and mentation felt to be secondary to CO2 retention. Due to the progressive nature of her COPD family elected hospice care. She was subsequently discharged and readmitted to inpatient hospice. Patient is was nonresponsive. No family is present at bedside. All information is gathered from thorough chart review of recent hospitalization. Unable to obtain review of systems as patient is unresponsive. Acute metabolic encephalopathy A fib Coagulopathy Acute on chronic hypoxic hypercapnic respiratory failure Acute on chronic COPD exacerbation Acute on chronic diastolic CHF exacerbation Diabetes mellitus with hyperglycemia Transaminitis-Unknown etiology for transaminitis. Normocytic anemia - Conitnue with morhpine gtt, as needed Ativan, and propanol. Patient was placed on hospice and patient shortly after. Patient Condition at Discharge: Poor Plan - Discharge Summary New Discharge Prescriptions: No Action rOPINIRole HCL [Requip] 2 mg PO BID@0800,2100 Metoprolol Tartrate [Lopressor] 100 mg PO BID@0800,1700 metFORMIN HCL [Glucophage] 500 mg PO BID@0800,1700 Albuterol Inhaler [Ventolin Hfa Inhaler] 2 puff INHALATION RT-Q4H PRN #1 each PRN Reason: Shortness Of Breath Spironolactone [Aldactone] 50 mg PO DAILY@0800 oxyCODONE HCL/ACETAMINOPHEN [Percocet 10-325 mg] 1 tab PO Q6HR PRN #12 tab PRN Reason: Pain predniSONE See Taper PO DIRECTED Magnesium Hydroxide [Milk of Magnesia Concentrate] 7,200 mg PO DAILY PRN PRN Reason: Constipation Acetaminophen [Tylenol] 650 mg PO Q4H PRN PRN Reason: Pain Or Fever > 100.5 Budesonide-Formot 160-4.5 Mcg [Symbicort 160-4.5 Mcg Inhaler] 2 puff INHALATION RT-BID@0800,1700 Magnesium Oxide [Mag-Ox] 400 mg PO BID@0800,1700 Insulin Detemir [Levemir Flextouch Pen] 15 units SQ HS@2130 Torsemide [Demadex] 40 mg PO DAILY@0800 Atorvastatin [Lipitor] 80 mg PO HS@2100 Aspirin 81 mg PO DAILY@1200 Pantoprazole Sodium [Protonix] 40 mg PO BID@0800,1700 lisinopriL [Zestril] 5 mg PO DAILY@0800 Cholecalciferol [Vitamin D3 (25 Mcg = 1000 Iu)] 25 mcg PO HS@2100 Ipratropium-Albuterol Nebulize [Duoneb 0.5 mg-3 mg/3 ml Soln] 3 mg INHALATION RT-QID@08,12,17,21 PRN PRN Reason: Shortness Of Breath Warfarin Sodium [Jantoven] 5 mg PO DAILY@1700 Benzonatate [Tessalon Perles] 100 mg PO TID PRN cap PRN Reason: Cough bisacodyL [Dulcolax] 10 mg RECTAL DAILY PRN PRN Reason: Constipation Na Phos,M-B/Na Phos,Di-Ba [Fleet Adult] 133 ml RECTAL DAILY PRN PRN Reason: Constipation LORazepam [Ativan] 0.5 mg PO DAILY PRN PRN Reason: Anxiety LORazepam [Ativan] 1 mg PO HS PRN PRN Reason: Anxiety polyethylene glycoL 3350 [Miralax] 17 gm PO DAILY@0800 Discharge Medication List Metoprolol Tartrate [Lopressor] 100 mg PO BID@0800,1700 02/17/22 [History] Pantoprazole Sodium [Protonix] 40 mg PO BID@0800,1700 02/17/22 [History] rOPINIRole HCL [Requip] 2 mg PO BID@0800,2100 02/17/22 [History] metFORMIN HCL [Glucophage] 500 mg PO BID@0800,1700 04/06/22 [History] Albuterol Inhaler [Ventolin Hfa Inhaler] 2 puff INHALATION RT-Q4H PRN #1 each 04/12/22 [Rx] Cholecalciferol [Vitamin D3 (25 Mcg = 1000 Iu)] 25 mcg PO HS@209905/04/22 [History] lisinopriL [Zestril] 5 mg PO DAILY@0805/04/22 [History] Ipratropium-Albuterol Nebulize [Duoneb 0.5 mg-3 mg/3 ml Soln] 3 mg INHALATION RT-QID@08,12,17, PRN 05/22/22 [History] Spironolactone [Aldactone] 50 mg PO DAILY@0800 05/22/22 [History] Warfarin Sodium [Jantoven] 5 mg PO DAILY@169905/22/22 [History] Benzonatate [Tessalon Perles] 100 mg PO TID PRN cap 05/24/22 [Rx] oxyCODONE HCL/ACETAMINOPHEN [Percocet 10-325 mg] 1 tab PO Q6HR PRN #12 tab 05/24/22 [Rx] Acetaminophen [Tylenol] 650 mg PO Q4H PRN 06/01/22 [History] Aspirin 81 mg PO DAILY@1200 06/01/22 [History] Atorvastatin [Lipitor] 80 mg PO HS@209906/01/22 [History] Budesonide-Formot 160-4.5 Mcg [Symbicort 160-4.5 Mcg Inhaler] 2 puff INHALATION RT-BID@0800,17006/01/22 [History] Insulin Detemir [Levemir Flextouch Pen] 15 units SQ HS@21306/01/22 [History] LORazepam [Ativan] 0.5 mg PO DAILY PRN 06/01/22 [History] LORazepam [Ativan] 1 mg PO HS PRN 06/01/22 [History] Magnesium Hydroxide [Milk of Magnesia Concentrate] 7,200 mg PO DAILY PRN 06/01/22 [History] Magnesium Oxide [Mag-Ox] 400 mg PO BID@0800,1700 06/01/22 [History] Na Phos,M-B/Na Phos,Di-Ba [Fleet Adult] 133 ml RECTAL DAILY PRN 06/01/22 [History] Torsemide [Demadex] 40 mg PO DAILY@0800 06/01/22 [History] bisacodyL [Dulcolax] 10 mg RECTAL DAILY PRN 06/01/22 [History] polyethylene glycoL 3350 [Miralax] 17 gm PO DAILY@0800 06/01/22 [History] predniSONE See Taper PO DIRECTED 06/01/22 [History] Discharge Disposition: - Preliminary Cause of Preliminary Cause of : hyoxic resporatory failure hospice
== END 2022-06-08 22:15 | disposition expired | DRG 951 ==
LOC: 3SCARD 19:29
PROVIDERS: ADMIT Family Medicine; ATTEND Family Medicine
DX: Z51.5 Encounter for palliative care (principal); G93.41 Metabolic encephalopathy; I50.33 Acute on chronic diastolic (congestive) heart failure; J96.21 Acute and chronic respiratory failure with hypoxia; J96.22 Acute and chronic respiratory failure with hypercapnia; D68.9 Coagulation defect, unspecified; E87.29 Other acidosis; I44.2 Atrioventricular block, complete; J44.1 Chronic obstructive pulmonary disease with (acute) exacerbation; Z66 Do not resuscitate; D64.9 Anemia, unspecified; E11.65 Type 2 diabetes mellitus with hyperglycemia; F32.A Depression, unspecified; I25.10 Atherosclerotic heart disease of native coronary artery without angina pectoris; F41.9 Anxiety disorder, unspecified; I11.0 Hypertensive heart disease with heart failure; I48.91 Unspecified atrial fibrillation; R74.01 Elevation of levels of liver transaminase levels; Z79.01 Long term (current) use of anticoagulants; Z79.4 Long term (current) use of insulin; Z79.82 Long term (current) use of aspirin; Z79.51 Long term (current) use of inhaled steroids; Z79.84 Long term (current) use of oral hypoglycemic drugs; Z79.899 Other long term (current) drug therapy; Z85.3 Personal history of malignant neoplasm of breast; Z87.891 Personal history of nicotine dependence; Z95.0 Presence of cardiac pacemaker; Z99.81 Dependence on supplemental oxygen; Z88.5 Allergy status to narcotic agent; Z88.8 Allergy status to other drugs, medicaments and biological substances; Z98.51 Tubal ligation status
CPT/HCPCS: 94760